=== PATIENT | female | born 1965 | race Two or more races ===

== ENCOUNTER 2020-05-29 07:18 | Outpatient (REF) | payer OTHER, SELFPAY | END 2020-05-29 07:19 | disposition home or self-care (01) | LOC: HO.LAB 07:18 | PROVIDERS: Visit Provider Internal Medicine | DX: Z20.828 Contact with and (suspected) exposure to other viral communicable diseases (principal) | CPT/HCPCS: U0003 ==

== ENCOUNTER 2021-02-04 13:15 | Outpatient (REF) | payer OTHER, SELFPAY ==
--- NOTE | ~2021-02-04 | XR_ITS ---
EXAMINATION: CHEST X-RAY AND PELVIS AND BILATERAL HIP X-RAY CLINICAL INFORMATION: Shortness of breath. Bilateral hip pain. COMPARISON: Previous chest x-ray most recent April 2018 and right hip x-ray April 2014 TECHNIQUE: 2 views of the chest, one view of the pelvis and 2 views of each hip FINDINGS: Chest: The cardiac and mediastinal contours are stable. The lungs are clear. There is no pleural effusion or pneumothorax. Bony structures are unremarkable. Pelvis and bilateral hips: Bone alignment is normal. No fracture or dislocation is seen. There is question of a 1 cm sclerotic density in the left mid femoral shaft. This is seen on one view only. This may represent a bone island. Joint spaces are normal. The bones of the pelvis are unremarkable. There is a soft tissue calcification adjacent to the left greater trochanter. Soft tissues are otherwise unremarkable. XR/XR chest 2V IMPRESSION: Chest: Unremarkable exam Pelvis and bilateral hip x-ray: Small soft tissue calcification adjacent to the left greater trochanter. Question small sclerotic lesion in the left femoral shaft.
--- NOTE | ~2021-02-04 | XR_ITS ---
EXAMINATION: CHEST X-RAY AND PELVIS AND BILATERAL HIP X-RAY CLINICAL INFORMATION: Shortness of breath. Bilateral hip pain. COMPARISON: Previous chest x-ray most recent April 2018 and right hip x-ray April 2014 TECHNIQUE: 2 views of the chest, one view of the pelvis and 2 views of each hip FINDINGS: Chest: The cardiac and mediastinal contours are stable. The lungs are clear. There is no pleural effusion or pneumothorax. Bony structures are unremarkable. Pelvis and bilateral hips: Bone alignment is normal. No fracture or dislocation is seen. There is question of a 1 cm sclerotic density in the left mid femoral shaft. This is seen on one view only. This may represent a bone island. Joint spaces are normal. The bones of the pelvis are unremarkable. There is a soft tissue calcification adjacent to the left greater trochanter. Soft tissues are otherwise unremarkable. XR/XR hip BI w PEL1V IMPRESSION: Chest: Unremarkable exam Pelvis and bilateral hip x-ray: Small soft tissue calcification adjacent to the left greater trochanter. Question small sclerotic lesion in the left femoral shaft.
== END 2021-02-04 13:16 | disposition home or self-care (01) ==
LOC: HO.XRAY 13:15
PROVIDERS: PCP Internal Medicine; Visit Provider Internal Medicine
DX: R06.02 Shortness of breath (principal); M25.552 Pain in left hip; M25.551 Pain in right hip
CPT/HCPCS: 71046; 73521

== ENCOUNTER → 2021-02-22 10:12 | Outpatient (BNVA) | payer OTHER, SELFPAY | PROVIDERS: Visit Provider Physician Assistant ==

== ENCOUNTER → 2021-02-24 10:53 | Outpatient (BNVA) | payer OTHER, SELFPAY | PROVIDERS: Visit Provider Dietitian, Registered | DX: E66.01 Morbid (severe) obesity due to excess calories (principal); Z68.41 Body mass index [BMI] 40.0-44.9, adult | CPT/HCPCS: 97802 ==

== ENCOUNTER → 2021-03-07 10:39 | Outpatient (BNVA) | payer OTHER, SELFPAY | PROVIDERS: Visit Provider Internal Medicine ==

== ENCOUNTER 2021-03-29 10:18 | Outpatient (REF) | payer OTHER, SELFPAY ==
--- NOTE | ~2021-03-29 | MR_ITS ---
EXAMINATION: MR LUMBAR SPINE WITHOUT CONTRAST CLINICAL INFORMATION: Sciatica. Chronic low back pain. COMPARISON: None TECHNIQUE: MRI of the lumbar spine was obtained using routine sequences without contrast. Limited study with motion artifacts. FINDINGS: VERTEBRAL BODIES AND PARASPINAL STRUCTURES: There is an intraosseous hemangioma in the L4 vertebral body. Mild anterolisthesis noted at the L3-L4 level. There are no compression fractures. The remainder of the marrow signal is fairly homogeneous. The paraspinal soft tissues appear normal. The imaged bony pelvis is unremarkable. There is a questionable small 8 mm nodular lesion arising from the anterior left adrenal gland, incompletely assessed. CONUS MEDULLARIS AND CAUDA EQUINA: Normal, terminating at the level of L1. No lower cord signal abnormality is seen. The cauda equina nerve roots are normal. SPINAL LEVELS: T12-L1: Mild posterior disc bulge and facet arthropathy, more so on the left side contributing to mild central canal stenosis. Patent foramina. L1-L2: No disc pathology. No central canal stenosis or foraminal narrowing. L2-L3: Mild right lateralized disc bulge with mild right foraminal encroachment. No central canal stenosis. L3-L4: There is a 5 mm synovial cyst protruding from the anteromedial left facet joint into the central canal resulting in mild thecal sac deformity and mass effect upon the left L4 nerve root. Mild anterolisthesis and moderate facet degeneration with mild central canal stenosis. No foraminal narrowing. L4-L5: No disc pathology. Mild facet arthrosis. No central canal stenosis or foraminal narrowing. L5-S1: Eenz-xi-ursqaulo facet arthropathy. No disc abnormality. No central canal stenosis. Mild right foraminal narrowing. MR/MR lumbar spine wo con IMPRESSION: Mild anterolisthesis and moderate facet degeneration at the L3-L4 level with mild central canal stenosis. A 5 mm synovial cyst protrudes from the left facet joint into the canal with mass effect upon the left L4 nerve root. Mild central canal stenosis due to mild spondylitic changes at the T12-L1 level. Mild right lateralized disc bulge and mild right foraminal encroachment at the L2-L3 level. Partially visualized 8 mm left adrenal nodule which is too small to accurately characterize but statistically likely represents an incidental adrenal adenoma.
== END 2021-03-29 10:19 | disposition home or self-care (01) ==
LOC: HO.MRI 10:18
PROVIDERS: Visit Provider Internal Medicine
DX: M54.30 Sciatica, unspecified side (principal)
CPT/HCPCS: 72148

== ENCOUNTER → 2021-04-08 08:23 | Outpatient (BNVA) | payer OTHER, SELFPAY | PROVIDERS: PCP Internal Medicine; Visit Provider Internal Medicine ==

== ENCOUNTER 2021-04-25 10:53 | Outpatient (REF) | payer OTHER, SELFPAY ==
[2021-04-25 12:12] LABS: MANUAL DIFF FLAG NO
[2021-04-25 12:29] LABS: Basophils Absolute Auto 0.1 X10*3/uL (0.0-0.2); Basophils Percent Auto 0.6 % (0-2); Eosinophils Absolute Auto 0.2 X10*3/uL (0.0-0.4); Eosinophils Percent Auto 2.6 % (0-4); Hematocrit 41.2 % (37-47); Hemoglobin 12.8 g/dl (12.0-16.0); Imm Gran Abs Auto 0.02 X10*3/uL (0.00-0.03); Imm Gran Pct Auto 0.2 % (0.0-0.4); Lymphocytes Absolute Auto 2.1 X10*3/uL (1.2-4.9); Lymphocytes Percent Auto 23.9 % (20-40); Mean Corpuscular HGB Conc 31.1 g/dl (31.0-35.0); Mean Corpuscular Hemoglobin 24.6 pg (27.0-33.0); Mean Corpuscular Volume 79.2 fL (80-98); Mean Platelet Volume 10.4 fL (9.4-12.3); Monocytes Absolute Auto 0.7 X10*3/uL (0.1-1.2); Monocytes Percent Auto 7.9 % (2-11); Neutrophils Absolute Auto 5.7 X10*3/uL (2.0-8.3); Neutrophils Percent Auto 64.8 % (45-73); Platelet Count 320 X10*3/uL (160-400); Red Cell Distribution Width 16.7 % (11.0-16.0); White Blood Count 8.8 X10*3/uL (4.8-10.8)
[2021-04-25 13:08] LABS: Vitamin D 25-OH Total 33.2 ng/mL (>30)
[2021-04-25 13:12] LABS: Folate 10.5 ng/mL (> or = 4.0); Vitamin B12 342 pg/mL (200-900)
[2021-04-25 14:08] LABS: Alanine Aminotransferase 23 U/L (0-31); Albumin Level 4.2 g/dL (3.5-5.0); Alkaline Phosphatase 103 U/L (39-117); Anion Gap 14 (12-20); Aspartate Amino Transferase 21 U/L (5-31); Bilirubin Total 0.5 mg/dL (0.0-1.0); Blood Urea Nitrogen 13 mg/dL (9-16); Calcium 9.9 mg/dL (8.4-10.2); Carbon Dioxide 29 mmol/L (22-29); Chloride 103 mmol/L (96-108); Cholesterol 266 mg/dL; Estimated Glomerular Filt Rate > 60; Glucose Random 107 mg/dL (60-115); HDL Cholesterol 50 mg/dL; LDL Cholesterol Calculated 165 mg/dl; Potassium 4.2 mmol/L (3.3-5.1); Sodium 142 mmol/L (135-145); Total Protein 7.3 g/dL (6.5-8.0); Triglycerides 257 mg/dL
== END 2021-04-25 10:54 | disposition home or self-care (01) ==
LOC: HO.LAB 10:53
PROVIDERS: PCP Internal Medicine; Visit Provider Internal Medicine
DX: I10 Essential (primary) hypertension (principal); E78.00 Pure hypercholesterolemia, unspecified
CPT/HCPCS: 36415; 80053; 80061; 82306; 82607; 82746; 84443; 85025

== ENCOUNTER 2021-04-27 05:49 | Outpatient (REF) | payer OTHER, SELFPAY ==
--- NOTE | ~2021-04-27 | FL_ITS ---
EXAMINATION: XR FLUOROSCOPY WITH IMAGES CLINICAL INFORMATION: Left radiculopathy. COMPARISON: None. TECHNIQUE: Fluoroscopy performed by Emerald Funez. Fluoroscopy time: 0.5 minutes DAP: 2.02 Gycm2 Images: 2 FINDINGS: There are 2 images obtained revealing needle positioned posterior to L3-L4 disc level and contrast opacifying the posterior epidural space. Visualized bones are grossly unremarkable. FL/FL guidance in treatment room IMPRESSION: Fluoroscopy provided to referring physician for pain management.
== END 2021-04-27 05:50 | disposition home or self-care (01) ==
LOC: HO.RADIR 05:49
PROVIDERS: Visit Provider Internal Medicine
DX: M54.16 Radiculopathy, lumbar region (principal)
CPT/HCPCS: 62321; J1040; Q9967

== ENCOUNTER 2021-04-29 11:39 | Outpatient (REF) | payer OTHER, SELFPAY ==
[2021-04-29 13:54] LABS: MANUAL DIFF FLAG NO
[2021-04-29 14:15] LABS: Basophils Absolute Auto 0.1 X10*3/uL (0.0-0.2); Basophils Percent Auto 0.6 % (0-2); Eosinophils Absolute Auto 0.1 X10*3/uL (0.0-0.4); Eosinophils Percent Auto 1.3 % (0-4); Hematocrit 39.4 % (37-47); Hemoglobin 12.3 g/dl (12.0-16.0); Imm Gran Abs Auto 0.06 X10*3/uL (0.00-0.03); Imm Gran Pct Auto 0.6 % (0.0-0.4); Immature Retic Fraction 20.5 % (3.0-15.9); Lymphocytes Absolute Auto 2.4 X10*3/uL (1.2-4.9); Lymphocytes Percent Auto 22.3 % (20-40); Mean Corpuscular HGB Conc 31.2 g/dl (31.0-35.0); Mean Corpuscular Hemoglobin 24.6 pg (27.0-33.0); Mean Corpuscular Volume 78.8 fL (80-98); Mean Platelet Volume 10.3 fL (9.4-12.3); Monocytes Absolute Auto 0.8 X10*3/uL (0.1-1.2); Monocytes Percent Auto 7.5 % (2-11); Neutrophils Absolute Auto 7.4 X10*3/uL (2.0-8.3); Neutrophils Percent Auto 67.7 % (45-73); Platelet Count 320 X10*3/uL (160-400); Red Cell Distribution Width 16.9 % (11.0-16.0); Retic HGB Equivalent 28.4 pg (30.0-35.0); Reticulocyte Percent 1.6 % (0.5-1.8); White Blood Count 10.9 X10*3/uL (4.8-10.8)
[2021-04-29 14:35] LABS: Alanine Aminotransferase 22 U/L (0-31); Albumin Level 4.3 g/dL (3.5-5.0); Alkaline Phosphatase 106 U/L (39-117); Anion Gap 12 (12-20); Aspartate Amino Transferase 21 U/L (5-31); Bilirubin Total 0.4 mg/dL (0.0-1.0); Blood Urea Nitrogen 13 mg/dL (9-16); Calcium 9.9 mg/dL (8.4-10.2); Carbon Dioxide 30 mmol/L (22-29); Chloride 103 mmol/L (96-108); Estimated Glomerular Filt Rate > 60; Glucose Random 100 mg/dL (60-115); Iron 47 mcg/dL (30-160); Percent Iron Saturation 13 % (15-50); Potassium 4.2 mmol/L (3.3-5.1); Sodium 141 mmol/L (135-145); Total Iron Binding Capacity 376 mcg/dL (228-428); Total Protein 7.4 g/dL (6.5-8.0); Unsaturated Iron Binding 329 ug/dL
[2021-04-29 14:47] LABS: Estimated Average Glucose 126 mg/dL
[2021-04-29 14:56] LABS: Ferritin 40 ng/mL (10-250)
== END 2021-04-29 11:40 | disposition home or self-care (01) ==
LOC: HO.LAB 11:39
PROVIDERS: Absent Provider Internal Medicine; PCP Internal Medicine; Visit Provider Internal Medicine
DX: R13.10 Dysphagia, unspecified (principal); R71.8 Other abnormality of red blood cells; M25.512 Pain in left shoulder; M25.511 Pain in right shoulder
CPT/HCPCS: 36415; 80053; 82728; 83036; 83540; 85025; 85045

== ENCOUNTER 2021-05-27 09:54 | Outpatient (REF) | payer OTHER, SELFPAY ==
--- NOTE | ~2021-05-27 | FL_ITS ---
EXAMINATION: FL UPPER GI SERIES AND BARIUM SWALLOW CLINICAL INFORMATION: R13.10 - Dysphagia, unspecified; solids and liquids. COMPARISON: None TECHNIQUE: Upper GI series and barium swallow are performed using fluoroscopic evaluation in addition to multiple fluoroscopic spot views, including cine images during swallowing. The patient is imaged both upright and prone and using both thick and thin barium sulfate along with effervescent granules. Water siphon test performed. Fluoroscopy time: 1.4 minutes DAP: 15.59 Gycm2 Fluoroscopic spot images: 38 FINDINGS: There is normal esophageal motility. The cervical esophagus shows no web or diverticulum, No cervical achalasia. The thoracic esophagus show no obstruction, stricture, or ulceration. There is no hiatal hernia demonstrated. There is large amount of gastroesophageal reflux noted during the water siphon test to the proximal thoracic esophagus. The stomach shows no thickened folds or ulcer crater or outlet obstruction. The duodenal bulb is pliable and without ulcer crater or scarring. The post bulbar duodenum and the upper jejunal mucosal pattern are unremarkable. FL/FL upper GI w air w Ba Swallow IMPRESSION: 1. Gastroesophageal reflux to proximal thoracic esophagus during water siphon test. 2. No esophageal stricture or hiatal hernia. 3. No ulceration or scarring.
== END 2021-05-27 09:55 | disposition home or self-care (01) ==
LOC: HO.XRAY 09:54
PROVIDERS: Visit Provider Internal Medicine
DX: R13.10 Dysphagia, unspecified (principal)
CPT/HCPCS: 74246

== ENCOUNTER → 2021-06-06 14:34 | Outpatient (BNVA) | payer OTHER, SELFPAY | PROVIDERS: PCP Internal Medicine; Visit Provider Internal Medicine ==

== ENCOUNTER 2021-07-13 06:10 | Outpatient (REF) | payer OTHER, SELFPAY ==
--- NOTE | ~2021-07-13 | FL_ITS ---
EXAMINATION: XR FLUOROSCOPY WITH IMAGES CLINICAL INFORMATION: M47.816 - Spondylosis without myelopathy or radiculopathy COMPARISON: MR lumbar spine 03/29/2021 TECHNIQUE: Fluoroscopy performed by Dr. Gamal Frazier. Fluoroscopy time: 0.7 minutes DAP: 9.58 Gycm2 Images: 5 FINDINGS: Spinal needle is present at the L3 interlaminar space. There is epidural contrast seen. No vascular communication demonstrated. FL/FL guidance in treatment room IMPRESSION: Fluoroscopy for pain management procedure.
== END 2021-07-13 06:11 | disposition home or self-care (01) ==
LOC: HO.RADIR 06:10
PROVIDERS: Visit Provider Internal Medicine
DX: M47.816 Spondylosis without myelopathy or radiculopathy, lumbar region (principal); M71.38 Other bursal cyst, other site; M54.16 Radiculopathy, lumbar region
CPT/HCPCS: J1040; Q9967

== ENCOUNTER → 2021-08-12 09:55 | Outpatient (BNVA) | payer OTHER, SELFPAY | PROVIDERS: PCP Internal Medicine; Visit Provider Internal Medicine ==

== ENCOUNTER 2021-09-15 10:14 | Outpatient (REF) | payer OTHER, SELFPAY ==
--- NOTE | 2021-09-15 10:17 | EMG_ITS ---
Left tibial and peroneal motor studies were performed. Left sural, superficial, peroneal, medial, lateral, plantar studies were performed and tibial H-reflex was obtained. Paraspinal muscles were tested with a needle. IMPRESSION: 1. Mild sensory motor axonal peripheral neuropathy. 2. 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 MD SHEELA Alvarado/SOL / [id number]
== END 2021-09-15 10:15 | disposition home or self-care (01) ==
LOC: HO.NEURO 10:14
PROVIDERS: PCP Internal Medicine; Visit Provider Internal Medicine
DX: R20.0 Anesthesia of skin (principal)
CPT/HCPCS: 95886; 95910

== ENCOUNTER 2021-11-01 11:55 | Outpatient (REF) | payer OTHER, SELFPAY ==
[2021-11-01 13:23] LABS: Alanine Aminotransferase 27 U/L (0-31); Albumin Level 4.1 g/dL (3.5-5.0); Alkaline Phosphatase 103 U/L (39-117); Anion Gap 12 (12-20); Aspartate Amino Transferase 24 U/L (5-31); Bilirubin Total 0.5 mg/dL (0.0-1.0); Blood Urea Nitrogen 15 mg/dL (9-16); Calcium 9.7 mg/dL (8.4-10.2); Carbon Dioxide 30 mmol/L (22-29); Chloride 104 mmol/L (96-108); Cholesterol 199 mg/dL; Estimated Glomerular Filt Rate > 60; Glucose Random 95 mg/dL (60-115); HDL Cholesterol 48 mg/dL; LDL Cholesterol Calculated 119 mg/dl; Potassium 3.8 mmol/L (3.3-5.1); Sodium 142 mmol/L (135-145); Total Protein 7.1 g/dL (6.5-8.0); Triglycerides 160 mg/dL
[2021-11-01 14:01] LABS: Estimated Average Glucose 123 mg/dL; Hemoglobin A1c % 5.9 %
== END 2021-11-01 11:56 | disposition home or self-care (01) ==
LOC: HO.LAB 11:55
PROVIDERS: PCP Internal Medicine; Visit Provider Internal Medicine
DX: E78.00 Pure hypercholesterolemia, unspecified (principal)
CPT/HCPCS: 36415; 80053; 80061; 83036

== ENCOUNTER 2022-01-04 14:00 | Outpatient (RCR) | payer OTHER, SELFPAY ==
--- NOTE | 2021-11-16 12:41 | MHC.PT.EP ---
[facility] [place] Office [place] Office [place] Office [address] [phone] F: [phone] F: [phone] F: [phone] F: [phone] Physical Therapy Plan of Care Date of Evaluation: Date of Surgery: Diagnosis: This is a 56 yo female presenting to skilled PT with a script for pain in R shoulder Assessment: This is a 56 yo female presenting to skilled PT with a script for pain in R shoulder. Patient fell onto her R shoulder about 3 weeks ago. She went to [facility] urgent care, had x-rays (no fracture) but reported that she sprained it. PCP was consulted and referred to PT. Pain is located at the R shoulder and radiates to the elbow, pain is described as sharp and achy. She has been using icy hot and ice as well as massage from her . Assessment reveals pain that ranges up to a 10/10. She demos decreased ROM, decreased strength, impaired posture, increased tenderness to palpation and impaired joint mobility expected s/p fall and immobility from sling. She has a gross functional decline with all movements for ADLs and housework. She is a good candidate for skilled PT 2x/wk for 5wks. Frequency and Duration: The patient will be seen 2x/wk for 5wks Short Term Goals: I in HEP Demo good scap/retract/stab with HEP without need from cues from PT Usp Goals: Demos functional ROM and strength Improve SPADI by at least 10 points Improve pain at the worst to no more than 2/10 Demo proper lifting, squatting and carrying techniques without increase in pain or radiating symptoms Treatment Plan: Modalities to reduce pain, spasms and effusion. Manual therapy to restore motion and function. Therapeutic exercise to improve strength and flexibility. Neuromuscular re-education for posture and balance. Therapeutic activities to return to functional activities of daily living. Electronically signed by: Coral Zavala PT Please sign and return to therapist. Thank you for your referral.
--- NOTE | 2022-02-06 17:39 | MHC.PT.DC ---
[facility] [place] Office [place] Office [place] Office [address] [phone] F: [phone] F: [phone] F: [phone] F: [phone] Physical Therapy Discharge Report Diagnosis: This is a 56 yo female presenting to skilled PT with a script for pain in R shoulder Date of Surgery: Date of Evaluation: 11/16/21 Date of Discharge: 02/06/22 Treatments to Date: 8 Cancellations to Date: No Shows to Date: Discharge Status: Patient Elected to Stop Discharge Summary: At the last tx session, pt seeing ortho and pcp soon, wants to hold PT as she does not feel like she is getting better. She is still in alot of pain and does not feel like she is progressing anymore. Holding PT for now. DC'd chart after 30 days. Electronically signed by: Coral Zavala PT Please sign and return to therapist. Thank you for your referral.
== END 2022-02-06 17:40 | disposition home or self-care (01) ==
LOC: HO.PTCHIC 14:00
PROVIDERS: PCP Internal Medicine; Visit Provider Internal Medicine
DX: M25.511 Pain in right shoulder (principal)
CPT/HCPCS: 97014; 97035; 97110; 97140; 97162

== ENCOUNTER 2022-01-20 07:26 | Outpatient (REF) | payer OTHER, SELFPAY ==
--- NOTE | ~2022-01-20 | XR_ITS ---
EXAMINATION: XR SHOULDER, RIGHT CLINICAL INFORMATION: Pain COMPARISON: None TECHNIQUE: 3 views of the right shoulder. FINDINGS: There is mild loss of AC joints space with inferior periarticular spurring. The glenohumeral joint space is maintained normal. No visible acute fracture, dislocation or subluxation seen. XR/XR shoulder RT min 2V IMPRESSION: Mild degenerative changes right AC joint. No visible acute fracture, dislocation or subluxation seen.
== END 2022-01-20 07:27 | disposition home or self-care (01) ==
LOC: HO.HOSX 07:26
PROVIDERS: Visit Provider Physician Assistant
DX: M25.511 Pain in right shoulder (principal)
CPT/HCPCS: 73030

== ENCOUNTER 2022-02-08 18:16 | Outpatient (REF) | payer OTHER, SELFPAY ==
--- NOTE | ~2022-02-08 | MR_ITS ---
EXAMINATION: MR SHOULDER WITHOUT CONTRAST, RIGHT CLINICAL INFORMATION: Right shoulder and upper arm pain following a fall 1-2 months ago. COMPARISON: None TECHNIQUE: MRI of the shoulder without contrast was performed on a high-field scanner. FINDINGS: ROTATOR CUFF: Complete, full-thickness tears of the supraspinatus and infraspinatus tendons measuring up to 3.7 cm in AP dimension and 3.8 cm in ML dimension. The torn tendon fibers are retracted to the glenohumeral articulation. There is moderate supraspinatus and infraspinatus muscle atrophy. Prominent subscapularis tendinosis with distal articular surface and intrasubstance partial tearing measuring 2.8 cm in ML dimension. BICEPS: The proximal long head biceps tendinosis. CORACOACROMIAL ARCH: The undersurface of the acromion is flat with no subacromial spur. Dvtudtgu-dv-[id number] acromioclavicular osteoarthritis. LABRUM/CAPSULE: Irregularity and degeneration of the superior labrum without a displaced undersurface tear. Intact inferior joint capsule. GLENOHUMERAL JOINT/MARROW: Moderate joint effusion. No acute osseous injury. MR/MR shoulder RT wo con IMPRESSION: 1. Complete supraspinatus and infraspinatus tendon tears with retraction of the torn tendon fibers to the glenohumeral articulation. Moderate supraspinatus and infraspinatus muscle atrophy. 2. Prominent subscapularis tendinosis with distal articular surface and intrasubstance partial tearing measuring 2.8 cm in minimal dimension. 3. Proximal long head biceps tendinosis. 4. Degenerative signal within the superior labrum without displaced tearing. Moderate glenohumeral joint effusion. 5. Mbytveim-wn-iwlxea acromioclavicular osteoarthritis.
== END 2022-02-08 18:17 | disposition home or self-care (01) ==
LOC: HO.MRI 18:16
PROVIDERS: Visit Provider Physician Assistant
DX: M75.101 Unspecified rotator cuff tear or rupture of right shoulder, not specified as traumatic (principal); M75.41 Impingement syndrome of right shoulder
CPT/HCPCS: 73221

== ENCOUNTER 2022-05-08 13:08 | Outpatient (REF) | payer OTHER, SELFPAY ==
--- NOTE | ~2022-05-08 | XR_ITS ---
EXAMINATION: XR CHEST CLINICAL INFORMATION: Pneumonia, unspecified organism COMPARISON: 02/14/2021. TECHNIQUE: 2 views of the chest were obtained. Patient slightly rotated to the right. FINDINGS: No focal infiltrates or vascular congestion seen. Pleural surfaces are clear. There appears to be a pectus excavatum. No thoracic compression fractures appear XR/XR chest 2V IMPRESSION: No evidence for acute process.
[2022-05-08 13:51] LABS: Binax Internal Control QC Valid; Binax Now Covid-19 Ag Negative (Negative); Binax Performed by: HO.BONILM
== END 2022-05-08 13:09 | disposition home or self-care (01) ==
LOC: HO.HMGCX 13:08
PROVIDERS: PCP Internal Medicine; Visit Provider Internal Medicine
DX: Z20.822 Contact with and (suspected) exposure to COVID-19 (principal); J18.9 Pneumonia, unspecified organism; J06.9 Acute upper respiratory infection, unspecified
CPT/HCPCS: 71046; 87811; C9803

== ENCOUNTER 2022-05-12 12:54 | Outpatient (REF) | payer OTHER, SELFPAY ==
[2022-05-12 13:11] LABS: MANUAL DIFF FLAG NO
[2022-05-12 13:40] LABS: Basophils Absolute Auto 0.1 X10*3/uL (0.0-0.2); Basophils Percent Auto 0.6 % (0-2); Eosinophils Absolute Auto 0.3 X10*3/uL (0.0-0.4); Eosinophils Percent Auto 2.3 % (0-4); Hematocrit 45.4 % (37.0-47.0); Hemoglobin 14.2 g/dl (12.0-16.0); Imm Gran Abs Auto 0.05 X10*3/uL (0.00-0.03); Imm Gran Pct Auto 0.4 % (0.0-0.4); Lymphocytes Absolute Auto 2.2 X10*3/uL (1.2-4.9); Lymphocytes Percent Auto 19.9 % (20-40); Mean Corpuscular HGB Conc 31.3 g/dl (31.0-35.0); Mean Corpuscular Hemoglobin 24.1 pg (27.0-33.0); Mean Corpuscular Volume 76.9 fL (80.0-98.0); Mean Platelet Volume 10.3 fL (9.4-12.3); Monocytes Absolute Auto 0.9 X10*3/uL (0.1-1.2); Monocytes Percent Auto 8.3 % (2-11); Neutrophils Absolute Auto 7.7 x10*3/uL (2.0-8.3); Neutrophils Percent Auto 68.5 % (45-73); Platelet Count 324 X10*3/uL (160-400); Red Cell Distribution Width 16.2 % (11.0-16.0); White Blood Count 11.2 X10*3/uL (4.8-10.8)
[2022-05-12 13:48] LABS: Appearance Urine Cloudy; Color Urine Dark Yellow; Glucose Urine UA Negative (Negative); Leukocyte Esterase Urine Trace (Negative); Nitrite Urine Negative (Negative); PH 5.5 (5.0-9.0); Specific Gravity - Urine >= 1.030 (1.005-1.025); UMIC TRIGGER UA YES; Urine Blood Negative (Negative); Urine Ketones 15 mg/dL (Negative); Urine Protein >=1000 (4+) mg/dL (Neg-Trace)
[2022-05-12 13:48] LABS: Estimated Average Glucose 126 mg/dL
[2022-05-12 14:03] LABS: Bacteria Urine None Seen (None Seen); Calcium Oxalate Crystals Urine Present; Squamous Epithelial Cell Urine >20 /HPF (0-2)
[2022-05-12 14:35] LABS: Folate > 20.0 ng/mL (> or = 4.0); Vitamin B12 490 pg/mL (200-900)
== END 2022-05-12 12:55 | disposition home or self-care (01) ==
LOC: HO.LAB 12:54
PROVIDERS: PCP Internal Medicine; Visit Provider Internal Medicine
DX: E78.00 Pure hypercholesterolemia, unspecified (principal); R73.02 Impaired glucose tolerance (oral)
CPT/HCPCS: 36415; 81001; 82607; 82746; 83036; 85025

== ENCOUNTER 2022-05-12 15:40 | Emergency (ER) | payer OTHER, SELFPAY ==
[2022-05-12] VITALS (8 sets, daily range): BP systolic 169–239; BP diastolic 86–139; PULSE 78–84; RESP 17–23; TEMP 36.8–37; O2SAT 92–96; BMI 40.4
--- NOTE | ~2022-05-12 | CT_ITS ---
EXAM: CT scan of the head and cervical spine. INDICATION: Reason for Exam headaches and hypertensive emergency TECHNIQUE: A noncontrast CT scan was performed from the skull base to the vertex. A noncontrast CT scan of the cervical spine was performed from the base of the skull through T1 at 2.5 mm and 1.25 mm collimation. Coronal and sagittal reformats were obtained at the acquisition workstation. This CT examination was performed using dose optimization techniques as appropriate, variously including the following: *Automated exposure control *Adjustment of mA and/or kV according to patient size (this includes techniques or standardized protocols for targeted exams where dose is matched to indication/reason for exam; i.e. extremities or head) *Use of iterative reconstruction technique DLP: 631 mGy-cm COMPARISON: None FINDINGS: Head: There is no evidence of acute intracranial hemorrhage or territorial infarction. Garcia-white matter differentiation is preserved. No abnormal mass effect or midline shift. No extra-axial fluid collections. No abnormal attenuation is demonstrated within the brain parenchyma. 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 In addition, there is involvement of the striatocapsular regions consistent with involvement of the lenticular striate arteries as well. The ventricles and sulcal spaces are proportional without hydrocephalus. Proportional prominence of the ventricles and sulcal spaces. No acute osseous or soft tissue abnormalities. The mastoid air cells and visualized portions of the paranasal sinuses are well aerated. Cervical Spine: The atlantooccipital and atlantoaxial articulations remain well aligned. Straightening of the normal cervical lordosis. Otherwise, there is anatomic alignment of the vertebral bodies and posterior elements. No evidence of acute fracture or subluxation. Moderate degenerative disc disease most notable at C6-C7. There is no prevertebral soft tissue swelling. The thyroid gland and remaining cervical soft tissues are notable for moderate cord is enlargement of the thyroid gland. The lung apices demonstrate no abnormalities. CT/CT cervical spine wo IV con IMPRESSION: No acute intracranial pathology. No acute fracture subluxation cervical spine.
--- NOTE | 2022-05-12 16:35 | ECG_ITS ---
Test Reason : HYPERTENSION Blood Pressure : / mmHG Vent. Rate : 078 BPM Atrial Rate : 078 BPM P-R Int : 128 ms QRS Dur : 078 ms QT Int : 404 ms P-R-T Axes : -29 -13 007 degrees QTc Int : 460 ms Normal sinus rhythm Moderate voltage criteria for LVH, may be normal variant ( R in aVL , Patrick product ) Abnormal ECG When compared with ECG of 22-AUG-2015 07:24, QT has lengthened Heart rate has increased Referred By: Generic ED Physician Electronically Signed By:PRADEEP VILLEGAS MD
[2022-05-12] MEDS: Acetaminophen 325 MG TABLET 650 MG PO (16:40)
[2022-05-12 16:53] LABS: MANUAL DIFF FLAG NO
[2022-05-12 17:01] LABS: Basophils Absolute Auto 0.1 X10*3/uL (0.0-0.2); Basophils Percent Auto 0.8 % (0-2); Eosinophils Absolute Auto 0.2 X10*3/uL (0.0-0.4); Eosinophils Percent Auto 1.8 % (0-4); Hematocrit 43.1 % (37.0-47.0); Hemoglobin 13.7 g/dl (12.0-16.0); Imm Gran Abs Auto 0.06 X10*3/uL (0.00-0.03); Imm Gran Pct Auto 0.5 % (0.0-0.4); Lymphocytes Absolute Auto 2.6 X10*3/uL (1.2-4.9); Lymphocytes Percent Auto 21.8 % (20-40); Mean Corpuscular HGB Conc 31.8 g/dl (31.0-35.0); Mean Corpuscular Hemoglobin 24.7 pg (27.0-33.0); Mean Corpuscular Volume 77.7 fL (80.0-98.0); Mean Platelet Volume 10.1 fL (9.4-12.3); Monocytes Absolute Auto 1.1 X10*3/uL (0.1-1.2); Neutrophils Absolute Auto 7.9 x10*3/uL (2.0-8.3); Neutrophils Percent Auto 66.1 % (45-73); Platelet Count 300 X10*3/uL (160-400); Red Blood Count 5.55 X10*6/uL (4.20-5.50); Red Cell Distribution Width 17.4 % (11.0-16.0)
[2022-05-12 17:16] LABS: Alanine Aminotransferase 40 U/L (0-31); Albumin Level 4.5 g/dL (3.5-5.0); Alkaline Phosphatase 115 U/L (39-117); Anion Gap 19 (12-20); Aspartate Amino Transferase 45 U/L (5-31); Bilirubin Total 0.3 mg/dL (0.0-1.0); Blood Urea Nitrogen 17 mg/dL (9-16); Carbon Dioxide 24 mmol/L (22-29); Chloride 103 mmol/L (96-108); Estimated Glomerular Filt Rate > 60; Glucose Random 97 mg/dL (60-115); Sodium 142 mmol/L (135-145); Total Protein 8.2 g/dL (6.5-8.0)
[2022-05-12 17:19] LABS: Troponin-I High Sensitivity 84.7 ng/L (<3.5-17.0)
[2022-05-12 18:27] LABS: Appearance Urine Clear; Color Urine Dark Yellow; Glucose Urine UA Negative (Negative); Leukocyte Esterase Urine Negative (Negative); Nitrite Urine Negative (Negative); PH 6.5 (5.0-9.0); Specific Gravity - Urine 1.025 (1.005-1.025); UMIC TRIGGER UACC YES; Urine Blood Negative (Negative); Urine Ketones Trace mg/dL (Negative); Urine Protein 300 (3+) mg/dL (Neg-Trace)
[2022-05-12 18:37] LABS: Bacteria Urine None Seen (None Seen); Hyaline Casts Urine 0-2 /LPF (0-2); WBC Urine 0-5 /HPF (0-5)
[2022-05-12] MEDS: Metoclopramide HCl 10 MG/2 ML VIAL IVPUSH (19:16)
[2022-05-12] MEDS: Morphine Sulfate 4 MG/ML CARTRIDGE IVPUSH (19:16)
[2022-05-12] MEDS: diphenhydrAMINE HCL 50 MG/ML VIAL IVPUSH (19:16)
[2022-05-12 19:54] LABS: Troponin-I High Sensitivity 77.2 ng/L (<3.5-17.0)
--- NOTE | 2022-05-12 20:26 | ED_ITS ---
HPI - General Adult General Chief complaint: Abdominal Pain Stated complaint: high BP/headaches/abd pain/vomiting Time Seen by Provider: 05/12/22 17:44 Source: patient and family Mode of arrival: ambulatory Limitations: no limitations History of Present Illness HPI narrative: Patient is a 57-year-old female with a past medical history of hypertension, obesity, GERD, hypertriglyceridemia, hypocholesterolemia, thyroid nodule, peripheral vascular disease, generalized anxiety disorder, dysplasia, microcytosis, impaired glucose tolerance, and multiple muscular skeletal complaints/disorders presenting with a headache and hypertension. Patient reports that she has had hypertension in the 200s/100s for the past 2 weeks. Patient reports that she called her physician last week and was informed to go to the urgent care, urgent care informed her to continue her hypertensive medication, diagnosed her with pneumonia and placed her on antibiotics. Patient continued to have hypertension, her headache worsened started to radiate from the back side of her head up to the top /frontal aspect of her head, and she sta rted to developed dizziness, nausea, vomiting, chest pain, shortness of breath and epigastric abdominal pain. Patient denies fever, changes in vision, wheezing, cough, hearing changes, altered mental status, weakness, difficulty walking, lower extremity edema or calf tenderness, recent travel or sick contacts or any other symptoms complaints or concerns at this time.. Patient states that she decided to come to the emergency department today because her symptoms have worsened, and she was concerned about her high blood pressure. Patient states that her hypertensive medications are clonidine and hydralazine. Patient denies history of seizures. Patient reports that she takes her blood p ressure medication regularly and took them today. MD complaint: Headache and high blood pressure Onset (ago): week(s) (2) Location: head (Headache and ear pain) and abdomen Radiation: other (Headache starts posterior and radiates superiorly) Severity: moderate Quality: aching, sharp and constant Pain Consistency: constant Relieving factors: none Associated symptoms: headaches and nausea/vomiting Treatments prior to arrival: other (Home blood pressure medication) Related Data Home Medications Medication Instructions Recorded Confirmed honey-marshmallow root extract spray PO BID 03/07/21 11/21/21 oral 82 mg/4 spray multivitamin,tx-minerals 1 tab PO DAILY 08/04/21 11/21/21 magnesium hydroxide 311 mg 311 mg PO BEDTIME PRN 01/20/22 chewable tablet Previous Rx's Medication Instructions Recorded aspirin 81 mg tablet,delayed 81 mg PO DAILY 90 days #90 tabs 06/30/21 release (Adult Aspirin Regimen) calcium carbonate 500 mg-vitamin 1 tab PO DAILY #90 tabs 08/11/21 D3 10 mcg (400 unit) tablet (Calcium 500 + D) valacyclovir 1 gram tablet 1,000 mg PO DAILY 90 days #90 tabs 11/03/21 atorvastatin 20 mg tablet 20 mg PO DAILY #90 tabs 11/04/21 hydralazine 50 mg tablet 50 mg PO TID 90 days #270 tabs 11/04/21 metoprolol succinate 100 mg 100 mg PO DAILY #90 tabs 11/04/21 tablet,extended release 24 hr omeprazole 20 mg capsule,delayed 20 mg PO DAILY 90 days #90 caps 11/04/21 release sertraline 100 mg tablet 100 mg PO DAILY #90 tabs 11/04/21 cyclobenzaprine 10 mg tablet 10 mg PO TID PRN muscle spasm #30 11/21/21 tabs meloxicam 15 mg tablet 15 mg PO DAILY 30 days #30 tabs 11/29/21 amoxicillin 500 mg capsule 500 mg PO Q8H #30 caps 05/08/22 blood pressure monitor #1 ea 05/12/22 carvedilol 6.25 mg tablet (Coreg) 6.25 mg PO BID Hypertension #30 05/12/22 tabs clonidine HCl 0.2 mg tablet 0.4 mg PO BID #360 tabs 05/12/22 Allergies Allergy/AdvReac Type Severity Reaction Status Date / Time erythromycin base Allergy Mild VOMITING Verified 05/12/22 16:30 [Erythromycin Base] Sulfa (Sulfonamide Allergy Mild ITCHING Verified 05/12/22 16:30 Antibiotics) lisinopril AdvReac Unknown cough Verified 05/12/22 16:30 Review of Systems Review of Systems: Constitutional : No Weight loss, No Fever, No Chills, No Night Sweats, No Fatigue, No Malaise, + recent pneumonia diagnosis ENT/Mouth : No Hearing loss, No Ear Pain, No Nasal Congestion, No Sinus Pain, No Hoarseness, No sore throat, No Rhinorrhea, No Swallowing Difficulty Eyes: No Eye Pain, No Swelling, No Redness, No Foreign Body, No Discharge, No Vision Changes Cardiovascular : + Chest Pain, + SOB, No Dyspnea on Exertion, No Orthopnea, No Edema, No Palpitations Respiratory : No Cough, No Sputum, No Wheezing, No Dyspnea Gastrointestinal : + Nausea, + Vomiting, No Diarrhea, No Constipation, + abdominal Pain, No Hematochezia, No Melena Genitourinary : no irregular bleeding, No Dysuria, No Urinary Frequency, No Hematuria, No Urinary Incontinence, No Urgency, No Flank Pain, No Urinary Flow Changes, No Hesitancy Musculoskeletal : No joint pain, No Myalgias, No Joint Swelling, + neck pain Skin : No Skin Lesions, No rash Neuro : No Weakness, No Numbness, No Paresthesias, No Loss of Consciousness, + Dizziness, + Headache Yes all other systems are reviewed and are negative [facility] Past Medical History Attestation statement: The following information was validated with the patient. Source: old records reviewed, obtained from family and nursing notes reviewed Medical History GERD (gastroesophageal reflux disease) Hypercholesterolemia Hypertension Impaired glucose tolerance Surgical History Hx of cholecystectomy Family History Family History Father CKD (chronic kidney disease) Hypertension Myocardial infarct Mother Dementia Sister Brain aneurysm Bone cancer Schizophrenia Brother No problems noted. Brother Myocardial infarct Son No problems noted. 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 Cognitive needs: No Hearing needs: No Vision needs: No Physical Exam ED Vital Signs: Vital Signs - 24 hr 05/12/22 16:31 05/12/22 17:39 05/12/22 18:11 Temperature 98.2 F 98.6 F 98.3 F Pulse Rate 79 80 78 Respiratory Rate 18 22 H 17 Blood Pressure 239/139 H 230/107 H 213/100 H Pulse Oximetry 96 96 95 Oxygen Delivery Method Room Air Room Air Room Air 05/12/22 19:50 05/12/22 19:10 05/12/22 20:00 Temperature 98.3 F Pulse Rate 79 79 Respiratory Rate 23 H Blood Pressure 184/91 H 234/115 H 181/95 H Pulse Oximetry 92 Oxygen Delivery Method Room Air 05/12/22 20:40 05/12/22 21:36 Temperature Pulse Rate 83 84 Respiratory Rate Blood Pressure 174/93 H 169/86 H Pulse Oximetry Oxygen Delivery Method BMI result Body Mass Index 40.4 Vital signs have been reviewed. Patient is hypertensive 16:31 blood pressure was 239/139. All other vital signs were within normal limits at this time. Appearance: Alert. Oriented X3. No acute distress. Head: Normal external exam. Normocephalic. Eyes: PERRLA. EOMI. Conjunctiva and sclera normal. Eyelids normal. ENT: Pharynx normal. Uvula midline. Moist mucous membranes. No trismus noted. No drooling noted. No muffled voice noted. TM visualized, landmarks noted, no signs of discharge & no bulging. Neck: Normal inspection. Neck supple. FROM. No adenopathy. No meningeal signs. CVS: Normal heart rate and rhythm. Heart sound normal. No murmurs noted. Pulses normal throughout. Respiratory: No respiratory distress. Painless inspiration. Breath sounds normal. No wheezes/rales/rhonchi noted. Chest nontender. No accessory muscle usage noted or decreased air movement noted. Abdomen: Soft and nontender. Nondistended. No guarding. No rigidity. Bowel sounds normal in all 4 quadrants. No distention noted. No organomegaly noted. No visible injury noted. No rebound tenderness. Negative Rovsing sign. Negative obturator's sign. Negative psoas sign. Negative Lee sign. Back: No CVA tenderness. Full range of motion noted. Skin: Skin warm and dry. Normal skin color. Normal skin turgor. No rashes/lesions/lacerations noted. Extremities: No lower extremity edema or calf tenderness noted.Extremities exhibit normal range of motion. Extremities nontender. Neuro: Oriented X 3. No motor deficit. No sensory deficit. Reflexes normal. Normal steady gait. CN's II-XII intact bilaterally? Course Course Course Narrative: 17:50pm - Patient is a 57-year-old female hypertension, obesity, GERD, hypertriglyceridemia, hypocholesterolemia, thyroid nodule, peripheral vascular disease, generalized anxiety disorder, dysplasia, microcytosis, impaired glucose tolerance, and multiple muscular skeletal complaints presenting with hypertensive emergency, headache, dizziness, nausea, vomiting, Chest pain, sob and abdominal pain. Physical exam relatively significant for a blood pressure o f 239/139, no other significant findings noted on exam Patient states that her hypertensive medications are 0.4 mg of clonidine b.i.d. and 50 mg of hydralazine. she reports she took as prescribed today. Plan: - labs: CBC, CMP, troponin - UA - CT head/brain without contrast, CT cervical spine without contrast - EKG - continuous cardiac monitoring - pain/ headache management: Acetaminophen, Metoclopramide, diphenhydramine, morphine - blood pressure management: Hydralazine clonidine, pain management Reevaluation(s) Reevaluation #1: Labs Troponin (84.7); 3 hour troponin (77.2) -troponin decreased, therefore low likelihood cardiac ischemia. Elevated level likely due to severe hypertension Initial CBC: WBC (11.2); RBC (5.90); MCV (76.9); MCH (24.1); RDW (16.2); immature gran % (0.4); Abs Immat Gran (0.05); Lymph % (19.9). All other lab levels within normal limits Repeat CBC: WBC (12.0); RBC (5.55); MCV (77.7); MCH (24.7); RDW (17.4); immature gran % (0.5); Abs Immat Gran (0.06); Lymph % (21.8). All other lab levels within normal limits - MCV, MCH, RDW near baseline levels. Chem: BUN (17); creatinine (0.92); estimated GFR >60; AST (45); ALT (40); total protein (8.2). All other lab levels within normal limits. - patient's creatinine and estimated GFR are at normal limits. BUN elevation likely due to dehydration. Initial UA: Urine protein >1000 (4+); trace leukocyte esterase; urine RBC (6- 10); urine WBC (6-10) . no signs of infection Repeat UA: Urine protein 300 (3+); negative leukocyte esterase; urine RBC (11- 20); urine WBC (0-5). No signs of infection. EKG: - normal sinus rhythm, no ST elevation or depression Imaging: - head CT: No intracranial pathology; no subluxation of the cervical spine (see full report for further details) - cervical spine CT: No acute intracranial pathology; no acute fracture or subluxation of the cervical spine (see full report for further details) - I consulted with Nephrology Dr. Alarcon and he reported that the patient if she is discharged and follow-up as an outpatient basis and to add a urine to creatinine protein ratio at this time. Otherwise no other emergent treatment at this time. - I also consulted with Dr. Gonzalez the supervisor bottle machines and he recommended starting the patient on Coreg 6.25 mg BID then follow-up as an outpatient basis. - Blood pressure at this time is 169/86. Therefore at this time will order a dose of carvedilol 6.25 mg at this time. Patient reports she feels much better would like to go home. She will follow-up as an outpatient basis with him. Patient understands agrees with this plan. Time: 20:58 Medical Decision Making Medical Records Medical records reviewed: Yes I reviewed the patient's medical records. Lab Data Lab results reviewed: Yes I reviewed the patient's lab results. Result diagrams: 05/12/22 16:47 05/12/22 16:48 Labs: Lab Results 05/12/22 05/12/22 05/12/22 Range/Units 16:47 16:47 16:48 WBC 12.0 H (4.8-10.8) X10*3/uL RBC 5.55 H (4.20-5.50) X10*6/uL Hgb 13.7 (12.0-16.0) g/dl Hct 43.1 (37.0-47.0) % MCV 77.7 L (80.0-98.0) fL MCH 24.7 L (27.0-33.0) pg MCHC 31.8 (31.0-35.0) g/dl RDW 17.4 H (11.0-16.0) % Plt Count 300 (160-400) X10*3/uL MPV 10.1 (9.4-12.3) fL Immature Gran % (Auto) 0.5 H (0.0-0.4) % Neut % (Auto) 66.1 (45-73) % Lymph % (Auto) 21.8 (20-40) % Grand % (Auto) 9.0 (2-11) % Eos % (Auto) 1.8 (0-4) % Baso % (Auto) 0.8 (0-2) % Lymph # (Auto) 2.6 (1.2-4.9) X10*3/uL Grand # (Auto) 1.1 (0.1-1.2) X10*3/uL Eos # (Auto) 0.2 (0.0-0.4) X10*3/uL Baso # (Auto) 0.1 (0.0-0.2) X10*3/uL Abs Immat Gran (auto) 0.06 H (0.00-0.03) X10*3/uL Absolute Neuts (auto) 7.9 (2.0-8.3) x10*3/uL Absolute Nucleated RBC 0.000 (0.0-0.012) X10*3/uL Nucleated RBC % (auto) 0.0 (0.0-0.2) /100WBC Sodium 142 (135-145) mmol/L Potassium 4.0 (3.3-5.1) mmol/L Chloride 103 (96-108) mmol/L Carbon Dioxide 24 (22-29) mmol/L Anion Gap 19 (12-20) BUN 17 H (9-16) mg/dL Creatinine 0.92 (0.5-1.4) mg/dL Estim Creat Clear Calc 67.0 Estimated GFR > 60 Random Glucose 97 (60-115) mg/dL Calcium 10.0 (8.4-10.2) mg/dL Total Bilirubin 0.3 (0.0-1.0) mg/dL AST 45 H D (5-31) U/L ALT 40 H (0-31) U/L Alkaline Phosphatase 115 (39-117) U/L Troponin I High Sens 84.7 H* (<3.5-17.0) ng/L Total Protein 8.2 H (6.5-8.0) g/dL Albumin 4.5 (3.5-5.0) g/dL Urine Color Urine Appearance Urine pH (5.0-9.0) Ur Specific [place] (1.005-1.025) Urine Protein (Neg-Trace) mg/dL Urine Glucose (UA) (Negative) mg/dL Urine Ketones (Negative) mg/dL Urine Blood (Negative) Urine Nitrite (Negative) Ur Leukocyte Esterase (Negative) Urine RBC (0-2) /HPF Urine WBC (0-5) /HPF Ur Squamous Epith Cells (0-2) /HPF Urine Bacteria (None Seen) Hyaline Casts (0-2) /LPF 05/12/22 05/12/22 Range/Units 18:19 19:14 WBC (4.8-10.8) X10*3/uL RBC (4.20-5.50) X10*6/uL Hgb (12.0-16.0) g/dl Hct (37.0-47.0) % MCV (80.0-98.0) fL MCH (27.0-33.0) pg MCHC (31.0-35.0) g/dl RDW (11.0-16.0) % Plt Count (160-400) X10*3/uL MPV (9.4-12.3) fL Immature Gran % (Auto) (0.0-0.4) % Neut % (Auto) (45-73) % Lymph % (Auto) (20-40) % Grand % (Auto) (2-11) % Eos % (Auto) (0-4) % Baso % (Auto) (0-2) % Lymph # (Auto) (1.2-4.9) X10*3/uL Grand # (Auto) (0.1-1.2) X10*3/uL Eos # (Auto) (0.0-0.4) X10*3/uL Baso # (Auto) (0.0-0.2) X10*3/uL Abs Immat Gran (auto) (0.00-0.03) X10*3/uL Absolute Neuts (auto) (2.0-8.3) x10*3/uL Absolute Nucleated RBC (0.0-0.012) X10*3/uL Nucleated RBC % (auto) (0.0-0.2) /100WBC Sodium (135-145) mmol/L Potassium (3.3-5.1) mmol/L Chloride (96-108) mmol/L Carbon Dioxide (22-29) mmol/L Anion Gap (12-20) BUN (9-16) mg/dL Creatinine (0.5-1.4) mg/dL Estim Creat Clear Calc Estimated GFR Random Glucose (60-115) mg/dL Calcium (8.4-10.2) mg/dL Total Bilirubin (0.0-1.0) mg/dL AST (5-31) U/L ALT (0-31) U/L Alkaline Phosphatase (39-117) U/L Troponin I High Sens 77.2 H* (<3.5-17.0) ng/L Total Protein (6.5-8.0) g/dL Albumin (3.5-5.0) g/dL Urine Color Dark Yellow Urine Appearance Clear Urine pH 6.5 (5.0-9.0) Ur Specific [place] 1.025 (1.005-1.025) Urine Protein 300 (3+) H (Neg-Trace) mg/dL Urine Glucose (UA) Negative (Negative) mg/dL Urine Ketones Trace (Negative) mg/dL Urine Blood Negative (Negative) Urine Nitrite Negative (Negative) Ur Leukocyte Esterase Negative (Negative) Urine RBC 11-20 H (0-2) /HPF Urine WBC 0-5 (0-5) /HPF Ur Squamous Epith Cells 3-5 (0-2) /HPF Urine Bacteria None Seen (None Seen) Hyaline Casts 0-2 (0-2) /LPF Imaging Data CT scan - head: Attestation: I personally reviewed and interpreted this imaging study as follows: Radiologist's impression: FINDINGS: Head: There is no evidence of acute intracranial hemorrhage or territorial infarction. Garcia-white matter differentiation is preserved. No abnormal mass effect or midline shift. No extra-axial fluid collections. No abnormal attenuation is demonstrated within the brain parenchyma. 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 In addition, there is involvement of the striatocapsular regions consistent with involvement of the lenticular striate arteries as well. The ventricles and sulcal spaces are proportional without hydrocephalus. Proportional prominence of the ventricles and sulcal spaces. No acute osseous or soft tissue abnormalities. The mastoid air cells and visualized portions of the paranasal sinuses are well aerated. Cervical Spine: The atlantooccipital and atlantoaxial articulations remain well aligned. Straightening of the normal cervical lordosis. Otherwise, there is anatomic alignment of the vertebral bodies and posterior elements. No evidence of acute fracture or subluxation. Moderate degenerative disc disease most notable at C6-C7. There is no prevertebral soft tissue swelling. The thyroid gland and remaining cervical soft tissues are notable for moderate cord is enlargement of the thyroid gland. The lung apices demonstrate no abnormalities. CT/CT head/brain wo IV con IMPRESSION: No acute intracranial pathology. No acute fracture subluxation cervical spine. CT- cervical spine: Attestation: I personally reviewed and interpreted this imaging study as follows: Radiologist's impression: FINDINGS: Head: There is no evidence of acute intracranial hemorrhage or territorial infarction. Garcia-white matter differentiation is preserved. No abnormal mass effect or midline shift. No extra-axial fluid collections. No abnormal attenuation is demonstrated within the brain parenchyma. 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 In addition, there is involvement of the striatocapsular regions consistent with involvement of the lenticular striate arteries as well. The ventricles and sulcal spaces are proportional without hydrocephalus. Proportional prominence of the ventricles and sulcal spaces. No acute osseous or soft tissue abnormalities. The mastoid air cells and visualized portions of the paranasal sinuses are well aerated. Cervical Spine: The atlantooccipital and atlantoaxial articulations remain well aligned. Straightening of the normal cervical lordosis. Otherwise, there is anatomic alignment of the vertebral bodies and posterior elements. No evidence of acute fracture or subluxation. Moderate degenerative disc disease most notable at C6-C7. There is no prevertebral soft tissue swelling. The thyroid gland and remaining cervical soft tissues are notable for moderate cord is enlargement of the thyroid gland. The lung apices demonstrate no abnormalities. CT/CT cervical spine wo IV con IMPRESSION: No acute intracranial pathology. No acute fracture subluxation cervical spine. Chest x-ray: Attestation: I personally reviewed and interpreted this imaging study as follows: Radiologist's impression: FINDINGS: No focal infiltrates or vascular congestion seen. Pleural surfaces are clear. There appears to be a pectus excavatum. No thoracic compression fractures appear XR/XR chest 2V IMPRESSION: No evidence for acute process. ECG Data Attestation: I personally reviewed and interpreted this ECG as follows: Interpretation: Normal sinus rhythm; ventricle rate of 78bpm; regular rhythm. nonspecific ST abnormalities. No acute ischemic change are noted. Similar compared to prior EKG 08/22/2015. Critical Care Time Critical Care Time Critical Care Time: Yes Total Critical Care Time: 60 Attestation: I personally attest to this time spent taking care of the patient Discharge Plan Discharge Clinical Impression: Hypertensive urgency, Headache, Proteinuria Patient Disposition: Home, Self-Care Prescriptions: New carvedilol [Coreg] 6.25 mg tablet 6.25 mg PO BID Qty: 30 0RF Rx Instructions: must administer with a meal/food No Action aspirin [Adult Aspirin Regimen] 81 mg tablet,delayed release (DR/EC) 81 mg PO DAILY 90 Days Qty: 90 3RF calcium carbonate-vitamin D3 [Calcium 500 + D] 500 mg-10 mcg (400 unit) tablet 1 tab PO DAILY Qty: 90 3RF valacyclovir 1 gram tablet 1,000 mg PO DAILY 90 Days Qty: 90 0RF atorvastatin 20 mg tablet 20 mg PO DAILY Qty: 90 2RF hydralazine 50 mg tablet 50 mg PO TID 90 Days Qty: 270 2RF metoprolol succinate 100 mg tablet extended release 24 hr 100 mg PO DAILY Qty: 90 2RF omeprazole 20 mg capsule,delayed release(DR/EC) 20 mg PO DAILY 90 Days Qty: 90 2RF sertraline 100 mg tablet 100 mg PO DAILY Qty: 90 2RF meloxicam 15 mg tablet 15 mg PO DAILY 30 Days Qty: 30 2RF clonidine HCl 0.2 mg tablet 0.4 mg PO BID Qty: 360 2RF (DME) blood pressure monitor Kit See Rx Instructions .Route Qty: 1 0RF Rx Instructions: As directed multivitamin,tx-minerals Tablet 1 tab PO DAILY cyclobenzaprine 10 mg tablet 10 mg PO TID PRN (Reason: muscle spasm) Qty: 30 1RF amoxicillin 500 mg capsule 500 mg PO Q8H Qty: 30 0RF honey-marshmallow root extract 82 mg/4 spray spray,non-aerosol PO BID magnesium hydroxide 311 mg tablet,chewable 311 mg PO BEDTIME PRN Referrals: Johnathan Alarcon MD [Physician] - ( call to make a follow-up appointment) Maxi,Aureliano Greenwood MD [Primary Care Provider] - ( call to make a follow-up appointment) Tre Gonzalez MD [Physician] - ( call to make a follow-up appointment) Interventions: ED Discharge Assessment Last Done: 05/12/22 21:37 Print Language: Latvian
[2022-05-12] MEDS: hydrALAZINE HCl 50 MG TABLET PO (20:38)
[2022-05-12] MEDS: cloNIDine HCL 0.2 MG TABLET 0.4 MG PO (20:38)
[2022-05-12] MEDS: carvediloL 6.25 MG TABLET PO (21:39)
[2022-05-12 22:07] LABS: Creatinine Urine 196.09 mg/dL; Total Protein Urine Random 189 mg/dL (<12)
== END 2022-05-12 21:37 | disposition home or self-care (01) ==
PROVIDERS: Physician Assistant Medical; Emergency Provider Emergency Medicine Emergency Medical Services; PCP Internal Medicine
DX: I16.0 Hypertensive urgency (principal); R80.9 Proteinuria, unspecified; R10.9 Unspecified abdominal pain; R51.9 Headache, unspecified; M54.2 Cervicalgia; Z79.899 Other long term (current) drug therapy
CPT/HCPCS: 36415; 70450; 72125; 80053; 81001; 84156; 84484; 85025; 93005; 96374; 96375; 99284; 99285; J1200; J2270; J2765

== ENCOUNTER 2022-05-30 10:47 | Outpatient (REF) | payer OTHER, SELFPAY ==
[2022-05-30 12:07] LABS: Alanine Aminotransferase 29 U/L (0-31); Albumin Level 4.3 g/dL (3.5-5.0); Alkaline Phosphatase 109 U/L (39-117); Anion Gap 16 (12-20); Aspartate Amino Transferase 26 U/L (5-31); Bilirubin Total < 0.2 mg/dL (0.0-1.0); Blood Urea Nitrogen 11 mg/dL (9-16); Carbon Dioxide 29 mmol/L (22-29); Chloride 104 mmol/L (96-108); Cholesterol 208 mg/dL; Estimated Glomerular Filt Rate > 60; Glucose Random 101 mg/dL (60-115); HDL Cholesterol 48 mg/dL; LDL Cholesterol Calculated 124 mg/dl; Potassium 3.8 mmol/L (3.3-5.1); Sodium 145 mmol/L (135-145); Total Protein 7.4 g/dL (6.5-8.0); Triglycerides 180 mg/dL
[2022-05-30 12:25] LABS: Free T4 (Free Thyroxine) 1.13 ng/dL (0.71-1.85); Thyroid Stimulating Hormone 0.78 uIU/mL (0.32-4.0)
== END 2022-05-30 10:48 | disposition home or self-care (01) ==
LOC: HO.LAB 10:47
PROVIDERS: PCP Internal Medicine; Visit Provider Internal Medicine
DX: E78.00 Pure hypercholesterolemia, unspecified (principal)
CPT/HCPCS: 36415; 80053; 80061; 82306; 84439; 84443

== ENCOUNTER 2022-06-26 12:45 | Outpatient (REF) | payer OTHER, SELFPAY ==
--- NOTE | 2022-06-26 17:23 | PFT_ITS ---
FLOWS: FEV1 88% of predicted at 1.92 L. FVC 78% of predicted at 2.15 L. FEV1 to FVC ratio of 0.89. No bronchodilator response. LUNG VOLUMES: Total lung capacity 83% of predicted at 3.58 L. Residual volume 75% of predicted at 1.25 L. Slow vital capacity 88% of predicted at 2.33 L. Expiratory reserve volume 34% of predicted at 0.25 L. Diffusion capacity is normal. IMPRESSION: No obstructive or restrictive ventilatory defect. No bronchodilator response. Decreased expiratory reserve volume suggests extrathoracic restriction likely secondary to abdominal obesity. Ben Hong MD AP/MODL / [id number]
== END 2022-06-26 12:46 | disposition home or self-care (01) ==
LOC: HO.RESP 12:45
PROVIDERS: PCP Internal Medicine; Visit Provider Internal Medicine
DX: R06.02 Shortness of breath (principal); I16.0 Hypertensive urgency
CPT/HCPCS: 94060; 94727; 94729

== ENCOUNTER → 2022-07-11 10:12 | Outpatient (REF) | payer OTHER, SELFPAY ==
--- NOTE | ~2022-07-11 | NM_ITS ---
EXERCISE MYOCARDIAL PERFUSION STUDY INDICATION: Clinical rowdy, assess for coronary disease and ischemia TECHNIQUE: The patient was brought in for an exercise perfusion study on 07/11/2022. Patient performed exercise as per Kana protocol and was injected 28 mCi of sestamibi once target heart rate was achieved. Images were obtained using the SPECT gamma camera interlaced with the gating device. Images were obtained in supine position. Resting perfusion study was performed on 07/14/2022. Patient was administered 28 mCi of sestamibi intravenously at rest. Images were then obtained in supine position. Images were processed with the software and compared side to side in short axis, horizontal long axis and vertical long axis views. Total DLP 85mGy-cm. FINDINGS: Raw images were reviewed. The stress perfusion study showed mildly diminished tracer uptake in the basal part of anteroseptal wall, basal lateral wall and apex. With CT attenuation correction, there is significant improvement suggestive of soft tissue attenuation artifact. The gated study shows normal LV systolic function with calculated LVEF of 55%. LV cavity is normal in size. The gated study shows normal wall thickening and contraction of segments. Resting study shows no significant perfusion abnormality. Gating at rest reveals normal wall motion with ejection fraction at 54%. The findings are consistent with no clear reversible or fixed perfusion defects. NM/NM didier perf SPECT rest & str IMPRESSION: 1. Myocardial perfusion imaging study shows likely normal myocardial perfusion. 2. Gated LVEF is 55% during stress and 54% during rest. 3. Transient ischemic dilatation not present. EKG component of the test reported separately.
--- NOTE | 2022-07-11 10:15 | CA_ITS ---
Acquisition Time: 2022-07-11 10:24:08 Total Exercise Time: 00:04:45 Test Indications: R07.2 - Precordial pain Medications: see med list Protocol: MICHELLE Max HR: 141 BPM 85% of Pred: 164 BPM Max BP: 200/088 mmHG Max Work Load: 6.6 METS Exercise stress test with exercise 4 min 45 sec of Michelle protocol, achieving 85% MPHR 6.6 METs, with mod to severe SOB with expiratory wheezing and need to stop, with no CP, without arrythmia, with hypertensive response to exercise with max BP 200/88, without EKG changes meeting criteria for ischemia. In recovery she used her Pro air inhaler and breathing improved. BP came down to 136/80. Nuclear images pending. Test reviewed with Dr Gonzalez. Referred By: Tre Gonzalez Overread By: BASSAM MARKS
== END ==
LOC: HO.CARD 10:12
PROVIDERS: PCP Internal Medicine; Visit Provider Internal Medicine
DX: R07.2 Precordial pain (principal); I16.0 Hypertensive urgency
CPT/HCPCS: 78452; 93017; A9500

== ENCOUNTER → 2022-08-17 15:06 | Outpatient (REF) | payer OTHER, SELFPAY ==
--- NOTE | 2022-08-17 15:09 | CA_ITS ---
Transthoracic Echocardiogram Patient (Last, First, Middle): Cathryn Brantley, Gender: Female Date of : 1965 Age: 57 Procedure Date: 08/17/2022 Procedure Type: Transthoracic Echocardiogram Location: OP Height: 149.86 cm Weight: 90.72 kg BSA: 1.84 m2 Heart Rate: bpm BP: 145 / 90 mmHg Editor Index: NIA Referring MD: Tre Gonzalez MD Mailroom Manager: Moe Kaufman MD Symptoms: I25.10 - Atherosclerotic heart disease of [place] coronary artery without... Study Quality: Fair ECG Rhythm: Sinus Conclusions: - 1. Normal LV systolic function with mild LVH with impaired relaxation filling pattern 2. Mildly dilated left atrium 3. Cardiac valvular Dopplers within normal limits 4. No gross pericardial effusion Findings Left Ventricle Normal left ventricular size and systolic function. There is mildly increased left ventricular wall thickness. The visually estimated ejection fraction is between 60-65%. Regional wall motion abnormalities can not be excluded due to suboptimal endocardial definition. Spectral Doppler is indicative of an impaired relaxation filling pattern. Wall Motion Rest Echo Findings The basal inferior segment is hypokinetic. Right Ventricle Normal right ventricular cavity size. Atria The left atrium is mildly dilated. Interatrial shunt cannot be excluded. The right atrium was not well visualized. Aortic Valve The aortic valve was not well visualized. There is no aortic valve stenosis. There is no aortic valve regurgitation. Mitral Valve There is mild anterior and posterior mitral leaflet thickening. There is trace mitral valve regurgitation. There is no mitral valve stenosis. Pulmonic Valve The pulmonic valve was not well visualized. Tricuspid Valve The tricuspid valve was not well visualized. Tricuspid regurgitation envelope is inadequate for calculation of right ventricular systolic pressure. Normal right atrial pressure. Great Vessels All visible segments of the aorta are normal in size. The pulmonary artery was not well visualized. Venous The inferior vena cava is normal in size and collapses greater than 50% with inspiration. Pericardium/Pleural There is no evidence of pericardial effusion. Prior Study Comparison No prior study available for comparison. Recommendations, Care & Conclusions Recommend contrast in the future to improve endocardial definition. Measurements 2D Linear Measurements IVSd: 1.27 0.6-0.9/0.6-1.0 cm LVIDd: 4.46 3.9-5.3/4.2-5.9 cm LVIDd Index: 2.42 2.4-3.2/2.2-3.1 cm/m2 LVIDs: 2.75 2.0-3.6 cm LVPWd: 1.26 0.7-1.1 cm LA Diam: 3.80 2.7-3.8/3.0-4.0 cm LAIDs Index: 2.07 1.5-2.3 cm/m2 LV Mass: 262.93 67-162/88-224 g LV Mass Index: 142.90 43-95/49-115 g/m2 LVOT Diam: 1.90 3.0+(-)1.3 cm 2D Systolic Function EF 4C: 64.10 >55% EF 2C: 69.10 >55% EF BiP: 65.40 >55% Mitral Valve MV Pk E: 0.85 MV PK A: 0.67 MV Decel Time: 190.00 E/A: 1.30 E'Lateral: 7.29 E'Medial: 5.66 E/E' Med: 15.00 E/E' Lat: 11.60 PHT: 56.00 MVA PHT: 3.93 Decel Stewart: 4.46 Aortic Valve AoV Pk Paulo: 1.81 AoV Mn Paulo: 1.23 AoV VTI: 0.40 AoV Pk Grad: 13.00 Aov Mn Grad: 7.00 JEANNE Cont.VTI: 1.97 LVOT LVOT Pk Paulo: 1.35 LVOT Mn Paulo: 0.78 LVOT VTI: 0.28 LVOT Pk Grad: 7.00 LVOT Mn Grad: 3.00 LVOT Diam: 1.90 LVOT Area: 2.84 Diastolic Function MV Pk E: 0.85 MV Pk A: 0.67 E/A: 1.30 E'Medial: 5.66 E/E' Med: 15.00 E' Laterial: 7.29 E/E' Lat: 11.60 Right Ventricle TAPSE (mm): 20.90 TVS' Paulo: 12.90 Tricuspid Valve RA Press: 3.00 Great Vessels Aorta Sinus of Valsalva: 3.08 2.0-3.5 cm Ao Asc: 3.60 2.1-3.4 cm Updated in Other Vendor System with Status of Final Moe Kaufman MD electronically signed on 08/18/2022 9:38:35 AM with status of Final
== END ==
LOC: HO.CARD 15:06
PROVIDERS: PCP Internal Medicine; Visit Provider Internal Medicine
DX: I25.10 Atherosclerotic heart disease of native coronary artery without angina pectoris (principal); I16.0 Hypertensive urgency
CPT/HCPCS: 93306

== ENCOUNTER 2022-09-13 19:02 | Inpatient (IN) | payer OTHER, SELFPAY ==
--- NOTE | ~2022-09-13 | XR_ITS ---
EXAMINATION: XR CHEST CLINICAL INFORMATION: Shortness of breath. COMPARISON: Chest radiograph 05/08/2022. TECHNIQUE: 2 views of the chest were obtained. FINDINGS: No significant abnormality is noted involving the heart, lungs, mediastinum, bony thorax or soft tissues. XR/XR chest 2V IMPRESSION: Unremarkable examination.
--- NOTE | ~2022-09-13 | CT_ITS ---
EXAMINATION: CT head/brain wo IV con CLINICAL INFORMATION: Reason for Exam severe Headache, high BP COMPARISON: CT head without contrast 05/12/2022 TECHNIQUE: Contiguous axial imaging was performed from the skull base to vertex without intravenous contrast. Sagittal and coronal reformatted images were obtained. This CT examination was performed using dose optimization techniques as appropriate, variously including the following: * Automated exposure control * Adjustment of mA and/or kV according to patient size (this includes techniques or standardized protocols for targeted exams where dose is matched to indication/reason for exam; i.e. extremities or head) Use of iterative reconstruction technique DLP: 589 mGy-cm FINDINGS: No acute osseous or soft tissue abnormality. The mastoid air cells and visualized portions of the paranasal sinuses are well aerated. There is no evidence of acute intracranial hemorrhage or territorial infarction. No abnormal mass effect or midline shift is seen. Garcia to white matter differentiation is well preserved. No extra-axial fluid collections are identified. No hydrocephalus. No significant volume loss. Patchy periventricular and deep white matter hypoattenuation is consistent with mild small vessel ischemic changes. Chronic left basal ganglia lacunar infarcts. CT/CT head/brain wo IV con IMPRESSION: No acute intracranial abnormality including hemorrhage, mass effect, hydrocephalus, or acute territorial edematous infarction.
[2022-09-13 19:58] VITALS: BP 226/106; PULSE 72; RESP 20; TEMP 36.6; O2SAT 95; BMI 41.2
--- NOTE | 2022-09-13 19:59 | ED.GENADULT ---
HPI - General Adult General Chief complaint: General Medical <Nicki Mcgovern CNP - Last Filed: 09/13/22 20:06> Stated complaint: Vomiting , high b/p , nausea <Nicki Mcgovern CNP - Last Filed: 09/13/22 20:06> Time Seen by Provider: 09/13/22 21:16 <Nicki Mcgovern CNP - Last Filed: 09/13/22 20:06> Source: patient <Emerald Nowak MD - Last Filed: 09/14/22 03:49> Mode of arrival: ambulatory <Emerald Nowak MD - Last Filed: 09/14/22 03:49> Limitations: no limitations <Emerald Nowak MD - Last Filed: 09/14/22 03:49> History of Present Illness HPI narrative: Patient comes to the emergency room complaining of severe hypertension, headache. Patient states that she is known to have uncontrolled hypertension. Patient takes medication as prescribed, patient known to take carvedilol, hydralazine, clonidine, losartan, Lasix, spironolactone. Patient states that she was seen yesterday by Nephrology to adjust her medications, states that 1 of her doses increased. Also, patient has been seen by Cardiology in May of 2022, Dr. Gonzalez. Patient states that since yesterday, approximately 24 hours ago, patient started having severe headache. Patient tried taking Tylenol but it is not helping. Patient also complaining of nausea and vomiting from the severe headache. Patient also complaining of chest pressure, no chest pain, no shortness of breath. Patient states that at home, her blood pressure was 265/126. On arrival to the hospital, blood pressure 226/106 <Emerald Nowak MD - Last Filed: 09/14/22 03:49> Related Data Home medications: Home Medications Medication Instructions Recorded Confirmed multivitamin,tx-minerals 1 tab PO DAILY 08/04/21 09/14/22 albuterol sulfate 90 mcg/actuation 1 puff inhalation Q6H 09/14/22 09/14/22 aerosol inhaler aspirin 81 mg tablet,delayed 81 mg PO DAILY 09/14/22 09/14/22 release atorvastatin 20 mg tablet 20 mg PO DAILY 09/14/22 09/14/22 calcium carbonate 500 mg-vitamin 1 tab PO DAILY 09/14/22 09/14/22 D3 10 mcg (400 unit) tablet (Calcium 500 With D) carvedilol 25 mg tablet 25 mg PO BID 09/14/22 09/14/22 clonidine HCl 0.2 mg tablet 0.4 mg PO BID 09/14/22 09/14/22 furosemide 40 mg tablet 40 mg PO DAILY 09/14/22 09/14/22 hydralazine 50 mg tablet 100 mg PO Q12H 09/14/22 09/14/22 losartan 100 mg tablet 100 mg PO DAILY 09/14/22 09/14/22 sertraline 100 mg tablet 100 mg PO DAILY 09/14/22 09/14/22 spironolactone 50 mg tablet 50 mg PO DAILY 09/14/22 09/14/22 valacyclovir 500 mg tablet 500 mg PO DAILY 09/14/22 09/14/22 Previous Rx's Medication Instructions Recorded omeprazole 20 mg capsule,delayed 20 mg PO DAILY 90 days #90 caps 11/04/21 release blood pressure monitor #1 ea 05/12/22 meloxicam 15 mg tablet 15 mg PO DAILY PRN pain #30 tabs 09/04/22 <Nicki Mcgovern CNP - Last Filed: 09/13/22 20:06> Allergies/adverse reactions: Allergies Allergy/AdvReac Type Severity Reaction Status Date / Time erythromycin base Allergy Mild VOMITING Verified 09/13/22 20:03 [Erythromycin Base] Sulfa (Sulfonamide Allergy Mild ITCHING Verified 09/13/22 20:03 Antibiotics) lisinopril AdvReac Unknown cough Verified 09/13/22 20:03 <Nicki Mcgovern CNP - Last Filed: 09/13/22 20:06> Review of Systems Review of Systems: Constitutional : No Weight loss, No Fever, No Chills, No Night Sweats, No Fatigue, No Malaise ENT/Mouth : No Hearing loss, No Ear Pain, No Nasal Congestion, No Sinus Pain, No Hoarseness, No sore throat, No Rhinorrhea, No Swallowing Difficulty Eyes: No Eye Pain, No Swelling, No Redness, No Foreign Body, No Discharge, No Vision Changes Cardiovascular : Complaining of chest pressure, No Chest Pain, No SOB, No Dyspnea on Exertion, No Orthopnea, No Edema, No Palpitations complaining of hypertension Respiratory : No Cough, No Sputum, No Wheezing, No Smoke Exposure, No Dyspnea Gastrointestinal : No Nausea, No Vomiting, No Diarrhea, No Constipation, No abdominal Pain, No Hematochezia, No Melena Genitourinary : no irregular bleeding, No Dysuria, No Urinary Frequency, No Hematuria, No Urinary Incontinence, No Urgency, No Flank Pain, No Urinary Flow Changes, No Hesitancy Musculoskeletal : No joint pain, No Myalgias, No Joint Swelling Skin : No Skin Lesions, No rash Neuro : No Weakness, No Numbness, No Paresthesias, No Loss of Consciousness, No Dizziness, complaining of severe Headache Psych : No Anxiety/Panic, No Depression, No SI/HI/AH/VH, No Social Issues, Heme/Lymph: No Bruising, No Bleeding,No Lymphadenopathy Endocrine : No Polyuria, No Polydipsia, No Temperature Intolerance <Emerald Nowak MD - Last Filed: 09/14/22 03:49> [facility] Past Medical History Medical History: Medical History GERD (gastroesophageal reflux disease) Hypercholesterolemia Hypertension Impaired glucose tolerance <Nicki Mcgovern CNP - Last Filed: 09/13/22 20:06> Surgical History: Surgical History Hx of cholecystectomy <Nicki Mcgovern CNP - Last Filed: 09/13/22 20:06> Family History Family History: Family History Father CKD (chronic kidney disease) Hypertension Myocardial infarct Mother Dementia Sister Brain aneurysm Bone cancer Schizophrenia Brother No problems noted. Brother Myocardial infarct Son No problems noted. <Nicki Mcgovern CNP - Last Filed: 09/13/22 20:06> Social History Social History: Social History Housing: Apartment Alcohol intake: current Alcohol intake frequency: holidays/special occasions only Alcohol type: hard liquor Patient Tobacco Use Status: Never used Tobacco Tobacco use type: Cigarette Smoked in Last 30 Days: No e-Cigarette/Vaping Use: Never Used Second Hand Smoke Exposure: No Use of substances other than those prescribed or required for medical reasons: No Advance Directives: Yes Advance Directives Information Provided: No Advance Directives on File: No Patient : No service: No Current occupational status: employed 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 Cognitive needs: No Hearing needs: No Vision needs: No <Nicki Mcgovern CNP - Last Filed: 09/13/22 20:06> Physical Exam ED Vital Signs: Vital Signs - 24 hr 09/13/22 19:58 09/13/22 21:16 09/13/22 21:47 Temperature 97.8 F Pulse Rate 72 66 66 Respiratory Rate 20 20 18 Blood Pressure 226/106 H 223/104 H 216/97 H Pulse Oximetry 95 98 97 Oxygen Delivery Method Room Air Room Air Room Air Oxygen Flow Rate 09/13/22 22:11 09/13/22 23:20 09/14/22 00:23 Temperature Pulse Rate 69 67 78 Respiratory Rate 18 18 17 Blood Pressure 196/90 H 207/104 H 219/92 H Pulse Oximetry 96 95 97 Oxygen Delivery Method Room Air Room Air Room Air Oxygen Flow Rate 09/14/22 01:03 09/14/22 02:02 09/14/22 02:04 Temperature 98.3 F Pulse Rate 86 78 78 Respiratory Rate 20 24 H 15 Blood Pressure 182/85 H 195/82 H 179/101 H Pulse Oximetry 95 96 93 Oxygen Delivery Method Room Air Room Air Room Air Oxygen Flow Rate 09/14/22 02:47 09/14/22 03:08 09/14/22 03:09 Temperature Pulse Rate 68 70 Respiratory Rate 20 Blood Pressure 154/82 H 159/79 H Pulse Oximetry 96 Oxygen Delivery Method Room Air Room Air Oxygen Flow Rate 09/14/22 03:29 09/14/22 03:44 09/14/22 04:00 Temperature Pulse Rate 87 74 75 Respiratory Rate 17 16 Blood Pressure 167/81 H 177/98 H 171/94 H Pulse Oximetry 95 Oxygen Delivery Method Room Air Oxygen Flow Rate 09/14/22 04:15 09/14/22 04:30 09/14/22 04:45 Temperature Pulse Rate 71 70 69 Respiratory Rate 20 Blood Pressure 181/82 H 181/89 H 169/93 H Pulse Oximetry 94 94 95 Oxygen Delivery Method Room Air Room Air Room Air Oxygen Flow Rate 09/14/22 05:04 09/14/22 05:08 09/14/22 05:23 Temperature Pulse Rate 79 69 89 Respiratory Rate 14 23 H Blood Pressure 192/100 H 192/100 H 171/92 H Pulse Oximetry 95 94 Oxygen Delivery Method Room Air Room Air Oxygen Flow Rate 09/14/22 05:38 09/14/22 05:53 09/14/22 06:08 Temperature Pulse Rate 82 85 83 Respiratory Rate 20 21 H Blood Pressure 164/87 H 157/83 H 152/78 H Pulse Oximetry 94 94 Oxygen Delivery Method Nasal Cannula Nasal Cannula Oxygen Flow Rate 1 1 09/14/22 06:15 09/14/22 06:49 09/14/22 10:06 Temperature 98.1 F 97.7 F Pulse Rate 81 81 83 Respiratory Rate 20 17 Blood Pressure 152/78 H 186/91 H 196/81 H Pulse Oximetry 97 96 Oxygen Delivery Method Room Air Room Air Oxygen Flow Rate 09/14/22 11:22 09/14/22 14:23 09/14/22 14:28 Temperature Pulse Rate 79 88 Respiratory Rate 17 18 20 Blood Pressure 129/99 H 194/113 H Pulse Oximetry 96 Oxygen Delivery Method Room Air Oxygen Flow Rate BMI result Body Mass Index 41.2 <Nicki Mcgovern CNP - Last Filed: 09/13/22 20:06> Vital Signs - 24 hr 09/13/22 19:58 09/13/22 21:16 09/13/22 21:47 Temperature 97.8 F Pulse Rate 72 66 66 Respiratory Rate 20 20 18 Blood Pressure 226/106 H 223/104 H 216/97 H Pulse Oximetry 95 98 97 Oxygen Delivery Method Room Air Room Air Room Air Oxygen Flow Rate 09/13/22 22:11 09/13/22 23:20 09/14/22 00:23 Temperature Pulse Rate 69 67 78 Respiratory Rate 18 18 17 Blood Pressure 196/90 H 207/104 H 219/92 H Pulse Oximetry 96 95 97 Oxygen Delivery Method Room Air Room Air Room Air Oxygen Flow Rate 09/14/22 01:03 09/14/22 02:02 09/14/22 02:04 Temperature 98.3 F Pulse Rate 86 78 78 Respiratory Rate 20 24 H 15 Blood Pressure 182/85 H 195/82 H 179/101 H Pulse Oximetry 95 96 93 Oxygen Delivery Method Room Air Room Air Room Air Oxygen Flow Rate 09/14/22 02:47 09/14/22 03:08 09/14/22 03:09 Temperature Pulse Rate 68 70 Respiratory Rate 20 Blood Pressure 154/82 H 159/79 H Pulse Oximetry 96 Oxygen Delivery Method Room Air Room Air Oxygen Flow Rate 09/14/22 03:29 09/14/22 03:44 09/14/22 04:00 Temperature Pulse Rate 87 74 75 Respiratory Rate 17 16 Blood Pressure 167/81 H 177/98 H 171/94 H Pulse Oximetry 95 Oxygen Delivery Method Room Air Oxygen Flow Rate 09/14/22 04:15 09/14/22 04:30 09/14/22 04:45 Temperature Pulse Rate 71 70 69 Respiratory Rate 20 Blood Pressure 181/82 H 181/89 H 169/93 H Pulse Oximetry 94 94 95 Oxygen Delivery Method Room Air Room Air Room Air Oxygen Flow Rate 09/14/22 05:04 09/14/22 05:08 09/14/22 05:23 Temperature Pulse Rate 79 69 89 Respiratory Rate 14 23 H Blood Pressure 192/100 H 192/100 H 171/92 H Pulse Oximetry 95 94 Oxygen Delivery Method Room Air Room Air Oxygen Flow Rate 09/14/22 05:38 09/14/22 05:53 09/14/22 06:08 Temperature Pulse Rate 82 85 83 Respiratory Rate 20 21 H Blood Pressure 164/87 H 157/83 H 152/78 H Pulse Oximetry 94 94 Oxygen Delivery Method Nasal Cannula Nasal Cannula Oxygen Flow Rate 1 1 09/14/22 06:15 09/14/22 06:49 09/14/22 10:06 Temperature 98.1 F 97.7 F Pulse Rate 81 81 83 Respiratory Rate 20 17 Blood Pressure 152/78 H 186/91 H 196/81 H Pulse Oximetry 97 96 Oxygen Delivery Method Room Air Room Air Oxygen Flow Rate 09/14/22 11:22 09/14/22 14:23 09/14/22 14:28 Temperature Pulse Rate 79 88 Respiratory Rate 17 18 20 Blood Pressure 129/99 H 194/113 H Pulse Oximetry 96 Oxygen Delivery Method Room Air Oxygen Flow Rate BMI result Body Mass Index 41.2 <Emerald Nowak MD - Last Filed: 09/14/22 03:49> Vital Signs - 24 hr 09/13/22 19:58 09/13/22 21:16 09/13/22 21:47 Temperature 97.8 F Pulse Rate 72 66 66 Respiratory Rate 20 20 18 Blood Pressure 226/106 H 223/104 H 216/97 H Pulse Oximetry 95 98 97 Oxygen Delivery Method Room Air Room Air Room Air Oxygen Flow Rate 09/13/22 22:11 09/13/22 23:20 09/14/22 00:23 Temperature Pulse Rate 69 67 78 Respiratory Rate 18 18 17 Blood Pressure 196/90 H 207/104 H 219/92 H Pulse Oximetry 96 95 97 Oxygen Delivery Method Room Air Room Air Room Air Oxygen Flow Rate 09/14/22 01:03 09/14/22 02:02 09/14/22 02:04 Temperature 98.3 F Pulse Rate 86 78 78 Respiratory Rate 20 24 H 15 Blood Pressure 182/85 H 195/82 H 179/101 H Pulse Oximetry 95 96 93 Oxygen Delivery Method Room Air Room Air Room Air Oxygen Flow Rate 09/14/22 02:47 09/14/22 03:08 09/14/22 03:09 Temperature Pulse Rate 68 70 Respiratory Rate 20 Blood Pressure 154/82 H 159/79 H Pulse Oximetry 96 Oxygen Delivery Method Room Air Room Air Oxygen Flow Rate 09/14/22 03:29 09/14/22 03:44 09/14/22 04:00 Temperature Pulse Rate 87 74 75 Respiratory Rate 17 16 Blood Pressure 167/81 H 177/98 H 171/94 H Pulse Oximetry 95 Oxygen Delivery Method Room Air Oxygen Flow Rate 09/14/22 04:15 09/14/22 04:30 09/14/22 04:45 Temperature Pulse Rate 71 70 69 Respiratory Rate 20 Blood Pressure 181/82 H 181/89 H 169/93 H Pulse Oximetry 94 94 95 Oxygen Delivery Method Room Air Room Air Room Air Oxygen Flow Rate 09/14/22 05:04 09/14/22 05:08 09/14/22 05:23 Temperature Pulse Rate 79 69 89 Respiratory Rate 14 23 H Blood Pressure 192/100 H 192/100 H 171/92 H Pulse Oximetry 95 94 Oxygen Delivery Method Room Air Room Air Oxygen Flow Rate 09/14/22 05:38 09/14/22 05:53 09/14/22 06:08 Temperature Pulse Rate 82 85 83 Respiratory Rate 20 21 H Blood Pressure 164/87 H 157/83 H 152/78 H Pulse Oximetry 94 94 Oxygen Delivery Method Nasal Cannula Nasal Cannula Oxygen Flow Rate 1 1 09/14/22 06:15 09/14/22 06:49 09/14/22 10:06 Temperature 98.1 F 97.7 F Pulse Rate 81 81 83 Respiratory Rate 20 17 Blood Pressure 152/78 H 186/91 H 196/81 H Pulse Oximetry 97 96 Oxygen Delivery Method Room Air Room Air Oxygen Flow Rate 09/14/22 11:22 09/14/22 14:23 09/14/22 14:28 Temperature Pulse Rate 79 88 Respiratory Rate 17 18 20 Blood Pressure 129/99 H 194/113 H Pulse Oximetry 96 Oxygen Delivery Method Room Air Oxygen Flow Rate BMI result Body Mass Index 41.2 <Nelson Gonzalez MD - Last Filed: 09/14/22 16:27> Const Other: Appearance: Alert. Oriented X3. Looks uncomfortable Eyes: Pupils equal, round and reactive to light. photophobia ENT: Pharynx normal. Neck: Normal inspection. Neck supple. No lymph nodes noted. No crepitus CVS: Normal heart rate and rhythm. Pulses normal. Normal S1 and S2 Respiratory: No respiratory distress. Breath sounds normal. No Wheezing. No rales Abdomen: Soft and nontender. No rigidity. No distention. Skin: Skin warm and dry. Normal skin color. Normal skin turgor. Extremities: No lower extremity edema. No Lacerations. No Rash Neuro: Oriented X 3. No motor deficit. No sensory deficit. Moving all extremities. No slurred speech. CN 2 through 12 grossly intact Psych: calm, cooperative, normal affect <Emerald Nowak MD - Last Filed: 09/14/22 03:49> Course Course Course Narrative: This is an RME: Additional HPI, ROS, PE not included below will be deferred to primary provider. Patient is a 57-year-old female who presents to emergency department for multiple complaints. Reports nausea, vomiting, headache, generalized un-well feeling since last night. Also complaining of intermittent shortness of breath, epigastric pain. Denies any known sick contacts, fevers, chills, chest pain, dysuria, urinary frequency/urgency/hesitancy. She is reporting hypertension, with reading today of 265/126, which is consistent with where they have been recently. Reports hx of HTN, she is being followed by a renal specialist, had dosage increases yesterday to her antihypertensive regimen. Currently BP 226/106. Plan: Labs, EKG, viral testing, chest x-ray, Zofran sublingual, oral Tylenol <Nicki Mcgovern CNP - Last Filed: 09/13/22 20:06> This is an RME: Additional HPI, ROS, PE not included below will be deferred to primary provider. Patient is a 57-year-old female who presents to emergency department for multiple complaints. Reports nausea, vomiting, headache, generalized un-well feeling since last night. Also complaining of intermittent shortness of breath, epigastric pain. Denies any known sick contacts, fevers, chills, chest pain, dysuria, urinary frequency/urgency/hesitancy. She is reporting hypertension, with reading today of 265/126, which is consistent with where they have been recently. Reports hx of HTN, she is being followed by a renal specialist, had dosage increases yesterday to her antihypertensive regimen. Currently BP 226/106. Plan: Labs, EKG, viral testing, chest x-ray, Zofran sublingual, oral Tylenol -patient states that she has never been evaluated for renal artery stenosis or had any kind of renal ultrasounds <Emerald Nowak MD - Last Filed: 09/14/22 03:49> Reevaluation(s) Reevaluation #1: Patient has been off nicardipine drip for several hours now. Her blood pressure is much better controlled. She was seen by Dr. Urrutia, ICU, at this time, patient may be admitted to the intermediate care unit. This was discussed with hospitalist. Will put the orders in at this time. <Nelson Gonzalez MD - Last Filed: 09/14/22 16:27> Medications Administered Generic Name Dose Route Start Last Admin Trade Name Freq PRN Reason Stop Dose Admin Albuterol Sulfate 1 puff 09/14/22 13:00 09/14/22 15:10 Albuterol Sulfate 90 Mcg 8 Gm Inhaler INHALE Not Given Q6H SHARRON Carvedilol 25 mg 09/14/22 13:00 09/14/22 13:49 Carvedilol 25 Mg Tablet PO 25 mg BID SHARRON Administration Protocol Clonidine HCl 0.4 mg 09/14/22 13:00 09/14/22 13:49 Clonidine Hcl 0.2 Mg Tablet PO 0.4 mg BID [facility] Administration Protocol Furosemide 40 mg 09/14/22 13:00 09/14/22 13:48 Furosemide 40 Mg Tablet PO 40 mg DAILY SHARRON Administration Protocol Morphine Sulfate 4 mg 09/14/22 13:59 09/14/22 14:23 Morphine Sulfate 4 Mg/Ml Cartridge IVPUSH 4 mg Q4H PRN Administration severe pain Protocol Discontinued Medications Generic Name Dose Route Start Last Admin Trade Name Heavenly PRN Reason Stop Dose Admin Acetaminophen 975 mg 09/13/22 20:05 09/13/22 20:09 Acetaminophen 325 Mg Tablet PO 09/13/22 20:06 975 mg ONCE ONE Administration Acetaminophen 975 mg 09/14/22 02:20 09/14/22 02:42 Acetaminophen 325 Mg Tablet PO 09/14/22 02:21 975 mg ONCE ONE Administration Acetaminophen 975 mg 09/14/22 08:30 09/14/22 10:07 Acetaminophen 325 Mg Tablet PO 09/14/22 08:31 975 mg ONCE ONE Administration Carvedilol 12.5 mg 09/14/22 06:06 09/14/22 10:06 Carvedilol 12.5 Mg Tablet PO 09/14/22 06:07 12.5 mg ONCE ONE Administration Protocol Clonidine 0.1 mg 09/14/22 02:52 09/14/22 03:55 Clonidine 0.1 Mg Patch.Tdwk TRANSDERMA 09/14/22 02:53 Not Given ONCE ONE Protocol Clonidine HCl 0.1 mg 09/14/22 02:37 09/14/22 02:42 Clonidine Hcl 0.1 Mg Tablet PO 09/14/22 02:38 0.1 mg ONCE ONE Administration Protocol Clonidine HCl 0.1 mg 09/14/22 06:06 09/14/22 10:06 Clonidine Hcl 0.1 Mg Tablet PO 09/14/22 06:07 0.1 mg ONCE ONE Administration Protocol Clonidine HCl 0.1 mg 09/14/22 09:02 09/14/22 10:08 Clonidine Hcl 0.1 Mg Tablet PO 09/14/22 09:03 Not Given ONCE ONE Protocol Clonidine HCl 0.1 mg 09/14/22 10:17 09/14/22 11:23 Clonidine Hcl 0.1 Mg Tablet PO 09/14/22 10:18 Not Given ONCE ONE Protocol Hydralazine HCl 10 mg 09/14/22 00:14 09/14/22 00:25 Hydralazine Hcl 20 Mg/Ml Vial IVPUSH 09/14/22 00:15 10 mg ONCE ONE Administration Protocol Hydralazine HCl 50 mg 09/14/22 06:08 09/14/22 10:06 Hydralazine Hcl 50 Mg Tablet PO 09/14/22 06:09 50 mg ONCE ONE Administration Protocol Hydromorphone HCl 1 mg 09/14/22 02:40 09/14/22 02:47 Hydromorphone Hcl 1 Mg/Ml Syringe IVPUSH 09/14/22 02:41 1 mg ONCE ONE Administration Protocol Nicardipine HCl 25 mg/ Sodium 260 mls @ 0 mls/hr 09/14/22 02:45 09/14/22 06:15 Chloride IVCONT 0 mg/hr .Q0M SHARRON 0 mls/hr Titration Protocol Per Protocol Labetalol HCl 20 mg 09/13/22 21:24 09/13/22 21:48 Labetalol Hcl 100 Mg/20 Ml Vial IVPUSH 09/13/22 21:25 20 mg ONCE ONE Administration Losartan Potassium 50 mg 09/14/22 06:08 09/14/22 10:07 Losartan Potassium 50 Mg Tablet PO 09/14/22 06:09 50 mg ONCE ONE Administration Protocol Losartan Potassium 100 mg 09/14/22 13:59 09/14/22 14:23 Losartan Potassium 50 Mg Tablet PO 09/14/22 14:00 100 mg ONCE ONE Administration Protocol Ondansetron HCl 4 mg 09/13/22 20:05 09/13/22 20:09 Ondansetron Odt 4 Mg Tab.Rapdis TRANSLINGU 09/13/22 20:06 4 mg ONCE ONE Administration Ondansetron HCl 4 mg 09/14/22 02:52 09/14/22 03:48 Ondansetron Hcl 4 Mg/2 Ml Vial IVPUSH 09/14/22 02:53 4 mg ONCE ONE Administration <Nicki Mcgovern, KETURAH - Last Filed: 09/13/22 20:06> Medications Administered Generic Name Dose Route Start Last Admin Trade Name Freq PRN Reason Stop Dose Admin Albuterol Sulfate 1 puff 09/14/22 13:00 09/14/22 15:10 Albuterol Sulfate 90 Mcg 8 Gm Inhaler INHALE Not Given Q6H SHARRON Carvedilol 25 mg 09/14/22 13:00 09/14/22 13:49 Carvedilol 25 Mg Tablet PO 25 mg BID SHARRON Administration Protocol Clonidine HCl 0.4 mg 09/14/22 13:00 09/14/22 13:49 Clonidine Hcl 0.2 Mg Tablet PO 0.4 mg BID SHARRON Administration Protocol Furosemide 40 mg 09/14/22 13:00 09/14/22 13:48 Furosemide 40 Mg Tablet PO 40 mg DAILY SHARRON Administration Protocol Morphine Sulfate 4 mg 09/14/22 13:59 09/14/22 14:23 Morphine Sulfate 4 Mg/Ml Cartridge IVPUSH 4 mg Q4H PRN Administration severe pain Protocol Discontinued Medications Generic Name Dose Route Start Last Admin Trade Name Ikeq PRN Reason Stop Dose Admin Acetaminophen 975 mg 09/13/22 20:05 09/13/22 20:09 Acetaminophen 325 Mg Tablet PO 09/13/22 20:06 975 mg ONCE ONE Administration Acetaminophen 975 mg 09/14/22 02:20 09/14/22 02:42 Acetaminophen 325 Mg Tablet PO 09/14/22 02:21 975 mg ONCE ONE Administration Acetaminophen 975 mg 09/14/22 08:30 09/14/22 10:07 Acetaminophen 325 Mg Tablet PO 09/14/22 08:31 975 mg ONCE ONE Administration Carvedilol 12.5 mg 09/14/22 06:06 09/14/22 10:06 Carvedilol 12.5 Mg Tablet PO 09/14/22 06:07 12.5 mg ONCE ONE Administration Protocol Clonidine 0.1 mg 09/14/22 02:52 09/14/22 03:55 Clonidine 0.1 Mg Patch.Tdwk TRANSDERMA 09/14/22 02:53 Not Given ONCE ONE Protocol Clonidine HCl 0.1 mg 09/14/22 02:37 09/14/22 02:42 Clonidine Hcl 0.1 Mg Tablet PO 09/14/22 02:38 0.1 mg ONCE ONE Administration Protocol Clonidine HCl 0.1 mg 09/14/22 06:06 09/14/22 10:06 Clonidine Hcl 0.1 Mg Tablet PO 09/14/22 06:07 0.1 mg ONCE ONE Administration Protocol Clonidine HCl 0.1 mg 09/14/22 09:02 09/14/22 10:08 Clonidine Hcl 0.1 Mg Tablet PO 09/14/22 09:03 Not Given ONCE ONE Protocol Clonidine HCl 0.1 mg 09/14/22 10:17 09/14/22 11:23 Clonidine Hcl 0.1 Mg Tablet PO 09/14/22 10:18 Not Given ONCE ONE Protocol Hydralazine HCl 10 mg 09/14/22 00:14 09/14/22 00:25 Hydralazine Hcl 20 Mg/Ml Vial IVPUSH 09/14/22 00:15 10 mg ONCE ONE Administration Protocol Hydralazine HCl 50 mg 09/14/22 06:08 09/14/22 10:06 Hydralazine Hcl 50 Mg Tablet PO 09/14/22 06:09 50 mg ONCE ONE Administration Protocol Hydromorphone HCl 1 mg 09/14/22 02:40 09/14/22 02:47 Hydromorphone Hcl 1 Mg/Ml Syringe IVPUSH 09/14/22 02:41 1 mg ONCE ONE Administration Protocol Nicardipine HCl 25 mg/ Sodium 260 mls @ 0 mls/hr 09/14/22 02:45 09/14/22 06:15 Chloride IVCONT 0 mg/hr .Q0M SHARRON 0 mls/hr Titration Protocol Per Protocol Labetalol HCl 20 mg 09/13/22 21:24 09/13/22 21:48 Labetalol Hcl 100 Mg/20 Ml Vial IVPUSH 09/13/22 21:25 20 mg ONCE ONE Administration Losartan Potassium 50 mg 09/14/22 06:08 09/14/22 10:07 Losartan Potassium 50 Mg Tablet PO 09/14/22 06:09 50 mg ONCE ONE Administration Protocol Losartan Potassium 100 mg 09/14/22 13:59 09/14/22 14:23 Losartan Potassium 50 Mg Tablet PO 09/14/22 14:00 100 mg ONCE ONE Administration Protocol Ondansetron HCl 4 mg 09/13/22 20:05 09/13/22 20:09 Ondansetron Odt 4 Mg Tab.Rapdis TRANSLINGU 09/13/22 20:06 4 mg ONCE ONE Administration Ondansetron HCl 4 mg 09/14/22 02:52 09/14/22 03:48 Ondansetron Hcl 4 Mg/2 Ml Vial IVPUSH 09/14/22 02:53 4 mg ONCE ONE Administration <Emerald Nowak MD - Last Filed: 09/14/22 03:49> Medications Administered Generic Name Dose Route Start Last Admin Trade Name Freq PRN Reason Stop Dose Admin Albuterol Sulfate 1 puff 09/14/22 13:00 09/14/22 15:10 Albuterol Sulfate 90 Mcg 8 Gm Inhaler INHALE Not Given Q6H [facility] Carvedilol 25 mg 09/14/22 13:00 09/14/22 13:49 Carvedilol 25 Mg Tablet PO 25 mg BID [facility] Administration Protocol Clonidine HCl 0.4 mg 09/14/22 13:00 09/14/22 13:49 Clonidine Hcl 0.2 Mg Tablet PO 0.4 mg BID SHARRON Administration Protocol Furosemide 40 mg 09/14/22 13:00 09/14/22 13:48 Furosemide 40 Mg Tablet PO 40 mg DAILY SHARRON Administration Protocol Morphine Sulfate 4 mg 09/14/22 13:59 09/14/22 14:23 Morphine Sulfate 4 Mg/Ml Cartridge IVPUSH 4 mg Q4H PRN Administration severe pain Protocol Discontinued Medications Generic Name Dose Route Start Last Admin Trade Name Heavenly PRN Reason Stop Dose Admin Acetaminophen 975 mg 09/13/22 20:05 09/13/22 20:09 Acetaminophen 325 Mg Tablet PO 09/13/22 20:06 975 mg ONCE ONE Administration Acetaminophen 975 mg 09/14/22 02:20 09/14/22 02:42 Acetaminophen 325 Mg Tablet PO 09/14/22 02:21 975 mg ONCE ONE Administration Acetaminophen 975 mg 09/14/22 08:30 09/14/22 10:07 Acetaminophen 325 Mg Tablet PO 09/14/22 08:31 975 mg ONCE ONE Administration Carvedilol 12.5 mg 09/14/22 06:06 09/14/22 10:06 Carvedilol 12.5 Mg Tablet PO 09/14/22 06:07 12.5 mg ONCE ONE Administration Protocol Clonidine 0.1 mg 09/14/22 02:52 09/14/22 03:55 Clonidine 0.1 Mg Patch.Tdwk TRANSDERMA 09/14/22 02:53 Not Given ONCE ONE Protocol Clonidine HCl 0.1 mg 09/14/22 02:37 09/14/22 02:42 Clonidine Hcl 0.1 Mg Tablet PO 09/14/22 02:38 0.1 mg ONCE ONE Administration Protocol Clonidine HCl 0.1 mg 09/14/22 06:06 09/14/22 10:06 Clonidine Hcl 0.1 Mg Tablet PO 09/14/22 06:07 0.1 mg ONCE ONE Administration Protocol Clonidine HCl 0.1 mg 09/14/22 09:02 09/14/22 10:08 Clonidine Hcl 0.1 Mg Tablet PO 09/14/22 09:03 Not Given ONCE ONE Protocol Clonidine HCl 0.1 mg 09/14/22 10:17 09/14/22 11:23 Clonidine Hcl 0.1 Mg Tablet PO 09/14/22 10:18 Not Given ONCE ONE Protocol Hydralazine HCl 10 mg 09/14/22 00:14 09/14/22 00:25 Hydralazine Hcl 20 Mg/Ml Vial IVPUSH 09/14/22 00:15 10 mg ONCE ONE Administration Protocol Hydralazine HCl 50 mg 09/14/22 06:08 09/14/22 10:06 Hydralazine Hcl 50 Mg Tablet PO 09/14/22 06:09 50 mg ONCE ONE Administration Protocol Hydromorphone HCl 1 mg 09/14/22 02:40 09/14/22 02:47 Hydromorphone Hcl 1 Mg/Ml Syringe IVPUSH 09/14/22 02:41 1 mg ONCE ONE Administration Protocol Nicardipine HCl 25 mg/ Sodium 260 mls @ 0 mls/hr 09/14/22 02:45 09/14/22 06:15 Chloride IVCONT 0 mg/hr .Q0M SHARRON 0 mls/hr Titration Protocol Per Protocol Labetalol HCl 20 mg 09/13/22 21:24 09/13/22 21:48 Labetalol Hcl 100 Mg/20 Ml Vial IVPUSH 09/13/22 21:25 20 mg ONCE ONE Administration Losartan Potassium 50 mg 09/14/22 06:08 09/14/22 10:07 Losartan Potassium 50 Mg Tablet PO 09/14/22 06:09 50 mg ONCE ONE Administration Protocol Losartan Potassium 100 mg 09/14/22 13:59 09/14/22 14:23 Losartan Potassium 50 Mg Tablet PO 09/14/22 14:00 100 mg ONCE ONE Administration Protocol Ondansetron HCl 4 mg 09/13/22 20:05 09/13/22 20:09 Ondansetron Odt 4 Mg Tab.Rapdis TRANSLINGU 09/13/22 20:06 4 mg ONCE ONE Administration Ondansetron HCl 4 mg 09/14/22 02:52 09/14/22 03:48 Ondansetron Hcl 4 Mg/2 Ml Vial IVPUSH 09/14/22 02:53 4 mg ONCE ONE Administration <Nelson Gonzalez MD - Last Filed: 09/14/22 16:27> Medical Decision Making Medical Decision Making [facility] Narrative: -blood pressure 223/104, patient still having chest pressure and hypertension. -Patient being given IV labetalol [address] pendingChest x-ray done earlier today, negative for any acute findings -patient is given hydralazine IV. Initially, blood pressure dropped to 179/101. But shortly after blood pressure bounced up again to 214 systolic. Patient continues having severe headache despite morphine and Tylenol. Patient being given IV Dilaudid at this time. -blood pressure is difficult to control at this time. Patient will be started on Cardene. I discussed the patient with Dr. Sigala, patient will likely need ICU admission <Emerald Nowak MD - Last Filed: 09/14/22 03:49> Differential Diagnosis Differential Diagnoses: The differential diagnosis associated with the presentation includes (Hypertensive emergency, intracranial breed, tension headache, renal artery stenosis) <Emerald Nowak MD - Last Filed: 09/14/22 03:49> Admission/Observation Consideration of admission/observation: Escalation of care including admission/observation considered <Emerald Nowak MD - Last Filed: 09/14/22 03:49> Consult Healthcare Provider Management of the patient was discussed with: Splitting Machine Operator (ICU Dr. Sigala) <Emerald Nowak MD - Last Filed: 09/14/22 03:49> Lab Data [facility] Lab Attestation statement: I reviewed the patient's lab results. <Emerald Nowak MD - Last Filed: 09/14/22 03:49> Result Diagrams: 09/13/22 20:47 09/13/22 20:47 <Nicki Mcgovern CNP - Last Filed: 09/13/22 20:06> Labs: Lab Results 09/13/22 09/13/22 09/13/22 Range/Units 00:52 20:39 20:39 WBC (4.8-10.8) X10*3/uL RBC (4.20-5.50) X10*6/uL Hgb (12.0-16.0) g/dl Hct (37.0-47.0) % MCV (80.0-98.0) fL MCH (27.0-33.0) pg MCHC (31.0-35.0) g/dl RDW (11.0-16.0) % Plt Count (160-400) X10*3/uL MPV (9.4-12.3) fL Immature Gran % (Auto) (0.0-0.4) % Neut % (Auto) (45-73) % Lymph % (Auto) (20-40) % [place] % (Auto) (2-11) % Eos % (Auto) (0-4) % Baso % (Auto) (0-2) % Lymph # (Auto) (1.2-4.9) X10*3/uL [place] # (Auto) (0.1-1.2) X10*3/uL Eos # (Auto) (0.0-0.4) X10*3/uL Baso # (Auto) (0.0-0.2) X10*3/uL Abs Immat Gran (auto) (0.00-0.03) X10*3/uL Absolute Neuts (auto) (2.0-8.3) x10*3/uL Absolute Nucleated RBC (0.0-0.012) X10*3/uL Nucleated RBC % (auto) (0.0-0.2) /100WBC Sodium (135-145) mmol/L Potassium (3.3-5.1) mmol/L Chloride (96-108) mmol/L Carbon Dioxide (22-29) mmol/L Anion Gap (12-20) BUN (9-16) mg/dL Creatinine (0.5-1.4) mg/dL Estim Creat Clear Calc Estimated GFR Random Glucose (60-115) mg/dL Estimat Average Glucose mg/dL Hemoglobin A1c % % Calcium (8.4-10.2) mg/dL Total Bilirubin (0.0-1.0) mg/dL AST (5-31) U/L ALT (0-31) U/L Alkaline Phosphatase (39-117) U/L Troponin I High Sens (<3.5-17.0) ng/L B-Natriuretic Peptide (<100) pg/mL Total Protein (6.5-8.0) g/dL Albumin (3.5-5.0) g/dL Lipase (8-78) U/L Urine Color Dark Yellow Urine Appearance Cloudy Urine pH 6.5 (5.0-9.0) Ur Specific [place] >= 1.030 H (1.005-1.025) Urine Protein 300 (3+) H (Neg-Trace) mg/dL Urine Glucose (UA) Negative (Negative) mg/dL Urine Ketones Trace (Negative) mg/dL Urine Blood Negative (Negative) Urine Nitrite Negative (Negative) Ur Leukocyte Esterase Trace H (Negative) Urine RBC 0-2 (0-2) /HPF Urine WBC 0-5 (0-5) /HPF Ur Squamous Epith Cells 3-5 (0-2) /HPF Urine Bacteria Trace (None Seen) Hyaline Casts 3-5 (0-2) /LPF Urine Test (NEGATIVE) COVID-19 (ROSALVA) Negative (Negative) COVID-19 Clin Com See Note Influenza Type A (SANJUANITA) Negative (Negative) Influenza Type B (SANJUANITA) Negative (Negative) Influenza A & B Note See Note 09/13/22 09/13/22 09/13/22 Range/Units 20:39 20:47 20:47 WBC 12.0 H (4.8-10.8) X10*3/uL RBC 5.69 H (4.20-5.50) X10*6/uL Hgb 13.7 (12.0-16.0) g/dl Hct 43.6 (37.0-47.0) % MCV 76.6 L (80.0-98.0) fL MCH 24.1 L (27.0-33.0) pg MCHC 31.4 (31.0-35.0) g/dl RDW 16.8 H (11.0-16.0) % Plt Count 342 (160-400) X10*3/uL MPV 9.8 (9.4-12.3) fL Immature Gran % (Auto) 0.3 (0.0-0.4) % Neut % (Auto) 61.7 (45-73) % Lymph % (Auto) 26.1 (20-40) % [place] % (Auto) 9.2 (2-11) % Eos % (Auto) 2.0 (0-4) % Baso % (Auto) 0.7 (0-2) % Lymph # (Auto) 3.1 (1.2-4.9) X10*3/uL [place] # (Auto) 1.1 (0.1-1.2) X10*3/uL Eos # (Auto) 0.2 (0.0-0.4) X10*3/uL Baso # (Auto) 0.1 (0.0-0.2) X10*3/uL Abs Immat Gran (auto) 0.03 (0.00-0.03) X10*3/uL Absolute Neuts (auto) 7.4 (2.0-8.3) x10*3/uL Absolute Nucleated RBC 0.000 (0.0-0.012) X10*3/uL Nucleated RBC % (auto) 0.0 (0.0-0.2) /100WBC Sodium 146 H (135-145) mmol/L Potassium 3.8 (3.3-5.1) mmol/L Chloride 105 (96-108) mmol/L Carbon Dioxide 29 (22-29) mmol/L Anion Gap 16 (12-20) BUN 15 (9-16) mg/dL Creatinine 0.92 (0.5-1.4) mg/dL Estim Creat Clear Calc 67.8 Estimated GFR > 60 Random Glucose 119 H (60-115) mg/dL Estimat Average Glucose mg/dL Hemoglobin A1c % % Calcium 10.4 H (8.4-10.2) mg/dL Total Bilirubin 0.4 (0.0-1.0) mg/dL AST 28 (5-31) U/L ALT 34 H (0-31) U/L Alkaline Phosphatase 134 H (39-117) U/L Troponin I High Sens (<3.5-17.0) ng/L B-Natriuretic Peptide (<100) pg/mL Total Protein 7.6 (6.5-8.0) g/dL Albumin 4.5 (3.5-5.0) g/dL Lipase 39 (8-78) U/L Urine Color Urine Appearance Urine pH (5.0-9.0) Ur Specific [place] (1.005-1.025) Urine Protein (Neg-Trace) mg/dL Urine Glucose (UA) (Negative) mg/dL Urine Ketones (Negative) mg/dL Urine Blood (Negative) Urine Nitrite (Negative) Ur Leukocyte Esterase (Negative) Urine RBC (0-2) /HPF Urine WBC (0-5) /HPF Ur Squamous Epith Cells (0-2) /HPF Urine Bacteria (None Seen) Hyaline Casts (0-2) /LPF Urine Test NEGATIVE (NEGATIVE) COVID-19 (ROSALVA) (Negative) COVID-19 Clin Com Influenza Type A (SANJUANITA) (Negative) Influenza Type B (SANJUANITA) (Negative) Influenza A & B Note 09/13/22 09/13/22 09/13/22 Range/Units 20:47 20:47 20:47 WBC (4.8-10.8) X10*3/uL RBC (4.20-5.50) X10*6/uL Hgb (12.0-16.0) g/dl Hct (37.0-47.0) % MCV (80.0-98.0) fL MCH (27.0-33.0) pg MCHC (31.0-35.0) g/dl RDW (11.0-16.0) % Plt Count (160-400) X10*3/uL MPV (9.4-12.3) fL Immature Gran % (Auto) (0.0-0.4) % Neut % (Auto) (45-73) % Lymph % (Auto) (20-40) % [place] % (Auto) (2-11) % Eos % (Auto) (0-4) % Baso % (Auto) (0-2) % Lymph # (Auto) (1.2-4.9) X10*3/uL [place] # (Auto) (0.1-1.2) X10*3/uL Eos # (Auto) (0.0-0.4) X10*3/uL Baso # (Auto) (0.0-0.2) X10*3/uL Abs Immat Gran (auto) (0.00-0.03) X10*3/uL Absolute Neuts (auto) (2.0-8.3) x10*3/uL Absolute Nucleated RBC (0.0-0.012) X10*3/uL Nucleated RBC % (auto) (0.0-0.2) /100WBC Sodium (135-145) mmol/L Potassium (3.3-5.1) mmol/L Chloride (96-108) mmol/L Carbon Dioxide (22-29) mmol/L Anion Gap (12-20) BUN (9-16) mg/dL Creatinine (0.5-1.4) mg/dL Estim Creat Clear Calc Estimated GFR Random Glucose (60-115) mg/dL Estimat Average Glucose 128 mg/dL Hemoglobin A1c % 6.1 % Calcium (8.4-10.2) mg/dL Total Bilirubin (0.0-1.0) mg/dL AST (5-31) U/L ALT (0-31) U/L Alkaline Phosphatase (39-117) U/L Troponin I High Sens 11.0 (<3.5-17.0) ng/L B-Natriuretic Peptide 47 (<100) pg/mL Total Protein (6.5-8.0) g/dL Albumin (3.5-5.0) g/dL Lipase (8-78) U/L Urine Color Urine Appearance Urine pH (5.0-9.0) Ur Specific [place] (1.005-1.025) Urine Protein (Neg-Trace) mg/dL Urine Glucose (UA) (Negative) mg/dL Urine Ketones (Negative) mg/dL Urine Blood (Negative) Urine Nitrite (Negative) Ur Leukocyte Esterase (Negative) Urine RBC (0-2) /HPF Urine WBC (0-5) /HPF Ur Squamous Epith Cells (0-2) /HPF Urine Bacteria (None Seen) Hyaline Casts (0-2) /LPF Urine Test (NEGATIVE) COVID-19 (ROSALVA) (Negative) COVID-19 Clin Com Influenza Type A (SANJUANITA) (Negative) Influenza Type B (SANJUANITA) (Negative) Influenza A & B Note <Nicki Mcgovern CNP - Last Filed: 09/13/22 20:06> Lab Results 09/13/22 09/13/22 09/13/22 Range/Units 00:52 20:39 20:39 WBC (4.8-10.8) X10*3/uL RBC (4.20-5.50) X10*6/uL Hgb (12.0-16.0) g/dl Hct (37.0-47.0) % MCV (80.0-98.0) fL MCH (27.0-33.0) pg MCHC (31.0-35.0) g/dl RDW (11.0-16.0) % Plt Count (160-400) X10*3/uL MPV (9.4-12.3) fL Immature Gran % (Auto) (0.0-0.4) % Neut % (Auto) (45-73) % Lymph % (Auto) (20-40) % [place] % (Auto) (2-11) % Eos % (Auto) (0-4) % Baso % (Auto) (0-2) % Lymph # (Auto) (1.2-4.9) X10*3/uL [place] # (Auto) (0.1-1.2) X10*3/uL Eos # (Auto) (0.0-0.4) X10*3/uL Baso # (Auto) (0.0-0.2) X10*3/uL Abs Immat Gran (auto) (0.00-0.03) X10*3/uL Absolute Neuts (auto) (2.0-8.3) x10*3/uL Absolute Nucleated RBC (0.0-0.012) X10*3/uL Nucleated RBC % (auto) (0.0-0.2) /100WBC Sodium (135-145) mmol/L Potassium (3.3-5.1) mmol/L Chloride (96-108) mmol/L Carbon Dioxide (22-29) mmol/L Anion Gap (12-20) BUN (9-16) mg/dL Creatinine (0.5-1.4) mg/dL Estim Creat Clear Calc Estimated GFR Random Glucose (60-115) mg/dL Estimat Average Glucose mg/dL Hemoglobin A1c % % Calcium (8.4-10.2) mg/dL Total Bilirubin (0.0-1.0) mg/dL AST (5-31) U/L ALT (0-31) U/L Alkaline Phosphatase (39-117) U/L Troponin I High Sens (<3.5-17.0) ng/L B-Natriuretic Peptide (<100) pg/mL Total Protein (6.5-8.0) g/dL Albumin (3.5-5.0) g/dL Lipase (8-78) U/L Urine Color Dark Yellow Urine Appearance Cloudy Urine pH 6.5 (5.0-9.0) Ur Specific [place] >= 1.030 H (1.005-1.025) Urine Protein 300 (3+) H (Neg-Trace) mg/dL Urine Glucose (UA) Negative (Negative) mg/dL Urine Ketones Trace (Negative) mg/dL Urine Blood Negative (Negative) Urine Nitrite Negative (Negative) Ur Leukocyte Esterase Trace H (Negative) Urine RBC 0-2 (0-2) /HPF Urine WBC 0-5 (0-5) /HPF Ur Squamous Epith Cells 3-5 (0-2) /HPF Urine Bacteria Trace (None Seen) Hyaline Casts 3-5 (0-2) /LPF Urine Test (NEGATIVE) COVID-19 (ROSALVA) Negative (Negative) COVID-19 Clin Com See Note Influenza Type A (SANJUANITA) Negative (Negative) Influenza Type B (SANJUANITA) Negative (Negative) Influenza A & B Note See Note 09/13/22 09/13/22 09/13/22 Range/Units 20:39 20:47 20:47 WBC 12.0 H (4.8-10.8) X10*3/uL RBC 5.69 H (4.20-5.50) X10*6/uL Hgb 13.7 (12.0-16.0) g/dl Hct 43.6 (37.0-47.0) % MCV 76.6 L (80.0-98.0) fL MCH 24.1 L (27.0-33.0) pg MCHC 31.4 (31.0-35.0) g/dl RDW 16.8 H (11.0-16.0) % Plt Count 342 (160-400) X10*3/uL MPV 9.8 (9.4-12.3) fL Immature Gran % (Auto) 0.3 (0.0-0.4) % Neut % (Auto) 61.7 (45-73) % Lymph % (Auto) 26.1 (20-40) % [place] % (Auto) 9.2 (2-11) % Eos % (Auto) 2.0 (0-4) % Baso % (Auto) 0.7 (0-2) % Lymph # (Auto) 3.1 (1.2-4.9) X10*3/uL [place] # (Auto) 1.1 (0.1-1.2) X10*3/uL Eos # (Auto) 0.2 (0.0-0.4) X10*3/uL Baso # (Auto) 0.1 (0.0-0.2) X10*3/uL Abs Immat Gran (auto) 0.03 (0.00-0.03) X10*3/uL Absolute Neuts (auto) 7.4 (2.0-8.3) x10*3/uL Absolute Nucleated RBC 0.000 (0.0-0.012) X10*3/uL Nucleated RBC % (auto) 0.0 (0.0-0.2) /100WBC Sodium 146 H (135-145) mmol/L Potassium 3.8 (3.3-5.1) mmol/L Chloride 105 (96-108) mmol/L Carbon Dioxide 29 (22-29) mmol/L Anion Gap 16 (12-20) BUN 15 (9-16) mg/dL Creatinine 0.92 (0.5-1.4) mg/dL Estim Creat Clear Calc 67.8 Estimated GFR > 60 Random Glucose 119 H (60-115) mg/dL Estimat Average Glucose mg/dL Hemoglobin A1c % % Calcium 10.4 H (8.4-10.2) mg/dL Total Bilirubin 0.4 (0.0-1.0) mg/dL AST 28 (5-31) U/L ALT 34 H (0-31) U/L Alkaline Phosphatase 134 H (39-117) U/L Troponin I High Sens (<3.5-17.0) ng/L B-Natriuretic Peptide (<100) pg/mL Total Protein 7.6 (6.5-8.0) g/dL Albumin 4.5 (3.5-5.0) g/dL Lipase 39 (8-78) U/L Urine Color Urine Appearance Urine pH (5.0-9.0) Ur Specific [place] (1.005-1.025) Urine Protein (Neg-Trace) mg/dL Urine Glucose (UA) (Negative) mg/dL Urine Ketones (Negative) mg/dL Urine Blood (Negative) Urine Nitrite (Negative) Ur Leukocyte Esterase (Negative) Urine RBC (0-2) /HPF Urine WBC (0-5) /HPF Ur Squamous Epith Cells (0-2) /HPF Urine Bacteria (None Seen) Hyaline Casts (0-2) /LPF Urine Test NEGATIVE (NEGATIVE) COVID-19 (ROSALVA) (Negative) COVID-19 Clin Com Influenza Type A (SANJUANITA) (Negative) Influenza Type B (SANJUANITA) (Negative) Influenza A & B Note 09/13/22 09/13/22 09/13/22 Range/Units 20:47 20:47 20:47 WBC (4.8-10.8) X10*3/uL RBC (4.20-5.50) X10*6/uL Hgb (12.0-16.0) g/dl Hct (37.0-47.0) % MCV (80.0-98.0) fL MCH (27.0-33.0) pg MCHC (31.0-35.0) g/dl RDW (11.0-16.0) % Plt Count (160-400) X10*3/uL MPV (9.4-12.3) fL Immature Gran % (Auto) (0.0-0.4) % Neut % (Auto) (45-73) % Lymph % (Auto) (20-40) % [place] % (Auto) (2-11) % Eos % (Auto) (0-4) % Baso % (Auto) (0-2) % Lymph # (Auto) (1.2-4.9) X10*3/uL [place] # (Auto) (0.1-1.2) X10*3/uL Eos # (Auto) (0.0-0.4) X10*3/uL Baso # (Auto) (0.0-0.2) X10*3/uL Abs Immat Gran (auto) (0.00-0.03) X10*3/uL Absolute Neuts (auto) (2.0-8.3) x10*3/uL Absolute Nucleated RBC (0.0-0.012) X10*3/uL Nucleated RBC % (auto) (0.0-0.2) /100WBC Sodium (135-145) mmol/L Potassium (3.3-5.1) mmol/L Chloride (96-108) mmol/L Carbon Dioxide (22-29) mmol/L Anion Gap (12-20) BUN (9-16) mg/dL Creatinine (0.5-1.4) mg/dL Estim Creat Clear Calc Estimated GFR Random Glucose (60-115) mg/dL Estimat Average Glucose 128 mg/dL Hemoglobin A1c % 6.1 % Calcium (8.4-10.2) mg/dL Total Bilirubin (0.0-1.0) mg/dL AST (5-31) U/L ALT (0-31) U/L Alkaline Phosphatase (39-117) U/L Troponin I High Sens 11.0 (<3.5-17.0) ng/L B-Natriuretic Peptide 47 (<100) pg/mL Total Protein (6.5-8.0) g/dL Albumin (3.5-5.0) g/dL Lipase (8-78) U/L Urine Color Urine Appearance Urine pH (5.0-9.0) Ur Specific [place] (1.005-1.025) Urine Protein (Neg-Trace) mg/dL Urine Glucose (UA) (Negative) mg/dL Urine Ketones (Negative) mg/dL Urine Blood (Negative) Urine Nitrite (Negative) Ur Leukocyte Esterase (Negative) Urine RBC (0-2) /HPF Urine WBC (0-5) /HPF Ur Squamous Epith Cells (0-2) /HPF Urine Bacteria (None Seen) Hyaline Casts (0-2) /LPF Urine Test (NEGATIVE) COVID-19 (ROSALVA) (Negative) COVID-19 Clin Com Influenza Type A (SANJUANITA) (Negative) Influenza Type B (SANJUANITA) (Negative) Influenza A & B Note <Emerald Nowak MD - Last Filed: 09/14/22 03:49> Lab Results 09/13/22 09/13/22 09/13/22 Range/Units 00:52 20:39 20:39 WBC (4.8-10.8) X10*3/uL RBC (4.20-5.50) X10*6/uL Hgb (12.0-16.0) g/dl Hct (37.0-47.0) % MCV (80.0-98.0) fL MCH (27.0-33.0) pg MCHC (31.0-35.0) g/dl RDW (11.0-16.0) % Plt Count (160-400) X10*3/uL MPV (9.4-12.3) fL Immature Gran % (Auto) (0.0-0.4) % Neut % (Auto) (45-73) % Lymph % (Auto) (20-40) % [place] % (Auto) (2-11) % Eos % (Auto) (0-4) % Baso % (Auto) (0-2) % Lymph # (Auto) (1.2-4.9) X10*3/uL [place] # (Auto) (0.1-1.2) X10*3/uL Eos # (Auto) (0.0-0.4) X10*3/uL Baso # (Auto) (0.0-0.2) X10*3/uL Abs Immat Gran (auto) (0.00-0.03) X10*3/uL Absolute Neuts (auto) (2.0-8.3) x10*3/uL Absolute Nucleated RBC (0.0-0.012) X10*3/uL Nucleated RBC % (auto) (0.0-0.2) /100WBC Sodium (135-145) mmol/L Potassium (3.3-5.1) mmol/L Chloride (96-108) mmol/L Carbon Dioxide (22-29) mmol/L Anion Gap (12-20) BUN (9-16) mg/dL Creatinine (0.5-1.4) mg/dL Estim Creat Clear Calc Estimated GFR Random Glucose (60-115) mg/dL Estimat Average Glucose mg/dL Hemoglobin A1c % % Calcium (8.4-10.2) mg/dL Total Bilirubin (0.0-1.0) mg/dL AST (5-31) U/L ALT (0-31) U/L Alkaline Phosphatase (39-117) U/L Troponin I High Sens (<3.5-17.0) ng/L B-Natriuretic Peptide (<100) pg/mL Total Protein (6.5-8.0) g/dL Albumin (3.5-5.0) g/dL Lipase (8-78) U/L Urine Color Dark Yellow Urine Appearance Cloudy Urine pH 6.5 (5.0-9.0) Ur Specific [place] >= 1.030 H (1.005-1.025) Urine Protein 300 (3+) H (Neg-Trace) mg/dL Urine Glucose (UA) Negative (Negative) mg/dL Urine Ketones Trace (Negative) mg/dL Urine Blood Negative (Negative) Urine Nitrite Negative (Negative) Ur Leukocyte Esterase Trace H (Negative) Urine RBC 0-2 (0-2) /HPF Urine WBC 0-5 (0-5) /HPF Ur Squamous Epith Cells 3-5 (0-2) /HPF Urine Bacteria Trace (None Seen) Hyaline Casts 3-5 (0-2) /LPF Urine Test (NEGATIVE) COVID-19 (ROSALVA) Negative (Negative) COVID-19 Clin Com See Note Influenza Type A (SANJUANITA) Negative (Negative) Influenza Type B (SANJUANITA) Negative (Negative) Influenza A & B Note See Note 09/13/22 09/13/22 09/13/22 Range/Units 20:39 20:47 20:47 WBC 12.0 H (4.8-10.8) X10*3/uL RBC 5.69 H (4.20-5.50) X10*6/uL Hgb 13.7 (12.0-16.0) g/dl Hct 43.6 (37.0-47.0) % MCV 76.6 L (80.0-98.0) fL MCH 24.1 L (27.0-33.0) pg MCHC 31.4 (31.0-35.0) g/dl RDW 16.8 H (11.0-16.0) % Plt Count 342 (160-400) X10*3/uL MPV 9.8 (9.4-12.3) fL Immature Gran % (Auto) 0.3 (0.0-0.4) % Neut % (Auto) 61.7 (45-73) % Lymph % (Auto) 26.1 (20-40) % [place] % (Auto) 9.2 (2-11) % Eos % (Auto) 2.0 (0-4) % Baso % (Auto) 0.7 (0-2) % Lymph # (Auto) 3.1 (1.2-4.9) X10*3/uL [place] # (Auto) 1.1 (0.1-1.2) X10*3/uL Eos # (Auto) 0.2 (0.0-0.4) X10*3/uL Baso # (Auto) 0.1 (0.0-0.2) X10*3/uL Abs Immat Gran (auto) 0.03 (0.00-0.03) X10*3/uL Absolute Neuts (auto) 7.4 (2.0-8.3) x10*3/uL Absolute Nucleated RBC 0.000 (0.0-0.012) X10*3/uL Nucleated RBC % (auto) 0.0 (0.0-0.2) /100WBC Sodium 146 H (135-145) mmol/L Potassium 3.8 (3.3-5.1) mmol/L Chloride 105 (96-108) mmol/L Carbon Dioxide 29 (22-29) mmol/L Anion Gap 16 (12-20) BUN 15 (9-16) mg/dL Creatinine 0.92 (0.5-1.4) mg/dL Estim Creat Clear Calc 67.8 Estimated GFR > 60 Random Glucose 119 H (60-115) mg/dL Estimat Average Glucose mg/dL Hemoglobin A1c % % Calcium 10.4 H (8.4-10.2) mg/dL Total Bilirubin 0.4 (0.0-1.0) mg/dL AST 28 (5-31) U/L ALT 34 H (0-31) U/L Alkaline Phosphatase 134 H (39-117) U/L Troponin I High Sens (<3.5-17.0) ng/L B-Natriuretic Peptide (<100) pg/mL Total Protein 7.6 (6.5-8.0) g/dL Albumin 4.5 (3.5-5.0) g/dL Lipase 39 (8-78) U/L Urine Color Urine Appearance Urine pH (5.0-9.0) Ur Specific [place] (1.005-1.025) Urine Protein (Neg-Trace) mg/dL Urine Glucose (UA) (Negative) mg/dL Urine Ketones (Negative) mg/dL Urine Blood (Negative) Urine Nitrite (Negative) Ur Leukocyte Esterase (Negative) Urine RBC (0-2) /HPF Urine WBC (0-5) /HPF Ur Squamous Epith Cells (0-2) /HPF Urine Bacteria (None Seen) Hyaline Casts (0-2) /LPF Urine Test NEGATIVE (NEGATIVE) COVID-19 (ROSALVA) (Negative) COVID-19 Clin Com Influenza Type A (SANJUANITA) (Negative) Influenza Type B (SANJUANITA) (Negative) Influenza A & B Note 09/13/22 09/13/22 09/13/22 Range/Units 20:47 20:47 20:47 WBC (4.8-10.8) X10*3/uL RBC (4.20-5.50) X10*6/uL Hgb (12.0-16.0) g/dl Hct (37.0-47.0) % MCV (80.0-98.0) fL MCH (27.0-33.0) pg MCHC (31.0-35.0) g/dl RDW (11.0-16.0) % Plt Count (160-400) X10*3/uL MPV (9.4-12.3) fL Immature Gran % (Auto) (0.0-0.4) % Neut % (Auto) (45-73) % Lymph % (Auto) (20-40) % [place] % (Auto) (2-11) % Eos % (Auto) (0-4) % Baso % (Auto) (0-2) % Lymph # (Auto) (1.2-4.9) X10*3/uL [place] # (Auto) (0.1-1.2) X10*3/uL Eos # (Auto) (0.0-0.4) X10*3/uL Baso # (Auto) (0.0-0.2) X10*3/uL Abs Immat Gran (auto) (0.00-0.03) X10*3/uL Absolute Neuts (auto) (2.0-8.3) x10*3/uL Absolute Nucleated RBC (0.0-0.012) X10*3/uL Nucleated RBC % (auto) (0.0-0.2) /100WBC Sodium (135-145) mmol/L Potassium (3.3-5.1) mmol/L Chloride (96-108) mmol/L Carbon Dioxide (22-29) mmol/L Anion Gap (12-20) BUN (9-16) mg/dL Creatinine (0.5-1.4) mg/dL Estim Creat Clear Calc Estimated GFR Random Glucose (60-115) mg/dL Estimat Average Glucose 128 mg/dL Hemoglobin A1c % 6.1 % Calcium (8.4-10.2) mg/dL Total Bilirubin (0.0-1.0) mg/dL AST (5-31) U/L ALT (0-31) U/L Alkaline Phosphatase (39-117) U/L Troponin I High Sens 11.0 (<3.5-17.0) ng/L B-Natriuretic Peptide 47 (<100) pg/mL Total Protein (6.5-8.0) g/dL Albumin (3.5-5.0) g/dL Lipase (8-78) U/L Urine Color Urine Appearance Urine pH (5.0-9.0) Ur Specific [place] (1.005-1.025) Urine Protein (Neg-Trace) mg/dL Urine Glucose (UA) (Negative) mg/dL Urine Ketones (Negative) mg/dL Urine Blood (Negative) Urine Nitrite (Negative) Ur Leukocyte Esterase (Negative) Urine RBC (0-2) /HPF Urine WBC (0-5) /HPF Ur Squamous Epith Cells (0-2) /HPF Urine Bacteria (None Seen) Hyaline Casts (0-2) /LPF Urine Test (NEGATIVE) COVID-19 (ROSALVA) (Negative) COVID-19 Clin Com Influenza Type A (SANJUANITA) (Negative) Influenza Type B (SANJUANITA) (Negative) Influenza A & B Note <Nelson Gonzalez MD - Last Filed: 09/14/22 16:27> Independent Interpretation I performed an independent interpretation of an: EKG (My EKG interpretation, normal sinus rhythm, heart rate 66, no ST segment depression or elevation, no T-wave inversion, QTC 446), Plain X-Ray (My interpretation of chest x-ray: No infiltrates) and CT Scan <Emerald Nowak MD - Last Filed: 09/14/22 03:49> Radiology Impression Discussion of test interpretation with radiology: I have reviewed the radiologist's reading. <Emerald Nowak MD - Last Filed: 09/14/22 03:49> Radiologist Impression: FINDINGS: No significant abnormality is noted involving the heart, lungs, mediastinum, bony thorax or soft tissues. XR/XR chest 2V IMPRESSION: Unremarkable examination FINDINGS: No acute osseous or soft tissue abnormality. The mastoid air cells and visualized portions of the paranasal sinuses are well aerated. There is no evidence of acute intracranial hemorrhage or territorial infarction. No abnormal mass effect or midline shift is seen. Garcia to white matter differentiation is well preserved. No extra-axial fluid collections are identified. No hydrocephalus. No significant volume loss. Patchy periventricular and deep white matter hypoattenuation is consistent with mild small vessel ischemic changes. Chronic left basal ganglia lacunar infarcts. ? CT/CT head/brain wo IV con IMPRESSION: ? No acute intracranial abnormality including hemorrhage, mass effect, hydrocephalus, or acute territorial edematous infarction. <Emerald Nowak MD - Last Filed: 09/14/22 03:49> Critical Care Time Critical Care Time Critical Care Time: Yes <Emerald Nowak MD - Last Filed: 09/14/22 03:49> Total Critical Care Time: 75 <Emerald Nowak MD - Last Filed: 09/14/22 03:49> Attestation: I have personally provided critical care time. Time includes review of lab data, radiology results, discussion with consultants, and monitoring for potential decompensation. Intervention performed as documented. <Emerald Nowak MD - Last Filed: 09/14/22 03:49> Discharge Plan Discharge Clinical Impression: Malignant hypertensive urgency, Headache <Nicki Mcgovern CNP - Last Filed: 09/13/22 20:06> Patient Disposition: Admitted As Inpatient <Nicki Mcgovern CNP - Last Filed: 09/13/22 20:06>
--- NOTE | 2022-09-13 20:05 | ECG_ITS ---
Test Reason : headache Blood Pressure : / mmHG Vent. Rate : 066 BPM Atrial Rate : 066 BPM P-R Int : 132 ms QRS Dur : 082 ms QT Int : 426 ms P-R-T Axes : -28 -12 032 degrees QTc Int : 446 ms Normal sinus rhythm with sinus arrhythmia Minimal voltage criteria for LVH, may be normal variant ( R in aVL ) Inferior infarct (cited on or before 13-SEP-2022) Cannot rule out Anterior infarct , age undetermined Abnormal ECG When compared with ECG of 12-MAY-2022 16:43, No significant change was found Referred By: Nicki Mcgovern Electronically Signed By:Candido Carey
[2022-09-13] MEDS: Acetaminophen 325 MG TABLET 975 MG PO (20:09)
[2022-09-13] MEDS: Ondansetron ODT 4 MG TAB.RAPDIS TRANSLINGU (20:09)
[2022-09-13 20:46] LABS: Appearance Urine Cloudy; Color Urine Dark Yellow; Glucose Urine UA Negative (Negative); Leukocyte Esterase Urine Trace (Negative); Nitrite Urine Negative (Negative); PH 6.5 (5.0-9.0); Specific Gravity - Urine >= 1.030 (1.005-1.025); UMIC TRIGGER UACC YES; Urine Blood Negative (Negative); Urine Ketones Trace mg/dL (Negative); Urine Protein 300 (3+) mg/dL (Neg-Trace)
[2022-09-13 20:48] LABS: Bacteria Urine Trace (None Seen); RBC Urine 0-2 /HPF (0-2); UPreg QC Valid YES; Urine Pregnancy NEGATIVE (NEGATIVE); WBC Urine 0-5 /HPF (0-5)
[2022-09-13 20:51] LABS: MANUAL DIFF FLAG NO
[2022-09-13 20:53] LABS: Basophils Absolute Auto 0.1 X10*3/uL (0.0-0.2); Basophils Percent Auto 0.7 % (0-2); Eosinophils Absolute Auto 0.2 X10*3/uL (0.0-0.4); Hematocrit 43.6 % (37.0-47.0); Hemoglobin 13.7 g/dl (12.0-16.0); Imm Gran Abs Auto 0.03 X10*3/uL (0.00-0.03); Imm Gran Pct Auto 0.3 % (0.0-0.4); Lymphocytes Absolute Auto 3.1 X10*3/uL (1.2-4.9); Lymphocytes Percent Auto 26.1 % (20-40); Mean Corpuscular HGB Conc 31.4 g/dl (31.0-35.0); Mean Corpuscular Hemoglobin 24.1 pg (27.0-33.0); Mean Corpuscular Volume 76.6 fL (80.0-98.0); Mean Platelet Volume 9.8 fL (9.4-12.3); Monocytes Absolute Auto 1.1 X10*3/uL (0.1-1.2); Monocytes Percent Auto 9.2 % (2-11); Neutrophils Absolute Auto 7.4 x10*3/uL (2.0-8.3); Neutrophils Percent Auto 61.7 % (45-73); Platelet Count 342 X10*3/uL (160-400); Red Blood Count 5.69 X10*6/uL (4.20-5.50); Red Cell Distribution Width 16.8 % (11.0-16.0)
[2022-09-13 21:09] LABS: Alanine Aminotransferase 34 U/L (0-31); Albumin Level 4.5 g/dL (3.5-5.0); Alkaline Phosphatase 134 U/L (39-117); Anion Gap 16 (12-20); Aspartate Amino Transferase 28 U/L (5-31); Bilirubin Total 0.4 mg/dL (0.0-1.0); Blood Urea Nitrogen 15 mg/dL (9-16); Calcium 10.4 mg/dL (8.4-10.2); Carbon Dioxide 29 mmol/L (22-29); Chloride 105 mmol/L (96-108); Creatinine Clr Calc Pharmacy 67.8; Estimated Glomerular Filt Rate > 60; Glucose Random 119 mg/dL (60-115); Lipase 39 U/L (8-78); Potassium 3.8 mmol/L (3.3-5.1); Sodium 146 mmol/L (135-145); Total Protein 7.6 g/dL (6.5-8.0)
[2022-09-13 21:13] LABS: B Type Natriuretic Peptide 47 pg/mL (<100)
[2022-09-13 21:14] LABS: COVID-19 Test Negative (Negative); IDNOW Serial# 55D5AD1C
[2022-09-13 21:16] VITALS: BP 223/104; PULSE 66; RESP 20; O2SAT 98
--- NOTE | 2022-09-13 21:35 | PC.NURSE ---
This residential mortgage underwriter assumed care of this PT at this time. PT A&Ox4, reports 8/10 headache with palpitations and SOB starting last night. PT also reports BP being high. IV line placed. Blood work collected and sent to lab.
[2022-09-13 21:47] VITALS: BP 216/97; PULSE 66; RESP 18; O2SAT 97
[2022-09-13] MEDS: Labetalol HCL 100 MG/20 ML VIAL 20 MG IVPUSH (21:48)
[2022-09-13 22:11] VITALS: BP 196/90; PULSE 69; RESP 18; O2SAT 96
[2022-09-13 23:12] LABS: IDNOW Serial# 08D9AD1C; Influenza A Negative (Negative); Influenza B2 Negative (Negative)
[2022-09-13 23:20] VITALS: BP 207/104; PULSE 67; RESP 18; O2SAT 95
[2022-09-14] VITALS (28 sets, daily range): BP systolic 105–219; BP diastolic 57–113; PULSE 68–89; RESP 14–24; TEMP 36.5–37.1; O2SAT 91–97; BMI 41.0
[2022-09-14] MEDS: hydrALAZINE HCl 20 MG/ML VIAL 10 MG IVPUSH (00:25)
[2022-09-14] MEDS: Acetaminophen 325 MG TABLET 975 MG PO ×2 (02:42→10:07)
[2022-09-14] MEDS: cloNIDine HCL 0.1 MG TABLET PO ×2 (02:42→10:06)
[2022-09-14] MEDS: HYDROmorphone HCl 1 MG/ML SYRINGE IVPUSH (02:47)
--- NOTE | 2022-09-14 03:10 | PC.NURSE ---
PT BP 154/82 on RA. Recheck LA BP 159/79. Provider notified. Nicardipine drip held. PT reports effectiveness to meds given as ordered.
--- NOTE | 2022-09-14 03:42 | W.PM.CCCN ---
History of Present Illness Data of Consult Service Date: 09/14/22 Primary Care Provider: Aureliano German MD [facility] Reason for consult: Hypertension The patient is a? 57-year-old female with a past medical history? of GERD, hypercholesterolemia, hypertension, angina, anemia, impaired glucose tolerance? who presented to the emergency room last evening with a complaint of headache and severe hypertension.? The patient reports past? instances of uncontrolled hypertension.? She states that she does take her medication as prescribed.?? Patient states that she was seen yesterday by Nephrology who recommended? an increase in her losartan to 100 mg daily. According to Dr. Dumont?s note, her blood pressure had been running quite high at home and was in fact 170/90 in the office. Additionally, there is a plan in place for further medication adjustments if necessary.The patient is also followed by by Dr. Gonzalez, set up worker.? On arrival to the ER,? the patient complained of a severe headache not relieved with Tylenol, nausea and vomiting brought on by the pain, some chest pressure but no chest pain or shortness of breath.? Her blood pressure was 226/106, heart rate 72, O2 sat 95% on room air.?? EKG showed normal sinus rhythm with a heart rate of 66, no ST segment depression or elevation, no T-wave inversion.? High sensitivity troponin was 11.0, TSH 0.78, BNP 47. ? Chest x-ray was unremarkable. ? Head CT showed no acute intracranial abnormality including hemorrhage, mass effect, hydrocephalus, or acute territorial edematous infarction. While in the emergency room, she was given IV labetalol 20 mg and IV hydralazine 10 mg. She was given IV Dilaudid for headache and? IV Zofran for nausea. Her blood pressure initially dropped to 179/101 but shortly afterwards bounced back up to 214 systolic. Due to the difficulty controlling her blood pressure Dr. Sigala was called who recommended Catapres and starting a nicardipine drip. The patient will be re-evaluated once medications are administered and will be admitted to the ICU for close monitoring if she still requires the nicardipine drip. Clinical update 0400: Patient appeared much more comfortable and reported? her pain to be about 4/10 after the Dilaudid. Her blood pressure responded to the Catapres transdermal patch, coming down to 154/82 prior to even starting the nicardipine drip. However, subsequent readings are gradually rising.? We will continue to monitor blood pressures and initiate the nicardipine drip if needed. Review of Systems Review of Systems: Yes all other systems are reviewed and are negative Constitutional: Constitutional: Reports as per [facility] Past Medical History Medical History GERD (gastroesophageal reflux disease) Hypercholesterolemia Hypertension Impaired glucose tolerance Family History Family History Father CKD (chronic kidney disease) Hypertension Myocardial infarct Mother Dementia Sister Brain aneurysm Bone cancer Schizophrenia Brother No problems noted. Brother Myocardial infarct Son No problems noted. 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 Cognitive needs: No Hearing needs: No Vision needs: No Meds Allergies Allergy/AdvReac Type Severity Reaction Status Date / Time erythromycin base Allergy Mild VOMITING Verified 09/22/22 08:54 [Erythromycin Base] Sulfa (Sulfonamide Allergy Mild ITCHING Verified 09/22/22 08:54 Antibiotics) lisinopril AdvReac Unknown cough Verified 09/22/22 08:54 Active Medications: Current Medications Nicardipine HCl 25 mg/ Sodium (Chloride) 260 mls @ 0 mls/hr IVCONT .Q0M [facility]; Protocol Home Medications Medication Instructions Recorded Confirmed Last Taken Type multivitamin,tx-minerals 1 tab PO DAILY 08/04/21 09/22/22 Unknown History albuterol sulfate 90 mcg/actuation 1 puff inhalation Q6H 09/14/22 09/22/22 Unknown History aerosol inhaler atorvastatin 20 mg tablet 20 mg PO DAILY 09/14/22 09/22/22 Unknown History calcium carbonate 500 mg-vitamin 1 tab PO DAILY 09/14/22 09/22/22 Unknown History D3 10 mcg (400 unit) tablet (Calcium 500 With D) carvedilol 25 mg tablet 25 mg PO BID 09/14/22 09/22/22 Unknown History clonidine HCl 0.2 mg tablet 0.4 mg PO BID 09/14/22 09/22/22 Unknown History hydralazine 50 mg tablet 100 mg PO Q12H 09/14/22 09/22/22 Unknown History losartan 100 mg tablet 100 mg PO DAILY 09/14/22 09/22/22 Unknown History sertraline 100 mg tablet 100 mg PO DAILY 09/14/22 09/22/22 Unknown History spironolactone 50 mg tablet 50 mg PO DAILY 09/14/22 09/22/22 Unknown History valacyclovir 500 mg tablet 500 mg PO DAILY 09/14/22 09/22/22 Unknown History Physical Exam Vital Signs: Vital Signs: Last Vital Signs Temp 98.3 F 09/14/22 02:02 Pulse 87 09/14/22 03:29 Resp 17 09/14/22 03:29 BP 167/81 H 09/14/22 03:29 Pulse Ox 96 09/14/22 03:08 O2 Del Method 09/14/22 03:09 BMI result Body Mass Index 41.2 Const: General: alert Nutritional Appearance: obese Orientation/consciousness: patient oriented x3 (answering appropriately.) HEENT: Head: Yes normocephalic and Yes atraumatic Neck: Neck: Yes supple (no thyromegaly, trachea midline.) Carotids: normal carotid upstroke Resp: Auscultation: clear to auscultation bilaterally (normal work of breathing, no accessory muscle use) Cardio: Jugular venous distension: no JVD Rate: regular rate Rhythm: regular rhythm Heart sounds: no gallops, no murmurs and no rubs Peripheral pulses: Peripheral pulses 2+ throughout GI: Palpation (GI): Soft to palpation (nondistended.) and nontender Neuro: General: patient oriented x3 (answering appropriately.) Extrem: General: Yes full ROM, Yes capillary refill normal and Yes no clubbing, cyanosis or edema Psych: Affect: normal affect Attitude: cooperative Results Labs 09/13/22 20:47 09/13/22 20:47 Labs: Short CBC 09/13/22 Range/Units 20:47 WBC 12.0 H (4.8-10.8) X10*3/uL Hgb 13.7 (12.0-16.0) g/dl Hct 43.6 (37.0-47.0) % Plt Count 342 (160-400) X10*3/uL BMP 09/13/22 20:47 Sodium 146 H Potassium 3.8 Chloride 105 Carbon Dioxide 29 BUN 15 Creatinine 0.92 Calcium 10.4 H Liver Function 09/13/22 Range/Units 20:47 Total Bilirubin 0.4 (0.0-1.0) mg/dL AST 28 (5-31) U/L ALT 34 H (0-31) U/L Alkaline Phosphatase 134 H (39-117) U/L Albumin 4.5 (3.5-5.0) g/dL Urine 09/13/22 Range/Units 20:39 Urine Color Dark Yellow Urine Appearance Cloudy Urine pH 6.5 (5.0-9.0) Ur Specific [place] >= 1.030 H (1.005-1.025) Urine Protein 300 (3+) H (Neg-Trace) mg/dL Urine Glucose (UA) Negative (Negative) mg/dL Assessment and Plan (1) Headache: Status: Resolved (2) Essential hypertension: Status: Resolved Time Spent With Patient Time: Total time managing care of this patient today ____ minutes.
--- NOTE | 2022-09-14 03:45 | PC.NURSE ---
Dr. Noland notified about BR slight increase. Will CTM, and start Nicardipine drip if BP >190.
[2022-09-14] MEDS: ondansetron HCL 4 MG/2 ML VIAL IVPUSH (03:48)
--- NOTE | 2022-09-14 03:54 | PC.NURSE ---
0.1 mg Clonidine patch not available in xis. Provider notified.
[2022-09-14] MEDS: niCARdipine HCL 25 MG in 0.9 % Sodium Chloride 250 ML 52 MG IVCONT (05:08)
--- NOTE | 2022-09-14 05:08 | PC.NURSE ---
PT BP 192/100, Nicardipine drip started at 5mg/hr.
--- NOTE | 2022-09-14 05:23 | PC.NURSE ---
Per provided goal is to keep PT SBP in 170's. PT BP 171/92 No drip rate change needed at this time. PT resting quietly, denies CP, palpitations or SOB. o2 sat 88% on RA while PT sleeping, placed on 2L NC. Will CTM.
--- NOTE | 2022-09-14 05:38 | PC.NURSE ---
BP 164/87, no drip rate change needed at this time.
--- NOTE | 2022-09-14 06:08 | PC.NURSE ---
BP 152/78, Dr. Nowak notified. Nicardipine drip paused at this time.
--- NOTE | 2022-09-14 06:55 | PC.NURSE ---
0600 ordered medications not given, meds not verified by pharmacy.
--- NOTE | 2022-09-14 08:12 | PHA.MEDREC ---
Pharmacy Consult ? Medication Reconciliation Pharmacy has completed the medication reconciliation.
[2022-09-14] MEDS: hydrALAZINE HCl 50 MG TABLET PO (10:06)
[2022-09-14] MEDS: carvediloL 12.5 MG TABLET PO (10:06)
[2022-09-14] MEDS: Losartan Potassium 50 MG TABLET PO (10:07)
--- NOTE | 2022-09-14 11:57 | PC.NURSE ---
NICARDIPINE GTT PAUSED AT 0615, ORAL MEDS GIVEN CURRENT BP 129/99
[2022-09-14 13:32] LABS: Estimated Average Glucose 128 mg/dL; Hemoglobin A1c % 6.1 %
[2022-09-14] MEDS: Furosemide 40 MG TABLET PO (13:48)
[2022-09-14] MEDS: cloNIDine HCL 0.2 MG TABLET 0.4 MG PO ×2 (13:49→19:58)
[2022-09-14] MEDS: carvediloL 25 MG TABLET PO ×2 (13:49→19:58)
[2022-09-14] MEDS: Losartan Potassium 50 MG TABLET 100 MG PO (14:23)
[2022-09-14] MEDS: Morphine Sulfate 4 MG/ML CARTRIDGE IVPUSH (14:23)
--- NOTE | 2022-09-14 15:07 | PM.IMHP ---
History of Present Illness Date of Service: 09/14/22 Chief Complaint: headache, nausea 57yo F with resistant HTN, on carvedilol, clonidine, furosemide, hydralazine, spironolactone, and losartan. She is followed by Dr Dumont from Nephrology and at her last visit with him on 09/11/22, he increased carvedilol from 12.5 mg bid to 25 mg bid and added spironolactone 50 mg daily. She had previously been worked up for secondary causes of hypertension by Dr Tabor from Nephrology and no cause was found. She came in to the ED yesterday evening complaining of pressure-type headache associated with nausea for the prior 24 hours. No chest pain or pressure. No dyspnea. At home, her BP was 265/126 and in the ED, it was 226/106. She denies stimulant intake or medication noncompliance. CXR and CTH were unremarkable. In the ED, she was given IV labetalol and IV hydralazine and started briefly on a nicardipine drip. She was given several doses of PO clonidine and taken off of the drip. Her BP rebounded to 212/113. Her home medication regimen was restarted. Her BP is currently 175/97. Review of Systems Review of Systems: Yes all other systems are reviewed and are negative [facility] Medical History GERD (gastroesophageal reflux disease) Hypercholesterolemia Hypertension Impaired glucose tolerance Family History Father CKD (chronic kidney disease) Hypertension Myocardial infarct Mother Dementia Sister Brain aneurysm Bone cancer Schizophrenia Brother No problems noted. Brother Myocardial infarct Son No problems noted. 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 Cognitive needs: No Hearing needs: No Vision needs: No Meds Allergies Allergy/AdvReac Type Severity Reaction Status Date / Time erythromycin base Allergy Mild VOMITING Verified 09/13/22 20:03 [Erythromycin Base] Sulfa (Sulfonamide Allergy Mild ITCHING Verified 09/13/22 20:03 Antibiotics) lisinopril AdvReac Unknown cough Verified 09/13/22 20:03 Active Medications: Current Medications Acetaminophen (Acetaminophen 325 Mg Tablet) 650 mg PO Q6H PRN PRN Reason: Pain, Mild (Pain Scale 1-3) Albuterol Sulfate (Albuterol Sulfate 90 Mcg 8 Gm Inhaler) 1 puff INHALE Q6H [facility] Aspirin (Aspirin Enteric Coated 81 Mg Tablet.Dr) 81 mg PO DAILY [facility] Atorvastatin Calcium (Atorvastatin Calcium 20 Mg Tablet) 20 mg PO DAILY [facility] Calcium Carbonate/Cholecalciferol (Calcium + Vitamin D 250 Mg Tablet) 500 mg PO DAILY [facility] Carvedilol (Carvedilol 25 Mg Tablet) 25 mg PO BID [facility]; Protocol Last Admin: 09/14/22 13:49 Dose: 25 mg Clonidine HCl (Clonidine Hcl 0.2 Mg Tablet) 0.4 mg PO BID [facility]; Protocol Last Admin: 09/14/22 13:49 Dose: 0.4 mg Enoxaparin Sodium (Enoxaparin Sodium 40 Mg/0.4 Ml Syringe) 40 mg SUBCUT Q24H [facility] Furosemide (Furosemide 40 Mg Tablet) 40 mg PO DAILY [facility]; Protocol Last Admin: 09/14/22 13:48 Dose: 40 mg Hydralazine HCl (Hydralazine Hcl 50 Mg Tablet) 100 mg PO Q12H [facility]; Protocol Nicardipine HCl 25 mg/ Sodium (Chloride) 260 mls @ 0 mls/hr IVCONT .Q0M [facility]; Protocol Last Titration: 09/14/22 06:15 Dose: 0 mg/hr, 0 mls/hr Losartan Potassium (Losartan Potassium 50 Mg Tablet) 100 mg PO DAILY [facility]; Protocol Morphine Sulfate (Morphine Sulfate 4 Mg/Ml Cartridge) 4 mg IVPUSH Q4H PRN; Protocol PRN Reason: severe pain Last Admin: 09/14/22 14:23 Dose: 4 mg Multivitamins/Vitamin C (Multivitamin Tablet) 1 tab PO DAILY [facility] Omeprazole (Omeprazole 20 Mg Capsule.Dr) 20 mg PO DAILY@0630 [facility] Ondansetron HCl (Ondansetron Hcl 4 Mg/2 Ml Vial) 4 mg IVPUSH Q8H PRN PRN Reason: Nausea and Vomiting Pharmacy Consult (Consult Rx Perform Med Rec) 1 each MISCELLANE ONCE PRN PRN Reason: Consult order Sertraline HCl (Sertraline Hcl 100 Mg Tablet) 100 mg PO DAILY [facility] Sodium Chloride (0.9 % Sodium Chloride Flush 3 Ml Syringe) 3 ml IVFLUSH QSHIFT [facility] Spironolactone (Spironolactone 25 Mg Tablet) 50 mg PO DAILY [facility]; Protocol Valacyclovir HCl (Valacyclovir Hcl 500 Mg Tablet) 500 mg PO DAILY [facility] Home Medications Medication Instructions Recorded Confirmed Last Taken Type multivitamin,tx-minerals 1 tab PO DAILY 08/04/21 09/14/22 Unknown History albuterol sulfate 90 mcg/actuation 1 puff inhalation Q6H 09/14/22 09/14/22 Unknown History aerosol inhaler aspirin 81 mg tablet,delayed 81 mg PO DAILY 09/14/22 09/14/22 Unknown History release atorvastatin 20 mg tablet 20 mg PO DAILY 09/14/22 09/14/22 Unknown History calcium carbonate 500 mg-vitamin 1 tab PO DAILY 09/14/22 09/14/22 Unknown History D3 10 mcg (400 unit) tablet (Calcium 500 With D) carvedilol 25 mg tablet 25 mg PO BID 09/14/22 09/14/22 Unknown History clonidine HCl 0.2 mg tablet 0.4 mg PO BID 09/14/22 09/14/22 Unknown History furosemide 40 mg tablet 40 mg PO DAILY 09/14/22 09/14/22 Unknown History hydralazine 50 mg tablet 100 mg PO Q12H 09/14/22 09/14/22 Unknown History losartan 100 mg tablet 100 mg PO DAILY 09/14/22 09/14/22 Unknown History sertraline 100 mg tablet 100 mg PO DAILY 09/14/22 09/14/22 Unknown History spironolactone 50 mg tablet 50 mg PO DAILY 09/14/22 09/14/22 Unknown History valacyclovir 500 mg tablet 500 mg PO DAILY 09/14/22 09/14/22 Unknown History Physical Exam Vital Signs and Narrative: Vital Signs: Last Vital Signs Temp 97.7 F 09/14/22 10:06 Pulse 88 09/14/22 14:28 Resp 20 09/14/22 14:28 BP 194/113 H 09/14/22 14:28 Pulse Ox 96 09/14/22 14:28 O2 Del Method 09/14/22 14:28 O2 Flow Rate 1 09/14/22 06:08 BMI result Body Mass Index 41.2 Const: Other: Gen: in no acute distress HEENT: sclera anicteric, moist mucus membranes Neck: supple Lungs: clear to auscultation bilaterally Heart: regular rate and rhythm, no murmurs Abd: soft, non-tender, non-distended, obese Ext: no edema Skin: warm/well-perfused Neuro: alert and oriented x3, no focal findings Psych: appropriate affect Results Labs 09/13/22 20:47 09/13/22 20:47 Labs: Laboratory Results - last 24 hr 09/13/22 09/13/22 09/13/22 00:52 20:39 20:39 MCV MCH MCHC RDW Plt Count MPV Immature Gran % (Auto) Neut % (Auto) Lymph % (Auto) [place] % (Auto) Eos % (Auto) Baso % (Auto) Lymph # (Auto) [place] # (Auto) Eos # (Auto) Baso # (Auto) Abs Immat Gran (auto) Absolute Neuts (auto) Absolute Nucleated RBC Nucleated RBC % (auto) Anion Gap Estim Creat Clear Calc Estimated GFR Random Glucose Estimat Average Glucose Hemoglobin A1c % Calcium Total Bilirubin AST ALT Alkaline Phosphatase Troponin I High Sens B-Natriuretic Peptide Total Protein Albumin Lipase Urine Color Dark Yellow Urine Appearance Cloudy Urine pH 6.5 Ur Specific [place] >= 1.030 H Urine Protein 300 (3+) H Urine Glucose (UA) Negative Urine Ketones Trace Urine Blood Negative Urine Nitrite Negative Ur Leukocyte Esterase Trace H Urine RBC 0-2 Urine WBC 0-5 Ur Squamous Epith Cells 3-5 Urine Bacteria Trace Hyaline Casts 3-5 Urine Test COVID-19 (ROSALVA) Negative COVID-19 Clin Com See Note Influenza Type A (SANJUANITA) Negative Influenza Type B (SANJUANITA) Negative Influenza A & B Note See Note 09/13/22 09/13/22 09/13/22 20:39 20:47 20:47 MCV 76.6 L MCH 24.1 L MCHC 31.4 RDW 16.8 H Plt Count 342 MPV 9.8 Immature Gran % (Auto) 0.3 Neut % (Auto) 61.7 Lymph % (Auto) 26.1 [place] % (Auto) 9.2 Eos % (Auto) 2.0 Baso % (Auto) 0.7 Lymph # (Auto) 3.1 [place] # (Auto) 1.1 Eos # (Auto) 0.2 Baso # (Auto) 0.1 Abs Immat Gran (auto) 0.03 Absolute Neuts (auto) 7.4 Absolute Nucleated RBC 0.000 Nucleated RBC % (auto) 0.0 Anion Gap 16 Estim Creat Clear Calc 67.8 Estimated GFR > 60 Random Glucose 119 H Estimat Average Glucose Hemoglobin A1c % Calcium 10.4 H Total Bilirubin 0.4 AST 28 ALT 34 H Alkaline Phosphatase 134 H Troponin I High Sens B-Natriuretic Peptide Total Protein 7.6 Albumin 4.5 Lipase 39 Urine Color Urine Appearance Urine pH Ur Specific [place] Urine Protein Urine Glucose (UA) Urine Ketones Urine Blood Urine Nitrite Ur Leukocyte Esterase Urine RBC Urine WBC Ur Squamous Epith Cells Urine Bacteria Hyaline Casts Urine Test NEGATIVE COVID-19 (ROSALVA) COVID-19 Clin Com Influenza Type A (SANJUANITA) Influenza Type B (SANJUANITA) Influenza A & B Note 09/13/22 09/13/22 09/13/22 20:47 20:47 20:47 MCV MCH MCHC RDW Plt Count MPV Immature Gran % (Auto) Neut % (Auto) Lymph % (Auto) [place] % (Auto) Eos % (Auto) Baso % (Auto) Lymph # (Auto) [place] # (Auto) Eos # (Auto) Baso # (Auto) Abs Immat Gran (auto) Absolute Neuts (auto) Absolute Nucleated RBC Nucleated RBC % (auto) Anion Gap Estim Creat Clear Calc Estimated GFR Random Glucose Estimat Average Glucose 128 Hemoglobin A1c % 6.1 Calcium Total Bilirubin AST ALT Alkaline Phosphatase Troponin I High Sens 11.0 B-Natriuretic Peptide 47 Total Protein Albumin Lipase Urine Color Urine Appearance Urine pH Ur Specific [place] Urine Protein Urine Glucose (UA) Urine Ketones Urine Blood Urine Nitrite Ur Leukocyte Esterase Urine RBC Urine WBC Ur Squamous Epith Cells Urine Bacteria Hyaline Casts Urine Test COVID-19 (ROSALVA) COVID-19 Clin Com Influenza Type A (SANJUANITA) Influenza Type B (SANJUANITA) Influenza A & B Note Imaging Radiologist's Impressions: Impressions Chest X-Ray 09/13/22 20:19 IMPRESSION: Unremarkable examination. Head CT 09/13/22 23:17 IMPRESSION: No acute intracranial abnormality including hemorrhage, mass effect, hydrocephalus, or acute territorial edematous infarction. Assessment and Plan (1) Malignant hypertensive urgency: Status: Acute Plan 57yo F with resistant HTN presenting with hypertensive emergency briefly requiring IV nicardipine drip but weaned off and restarted on home medications. # HTN emergency - Admit to C. Goal reduction of BP of 25% in 1st 24hr. Resume home meds. Nephrology consultation. Could increase frequency of hydralazine to tid or add CCB like nifedipine or amlodipine. # HLD - statin # GERD - PPI # prediabetes # morbid obesity - diet/exercise counseling # VTE ppx: LMWH # code: full I anticipate that the patient will stay at least 2 midnights as an inpatient in the hospital due to the above reasons. It is neither reasonable nor safe to care for them in a less acute setting. Time Spent With Patient Time: Total time managing care of this patient today _75___ minutes. Quality Stroke Does the patient have a stroke diagnosis?: No VTE Prior VTE?: No VTE Risk Level:: Medical - moderate - high VTE Device Contraindication: N/A - Device Ordered VTE Drug Contraindication: N/A - Med Ordered
--- NOTE | 2022-09-14 19:48 | PC.RT ---
Scheduled albuterol inhaler not available. Pharmacy called to request medication. Patient in no distress. Does not wish to be woken at night for inhaler. Will evaluate patient and patient aware to call for any SOB or discomfort.
[2022-09-14] MEDS: hydrALAZINE HCl 50 MG TABLET 100 MG PO (19:57)
[2022-09-14] MEDS: 0.9 % Sodium Chloride Flush 3 ML SYRINGE IVFLUSH (19:58)
[2022-09-15] VITALS (7 sets, daily range): BP systolic 112–165; BP diastolic 54–75; PULSE 67–75; RESP 17–18; TEMP 36.6–36.9; O2SAT 92–98
[2022-09-15] MEDS: Omeprazole 20 MG CAPSULE.DR PO (06:10)
[2022-09-15 07:07] LABS: Anion Gap 15 (12-20); Blood Urea Nitrogen 33 mg/dL (9-16); Calcium 9.5 mg/dL (8.4-10.2); Carbon Dioxide 27 mmol/L (22-29); Chloride 104 mmol/L (96-108); Creatinine Clr Calc Pharmacy 39.9; Estimated Glomerular Filt Rate 34; Glucose Random 111 mg/dL (60-115); Potassium 4.3 mmol/L (3.3-5.1); Sodium 142 mmol/L (135-145)
--- NOTE | 2022-09-15 09:29 | HO.PM.IMPN ---
Subjective Subjective Date of Service: 09/15/22 Interval History: BP improved HOLGUIN resolved nausea resolved no chest pain SCr increased Review of Systems Review of Systems: Yes all other systems are reviewed and are negative Physical Exam Vital Signs: Vital Signs: Last Vital Signs Temp 98.0 F 09/15/22 07:34 Pulse 67 09/15/22 07:34 Resp 17 09/15/22 07:34 BP 119/71 09/15/22 07:34 Pulse Ox 95 09/15/22 07:34 O2 Del Method 09/15/22 07:34 O2 Flow Rate 1 09/14/22 06:08 BMI result Body Mass Index 41.0 Gen: in no acute distress HEENT: sclera anicteric, moist mucus membranes Neck: supple Lungs: clear to auscultation bilaterally Heart: regular rate and rhythm, no murmurs Abd: soft, non-tender, non-distended, morbid obesity Ext: no edema Skin: warm/well-perfused Neuro: alert and oriented x3, no focal findings Psych: appropriate affect Objective Data Active Medications Acetaminophen (Acetaminophen 325 Mg Tablet) 650 mg PO Q6H PRN PRN Reason: Pain, Mild (Pain Scale 1-3) Albuterol Sulfate (Albuterol Sulfate 90 Mcg 8 Gm Inhaler) 1 puff INHALE Q6H [facility] Last Admin: 09/15/22 07:21 Dose: Not Given Documented By: TY Non-Admin Reason: Med Not Available Aspirin (Aspirin Enteric Coated 81 Mg Tablet.) 81 mg PO DAILY [facility] Atorvastatin Calcium (Atorvastatin Calcium 20 Mg Tablet) 20 mg PO DAILY [facility] Calcium Carbonate/Cholecalciferol (Calcium + Vitamin D 250 Mg Tablet) 500 mg PO DAILY [facility] Carvedilol (Carvedilol 25 Mg Tablet) 25 mg PO BID [facility]; Protocol Last Admin: 09/14/22 19:58 Dose: 25 mg Documented By: KAYLEIGH Clonidine HCl (Clonidine Hcl 0.2 Mg Tablet) 0.4 mg PO BID [facility]; Protocol Last Admin: 09/14/22 19:58 Dose: 0.4 mg Documented By: KAYLEIGH Enoxaparin Sodium (Enoxaparin Sodium 40 Mg/0.4 Ml Syringe) 40 mg SUBCUT Q24H [facility] Last Admin: 09/14/22 16:52 Dose: Not Given Documented By: LOIS Non-Admin Reason: pt was in ED Furosemide (Furosemide 40 Mg Tablet) 40 mg PO DAILY [facility]; Protocol Last Admin: 09/14/22 13:48 Dose: 40 mg Documented By: WARREN Hydralazine HCl (Hydralazine Hcl 50 Mg Tablet) 100 mg PO Q12H [facility]; Protocol Last Admin: 09/14/22 19:57 Dose: 100 mg Documented By: KAYLEIGH Lactated Ringer's (Lr) 1,000 mls @ 100 mls/hr IVCONT .Q10H [facility] Losartan Potassium (Losartan Potassium 50 Mg Tablet) 100 mg PO DAILY [facility]; Protocol Morphine Sulfate (Morphine Sulfate 4 Mg/Ml Cartridge) 4 mg IVPUSH Q4H PRN; Protocol PRN Reason: severe pain Last Admin: 09/14/22 14:23 Dose: 4 mg Documented By: BRAD Multivitamins/Vitamin C (Multivitamin Tablet) 1 tab PO DAILY [facility] Omeprazole (Omeprazole 20 Mg Capsule.Dr) 20 mg PO DAILY@0630 [facility] Last Admin: 09/15/22 06:10 Dose: 20 mg Documented By: KAYLEIGH Ondansetron HCl (Ondansetron Hcl 4 Mg/2 Ml Vial) 4 mg IVPUSH Q8H PRN PRN Reason: Nausea and Vomiting Pharmacy Consult (Consult Rx Perform Med Rec) 1 each MISCELLANE ONCE PRN PRN Reason: Consult order Sertraline HCl (Sertraline Hcl 100 Mg Tablet) 100 mg PO DAILY [facility] Sodium Chloride (0.9 % Sodium Chloride Flush 3 Ml Syringe) 3 ml IVFLUSH QSHIFT [facility] Last Admin: 09/14/22 19:58 Dose: 3 ml Documented By: KAYLEIGH Spironolactone (Spironolactone 25 Mg Tablet) 50 mg PO DAILY [facility]; Protocol Valacyclovir HCl (Valacyclovir Hcl 500 Mg Tablet) 500 mg PO DAILY [facility] Labs 09/13/22 20:47 09/15/22 06:12 Labs: Laboratory Results - last 24 hr 09/13/22 09/15/22 20:47 06:12 Anion Gap 15 Estim Creat Clear Calc 39.9 Estimated GFR 34 Random Glucose 111 Estimat Average Glucose 128 Hemoglobin A1c % 6.1 Calcium 9.5 D Assessment and Plan (1) Malignant hypertensive urgency: Status: Acute Plan 57yo F with resistant HTN presenting with hypertensive emergency briefly requiring IV nicardipine drip but weaned off and restarted on home medications. # HTN emergency - Resolved. Continue hydralazine, carvedilol, furosemide, spironolactone, losartan. Had prior outpt workup for secondary causes that was unrevealing. Nephro consult pending # RAMY - give IV fluids, check urine studies, recheck BMP in AM, Nephro consult pending # HLD - statin # GERD - PPI # prediabetes # morbid obesity - diet/exercise counseling # VTE ppx: LMWH # dispo: anticipate home when RAMY resolves Time Spent With Patient Time: Total time managing care of this patient today __40__ minutes. Quality Stroke Does the patient have a stroke diagnosis?: No VTE Prior VTE?: No VTE Risk Level:: Medical - moderate - high VTE Device Contraindication: N/A - Device Ordered VTE Drug Contraindication: N/A - Med Ordered
[2022-09-15] MEDS: Calcium + Vitamin D 250 MG TABLET 500 MG PO (09:47)
[2022-09-15] MEDS: Atorvastatin Calcium 20 MG TABLET PO (09:48)
[2022-09-15] MEDS: Sertraline HCL 100 MG TABLET PO (09:48)
[2022-09-15] MEDS: Aspirin Enteric Coated 81 MG TABLET.DR PO (09:48)
[2022-09-15] MEDS: Losartan Potassium 50 MG TABLET 100 MG PO (09:49)
[2022-09-15] MEDS: carvediloL 25 MG TABLET PO ×2 (09:49→22:59)
[2022-09-15] MEDS: Spironolactone 25 MG TABLET 50 MG PO (09:49)
[2022-09-15] MEDS: cloNIDine HCL 0.2 MG TABLET 0.4 MG PO ×2 (09:49→22:59)
[2022-09-15] MEDS: valACYclovir HCL 500 MG TABLET PO (09:50)
[2022-09-15] MEDS: hydrALAZINE HCl 50 MG TABLET 100 MG PO ×2 (09:50→22:57)
[2022-09-15] MEDS: Furosemide 40 MG TABLET PO (09:50)
[2022-09-15] MEDS: 0.9 % Sodium Chloride Flush 3 ML SYRINGE IVFLUSH ×2 (09:51→15:53)
[2022-09-15] MEDS: Multivitamin TABLET 1 TAB PO (09:52)
[2022-09-15] MEDS: Lactated Ringers 1,000 ML 100 ML IVCONT ×2 (09:57→16:54)
--- NOTE | 2022-09-15 10:22 | PM.CNNEP ---
History of Present Illness Reason for Consult Consult date: 09/15/22 Chief Complaint Chief complaint: HTN Emergency History of Present Illness Narrative: 57 year old patient with normal baseline kidney function presented with complaint of pressure-type headache associated with nausea for the prior 24 hours and found to be hypertensive. She has a history of resistant HTN and is followed by Dr Dumont. She had previously been worked up for secondary causes of hypertension by Dr Tabor from Nephrology and no cause was found.? At home, her BP was 265/126 and in the ED, it was 226/106.? Review of Systems Review of Systems 10 points ROS negative except for pertinent in HPI [facility] Past Medical History Medical History GERD (gastroesophageal reflux disease) Hypercholesterolemia Hypertension Impaired glucose tolerance Family History Family History Father CKD (chronic kidney disease) Hypertension Myocardial infarct Mother Dementia Sister Brain aneurysm Bone cancer Schizophrenia Brother No problems noted. Brother Myocardial infarct Son No problems noted. 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 Cognitive needs: No Hearing needs: No Vision needs: No Meds Allergies Allergy/AdvReac Type Severity Reaction Status Date / Time erythromycin base Allergy Mild VOMITING Verified 09/13/22 20:03 [Erythromycin Base] Sulfa (Sulfonamide Allergy Mild ITCHING Verified 09/13/22 20:03 Antibiotics) lisinopril AdvReac Unknown cough Verified 09/13/22 20:03 Active Medications: Current Medications Acetaminophen (Acetaminophen 325 Mg Tablet) 650 mg PO Q6H PRN PRN Reason: Pain, Mild (Pain Scale 1-3) Albuterol Sulfate (Albuterol Sulfate 90 Mcg 8 Gm Inhaler) 1 puff INHALE Q6H [facility] Last Admin: 09/15/22 07:21 Dose: Not Given Aspirin (Aspirin Enteric Coated 81 Mg Tablet.) 81 mg PO DAILY [facility] Last Admin: 09/15/22 09:48 Dose: 81 mg Atorvastatin Calcium (Atorvastatin Calcium 20 Mg Tablet) 20 mg PO DAILY [facility] Last Admin: 09/15/22 09:48 Dose: 20 mg Calcium Carbonate/Cholecalciferol (Calcium + Vitamin D 250 Mg Tablet) 500 mg PO DAILY [facility] Last Admin: 09/15/22 09:47 Dose: 500 mg Carvedilol (Carvedilol 25 Mg Tablet) 25 mg PO BID [facility]; Protocol Last Admin: 09/15/22 09:49 Dose: 25 mg Clonidine HCl (Clonidine Hcl 0.2 Mg Tablet) 0.4 mg PO BID [facility]; Protocol Last Admin: 09/15/22 09:49 Dose: 0.4 mg Enoxaparin Sodium (Enoxaparin Sodium 40 Mg/0.4 Ml Syringe) 40 mg SUBCUT Q24H [facility] Last Admin: 09/14/22 16:52 Dose: Not Given Furosemide (Furosemide 40 Mg Tablet) 40 mg PO DAILY [facility]; Protocol Last Admin: 09/15/22 09:50 Dose: 40 mg Hydralazine HCl (Hydralazine Hcl 50 Mg Tablet) 100 mg PO Q12H [facility]; Protocol Last Admin: 09/15/22 09:50 Dose: 100 mg Lactated Ringer's (Lr) 1,000 mls @ 100 mls/hr IVCONT .Q10H [facility] Last Admin: 09/15/22 09:57 Dose: 100 mls/hr Losartan Potassium (Losartan Potassium 50 Mg Tablet) 100 mg PO DAILY [facility]; Protocol Last Admin: 09/15/22 09:49 Dose: 100 mg Morphine Sulfate (Morphine Sulfate 4 Mg/Ml Cartridge) 4 mg IVPUSH Q4H PRN; Protocol PRN Reason: severe pain Last Admin: 09/14/22 14:23 Dose: 4 mg Multivitamins/Vitamin C (Multivitamin Tablet) 1 tab PO DAILY [facility] Last Admin: 09/15/22 09:52 Dose: 1 tab Omeprazole (Omeprazole 20 Mg Capsule.) 20 mg PO DAILY@0630 [facility] Last Admin: 09/15/22 06:10 Dose: 20 mg Ondansetron HCl (Ondansetron Hcl 4 Mg/2 Ml Vial) 4 mg IVPUSH Q8H PRN PRN Reason: Nausea and Vomiting Pharmacy Consult (Consult Rx Perform Med Rec) 1 each MISCELLANE ONCE PRN PRN Reason: Consult order Sertraline HCl (Sertraline Hcl 100 Mg Tablet) 100 mg PO DAILY [facility] Last Admin: 09/15/22 09:48 Dose: 100 mg Sodium Chloride (0.9 % Sodium Chloride Flush 3 Ml Syringe) 3 ml IVFLUSH QSHIFT [facility] Last Admin: 09/15/22 09:51 Dose: 3 ml Spironolactone (Spironolactone 25 Mg Tablet) 50 mg PO DAILY [facility]; Protocol Last Admin: 09/15/22 09:49 Dose: 50 mg Valacyclovir HCl (Valacyclovir Hcl 500 Mg Tablet) 500 mg PO DAILY [facility] Last Admin: 09/15/22 09:50 Dose: 500 mg Home Medications Medication Instructions Recorded Confirmed Last Taken Type multivitamin,tx-minerals 1 tab PO DAILY 08/04/21 09/14/22 Unknown History albuterol sulfate 90 mcg/actuation 1 puff inhalation Q6H 09/14/22 09/14/22 Unknown History aerosol inhaler aspirin 81 mg tablet,delayed 81 mg PO DAILY 09/14/22 09/14/22 Unknown History release atorvastatin 20 mg tablet 20 mg PO DAILY 09/14/22 09/14/22 Unknown History calcium carbonate 500 mg-vitamin 1 tab PO DAILY 09/14/22 09/14/22 Unknown History D3 10 mcg (400 unit) tablet (Calcium 500 With D) carvedilol 25 mg tablet 25 mg PO BID 09/14/22 09/14/22 Unknown History clonidine HCl 0.2 mg tablet 0.4 mg PO BID 09/14/22 09/14/22 Unknown History furosemide 40 mg tablet 40 mg PO DAILY 09/14/22 09/14/22 Unknown History hydralazine 50 mg tablet 100 mg PO Q12H 09/14/22 09/14/22 Unknown History losartan 100 mg tablet 100 mg PO DAILY 09/14/22 09/14/22 Unknown History sertraline 100 mg tablet 100 mg PO DAILY 09/14/22 09/14/22 Unknown History spironolactone 50 mg tablet 50 mg PO DAILY 09/14/22 09/14/22 Unknown History valacyclovir 500 mg tablet 500 mg PO DAILY 09/14/22 09/14/22 Unknown History Physical Exam Vital Signs: Last Vital Signs Temp 98.0 F 09/15/22 07:34 Pulse 67 09/15/22 07:34 Resp 17 09/15/22 07:34 BP 119/71 09/15/22 07:34 Pulse Ox 95 09/15/22 07:34 O2 Del Method 09/15/22 07:34 O2 Flow Rate 1 09/14/22 06:08 BMI result Body Mass Index 41.0 Const General: no acute distress HEENT Head: Yes normocephalic and Yes atraumatic Neck Neck: Yes supple Resp Auscultation: clear to auscultation bilaterally Cardio Heart sounds: S1 normal heart sound present and S2 normal heart sound present GI Palpation (GI): Soft to palpation and nontender Extrem General: Yes no pedal edema Results Lab Results 09/13/22 20:47 09/15/22 06:12 Lab results: Chemistry 09/13/22 09/15/22 20:47 06:12 Sodium 146 H 142 Potassium 3.8 4.3 Carbon Dioxide 29 27 BUN 15 33 H Creatinine 0.92 1.56 H Calcium 10.4 H 9.5 D Hematology 09/13/22 20:47 WBC 12.0 H Hgb 13.7 Plt Count 342 Urinalysis 09/13/22 20:39 Urine Color Dark Yellow Urine Appearance Cloudy Urine pH 6.5 Ur Specific [place] >= 1.030 H Urine Protein 300 (3+) H Urine Glucose (UA) Negative Urine Ketones Trace Urine Blood Negative Urine Nitrite Negative Ur Leukocyte Esterase Trace H Urine RBC 0-2 Urine WBC 0-5 Ur Squamous Epith Cells 3-5 Hyaline Casts 3-5 Assessment and Plan (1) RAMY (acute kidney injury): Status: Acute (2) Hypertensive urgency: Status: Acute Plan RAMY due to acute hypertensive nephrosclerosis and subsequent abrupt drop in BP causing renal hypoperfusion normal baseline kidney function underlying essential HTN prior work up for secondary HTN negative REC IVF hold furosemide continue current regimen for HTN follow kidney function and electrolytes Time Spent With Patient Time: Total time managing care of this patient today ____ minutes. Procedures Date of Service Date of Service: 09/15/22
[2022-09-15] MEDS: polyethylene glycoL 3350 17 GM POWD.PACK PO (11:28)
[2022-09-15] MEDS: Sennosides/Docusate Sodium TABLET 2 TAB PO ×2 (11:28→23:02)
[2022-09-15] MEDS: Enoxaparin Sodium 40 MG/0.4 ML SYRINGE SUBCUT (14:15)
[2022-09-15 14:25] LABS: Creatinine Urine 323.46 mg/dL; Sodium Urine Random < 20.0 mmol/L; Total Protein Urine Random 26 mg/dL (<12)
[2022-09-15] MEDS: bisacodyL 10 MG SUPP.RECT PR (16:53)
[2022-09-15] MEDS: Morphine Sulfate 4 MG/ML CARTRIDGE IVPUSH (23:04)
[2022-09-16] VITALS: BP 135/63; PULSE 72; RESP 20; TEMP 36.6; O2SAT 92
[2022-09-16] MEDS: Lactated Ringers 1,000 ML 100 ML IVCONT (00:14)
[2022-09-16 03:47] VITALS: BP 138/65; PULSE 67; RESP 18; TEMP 36.8; O2SAT 94
[2022-09-16] MEDS: Omeprazole 20 MG CAPSULE.DR PO (06:11)
[2022-09-16] MEDS: Morphine Sulfate 4 MG/ML CARTRIDGE IVPUSH (06:11)
[2022-09-16 07:05] LABS: Anion Gap 13 (12-20); Blood Urea Nitrogen 26 mg/dL (9-16); Calcium 9.2 mg/dL (8.4-10.2); Carbon Dioxide 27 mmol/L (22-29); Chloride 105 mmol/L (96-108); Creatinine Clr Calc Pharmacy 80.8; Estimated Glomerular Filt Rate > 60; Glucose Random 98 mg/dL (60-115); Potassium 4.1 mmol/L (3.3-5.1); Sodium 141 mmol/L (135-145)
[2022-09-16 07:29] VITALS: BP 122/66; PULSE 60; RESP 18; TEMP 36.2; O2SAT 95
--- NOTE | 2022-09-16 09:33 | PM.DS ---
DS: Providers Provider Date of Service: 09/16/22 Date of admission: 09/14/22 14:51 Date of discharge: 09/16/22 Primary care physician: Aureliano German MD Consults: 09/14/22 14:01 Consult to Nephrology Routine Consulting Provider: [facility] Reason for consultation: resistant HTN DS: Diagnosis Discharge Diagnosis (1) RAMY (acute kidney injury): Status: Acute (2) Hypertensive emergency: Status: Acute (3) Morbid obesity: Status: Acute DS: Summary Hospital Course Hospital Course: from my admission H+P 09/14/22: 57yo F with resistant HTN, on carvedilol, clonidine, furosemide, hydralazine, spironolactone, and losartan.? She is followed by Dr Dumont from Nephrology and at her last visit with him on 09/11/22, he increased carvedilol from 12.5 mg bid to 25 mg bid and added spironolactone 50 mg daily.? She had previously been worked up for secondary causes of hypertension by Dr Tabor from Nephrology and no cause was found.? She came in to the ED yesterday evening complaining of pressure-type headache associated with nausea for the prior 24 hours.? No chest pain or pressure.? No dyspnea.? At home, her BP was 265/126 and in the ED, it was 226/106.? She denies stimulant intake or medication noncompliance.? CXR and CTH were unremarkable.? In the ED, she was given IV labetalol and IV hydralazine and started briefly on a nicardipine drip.? She was given several doses of PO clonidine and taken off of the drip.? Her BP rebounded to 212/113.? Her home medication regimen was restarted.? Her BP is currently 175/97. She was admitted to the [facility] off of nicardipine drip and with her home antihypertensives resumed. BP normalized. Headache resolved. She had transient RAMY that resolved after stopping furosemide and giving IV fluids. 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 Time Spent with Patient Time attestation: Total time managing care of this patient today ___35 minutes. Discharge coordination time: Greater than 30 minutes Quality: Safe Use of Opioids Does Pt have an Active Cancer Diagnosis on the Problem List?: No Quality: Stroke Does the patient have a stroke diagnosis?: No Physical Exam Vital Signs: Vital Signs: Last Vital Signs Temp 97.2 F 09/16/22 07:29 Pulse 60 09/16/22 07:29 Resp 18 09/16/22 07:29 BP 122/66 09/16/22 07:29 Pulse Ox 95 09/16/22 07:29 O2 Del Method 09/16/22 07:29 O2 Flow Rate 1 09/14/22 06:08 BMI result Body Mass Index 41.0 Const: Other: Gen: in no acute distress HEENT: sclera anicteric, moist mucus membranes Neck: supple Lungs: clear to auscultation bilaterally Heart: regular rate and rhythm, no murmurs Abd: soft, non-tender, non-distended, morbid obesity Ext: no edema Skin: warm/well-perfused Neuro: alert and oriented x3, no focal findings Psych: appropriate affect DS: Data Data Completed and Pending Completed studies during hospitalization [Text1]: Laboratory Results WBC 12.0 X10*3/uL (4.8-10.8) H 09/13/22 20:47 RBC 5.69 X10*6/uL (4.20-5.50) H 09/13/22 20:47 Hgb 13.7 g/dl (12.0-16.0) 09/13/22 20:47 Hct 43.6 % (37.0-47.0) 09/13/22 20:47 MCV 76.6 fL (80.0-98.0) L 09/13/22 20:47 MCH 24.1 pg (27.0-33.0) L 09/13/22 20:47 MCHC 31.4 g/dl (31.0-35.0) 09/13/22 20:47 RDW 16.8 % (11.0-16.0) H 09/13/22 20:47 Plt Count 342 X10*3/uL (160-400) 09/13/22 20:47 MPV 9.8 fL (9.4-12.3) 09/13/22 20:47 Immature Gran % (Auto) 0.3 % (0.0-0.4) 09/13/22 20:47 Neut % (Auto) 61.7 % (45-73) 09/13/22 20:47 Lymph % (Auto) 26.1 % (20-40) 09/13/22 20:47 [place] % (Auto) 9.2 % (2-11) 09/13/22 20:47 Eos % (Auto) 2.0 % (0-4) 09/13/22 20:47 Baso % (Auto) 0.7 % (0-2) 09/13/22 20:47 Lymph # (Auto) 3.1 X10*3/uL (1.2-4.9) 09/13/22 20:47 [place] # (Auto) 1.1 X10*3/uL (0.1-1.2) 09/13/22 20:47 Eos # (Auto) 0.2 X10*3/uL (0.0-0.4) 09/13/22 20:47 Baso # (Auto) 0.1 X10*3/uL (0.0-0.2) 09/13/22 20:47 Abs Immat Gran (auto) 0.03 X10*3/uL (0.00-0.03) 09/13/22 20:47 Absolute Neuts (auto) 7.4 x10*3/uL (2.0-8.3) 09/13/22 20:47 Absolute Nucleated RBC 0.000 X10*3/uL (0.0-0.012) 09/13/22 20:47 Nucleated RBC % (auto) 0.0 /100WBC (0.0-0.2) 09/13/22 20:47 Sodium 141 mmol/L (135-145) 09/16/22 06:22 Potassium 4.1 mmol/L (3.3-5.1) 09/16/22 06:22 Chloride 105 mmol/L (96-108) 09/16/22 06:22 Carbon Dioxide 27 mmol/L (22-29) 09/16/22 06:22 Anion Gap 13 (12-20) 09/16/22 06:22 BUN 26 mg/dL (9-16) H 09/16/22 06:22 Creatinine 0.77 mg/dL (0.5-1.4) 09/16/22 06:22 Estim Creat Clear Calc 80.8 09/16/22 06:22 Estimated GFR > 60 09/16/22 06:22 Random Glucose 98 mg/dL (60-115) 09/16/22 06:22 Estimat Average Glucose 128 mg/dL 09/13/22 20:47 Hemoglobin A1c % 6.1 % 09/13/22 20:47 Calcium 9.2 mg/dL (8.4-10.2) 09/16/22 06:22 Total Bilirubin 0.4 mg/dL (0.0-1.0) 09/13/22 20:47 AST 28 U/L (5-31) 09/13/22 20:47 ALT 34 U/L (0-31) H 09/13/22 20:47 Alkaline Phosphatase 134 U/L (39-117) H 09/13/22 20:47 Troponin I High Sens 11.0 ng/L (<3.5-17.0) 09/13/22 20:47 B-Natriuretic Peptide 47 pg/mL (<100) 09/13/22 20:47 Total Protein 7.6 g/dL (6.5-8.0) 09/13/22 20:47 Albumin 4.5 g/dL (3.5-5.0) 09/13/22 20:47 Lipase 39 U/L (8-78) 09/13/22 20:47 Urine Color Dark Yellow 09/13/22 20:39 Urine Appearance Cloudy 09/13/22 20:39 Urine pH 6.5 (5.0-9.0) 09/13/22 20:39 Ur Specific [place] >= 1.030 (1.005-1.025) H 09/13/22 20:39 Urine Protein 300 (3+) mg/dL (Neg-Trace) H 09/13/22 20:39 Urine Glucose (UA) Negative mg/dL (Negative) 09/13/22 20:39 Urine Ketones Trace mg/dL (Negative) 09/13/22 20:39 Urine Blood Negative (Negative) 09/13/22 20:39 Urine Nitrite Negative (Negative) 09/13/22 20:39 Ur Leukocyte Esterase Trace (Negative) H 09/13/22 20:39 Urine RBC 0-2 /HPF (0-2) 09/13/22 20:39 Urine WBC 0-5 /HPF (0-5) 09/13/22 20:39 Ur Squamous Epith Cells 3-5 /HPF (0-2) 09/13/22 20:39 Urine Bacteria Trace (None Seen) 09/13/22 20:39 Hyaline Casts 3-5 /LPF (0-2) 09/13/22 20:39 U Random Total Protein 26 mg/dL (<12) H 09/15/22 13:25 Ur Random Sodium < 20.0 mmol/L 09/15/22 13:25 Urine Creatinine 323.46 mg/dL 09/15/22 13:25 Urine Test NEGATIVE (NEGATIVE) 09/13/22 20:39 COVID-19 (ROSALVA) Negative (Negative) 09/13/22 00:52 COVID-19 Clin Com See Note 09/13/22 00:52 Influenza Type A (SANJUANITA) Negative (Negative) 09/13/22 20:39 Influenza Type B (SANJUANITA) Negative (Negative) 09/13/22 20:39 Influenza A & B Note See Note 09/13/22 20:39 Impressions Chest X-Ray 09/13/22 20:19 IMPRESSION: Unremarkable examination. Head CT 09/13/22 23:17 IMPRESSION: No acute intracranial abnormality including hemorrhage, mass effect, hydrocephalus, or acute territorial edematous infarction. Discharge Plan Discharge Anticipated Discharge Date/Time: 09/16/22 09:29 Patient Disposition: Home, Self-Care Discharge Diagnosis: hypertensive emergency RAMY Referrals: Martinez Dumont MD [Physician] - 1 Week Po,Aureliano Greenwood MD [Primary Care Provider] - 1 Week Discharge Medications: Continued omeprazole 20 mg capsule,delayed release(DR/EC) 20 mg PO DAILY 90 Days Qty: 90 2RF (DME) blood pressure monitor Kit See Rx Instructions .Route Qty: 1 0RF Rx Instructions: As directed carvedilol 25 mg tablet 25 mg PO BID atorvastatin 20 mg tablet 20 mg PO DAILY sertraline 100 mg tablet 100 mg PO DAILY valacyclovir 500 mg tablet 500 mg PO DAILY aspirin 81 mg tablet,delayed release (DR/EC) 81 mg PO DAILY hydralazine 50 mg tablet 100 mg PO Q12H albuterol sulfate 90 mcg/actuation HFA aerosol inhaler 1 puff INHALATION Q6H losartan 100 mg tablet 100 mg PO DAILY spironolactone 50 mg tablet 50 mg PO DAILY calcium carbonate-vitamin D3 [Calcium 500 With D] 500 mg-10 mcg (400 unit) tablet 1 tab PO DAILY clonidine HCl 0.2 mg tablet 0.4 mg PO BID multivitamin,tx-minerals Tablet 1 tab PO DAILY meloxicam 15 mg tablet 15 mg PO DAILY PRN (Reason: pain) Qty: 30 0RF Discontinued furosemide 40 mg tablet 40 mg PO DAILY Discharge Orders: Discharge Order (Routine); Ordered 09/16/22 Ordered By: Zoraida Pierce Diet: Advance to usual diet Activity on Discharge: As tolerated Stand Alone Forms: Patient Portal Discharge page Care Plan Goals: control of BP Health Concerns: hypertensive emergency RAMY Plan of Treatment: stop furosemide 40 mg daily otherwise, take antihypertensives as prescribed: - spironolactone 50 mg once daily - carvedilol 25 mg twice daily - hydralazine 100 mg twice daily - clonidine 0.4 mg twice daily - losartan 100 mg twice daily low-sodium Mediterranean diet Please follow up with your primary care doctor within 1 week. Return to the hospital if you experience recurrent or worsening symptoms. Assessment: See Discharge Summary. Patient Instructions: Chronic Hypertension (DC), Mediterranean Diet (DC)
[2022-09-16] MEDS: Calcium + Vitamin D 250 MG TABLET 500 MG PO (09:50)
[2022-09-16] MEDS: Multivitamin TABLET 1 TAB PO (09:50)
[2022-09-16] MEDS: carvediloL 25 MG TABLET PO (09:51)
[2022-09-16] MEDS: Aspirin Enteric Coated 81 MG TABLET.DR PO (09:51)
[2022-09-16] MEDS: Sertraline HCL 100 MG TABLET PO (09:51)
[2022-09-16] MEDS: Spironolactone 25 MG TABLET 50 MG PO (09:51)
[2022-09-16] MEDS: valACYclovir HCL 500 MG TABLET PO (09:51)
[2022-09-16] MEDS: Sennosides/Docusate Sodium TABLET 2 TAB PO (09:51)
[2022-09-16] MEDS: hydrALAZINE HCl 50 MG TABLET 100 MG PO (09:51)
[2022-09-16] MEDS: cloNIDine HCL 0.2 MG TABLET 0.4 MG PO (09:51)
[2022-09-16] MEDS: Losartan Potassium 50 MG TABLET 100 MG PO (09:52)
[2022-09-16] MEDS: 0.9 % Sodium Chloride Flush 3 ML SYRINGE IVFLUSH (09:52)
[2022-09-16] MEDS: Atorvastatin Calcium 20 MG TABLET PO (09:52)
--- NOTE | 2022-09-16 10:35 | MHC.CM.PN ---
order for home, self care. CM acknowledge.
--- NOTE | 2022-09-16 10:48 | PM.PNNEP ---
Subjective Subjective Date of Service: 09/16/22 Interval history: seen and examined doing well no complaints Physical Exam Vital Signs: Vital Signs: Last Vital Signs Temp 97.2 F 09/16/22 07:29 Pulse 60 09/16/22 07:29 Resp 18 09/16/22 07:29 BP 122/66 09/16/22 07:29 Pulse Ox 95 09/16/22 07:29 O2 Del Method 09/16/22 07:29 O2 Flow Rate 1 09/14/22 06:08 BMI result Body Mass Index 41.0 Const: General: no acute distress HEENT: Head: Yes normocephalic and Yes atraumatic Neck: Neck: Yes supple Resp: Auscultation: clear to auscultation bilaterally Cardio: Heart sounds: S1 normal heart sound present and S2 normal heart sound present GI: Palpation (GI): Soft to palpation and nontender Extrem: General: Yes no pedal edema Objective Data Labs 09/13/22 20:47 09/16/22 06:22 Labs: Laboratory Results - last 24 hr 09/15/22 09/16/22 13:25 06:22 Sodium 141 Potassium 4.1 Chloride 105 Carbon Dioxide 27 Anion Gap 13 BUN 26 H Creatinine 0.77 Estim Creat Clear Calc 80.8 Estimated GFR > 60 Random Glucose 98 Calcium 9.2 U Random Total Protein 26 H Ur Random Sodium < 20.0 Urine Creatinine 323.46 Procedures Date of Service Date of Service: 09/16/22 Assessment & Plan Assessment and plan (1) RAMY (acute kidney injury): Status: Acute (2) Hypertensive urgency: Status: Acute Plan kidney function normalized RAMY due to acute hypertensive nephrosclerosis and subsequent abrupt drop in BP causing renal hypoperfusion normal baseline kidney function underlying essential HTN prior work up for secondary HTN negative REC discontinue IVF hold furosemide continue current regimen for HTN follow kidney function and electrolytes Time Spent With Patient Time: Total time managing care of this patient today ____ minutes. Progress Note: Quality Stroke Does the patient have a stroke diagnosis?: No
== END 2022-09-16 12:00 | disposition home or self-care (01) | DRG 199 ==
LOC: HO.ED 09-14 13:22 → HO.EDOVER 09-14 15:06 → HO.IMC 09-14 15:08
PROVIDERS: Nurse Practitioner Family; Admitting Provider Family Medicine; Emergency Provider Emergency Medicine; PCP Internal Medicine; Visit Provider Family Medicine
DX: I16.0 Hypertensive urgency (principal); N17.9 Acute kidney failure, unspecified; E66.01 Morbid (severe) obesity due to excess calories; Z68.41 Body mass index [BMI] 40.0-44.9, adult; R73.03 Prediabetes; K21.9 Gastro-esophageal reflux disease without esophagitis; E78.00 Pure hypercholesterolemia, unspecified; I10 Essential (primary) hypertension; Z20.822 Contact with and (suspected) exposure to COVID-19; Z88.2 Allergy status to sulfonamides; Z88.8 Allergy status to other drugs, medicaments and biological substances; Z79.82 Long term (current) use of aspirin; Z79.899 Other long term (current) drug therapy
CPT/HCPCS: 36415; 70450; 71046; 80048; 80053; 81001; 81025; 83036; 83690; 83880; 84156; 84300; 84484; 85025; 87502; 87635; 93005; 99285; J1170; J1650; J2270; J2405

== ENCOUNTER → 2022-10-12 13:59 | Outpatient (REF) | payer OTHER, SELFPAY | LOC: HO.SL 13:59 | PROVIDERS: PCP Internal Medicine; Visit Provider Internal Medicine | DX: G47.33 Obstructive sleep apnea (adult) (pediatric) (principal); G47.10 Hypersomnia, unspecified | CPT/HCPCS: 95806 ==

== ENCOUNTER → 2022-11-02 13:40 | Outpatient (BNVA) | payer OTHER, SELFPAY | PROVIDERS: PCP Internal Medicine; Referring Provider Internal Medicine; Visit Provider Internal Medicine | DX: Z13.89 Encounter for screening for other disorder (principal) ==

== ENCOUNTER → 2022-12-21 14:45 | Outpatient (BNVA) | payer OTHER, SELFPAY | PROVIDERS: PCP Internal Medicine; Visit Provider Surgery ==

== ENCOUNTER 2023-01-03 15:03 | Outpatient (REF) | payer OTHER, SELFPAY | END 2023-01-03 15:04 | disposition home or self-care (01) | LOC: HO.LNP 15:03 | PROVIDERS: PCP Internal Medicine; Visit Provider Surgery | DX: D17.21 Benign lipomatous neoplasm of skin and subcutaneous tissue of right arm (principal) | CPT/HCPCS: 11402; 88304 ==

== ENCOUNTER 2023-01-11 11:42 | Outpatient (REF) | payer OTHER, SELFPAY ==
[2023-01-11 11:54] LABS: MANUAL DIFF FLAG NO
[2023-01-11 12:11] LABS: Basophils Percent Auto 0.5 % (0-2); Eosinophils Absolute Auto 0.2 X10*3/uL (0.0-0.4); Eosinophils Percent Auto 2.9 % (0-4); Hematocrit 38.1 % (37.0-47.0); Hemoglobin 11.9 g/dl (12.0-16.0); Imm Gran Abs Auto 0.03 X10*3/uL (0.00-0.03); Imm Gran Pct Auto 0.4 % (0.0-0.4); Lymphocytes Absolute Auto 2.2 X10*3/uL (1.2-4.9); Lymphocytes Percent Auto 28.3 % (20-40); Mean Corpuscular HGB Conc 31.2 g/dl (31.0-35.0); Mean Corpuscular Hemoglobin 25.2 pg (27.0-33.0); Mean Corpuscular Volume 80.7 fL (80.0-98.0); Mean Platelet Volume 9.9 fL (9.4-12.3); Monocytes Absolute Auto 0.5 X10*3/uL (0.1-1.2); Monocytes Percent Auto 6.8 % (2-11); Neutrophils Absolute Auto 4.7 x10*3/uL (2.0-8.3); Neutrophils Percent Auto 61.1 % (45-73); Platelet Count 262 X10*3/uL (160-400); Red Blood Count 4.72 X10*6/uL (4.20-5.50); Red Cell Distribution Width 17.1 % (11.0-16.0); White Blood Count 7.6 X10*3/uL (4.8-10.8)
[2023-01-11 12:19] LABS: Appearance Urine Clear; Color Urine Yellow; Glucose Urine UA Negative (Negative); Leukocyte Esterase Urine Trace (Negative); Nitrite Urine Negative (Negative); Specific Gravity - Urine 1.015 (1.005-1.025); UMIC TRIGGER UA YES; Urine Blood Negative (Negative); Urine Ketones Negative (Negative); Urine Protein Negative (Neg-Trace)
[2023-01-11 12:22] LABS: Bacteria Urine Trace (None Seen); Hyaline Casts Urine 0-2 /LPF (0-2); RBC Urine 0-2 /HPF (0-2); WBC Urine 0-5 /HPF (0-5)
[2023-01-11 12:49] LABS: Erythrocyte Sedimentation Rate 34 MM/HR (0-20)
[2023-01-11 13:04] LABS: Alanine Aminotransferase 28 U/L (0-31); Alkaline Phosphatase 95 U/L (39-117); Anion Gap 15 (12-20); Aspartate Amino Transferase 24 U/L (5-31); Bilirubin Total 0.5 mg/dL (0.0-1.0); Blood Urea Nitrogen 17 mg/dL (9-16); C Reactive Protein 0.58 mg/dL (< or = 0.50); Calcium 9.9 mg/dL (8.4-10.2); Carbon Dioxide 27 mmol/L (22-29); Chloride 105 mmol/L (96-108); Estimated Glomerular Filt Rate > 60; Glucose Random 103 mg/dL (60-115); Magnesium 2.1 mg/dL (1.6-2.6); Sodium 143 mmol/L (135-145); Total Protein 7.4 g/dL (6.5-8.0)
[2023-01-11 13:20] LABS: Free T4 (Free Thyroxine) 0.89 ng/dL (0.71-1.85); Thyroid Stimulating Hormone 1.01 uIU/mL (0.32-4.0)
[2023-01-11 13:33] LABS: Folate 18.1 ng/mL (> or = 4.0); Vitamin B12 613 pg/mL (200-900)
== END 2023-01-11 11:43 | disposition home or self-care (01) ==
LOC: HO.LAB 11:42
PROVIDERS: PCP Internal Medicine; Visit Provider Internal Medicine
DX: M79.10 Myalgia, unspecified site (principal)
CPT/HCPCS: 36415; 80053; 81001; 82550; 82607; 82746; 83735; 84439; 84443; 85025; 85652; 86140

== ENCOUNTER → 2023-01-17 13:56 | Outpatient (BNVA) | payer OTHER, SELFPAY | PROVIDERS: PCP Internal Medicine; Visit Provider Surgery ==

== ENCOUNTER 2023-01-26 16:22 | Outpatient (REF) | payer OTHER, SELFPAY ==
--- NOTE | ~2023-01-26 | XR_ITS ---
EXAMINATION:XR cervical spine 3V CLINICAL INFORMATION: Pain COMPARISON: None TECHNIQUE: 3 views of the cervical spine were obtained. Frontal lateral and open-mouth odontoid view FINDINGS: 7 cervical vertebrae identified maintaining normal height and alignments.. Narrowing of intervertebral disc spaces at C4-C5, C5-C6, C6-C7 and C7-T1 suggests underlying moderate degenerative disc disease. No prevertebral soft tissue swelling. Surrounding soft tissue and included lung apices are clear. XR/XR cervical spine 3V IMPRESSION: No fracture. Narrowing of intervertebral disc spaces suggest underlying degenerative disc disease. .
--- NOTE | ~2023-01-26 | XR_ITS ---
EXAMINATION: XR knee standing BI CLINICAL INFORMATION: Reason for Exam M25.561 - Pain in right knee COMPARISON: None available at the time of this dictation. TECHNIQUE: Single frontal view bilateral standing FINDINGS: BONES: No fracture or dislocation is present. JOINTS: Mild narrowing of medial and lateral joint space compartments involving both sides suggest mild DJD. Anatomic bone alignments maintained. SOFT TISSUE: Normal XR/XR knee standing BI IMPRESSION: * Mild degenerative osteoarthritis.
--- NOTE | ~2023-01-26 | XR_ITS ---
EXAMINATION: XR BILATERAL HIPS WITH AP PELVIS CLINICAL INFORMATION: Pain COMPARISON: None available. TECHNIQUE: 5 views AP view of the pelvis and single views of each hip were obtained. FINDINGS: No fracture. Hip joint spaces are maintained. Alignment is anatomic. Sacroiliac joints and pubic symphysis are normal. No abnormal soft tissue calcifications. XR/XR hip BI w PEL1V IMPRESSION: No significant osseous changes to explain patient's pain symptoms. MRI could be utilized to assess for possible soft tissue derangement.
== END 2023-01-26 16:23 | disposition home or self-care (01) ==
LOC: HO.XRAY 16:22
PROVIDERS: PCP Internal Medicine; Visit Provider Internal Medicine
DX: M25.551 Pain in right hip (principal); M25.552 Pain in left hip; M25.561 Pain in right knee; M25.562 Pain in left knee; M54.12 Radiculopathy, cervical region
CPT/HCPCS: 72040; 73521; 73565

== ENCOUNTER 2023-02-13 13:49 | Outpatient (AMB) | payer OTHER, SELFPAY ==
--- NOTE | 2023-02-13 13:54 | A.OFFPC_ITS ---
Vital Signs 02/13/23 13:55 Height 4 ft 11 in Weight 191 lb BMI 38.6 BP 136/72 Blood Pressure Location Lt brachial Position Sitting Pulse 74 Pulse Source Pulse Oximeter Pulse Oximetry (%) 99 Oxygen Delivery Method Room Air Intake Visit Reasons: Right shoulder rotater cuff repair-03/15 Allergies erythromycin base [Erythromycin Base] Allergy (Mild, Verified 02/13/23 13:55) VOMITING Sulfa (Sulfonamide Antibiotics) Allergy (Mild, Verified 02/13/23 13:55) ITCHING lisinopril Adverse Reaction (Unknown, Verified 02/13/23 13:55) cough Medication List - Last Reconciled 02/13/23 by Aureliano German MD albuterol sulfate 90 mcg/actuation 1 puff inhalation Q6H aspirin 81 mg PO DAILY atorvastatin 20 mg PO DAILY [AUTOPAP 6-16 cm H20 humidified AIR As directed] blood pressure monitor As directed calcium carbonate-vitamin D3 500 mg-10 mcg (400 unit) (Calcium 500 With D) 1 tab PO DAILY carvedilol 25 mg PO BID clonidine HCl 0.4 mg PO BID furosemide 40 mg PO DAILY PRN hydralazine 100 mg PO Q12H losartan 100 mg PO DAILY meloxicam 15 mg PO DAILY PRN multivitamin,tx-minerals 1 tab PO DAILY omeprazole 20 mg PO DAILY 90 days sertraline 100 mg PO DAILY spironolactone 50 mg PO DAILY valacyclovir 500 mg PO DAILY Tobacco use date assessed: 09/04/22 Dental Screening Dental Screen Date: 02/13/23 Did you have a dental visit in the last 12 months?: Yes Did you have a dental problem in the last 6 months where you did not have access to dental care?: No Was dental information given to patient?: Patient has dentist HPI Right shoulder rotater cuff repair-03/15 HPI Details 57-YEAR-OLD obese female with GERD hypercholesterolemia hypertension having bilateral knee pain and hip last seen in December 2022 and an x-ray requested. Patient is here for follow-up. Review of the notes in December 2022 patient has seen Ear Nose and Throat having history of the thyroid nodule and hemoptysis patient was advised to get a biopsy done and to get Endocrinology consult. As for the hemoptysis workup was negative except for question of a base of the tongue prominent vessels. But was advised pulmonary referral. PAtient is seeing ENDO [facility]- awaiting biopsy. Patient will call end ocrinology mammogram is up-to-date as she tells me she is seeing OB gynecology. Patient still complains of bilateral hip pain. Denies any fall or trauma. As for the sleep apnea has not been able to use CPAP mask patient has been referred to Sleep management and has not heard anything from them. Blood work request in 3 months. [facility] Medical History (Updated 02/13/23 @ 14:24 by Aureliano German MD) Dysuria Elevated troponin GERD (gastroesophageal reflux disease) Hypercholesterolemia Hypertension Hypertensive urgency Impaired glucose tolerance Knee pain, bilateral Obesity Subacromial bursitis of left shoulder joint Thyroid nodule Trochanteric bursitis of right hip Surgical History (Updated 01/16/23 @ 09:16 by RANULFO Barnes) Hx of cholecystectomy Status post excision of lipoma (~01/03/23) Family History (Updated 01/17/23 @ 12:34 by Coral Mary CMA) Father CKD (chronic kidney disease) Hypertension Myocardial infarct Mother Dementia Sister Brain aneurysm Bone cancer Schizophrenia Brother No problems noted. Brother Myocardial infarct Son No problems noted. 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 1. Little interest or pleasure in doing things: not at all 2. Feeling down, depressed, or hopeless: not at all 3. Trouble falling or staying asleep, or sleeping too much: not at all 4. Feeling tired or having little energy: not at all 5. Poor appetite or overeating: not at all 6. Feeling bad about yourself - or that you are a failure or have let yourself or your family down: not at all 7. Trouble concentrating on things, such as reading the newspaper or watching television: not at all 8. Moving or speaking so slowly that other people could have noticed. Or the opposite - being so fidgety or restless that you have been moving around a lot more than usual: not at all 9. Thoughts that you would be better off or of hurting yourself in some way: not at all Total score: 0 Depression Screening Interpretation: Negative Source: Developed by Drs. Ray Franco, Sharron Arias, David Gonzalez and colleagues, with an educational ronald from [employer]. Thrive Questionnaire Date Thrive assessed: 09/04/22 AUDIT C Alcohol Use Questionnaire (AUDIT-C) 1. How often do you have a drink containing alcohol?: Monthly or less 2. How many drinks containing alcohol do you have on a typical day when you are drinking?: 1 or 2 3. How often do you have six or more drinks on one occasion?: Never Total Score: 1 FRANCISCO-7 AMB Questionnaire FRANCISCO-7 Date FRANCISCO - 7 assessed: 09/04/22 Source: Developed by Drs. Ray Franco, Sharron Arias, David Gonzalez and colleagues, with an educational ronald from [employer]. Physical exam (Primary Care) Vital Signs: Last Vital Signs Pulse 74 02/13/23 13:55 BP 136/72 02/13/23 13:55 Pulse Ox 99 02/13/23 13:55 Oxygen Delivery Method Room Air 02/13/23 13:55 BMI result Body Mass Index 38.6 Tobacco/Smoking Status: Tobacco use Status Tobacco use date assessed 09/04/22 02/13/23 13:59 Patient Tobacco Use Status Never used Tobacco 02/13/23 13:59 Tobacco use type 01/18/23 15:12 e-Cigarette/Vaping Use Never Used 02/13/23 13:59 PHQ-9: PHQ-9 Score PHQ-9: Total score 0 02/13/23 14:12 Depression Screening Interpretation: Negative Thrive Assessment: Date of Thrive Assessment Date Thrive assessed 09/04/22 02/13/23 13:59 Const General: alert; No acute distress Eyes Conjunctivae: conjunctivae normal Resp Auscultation: clear to auscultation bilaterally Cardio Rate: regular rate Rhythm: regular rhythm GI Inspection: Yes normal to inspection Extrem General: Yes normal to inspection and No edema Assessment and Plan Assessment & Plan (1) Bilateral primary osteoarthritis of knee: Code(s): M17.0 - Bilateral primary osteoarthritis of knee Plan: Keep active and lose the weight (2) Moderate obstructive sleep apnea: Comment: Moderate sleep apnea CPAP therapy auto PAP -12 October 2022 Code(s): G47.33 - Obstructive sleep apnea (adult) (pediatric) Plan: referral to sleep management for hwlp with CPAP mask (3) Morbid obesity: Code(s): E66.01 - Morbid (severe) obesity due to excess calories Plan: Diet and exercise (4) Impaired glucose tolerance: Code(s): R73.02 - Impaired glucose tolerance (oral) Plan: Decrease the amount of carbohydrate intake, pasta, bread, rice and potatoes are all sugar and that is aside from all the sweet stuff, remember that fruits are good but they are Sweet also. (5) Generalized anxiety disorder: Code(s): F41.1 - Generalized anxiety disorder Plan: Continue with sertraline (6) GERD (gastroesophageal reflux disease): Code(s): K21.9 - Gastro-esophageal reflux disease without esophagitis Plan: Avoid the foods that causes that usually spicy foods, tomato products, juices, coffee, soda and foods that your sensitive to. After eating do not lie down, allow 3-4 hours before in lie down. And keep the head of bed above 30 degrees to avoid the acid from going up. (7) Hypercholesterolemia: Code(s): E78.00 - Pure hypercholesterolemia, unspecified Plan: Avoid fried foods, chicken skin, eggs, butter margarine, pastries and meat. Be it pork or beef they have a lot of cholesterol LDL goal of less than 130 and triglyceride of less than 150. Patient is on atorvastatin 20 (8) Hypertension: Comment: Nephrology notes July 2022Nephrology: Current recommendation for blood pressure increasing losartan to 100 mg daily depending on the response next step would be maximized carvedilol from 12.5-25 mg twice a day and discontinuation of the clonidine given the overlapping alpha/beta blockade. Next spironolactone to aid in further minimizing sodium retention and potassium loss with adjustment of Lasix. Code(s): I10 - Essential (primary) hypertension Plan: Continue with blood pressure medication. Decrease salt intake and exercise patient is on carvedilol 25 mg twice a day clonidine 0.4 mg twice a day furos emide, hydralazine 100 mg twice a day losartan 100 mg once a day and spironolactone 50 mg once a day (9) Hemoptysis: Code(s): R04.2 - Hemoptysis (10) Trochanteric bursitis of both hips: Code(s): M70.61 - Trochanteric bursitis, right hip; M70.62 - Trochanteric bursitis, left hip Orders: Orders Vitamin B12 and Folate 3 Months R73.02 - Impaired glucose tolerance (oral) Comprehensive Met. Panel 3 Months R73.02 - Impaired glucose tolerance (oral) Ferritin 3 Months R73.02 - Impaired glucose tolerance (oral) Hemoglobin A1c 3 Months R73.02 - Impaired glucose tolerance (oral) IRON PROFILE 3 Months R73.02 - Impaired glucose tolerance (oral) Lipid Panel 3 Months E78.00 - Pure hypercholesterolemia, unspecified, R73.02 - Impaired glucose tolerance (oral) Free T4 (Free Thyroxine) 3 Months R73.02 - Impaired glucose tolerance (oral) Thyroid Stimulating Hormone 3 Months R73.02 - Impaired glucose tolerance (oral) Vitamin D 25-OH Total 3 Months R73.02 - Impaired glucose tolerance (oral) Complete Blood Count Auto Diff 3 Months R73.02 - Impaired glucose tolerance (oral) Reticulocyte Count 3 Months R73.02 - Impaired glucose tolerance (oral) Referrals Pulmonology Referral R04.2 - Hemoptysis Orthopedics Referral M70.61 - Trochanteric bursitis, right hip, M70.62 - Trochanteric bursitis, left hip Coding Level of Care Code Est Pt Level 4 (06324) Diagnoses Bilateral primary osteoarthritis of knee M17.0 Moderate obstructive sleep apnea G47.33 Morbid obesity E66.01 Impaired glucose tolerance R73.02 Generalized anxiety disorder F41.1 GERD (gastroesophageal reflux disease) K21.9 Hypercholesterolemia E78.00 Hypertension I10 Hemoptysis R04.2 Trochanteric bursitis of both hips M70.61; M70.62
[2023-02-13 13:55] VITALS: BP 136/72; PULSE 74; O2SAT 99; BMI 38.6
== END 2023-02-13 14:30 | disposition home or self-care (01) ==
PROVIDERS: PCP Internal Medicine; Visit Provider Internal Medicine
DX: K21.9 Gastro-esophageal reflux disease without esophagitis (principal); E66.01 Morbid (severe) obesity due to excess calories; I10 Essential (primary) hypertension; Z68.38 Body mass index [BMI] 38.0-38.9, adult; M17.0 Bilateral primary osteoarthritis of knee; F41.1 Generalized anxiety disorder; G47.33 Obstructive sleep apnea (adult) (pediatric); R73.02 Impaired glucose tolerance (oral); E78.00 Pure hypercholesterolemia, unspecified; R04.2 Hemoptysis; M70.61 Trochanteric bursitis, right hip; M70.62 Trochanteric bursitis, left hip
CPT/HCPCS: 99214

== ENCOUNTER 2023-03-06 12:39 | Outpatient (REF) | payer OTHER, SELFPAY ==
--- NOTE | ~2023-03-06 | XR_ITS ---
EXAMINATION: XR RIGHT HIP WITH AP PELVIS XR LEFT HIP CLINICAL INFORMATION: Pain. COMPARISON: Radiographs dated 01/26/2023. TECHNIQUE: AP view of the pelvis and a frog lateral view of the right hip was obtained. A frog lateral view of the left hip was obtained. FINDINGS: Bony alignment and mineralization are normal. There is slight narrowing of the bilateral acetabular joint spaces medially, and there is mild subchondral sclerosis of the acetabular roofs. A tiny accessory ossification center or chronic, well-corticated avulsion fragment is noted lateral to the left acetabular roof. The femoral heads are smooth. No fracture or dislocation. There is a probable ingested tablet within the pelvis. There is a pelvic surgical suture. There are pelvic phleboliths. No foreign body is noted. XR/XR hip LT 1V IMPRESSION: There is very mild degenerative change of the bilateral hips. No fracture or dislocation is seen.
--- NOTE | ~2023-03-06 | XR_ITS ---
EXAMINATION: XR RIGHT HIP WITH AP PELVIS XR LEFT HIP CLINICAL INFORMATION: Pain. COMPARISON: Radiographs dated 01/26/2023. TECHNIQUE: AP view of the pelvis and a frog lateral view of the right hip was obtained. A frog lateral view of the left hip was obtained. FINDINGS: Bony alignment and mineralization are normal. There is slight narrowing of the bilateral acetabular joint spaces medially, and there is mild subchondral sclerosis of the acetabular roofs. A tiny accessory ossification center or chronic, well-corticated avulsion fragment is noted lateral to the left acetabular roof. The femoral heads are smooth. No fracture or dislocation. There is a probable ingested tablet within the pelvis. There is a pelvic surgical suture. There are pelvic phleboliths. No foreign body is noted. XR/XR hip RT min 2V IMPRESSION: There is very mild degenerative change of the bilateral hips. No fracture or dislocation is seen.
== END 2023-03-06 12:40 | disposition home or self-care (01) ==
LOC: HO.HOSX 12:39
PROVIDERS: Visit Provider Orthopaedic Surgery
DX: Z13.89 Encounter for screening for other disorder (principal)

== ENCOUNTER 2023-03-15 11:51 | Outpatient (AMB) | payer OTHER, SELFPAY ==
--- NOTE | 2023-03-15 12:01 | MHC.OFFVIS ---
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 She also has intermittent discomfort along the lateral aspects of both of her hips. Her back pain has gotten worse over the last few years in spite of continued non operative treatments. She has tried Tylenol and anti-inflammatory medicines which gave her minimal relief. She has also done physical therapy for 12 weeks over the last 6 months which aggravated her pain. She also reports intermittent weakness in her left leg. Allergies erythromycin base [Erythromycin Base] Allergy (Mild, Verified 03/15/23 12:04) VOMITING Sulfa (Sulfonamide Antibiotics) Allergy (Mild, Verified 03/15/23 12:04) ITCHING lisinopril Adverse Reaction (Unknown, Verified 03/15/23 12:04) cough Medication List - Last Reconciled 03/15/23 by Sd Sanchez MD albuterol sulfate 90 mcg/actuation 1 puff inhalation Q6H aspirin 81 mg PO DAILY atorvastatin 20 mg PO DAILY [AUTOPAP 6-16 cm H20 humidified AIR As directed] blood pressure monitor As directed calcium carbonate-vitamin D3 500 mg-10 mcg (400 unit) (Calcium 500 With D) 1 tab PO DAILY carvedilol 25 mg PO BID clonidine HCl 0.4 mg PO BID furosemide 40 mg PO DAILY PRN hydralazine 100 mg PO Q12H losartan 100 mg PO DAILY meloxicam 15 mg PO DAILY PRN multivitamin,tx-minerals 1 tab PO DAILY omeprazole 20 mg PO DAILY 90 days sertraline 100 mg PO DAILY spironolactone 50 mg PO DAILY valacyclovir 500 mg PO DAILY PFSH Medical History Dysuria Elevated troponin GERD (gastroesophageal reflux disease) Hypercholesterolemia Hypertension Hypertensive urgency Impaired glucose tolerance Knee pain, bilateral Obesity Subacromial bursitis of left shoulder joint Thyroid nodule Trochanteric bursitis of right hip Surgical History Hx of cholecystectomy Status post excision of lipoma (~01/03/23) Family History Father CKD (chronic kidney disease) Hypertension Myocardial infarct Mother Dementia Sister Brain aneurysm Bone cancer Schizophrenia Brother No problems noted. Brother Myocardial infarct Son No problems noted. 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 Cognitive needs: No Hearing needs: No Vision needs: No Physical Exam Vital Signs: BMI result Body Mass Index 38.6 Const Other: Well-nourished well-developed very friendly female awake alert and oriented x3 in no acute distress Back/Spine/Pelvis Other: Low back examination shows left-sided paraspinal muscle tenderness, pain with range of motion, positive straight leg raise test on the left at 70 degrees 4/5 strength with testing of her left hip flexors and knee extensors when compared to 5/5 strength on her right side Extrem Other: Bilateral hip examination shows minimal discomfort with range of motion, mild tenderness to palpation over her greater trochanteric bursae, no overlying skin lesions Results Reviewed Results Reviewed: X-rays of the patient's bilateral hips show mild diffuse joint space narrowing, no acute bony abnormalities X-rays of the patient's lumbar spine show mild to moderate diffuse degenerative disc disease Assessment & Plan Assessment & Plan (1) Low back pain radiating down leg: Code(s): M54.50 - Low back pain, unspecified; M79.606 - Pain in leg, unspecified Plan: Ms. Brantley presents with bilateral hip discomfort due to greater trochanteric bursitis as well as progressively worsening low back pain with associated left leg weakness most likely due to lumbar stenosis or a disc herniation. Thus, I will send the patient for an MRI of her lumbar spine for further evaluation. I will contact her by phone once the MRI results are available. She will call me prior to that time should her symptoms worsen in any way. Feel free to call me at any time should questions regarding her orthopedic management arise. Thank you very much for asking me to see this very friendly patient. I spent 22 minutes in reviewing the patient's records and imaging studies, seeing the patient and documenting in the medical record. Orders: Orders XR hip RT min 2V Today M25.551 - Pain in right hip MR lumbar spine wo con Today M54.50 - Low back pain, unspecified, M79.606 - Pain in leg, unspecified Coding Level of Care Code Est Pt Level 2 (06632) Diagnoses Low back pain radiating down leg M54.50; M79.606
[2023-03-15 12:04] VITALS: BMI 38.6
== END 2023-03-15 12:15 | disposition home or self-care (01) ==
PROVIDERS: PCP Internal Medicine; Visit Provider Orthopaedic Surgery
DX: M54.50 Low back pain, unspecified (principal); M79.606 Pain in leg, unspecified
CPT/HCPCS: 99212

== ENCOUNTER → 2023-03-15 11:51 | Outpatient (BNVA) | payer OTHER, SELFPAY | PROVIDERS: PCP Internal Medicine; Visit Provider Orthopaedic Surgery | DX: M54.50 Low back pain, unspecified (principal); M79.606 Pain in leg, unspecified; M70.62 Trochanteric bursitis, left hip; M70.61 Trochanteric bursitis, right hip; M25.552 Pain in left hip; M25.551 Pain in right hip | CPT/HCPCS: 73501; 73502 ==

== ENCOUNTER 2023-04-03 09:21 | Outpatient (REF) | payer OTHER, SELFPAY ==
[2023-04-03 09:44] LABS: MANUAL DIFF FLAG NO
[2023-04-03 09:59] LABS: Basophils Absolute Auto 0.1 X10*3/uL (0.0-0.2); Basophils Percent Auto 0.6 % (0-2); Eosinophils Absolute Auto 0.2 X10*3/uL (0.0-0.4); Eosinophils Percent Auto 2.3 % (0-4); Hematocrit 38.5 % (37.0-47.0); Hemoglobin 12.1 g/dl (12.0-16.0); Imm Gran Abs Auto 0.03 X10*3/uL (0.00-0.03); Imm Gran Pct Auto 0.3 % (0.0-0.4); Immature Retic Fraction 14.7 % (3.0-15.9); Lymphocytes Absolute Auto 2.1 X10*3/uL (1.2-4.9); Lymphocytes Percent Auto 23.3 % (20-40); Mean Corpuscular HGB Conc 31.4 g/dl (31.0-35.0); Mean Corpuscular Hemoglobin 25.6 pg (27.0-33.0); Mean Corpuscular Volume 81.4 fL (80.0-98.0); Mean Platelet Volume 9.9 fL (9.4-12.3); Monocytes Absolute Auto 0.7 X10*3/uL (0.1-1.2); Monocytes Percent Auto 7.9 % (2-11); Neutrophils Absolute Auto 5.9 x10*3/uL (2.0-8.3); Neutrophils Percent Auto 65.6 % (45-73); Platelet Count 283 X10*3/uL (160-400); Red Blood Count 4.73 X10*6/uL (4.20-5.50); Red Cell Distribution Width 15.9 % (11.0-16.0); Retic HGB Equivalent 29.3 pg (30.0-35.0); Reticulocyte Percent 1.7 % (0.5-1.8); Reticulocytes Absolute 0.082 X10*6/uL (0.026-0.095)
[2023-04-03 10:21] LABS: Estimated Average Glucose 126 mg/dL
[2023-04-03 11:59] LABS: Alanine Aminotransferase 35 U/L (0-31); Albumin Level 4.2 g/dL (3.5-5.0); Alkaline Phosphatase 91 U/L (39-117); Anion Gap 12 (12-20); Aspartate Amino Transferase 27 U/L (5-31); Bilirubin Total 0.3 mg/dL (0.0-1.0); Blood Urea Nitrogen 17 mg/dL (9-16); Calcium 10.2 mg/dL (8.4-10.2); Carbon Dioxide 28 mmol/L (22-29); Chloride 106 mmol/L (96-108); Cholesterol 209 mg/dL (<200); Estimated Glomerular Filt Rate > 60; Glucose Random 109 mg/dL (60-115); HDL Cholesterol 50 mg/dL (>40); Iron 52 mcg/dL (30-160); LDL Cholesterol Calculated 121 mg/dL (<100); Percent Iron Saturation 17 % (15-50); Potassium 4.2 mmol/L (3.3-5.1); Sodium 142 mmol/L (135-145); Total Iron Binding Capacity 307 mcg/dL (228-428); Total Protein 7.6 g/dL (6.5-8.0); Triglycerides 191 mg/dL (<150); Unsaturated Iron Binding 255 ug/dL
[2023-04-03 12:00] LABS: Ferritin 66 ng/mL (10-250); Thyroid Stimulating Hormone 0.94 uIU/mL (0.32-4.0); Vitamin D 25-OH Total 44.8 ng/mL (>30)
[2023-04-03 12:09] LABS: Folate 14.2 ng/mL (> or = 4.0); Vitamin B12 747 pg/mL (200-900)
== END 2023-04-03 09:22 | disposition home or self-care (01) ==
LOC: HO.LAB 09:21
PROVIDERS: PCP Internal Medicine; Visit Provider Internal Medicine
DX: E78.00 Pure hypercholesterolemia, unspecified (principal); R73.02 Impaired glucose tolerance (oral); D64.9 Anemia, unspecified
CPT/HCPCS: 36415; 80053; 80061; 82306; 82607; 82728; 82746; 83036; 83540; 84439; 84443; 85025; 85045

== ENCOUNTER 2023-04-12 14:28 | Outpatient (REF) | payer OTHER, SELFPAY ==
--- NOTE | ~2023-04-12 | MR_ITS ---
EXAMINATION: MR LUMBAR SPINE WITHOUT CONTRAST CLINICAL INFORMATION: Low back pain. COMPARISON: MRI scan of the lumbar spine 03/29/2021. TECHNIQUE: MRI of the lumbar spine was obtained using routine sequences without contrast. FINDINGS: VERTEBRAL BODIES AND PARASPINAL STRUCTURES: There has been slight interval increase in the grade 1 anterolisthesis of L3 on L4. There is narrowing of intervertebral disc height at this level. There are Schmorl's nodes at adjacent endplates in the mid and upper lumbar spine. The vertebral bodies have normal height and contour and no fractures are demonstrated. The study redemonstrates a hemangioma in the body of L4 toward the right. Overall, marrow signal is homogenous. The study partially redemonstrates an 8mm left adrenal nodule, which appears stable. The visualized pelvic structures are unremarkable. CONUS MEDULLARIS AND CAUDA EQUINA: Normal, terminating at the level of L1. The lower thoracic spinal cord appears normal. The cauda equina nerve roots and filum terminale appear normal. SPINAL LEVELS: T12-L1: The facet joints appear normal. There is a shallow posterior disc protrusion with an annular fissure which is slightly more prominent to the left midline. There is minimal mass effect on the thecal sac and there is mild central stenosis The neural foramina are patent bilaterally. L1-L2: There is mild bilateral facet arthropathy. Disc contour is normal. There is no central stenosis or foraminal narrowing. L2-L3: There is moderate bilateral facet arthropathy. Disc contour appears normal and there is no central stenosis. The neural foramina are patent bilaterally. L3-L4: There is moderate bilateral facet arthropathy with ligamenta flava hypertrophy. There has been interval increase in the left facet joint effusion. There has been interval decrease in the synovial cyst anteromedially off the left facet joint, which measures 1.5 mm on the current study, but there is persistent mass effect on the traversing left L4 nerve root. There is a focal disc extrusion behind the body of L3 centrally and to the left of midline which has developed since the prior study. There is minimal mass effect on the thecal sac and there is mild central stenosis. There is a right foraminal disc protrusion with mild impingement on the exiting right L3 nerve root. L4-L5: There is moderate bilateral facet arthropathy with ligamenta flava hypertrophy and facet joint effusions. Posterior disc contour is normal in is no central stenosis. The neural foramina are patent bilaterally. L5-S1: There is moderate bilateral facet arthropathy with ligamenta flava hypertrophy and facet joint effusions. Posterior disc contour is normal and there is no central stenosis. A small foraminal disc protrusion is redemonstrated on the right. MR/MR lumbar spine wo con IMPRESSION: 1. There has been interval increase in the grade 1 anterolisthesis of L3 on L4. There has been interval decrease in the synovial cyst anteromedially off the left facet joint, but there is persistent mass effect on the traversing left L4 nerve root. There is a focal disc extrusion behind the body of L3 centrally and to the left of midline, which has developed since the prior study. There is mild central stenosis. There is a right foraminal disc protrusion with mild impingement on the exiting right L3 nerve root. 2. At T12-L1 there is a shallow posterior disc protrusion with an annular fissure, slightly more prominent to the left of midline. There is mild central stenosis. The neural foramina are patent bilaterally. 3. At L5-S1 there is moderate facet arthropathy and there is a small foraminal disc protrusion on the right. There is no central stenosis. 4. The study redemonstrates a left adrenal nodule, which appears stable.
== END 2023-04-12 14:29 | disposition home or self-care (01) ==
LOC: HO.MRI 14:28
PROVIDERS: PCP Internal Medicine; Visit Provider Orthopaedic Surgery
DX: M54.50 Low back pain, unspecified (principal); M79.606 Pain in leg, unspecified
CPT/HCPCS: 72148

== ENCOUNTER 2023-05-03 13:34 | Outpatient (AMB) | payer OTHER, SELFPAY ==
--- NOTE | 2023-05-03 13:35 | MHC.OFFVIS ---
Intake Vital Signs 05/03/23 13:37 Height 4 ft 11 in Weight 192 lb 10.944 oz BMI 38.9 BP 100/68 Blood Pressure Location Lt brachial Position Sitting Pulse 72 Intake Visit Reasons: 6 month follow up Intake Note: 6 month follow up Cloth Layer Required: No Accompanied by: Self / Same As Patient Allergies erythromycin base [Erythromycin Base] Allergy (Mild, Verified 05/03/23 13:37) VOMITING Sulfa (Sulfonamide Antibiotics) Allergy (Mild, Verified 05/03/23 13:37) ITCHING lisinopril Adverse Reaction (Unknown, Verified 05/03/23 13:37) cough Medication List - Last Reconciled 05/03/23 by Tre Gonzalez MD albuterol sulfate 90 mcg/actuation 1 puff inhalation Q6H aspirin 81 mg PO DAILY atorvastatin 20 mg PO DAILY [AUTOPAP 6-16 cm H20 humidified AIR As directed] blood pressure monitor As directed calcium carbonate-vitamin D3 500 mg-10 mcg (400 unit) (Calcium 500 With D) 1 tab PO DAILY carvedilol 25 mg PO BID clonidine HCl 0.4 mg (2 x 0.2 mg) PO BID furosemide 40 mg PO DAILY PRN hydralazine 100 mg (2 x 50 mg) PO Q12H 90 days losartan 100 mg PO DAILY meloxicam 15 mg PO DAILY PRN multivitamin,tx-minerals 1 tab PO DAILY omeprazole 20 mg PO DAILY 90 days sertraline 100 mg PO DAILY spironolactone 50 mg PO DAILY valacyclovir 500 mg PO DAILY HPI HPI Comments History of Present Illness Details Cathryn returns for follow-up. She has difficult to control hypertension but more recently, her blood pressures actually been in the normal range. Overall, she states she is doing okay. No specific complaints like angina or so. Chronic shortness of breath is just about at baseline. Otherwise, no known coronary artery disease, myocardial infarction or cardiomyopathy. [facility] Medical History Dysuria Elevated troponin GERD (gastroesophageal reflux disease) Hypercholesterolemia Hypertension Hypertensive urgency Impaired glucose tolerance Knee pain, bilateral Obesity Subacromial bursitis of left shoulder joint Thyroid nodule Trochanteric bursitis of right hip Surgical History Status post excision of lipoma (~01/03/23) Hx of cholecystectomy Family History Father CKD (chronic kidney disease) Hypertension Myocardial infarct Mother Dementia Sister Brain aneurysm Bone cancer Schizophrenia Brother No problems noted. Brother Myocardial infarct Son No problems noted. 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 Cognitive needs: No Hearing needs: No Vision needs: No Review of Systems Const Denies weakness ENT Denies dizziness Card Denies chest pain, Denies chest pain with activity, Denies syncope, Denies rapid heart rate, Denies pedal edema, Denies edema, Denies leg edema, Denies lightheadedness, Denies palpitations, Denies dyspnea, Denies dyspnea on exertion and Denies orthopnea Resp Denies cough, Denies dyspnea and Denies dyspnea on exertion GI Denies hematochezia and Denies change in stool character Musc Denies abnormal gait, Denies muscle cramps, Denies muscle weakness, Denies numbness, Denies radiating pain into limb and Denies tingling Neuro Denies abnormal gait, Denies dizziness, Denies syncope, Denies numbness, Denies tingling and Denies weakness Endo Denies palpitations Physical Exam Vital Signs: Last Vital Signs Pulse 72 05/03/23 13:37 BP 100/68 05/03/23 13:37 BMI result Body Mass Index 38.9 Const General: comfortable and no acute distress Orientation/consciousness: patient oriented x3 HEENT Other: Unremarkable Head: Yes normal to inspection Neck Neck: Yes normal visual inspection Chest Chest palpation & inspection: normal inspection of the chest Resp Auscultation: clear to auscultation bilaterally Cardio Palpation: normal PMI Heart sounds: S1 normal heart sound present, S2 normal heart sound present, no gallops, no murmurs and no rubs GI Palpation (GI): Soft to palpation Back/Spine/Pelvis Other: unremarkable Skin General skin exam: no rashes or lesions noted Neuro General: patient oriented x3 Extrem General: Yes normal to inspection Psych Mental Status: mental status grossly normal Assessment & Plan Assessment & Plan (1) Hypertensive urgency: Code(s): I16.0 - Hypertensive urgency (2) Elevated troponin: Code(s): R77.8 - Other specified abnormalities of plasma proteins (3) Moderate obstructive sleep apnea: Comment: Moderate sleep apnea CPAP therapy auto PAP 6-12 October 2022 Code(s): G47.33 - Obstructive sleep apnea (adult) (pediatric) (4) Morbid obesity: Code(s): E66.01 - Morbid (severe) obesity due to excess calories Plan Pertinent studies reviewed. EKG-underlying rhythm is sinus at 66/Min; cannot exclude old inferior infarct or anterior infarct. Voltage criteria for LVH. No significant ST-T changes. Echocardiogram with LVEF of 60-60%. Mild LVH. Basal inferior wall thought to be hypokinetic. However, perfusion imaging was unremarkable. She has had elevated high sensitivity troponins in the past in the context of poorly controlled hypertension. Sleep study shows [id number] degree of obstructive sleep apnea. Overall, she is reasonably stable on current regimen today's blood pressure is very well within normal limits. Medical regimen includes carvedilol, losartan, hydralazine, clonidine as well as spironolactone. May remain on this without changes. Seems that she might also be going to Nephrology for the same. Otherwise, with regard to the obstructive sleep apnea she states she is not able to use CPAP mask as it is very inconvenient. Did explain the importance of treating LATRICE in somebody like her with comorbidities. She understands. Weight loss as much able. Follow-up in 6 months. In the interim, she will call with concerns. Coding Level of Care Code Est Pt Level 4 (35169) Diagnoses Hypertensive urgency I16.0 Elevated troponin R77.8 Moderate obstructive sleep apnea G47.33 Morbid obesity E66.01
[2023-05-03 13:37] VITALS: BP 100/68; PULSE 72; BMI 38.9
== END 2023-05-03 13:50 | disposition home or self-care (01) ==
PROVIDERS: PCP Internal Medicine; Visit Provider Internal Medicine
DX: I16.0 Hypertensive urgency (principal); R77.8 Other specified abnormalities of plasma proteins; G47.33 Obstructive sleep apnea (adult) (pediatric); E66.01 Morbid (severe) obesity due to excess calories
CPT/HCPCS: 99214

== ENCOUNTER → 2023-05-03 13:34 | Outpatient (BNVA) | payer OTHER, SELFPAY | PROVIDERS: PCP Internal Medicine; Visit Provider Internal Medicine ==

== ENCOUNTER 2023-05-08 13:03 | Outpatient (REF) | payer OTHER, SELFPAY ==
--- NOTE | ~2023-05-08 | XR_ITS ---
EXAMINATION: XR LUMBOSACRAL SPINE WITH OBLIQUES CLINICAL INFORMATION: Low back pain. COMPARISON: None available. TECHNIQUE: Frontal view of the lumbar spine as well as lateral views in flexion, neutral, and extension. FINDINGS: Examination demonstrates mild to moderate disc space narrowing with grade 1 anterolisthesis at L3-L4. Anterolisthesis is stable in flexion, neutral, and extension. Mild multilevel facet degenerative change. The vertebral bodies and posterior elements otherwise appear unremarkable. The disc spaces otherwise appear preserved, and the vertebral alignment otherwise appears unremarkable. The paraspinal soft tissues appear unremarkable. Status post cholecystectomy. XR/XR lumbar spine 4V min IMPRESSION: Mild to moderate disc space narrowing with grade 1 anterolisthesis at L3-L4. Anterolisthesis is stable in flexion, neutral, and extension. Mild multilevel facet degenerative change.
== END 2023-05-08 13:04 | disposition home or self-care (01) ==
LOC: HO.HOSX 13:03
PROVIDERS: PCP Internal Medicine; Referring Provider Orthopaedic Surgery; Visit Provider Physician Assistant
DX: M54.50 Low back pain, unspecified (principal); M43.16 Spondylolisthesis, lumbar region; G95.20 Unspecified cord compression
CPT/HCPCS: 72110

== ENCOUNTER 2023-05-08 13:03 | Outpatient (AMB) | payer OTHER, SELFPAY ==
--- NOTE | 2023-05-08 13:15 | HO.SPINEOV ---
Intake Intake Visit Reasons: low back pain Intake Note: Mrs. Brantley is here today c/o low back pain. MRI done @ [facility] [place]. Special Education Aide Required: No Allergies erythromycin base [Erythromycin Base] Allergy (Mild, Verified 05/03/23 13:37) VOMITING Sulfa (Sulfonamide Antibiotics) Allergy (Mild, Verified 05/03/23 13:37) ITCHING lisinopril Adverse Reaction (Unknown, Verified 05/03/23 13:37) cough Assessment & Plan Assessment & Plan (1) Low back pain radiating down leg: Code(s): M54.50 - Low back pain, unspecified; M79.606 - Pain in leg, unspecified Plan Dear Dr Sanchez, Thank you for referring Mrs Brantley to our office today. 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 Through the years she has been treated conservatively with physical therapy, cortisone injections. Neither of these things work. She tried [id number] pain medications such as Tylenol and Motrin without any relief. She is currently taking meloxicam She underwent an MRI showing worsening of L3-4 spondylolisthesis with facet arthropathy and compression of the bilateral L3 nerves. She is sent today see us for an evaluation. The patient reports that when she sitting she feels okay but as she transitions to stand or she is trying to reach for anything the pain can become quite severe. Positive shopping cart sign. Denies any tingling or focal weakness. PMH: She is reasonably healthy, history of hypertension, high cholesterol, lipoma, sleep apnea, rotator cuff tear, knee osteoarthritis, lateral epicondylitis, microcytosis, anxiety, peripheral vascular disease, trochanteric bursitis, interstitial cystitis, GERD, Social hx: She does not smoke Medications: Albuterol, baby aspirin, atorvastatin, calcium carbonate, carvedilol, clonidine, Lasix, hydralazine, losartan, meloxicam, sertraline, omeprazole, spironolactone, Valcyte clear Allergies: Sulfa, erythromycin and lisinopril Physical exam: Strength, gait and reflexes are all normal Imaging review: Lumbar MRI done at [place] 2022 shows the patient has grade 1 spondylolisthesis, worse compared to imaging done in 202. She has significant facet arthropathy on the left with moderate central canal stenosis and bilateral L3 foraminal stenosis. Impression: 58-year-old female presents today for evaluation of back pain and bilateral lower extremity pain with standing and walking which gets better when she sits down. She has tried conservative treatment in the past. She has an intact neurological exam. Unfortunately her quality of life is starting to suffer significantly from this set of symptoms. She has an advancing L3-4 spondylolisthesis which we can see is getting worse compared to 202 imaging. I sent the patient for standing flexion-extension x-rays. These show a clear worsening of the spondylolisthesis with standing. Dr. Feliz and I spoke with her about the option of an L3-4 oblique lumbar interbody fusion. She is going to talk it over with her and get back to us. Pt was given risk and benefits of surgery including but not limited to infection, hematoma , nerve injury,durotomy, weakness,bowel/bladder injury, persistent pain, hardware failure as well as the option to continue with conservative treatment and patient wishes to proceed with surgery. Pt is aware they should stop their motrin, aspirin 7 days prior to surgery. All questions were answered to the best of our ability. If there is anything about this patients medical history that we have overlooked or concerns you have about us proceeding with surgery we would appreciate any input you can offer. Thank you for allowing us to care for your patient. The total time spent with this visit with this patient was 45 minutes reviewing history, physical exam, lumbar imaging review, and implementation of treatment plan or further diagnostic testing Chris Feliz MD,PhD [facility] Orders: Orders XR lumbar spine 4V min Today M54.50 - Low back pain, unspecified, M79.606 - Pain in leg, unspecified Coding Level of Care Code New Pt Level 4 (94287) Diagnoses Low back pain radiating down leg M54.50; M79.606
== END 2023-05-08 13:56 | disposition home or self-care (01) ==
PROVIDERS: PCP Internal Medicine; Referring Provider Orthopaedic Surgery; Visit Provider Physician Assistant
DX: M54.50 Low back pain, unspecified (principal); M79.606 Pain in leg, unspecified
CPT/HCPCS: 99204

== ENCOUNTER 2023-06-08 13:16 | Outpatient (AMB) | payer OTHER, SELFPAY ==
[2023-06-08 13:19] VITALS: BP 120/70; PULSE 62; O2SAT 97; BMI 39.6
--- NOTE | 2023-06-08 13:19 | A.OFFPC_ITS ---
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 Accompanied by: Self / Same As Patient Allergies erythromycin base [Erythromycin Base] Allergy (Mild, Verified 06/08/23 13:23) VOMITING Sulfa (Sulfonamide Antibiotics) Allergy (Mild, Verified 06/08/23 13:23) ITCHING lisinopril Adverse Reaction (Unknown, Verified 06/08/23 13:23) cough Medication List - Last Reconciled 06/08/23 by Aureliano German MD albuterol sulfate 90 mcg/actuation 1 puff inhalation Q6H aspirin 81 mg PO DAILY atorvastatin 20 mg PO DAILY [AUTOPAP 6-16 cm H20 humidified AIR As directed] blood pressure monitor As directed calcium carbonate-vitamin D3 500 mg-10 mcg (400 unit) (Calcium 500 With D) 1 tab PO DAILY carvedilol 25 mg PO BID clonidine HCl 0.4 mg (2 x 0.2 mg) PO BID hydralazine 100 mg (2 x 50 mg) PO Q12H 90 days losartan 100 mg PO DAILY multivitamin,tx-minerals 1 tab PO DAILY omeprazole 20 mg PO DAILY 90 days sertraline 100 mg PO DAILY spironolactone 50 mg PO DAILY valacyclovir 500 mg PO DAILY Tobacco use date assessed: 09/04/22 Dental Screening Dental Screen Date: 06/08/23 Did you have a dental visit in the last 12 months?: Yes Did you have a dental problem in the last 6 months where you did not have access to dental care?: No Was dental information given to patient?: Patient has dentist HPI Annual Exam HPI Details 58-year-old obese female with obstructiv e sleep apnea impaired glucose tolerance generalized anxiety disorder GERD hypercholesterolemia hypertension and osteoarthritis of the knee coming in for physical exam. Last seen in January 2023 up-to-date with colonoscopy review of the notes has seen ENT for the nontoxic single thyroid nodule of which a biopsy of the left side was benign. As for her low back pain did meet with the spine sent patient has an advancing L3-4 spondylolisthesis option of L3-4 oblique lumbar interbody fusion. Patient has also seen Cardiology blood pressure is controlled perfusion imaging is normal. Moderate obstructive sleep apnea not able to use the CPAP [facility] Medical History (Updated 06/08/23 @ 13:35 by Aureliano German MD) Breast cancer screening by mammogram Knee pain, bilateral Hypertensive urgency Elevated troponin Dysuria Trochanteric bursitis of right hip Thyroid nodule Impaired glucose tolerance Subacromial bursitis of left shoulder joint Obesity GERD (gastroesophageal reflux disease) Hypercholesterolemia Hypertension Surgical History Status post excision of lipoma (~01/03/23) Hx of cholecystectomy Family History Father CKD (chronic kidney disease) Hypertension Myocardial infarct Mother Dementia Sister Brain aneurysm Bone cancer Schizophrenia Brother No problems noted. Brother Myocardial infarct Son No problems noted. 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 Ray Franco, Sharron Arias, David Gonzalez and colleagues, with an educational ronald from [employer]. Review of Systems Const Denies poor appetite and Denies weakness Eyes Denies no additional complaints ENT Reports Normal hearing present, Denies dizziness, Denies nasal congestion, Denies tinnitus and Denies sore throat Card Denies chest pain, Denies syncope, Denies rapid heart rate and Denies dyspnea Resp Denies cough and Denies dyspnea GI Denies change in stool character, Reports constipation, Denies diarrhea, Denies nausea and Denies vomiting Denies urinary frequency, Denies difficulty voiding and Denies dysuria Neuro Reports Normal hearing present, Denies confusion, Denies dizziness, Denies syncope and Denies weakness Psych Denies confusion Physical exam (Primary Care) Vital Signs: Last Vital Signs Pulse 62 06/08/23 13:19 BP 120/70 06/08/23 13:19 Pulse Ox 97 06/08/23 13:19 Oxygen Delivery Method Room Air 06/08/23 13:19 BMI result Body Mass Index 39.6 Tobacco/Smoking Status: Tobacco use Status Tobacco use date assessed 09/04/22 06/08/23 13:30 Patient Tobacco Use Status Never used Tobacco 06/08/23 13:30 Tobacco use type 01/18/23 15:12 e-Cigarette/Vaping Use Never Used 06/08/23 13:30 Thrive Assessment: Date of Thrive Assessment Date Thrive assessed 09/04/22 06/08/23 13:30 Const General: No confusion Orientation/consciousness: No confusion HENMT Head: Yes normocephalic Ears: external ears normal and TM's normal bilaterally Face and sinus: Yes normal facial exam Mouth: moist mucous membranes Throat: Yes tonsils normal Eyes Conjunctivae: conjunctivae normal Pupils: Equal, round and reactive pupils present and Pupil accommodation reflex normal Direct Ophthalmoscopy: normal light reflex Neck Neck: No lymphadenopathy Thyroid: Thyroid normal Chest Chest palpation & inspection: normal inspection of the chest Resp Effort & Inspection: normal respiratory effort and no audible wheezes Auscultation: clear to auscultation bilaterally, no crackles, no wheezes and lung sounds not diminished Cardio Rate: regular rate Rhythm: regular rhythm Peripheral pulses: radial pulses present and dorsalis pedis present GI Palpation (GI): no masses Auscultation: normal bowel sounds and normoactive bowel sounds Rectal Exam - Female: deferred Skin General skin exam: no rashes or lesions noted Rashes: no rashes Neuro General: No confusion Cranial nerves: Yes Equal, round and reactive pupils present and Yes Normal hearing present Cognition (Neuro): normal cognition Gait exam (Neuro): Normal gait present Motor exam (neuro): 5/5 motor strength present throughout Deep tendon reflexes (DTR's): Right brachioradialis reflex intensity grade: 2+, Left brachioradialis reflex intensity grade: 2+, Right patellar reflex intensity grade: 2+ and Left patellar reflex intensity grade: 2+ Extrem General: No edema Office Procedures Flu Questionnaire Does the patient have a severe egg allergy?: No Does the patient have severe life threatening allergies?: No Does the patient have a fever or illness today?: No Has the patient ever had Guillain-[place] Syndrome?: No Has the patient ever had any past reaction to a flu shot?: No Immunizations flu vacc [id number] 6mos up(PF) 60 mcg(15 mcgx4)/0.5 mL IM syringe Performing Provider: Aureliano German MD [facility] Administered by: ROSA Tinsley on 06/08/23 13:34 Dose Route Admin Location Dispensed Lot Number Expiration Date NDC Diamond Picker 0.5 mL IM Left Deltoid 0.5 mL [id number] 01/26/23 84342-772-46 [facility] VIS Given Date VIS Provided VIS Publication Date 06/08/23 Single Vaccine 21 Eligibility Eligibility Date Funding Source Not [facility] Eligible 06/08/23 Private Assessment and Plan Assessment & Plan (1) Annual physical exam: Code(s): Z00.00 - Encounter for general adult medical examination without abnormal findings (2) Impaired glucose tolerance: Code(s): R73.02 - Impaired glucose tolerance (oral) Plan: Decrease the amount of carbohydrate intake, pasta, bread, rice and potatoes are all sugar and that is aside from all the sweet stuff, remember that fruits are good but they are Sweet also. (3) Hypertension: Comment: Nephrology notes July 2022Nephrology: Current recommendation for blood pressure increasing losartan to 100 mg daily depending on the response next step would be maximized carvedilol from 12.5-25 mg twice a day and discontinuation of the clonidine given the overlapping alpha/beta blockade. Next spironolactone to aid in further minimizing sodium retention and potassium loss with adjustment of Lasix. Code(s): I10 - Essential (primary) hypertension Plan: Continue with blood pressure medication. Decrease salt intake and exercise patient presently on carvedilol 25 mg twice a day clonidine 0.4 mg twice a day hydralazine 100 mg twice a day losartan 100 mg once a day (4) Hypercholesterolemia: Code(s): E78.00 - Pure hypercholesterolemia, unspecified Plan: Avoid fried foods, chicken skin, eggs, butter margarine, pastries and meat. Be it pork or beef they have a lot of cholesterol LDL goal of less than 130 and triglyceride of less than 150 patient is on atorvastatin 20 mg once a day (5) GERD (gastroesophageal reflux disease): Code(s): K21.9 - Gastro-esophageal reflux disease without esophagitis Plan: Avoid the foods that causes that usually spicy foods, tomato products, juices, coffee, soda and foods that your sensitive to. After eating do not lie down, allow 3-4 hours before in lie down. And keep the head of bed above 30 degrees to avoid the acid from going up. (6) Thyroid nodule: Code(s): E04.1 - Nontoxic single thyroid nodule Plan: Patient has seen ear nose and throat has had biopsy negative but concerns about multinodular thyroid (7) Generalized anxiety disorder: Code(s): F41.1 - Generalized anxiety disorder Plan: Continue with present medication (8) Moderate obstructive sleep apnea: Comment: Moderate sleep apnea CPAP therapy auto PAP 6-12 October 2022 Code(s): G47.33 - Obstructive sleep apnea (adult) (pediatric) Plan: Discussed about the importance of treating sleep apnea and the consequences (9) Low back pain radiating down leg: Code(s): M54.50 - Low back pain, unspecified; M79.606 - Pain in leg, unspecified Plan: Patient has seen neurosurgeon and planned procedure (10) Breast cancer screening by mammogram: Code(s): Z12.31 - Encounter for screening mammogram for malignant neoplasm of breast Orders: Orders Influenza [id number] Immunization Today Z23 - Encounter for immunization Referrals Endocrinology Referral E04.1 - Nontoxic single thyroid nodule Sleep Medicine Referral G47.33 - Obstructive sleep apnea (adult) (pediatric) Medications: Changed From carvedilol 25 mg PO BID I10 - Essential (primary) hypertension To carvedilol 25 mg PO BID 180 tabs 1RF 90 days I10 - Essential (primary) hypertension Refilled atorvastatin 20 mg PO DAILY 90 tabs 3RF G47.33 - Obstructive sleep apnea (adult) (pediatric) omeprazole 20 mg PO DAILY 90 caps 2RF 90 days M25.511 - Pain in right shoulder spironolactone 50 mg PO DAILY 90 tabs 2RF G47.33 - Obstructive sleep apnea (adult) (pediatric) clonidine HCl 0.4 mg (2 x 0.2 mg) PO BID 360 tabs 1RF G47.33 - Obstructive sleep apnea (adult) (pediatric) hydralazine 100 mg (2 x 50 mg) PO Q12H 360 tabs 3RF 90 days G47.33 - Obstructive sleep apnea (adult) (pediatric) losartan 100 mg PO DAILY 90 tabs 3RF G47.33 - Obstructive sleep apnea (adult) (pediatric) sertraline 100 mg PO DAILY 90 tabs 3RF G47.33 - Obstructive sleep apnea (adult) (pediatric) valacyclovir 500 mg PO DAILY 90 tabs 1RF G47.33 - Obstructive sleep apnea (adult) (pediatric) Coding Level of Care Code Est Pt Prev Care 40-64y(81620) Diagnoses Annual physical exam Z00.00 Impaired glucose tolerance R73.02 Hypertension I10 Hypercholesterolemia E78.00 GERD (gastroesophageal reflux disease) K21.9 Thyroid nodule E04.1 Generalized anxiety disorder F41.1 Moderate obstructive sleep apnea G47.33 Low back pain radiating down leg M54.50; M79.606 Breast cancer screening by mammogram Z12.31
== END 2023-06-08 13:59 | disposition home or self-care (01) ==
PROVIDERS: Visit Provider Internal Medicine
DX: Z00.00 Encounter for general adult medical examination without abnormal findings (principal); R73.02 Impaired glucose tolerance (oral); I10 Essential (primary) hypertension; E78.00 Pure hypercholesterolemia, unspecified; K21.9 Gastro-esophageal reflux disease without esophagitis; Z23 Encounter for immunization; E04.1 Nontoxic single thyroid nodule; F41.1 Generalized anxiety disorder; G47.33 Obstructive sleep apnea (adult) (pediatric); M54.50 Low back pain, unspecified; M79.606 Pain in leg, unspecified
CPT/HCPCS: 90471; 90686; 99396

== ENCOUNTER 2023-07-09 06:27 | Inpatient (IN) | payer OTHER, SELFPAY ==
--- NOTE | 2023-06-18 | ECG_ITS ---
Test Reason : PREOP Blood Pressure : / mmHG Vent. Rate : 059 BPM Atrial Rate : 059 BPM P-R Int : 124 ms QRS Dur : 080 ms QT Int : 410 ms P-R-T Axes : -26 011 016 degrees QTc Int : 405 ms Sinus bradycardia Otherwise normal ECG When compared with ECG of 13-SEP-2022 20:22, No significant change was found Referred By: Barb Wagner Electronically Signed By:PRADEEP VILLEGAS MD
[2023-06-18 13:41] VITALS: BP 139/74; PULSE 66; RESP 16; O2SAT 96; BMI 39.8
--- NOTE | 2023-06-18 14:02 | P.CONAN_ITS ---
Documented by User: Barb Wagner NP 07/04/23 13:17 HPI - Anesthesia Eval Consult details Narrative: 58yo F for L 3-4 Oblique Lumbar Interbody Fusion, 07/09/23 Follows [facility]. Stable at 04/2023 office visit [facility] PCP. Last visit 05/2023. Stable. Notes pending spine surgery. Follows nephrology. Last visit 05/2023. Notes high BP with pt to monitor at home and provider wants to optimize prior to surgery. Dr Feliz office notified. No recent illness No CP/SOB with minimal activity r/t back/LE pain [facility]. No PRBC's/products from other humans, but worksheet with list of acceptable transfusion. Per pharmacy, Albumin and Immunoglobulins 10% on hand if needed. LATRICE. Does not tolerate CPAP HTN. Follows cardiology and nephrology. WNL at PAT and at home after ARB adjusted GERD. PPI controls Mild asthma. Rescue inhaler very rare. Less than twice a year PMFSH Active Problems All Active Problems (Updated 06/18/23 @ 14:00 by Maya Corrales RN) Low back pain radiating down leg (Acute) Right hip pain (Acute) Left hip pain (Acute) Hemoptysis (Acute) Bilateral primary osteoarthritis of knee (Acute) Hip pain, bilateral (Acute) Lipoma (Acute) Moderate obstructive sleep apnea (Acute) Morbid obesity (Acute) Hypersomnia (Acute) Rotator cuff tear arthropathy of right shoulder (Acute) Annual physical exam (Acute) Cervical radicular pain (Acute) Knee osteoarthritis (Acute) Tarsal tunnel syndrome of left side (Acute) Lateral epicondylitis of left elbow (Acute) Numbness of left hand (Acute) Facet arthritis of lumbar region (Acute) Synovial cyst of lumbar spine (Acute) Microcytosis (Acute) Dysphagia (Acute) Generalized anxiety disorder (Acute) Annual physical exam (Acute) Shoulder pain, bilateral (Acute) Lumbar radiculitis (Acute) Sciatica (Acute) Peripheral vascular disease (Acute) Trochanteric bursitis of both hips (Acute) Thyroid nodule (Acute) Interstitial cystitis (Acute) Hypertriglyceridemia (Acute) Breast cancer screening by mammogram (Acute) Impaired glucose tolerance (Acute) GERD (gastroesophageal reflux disease) (Acute) Hypercholesterolemia (Acute) Hypertension (Acute) Past Medical History Medical History (Updated 06/18/23 @ 14:00 by Maya Corrales RN) LATRICE (obstructive sleep apnea) Knee pain, bilateral Hypertensive urgency Elevated troponin Dysuria Trochanteric bursitis of right hip Thyroid nodule Impaired glucose tolerance Subacromial bursitis of left shoulder joint Obesity GERD (gastroesophageal reflux disease) Hypercholesterolemia Hypertension Breast cancer screening by mammogram Family History Family History Father CKD (chronic kidney disease) Hypertension Myocardial infarct Mother Dementia Sister Brain aneurysm Bone cancer Schizophrenia Brother No problems noted. Brother Myocardial infarct Son No problems noted. Other Mental health disorder Family history of problems with anesthesia: No Surgical History Surgical History (Updated 06/18/23 @ 13:41 by Maya Corrales RN) History of bladder surgery History of endometrial ablation Hx of colonoscopy Hx of breast biopsy Status post excision of lipoma (~01/03/23) Hx of cholecystectomy History of Problems with Anesthesia: No Social History Social History (Updated 06/18/23 @ 14:01 by Maya Corrales RN) Household Members: Spouse Housing: House Are you a primary primary care md to a significant other at home: Yes (OPERATIONS SUPPORT COORDINATOR for brother, niece will cover while recovering) Do you presently have visiting nurse or other home services: No Alcohol intake: current Alcohol intake frequency: holidays/special occasions only Alcohol type: hard liquor Patient Tobacco Use Status: Never used Tobacco e-Cigarette/Vaping Use: Never Used Second Hand Smoke Exposure: No Use of substances other than those prescribed or required for medical reasons: No Have you been hit, kicked, punched, or otherwise hurt by someone within the past year? 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 Cognitive needs: No Hearing needs: No Vision needs: No Meds Allergies Allergy/AdvReac Type Severity Reaction Status Date / Time erythromycin base Allergy Severe VOMITING, Verified 06/18/23 13:31 [Erythromycin Base] abdominal pain lisinopril Allergy Severe throat Verified 06/18/23 14:18 Itching, coughing Sulfa (Sulfonamide Allergy Severe vaginal Verified 06/18/23 13:31 Antibiotics) Itching oxycodone AdvReac Intermediate Hallucinati Verified 06/18/23 14:18 ons Home Medications Medication Instructions Recorded Confirmed Last Taken Type Libia Root 960 mg PO BID 06/18/23 06/18/23 Unknown History albuterol sulfate 90 mcg/actuation 1 puff inhalation Q6H PRN 06/18/23 06/18/23 Unknown History aerosol inhaler Shortness Of Breath Or Wheezing melatonin 10 mg tablet 10 mg PO BEDTIME PRN Insomnia 06/18/23 06/18/23 Unknown History Exam Height,Weight and Vital Signs: Height 4 ft 11 in Weight 89.358 kg Last Vital Signs Pulse 66 06/18/23 13:41 Resp 16 06/18/23 13:41 BP 139/74 06/18/23 13:41 Pulse Ox 96 06/18/23 13:41 O2 Del Method Room Air 06/18/23 13:41 Pertinent Lab Results Pertinent Lab Results: Laboratory Tests 04/03/23 09:42 WBC 9.0 Hgb 12.1 Hct 38.5 Plt Count 283 Sodium 142 Potassium 4.2 Chloride 106 Carbon Dioxide 28 BUN 17 H Creatinine 0.86 Narrative Narrative: EKG 05/2023 Vent. Rate : 059 BPM Atrial Rate : 059 BPM P-R Int : 124 ms QRS Dur : 080 ms QT Int : 410 ms P-R-T Axes : -26 011 016 degrees QTc Int : 405 ms Sinus bradycardia Otherwise normal ECG When compared with ECG of 13-SEP-2022 20:22, Minimal criteria for Anterior infarct are no longer Present No significant change was found ECHO 07/2022 Conclusions: - 1. Normal LV systolic function with mild LVH with impaired relaxation filling pattern 2. Mildly dilated left atrium 3. Cardiac valvular Dopplers within normal limits 4. No gross pericardial effusion NM didier perf SPECT rest & str 06/2022 IMPRESSION: 1. Myocardial perfusion imaging study shows likely normal myocardial perfusion. 2. Gated LVEF is 55% during stress and 54% during rest. 3. Transient ischemic dilatation not present. EKG component of the test reported separately. Per 04/2023 cardiology office visit note: EKG-underlying rhythm is sinus at 66/Min; cannot exclude old inferior infarct or anterior infarct. Voltage criteria for LVH. No significant ST-T changes. Echocardiogram with LVEF of 60-60%. Mild LVH. Basal inferior wall thought to be hypokinetic. However, perfusion imaging was unremarkable. She has had elevated high sensitivity troponins in the past in the context of poorly controlled hypertension. Sleep study shows [id number] degree of obstructive sleep apnea. Airway Mallampati Class: II TM Dist: >3cm Neck ROM: Full Loose/Missing/Broken Teeth: Yes (Molars pulled. Left bottom molar broken.) Heart: RRR Lungs: CTAB Assessment and Plan Assessment Anesthesia Assessment: Anesthesia Plan Discussed and PAT Visit Final Anesthetic Review Family History of Problems with Anesthesia: No History of Problems with Anesthesia: No Documented by User: Ford Gonzalez MD 07/09/23 07:15 [facility] Active Problems All Active Problems (Updated 06/18/23 @ 14:00 by Maya Corrales RN) Low back pain radiating down leg (Acute) Right hip pain (Acute) Left hip pain (Acute) Hemoptysis (Acute) Bilateral primary osteoarthritis of knee (Acute) Hip pain, bilateral (Acute) Lipoma (Acute) Moderate obstructive sleep apnea (Acute) Morbid obesity (Acute) Hypersomnia (Acute) Rotator cuff tear arthropathy of right shoulder (Acute) Annual physical exam (Acute) Cervical radicular pain (Acute) Knee osteoarthritis (Acute) Tarsal tunnel syndrome of left side (Acute) Lateral epicondylitis of left elbow (Acute) Numbness of left hand (Acute) Facet arthritis of lumbar region (Acute) Synovial cyst of lumbar spine (Acute) Microcytosis (Acute) Dysphagia (Acute) Generalized anxiety disorder (Acute) Annual physical exam (Acute) Shoulder pain, bilateral (Acute) Lumbar radiculitis (Acute) Sciatica (Acute) Peripheral vascular disease (Acute) Trochanteric bursitis of both hips (Acute) Thyroid nodule (Acute) Interstitial cystitis (Acute) Hypertriglyceridemia (Acute) Breast cancer screening by mammogram (Acute) Impaired glucose tolerance (Acute) GERD (gastroesophageal reflux disease) (Acute) Hypercholesterolemia (Acute) Hypertension (Acute) Past Medical History Medical History (Updated 06/18/23 @ 14:00 by Maya Corrales RN) LATRICE (obstructive sleep apnea) Knee pain, bilateral Hypertensive urgency Elevated troponin Dysuria Trochanteric bursitis of right hip Thyroid nodule Impaired glucose tolerance Subacromial bursitis of left shoulder joint Obesity GERD (gastroesophageal reflux disease) Hypercholesterolemia Hypertension Breast cancer screening by mammogram Family History Family History Father CKD (chronic kidney disease) Hypertension Myocardial infarct Mother Dementia Sister Brain aneurysm Bone cancer Schizophrenia Brother No problems noted. Brother Myocardial infarct Son No problems noted. Other Mental health disorder Surgical History Surgical History (Updated 06/18/23 @ 13:41 by Maya Corrales RN) History of bladder surgery History of endometrial ablation Hx of colonoscopy Hx of breast biopsy Status post excision of lipoma (~01/03/23) Hx of cholecystectomy Social History Social History (Updated 06/18/23 @ 14:01 by Maya Corrales RN) Household Members: Spouse Housing: House Are you a primary primary care md to a significant other at home: Yes (OPERATIONS SUPPORT COORDINATOR for brother, niece will cover while recovering) Do you presently have visiting nurse or other home services: No Alcohol intake: current Alcohol intake frequency: holidays/special occasions only Alcohol type: hard liquor Patient Tobacco Use Status: Never used Tobacco e-Cigarette/Vaping Use: Never Used Second Hand Smoke Exposure: No Use of substances other than those prescribed or required for medical reasons: No Have you been hit, kicked, punched, or otherwise hurt by someone within the past year? 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 Cognitive needs: No Hearing needs: No Vision needs: No Meds Allergies Allergy/AdvReac Type Severity Reaction Status Date / Time erythromycin base Allergy Severe VOMITING, Verified 06/18/23 13:31 [Erythromycin Base] abdominal pain lisinopril Allergy Severe throat Verified 06/18/23 14:18 Itching, coughing Sulfa (Sulfonamide Allergy Severe vaginal Verified 06/18/23 13:31 Antibiotics) Itching oxycodone AdvReac Intermediate Hallucinati Verified 06/18/23 14:18 ons Home Medications Medication Instructions Recorded Confirmed Last Taken Type Libia Root 960 mg PO BID 06/18/23 06/18/23 Unknown History albuterol sulfate 90 mcg/actuation 1 puff inhalation Q6H PRN 06/18/23 06/18/23 Unknown History aerosol inhaler Shortness Of Breath Or Wheezing melatonin 10 mg tablet 10 mg PO BEDTIME PRN Insomnia 06/18/23 06/18/23 Unknown History Assessment and Plan Final Anesthetic Review NPO: Yes ASA Class: III Final Preanesthetic Review: No Changes in Pt Med Stat, Meds/Allgs Chart Reviewed, Consent Obtained/Reviewed and Anes Risks/Benef Reviewed Patient Risk: Intermediate Procedure Risk: Intermediate Anesthetic Plan Anesthetic Plan: GA and Agree w/ Assess. and Plan Disposition: Standard PACU
[2023-07-09] VITALS (21 sets, daily range): BP systolic 112–137; BP diastolic 51–69; PULSE 57–68; RESP 12–20; TEMP 35.8–36.6; O2SAT 94–100; BMI 40.5
--- NOTE | ~2023-07-09 | FL_ITS ---
EXAMINATION: XR FLUOROSCOPY WITH IMAGES CLINICAL INFORMATION: L3-L4 oblique lumbar interbody fusion. COMPARISON: None available. TECHNIQUE: Fluoroscopy Supervised By: Dr. Justin Feliz. Fluoroscopy Time: 1.1 minute. Cumulative Dose: 63.4 mGy. DAP: 1.65 Gycm2. Images: 5. FINDINGS: There is new posterior fusion hardware with posterior rods and bilateral transpedicular screws and intervertebral body disc fusion hardware at L3-L4. FL/FL guidance in OR IMPRESSION: Fluoroscopy guidance for lumbar spine surgery
--- OUTSIDE RECORDS SUMMARY | 2023-07-09 06:32 | XMS_ITS | Continuity of Care Document ---
Author Name Unknown Organization [facility] ter Address [address] [place] [id number]- Care Team Providers Care Finisher Map And Chart Name Role Phone Po Aureliano BLEVINS Primary Care Physician Encounter [facility] [place] Date(s): 01/08/23 - 02/21/[address] [address]- Attending Physician: Radha Melendrez MD Admitting Physician: Radha Melendrez MD Referring Physician: Radha Melendrez MD Allergies, Adverse Reactions, Alerts Substance Reaction Severity Status erythromycin vomiting Persistent Severe Active sulfa drugs yeast infections Persistent Severe Active Pravastatin Sodium fast heart rate Persistent Moderate Active lisinopril cough Persistent Mild Active losartan Cough Persistent Mild Active Maxzide Chesy pain, palpitation Persistent Modera te Active amLODIPine Palpitation Scratchy throat Persistent Moderate Active Immunizations Given and Recorded Vaccine Date Status Refusal Reason SARS-CoV-2 (COVID-19) mRNA BNT-162b2 vac 09/20/20 Recorded SARS-CoV-2 (COVID-19) mRNA BNT-162b2 vac 08/30/20 Recorded Zoster Vaccine Live 06/21/20 Recorded Zoster Vaccine Live 04/16/20 Recorded Influenza Virus Vaccine (oldterm) 04/16/20 Recorde d influenza virus vaccine, inactivated 1 06/16/19 Gi althea influenza virus vaccine, inactivated 2 05/20/18 Gi althea influenza virus vaccine, inactivated 3 05/28/17 Gi althea influenza virus vaccine, inactivated 05/25/16 Give n influenza virus vaccine, inactivated 05/24/15 Give n influenza virus vaccine, inactivated 05/04/14 Give n influenza virus vaccine, inactivated 04/28/13 Give n influenza virus vaccine, inactivated 04/04/12 Give n influenza virus vaccine, inactivated 05/05/10 Give n pneumococcal 23-valent vaccine 4 08/27/18 Given tetanus/diphtheria/pertussis, acel(Tdap) 05/05/10 Given diphtheria-tetanus toxoids (DT) 03/12/00 Given 1Result Comment: [id number] 2Result Comment: [05/20/2018] [facility] [id number] 3Result Comment: [id number] 4Result Comment: [facility] [id number] Medications albuterol CFC free 90 mcg/inh inhalation aerosol 2, puffs, Inhalation, Every 4 hours, PRN, Maintenance, 11/20/18 14:18:26 EDT, Aerosol, Compound Start Date: 11/20/18 Status: Ordered Aspirin Low Dose 81 mg oral delayed release tablet 1 tablet = 81 mg, By Mouth, Daily, # 90 tablet, 3 Refills, Soft Stop, 10/07/20 11:01:00 EST, [facility] #[id number], 149.7, cm, 09/30/20 14:00:00 EST, Height Start Date: 10/07/20 Status: Ordered atorvastatin 20 mg oral tablet 1 tablet, By Mouth, Daily, # 90 tablet, 0 Refills, [facility] #[id number], 149.7, cm, 09/30/2113:00:00 EST, Height Start Date: 03/28/21 Status: Ordered cloNIDine 0.2 mg oral tablet 0.4 mg, 2, tablet, By Mouth, 2 times a day, # 360 tablet, Refills 1, Tot. Refills 1, Maintenance, 01/07/21 7:01:00 EDT, Route to Pharmacy Electronically, [facility] #[id number], 149.7, cm, 09/30/20 14:00:00 EST, Height Start Date: 01/07/21 Status: Ordered furosemide 40 mg oral tablet 1, tablet, By Mouth, Daily, # 90 tablet, Refills 0, Route to Pharmacy Electronically, [facility] #[id number], 149.7, cm, 09/30/20 14:00:00 EST, Height Start Date: 03/21/21 Status: Ordered hydrALAZINE 50 mg oral tablet 1 tablet = 50 mg, By Mouth, 3 times a day, # 270 tablet, 1 Refills, Maintenance, 01/07/21 7:01:00 EDT, Tablet, [facility] #[id number], 149.7, cm, 09/30/20 14:00:00 EST, Height Start Date: 01/07/21 Status: Ordered hydrochlorothiazide 25 mg oral tablet 25 mg, 1, tablet, By Mouth, Daily, # 90 tablet, Refills 3, Tot. Refills 3, Maintenance, 12/30/19 8:44:00 EDT, Route to Pharmacy Electronically, [facility] #[id number], 149.7, cm, 12/29/19 12:44:00 EDT, Height Start Date: 12/30/19 Status: Ordered melatonin 10 mg oral capsule 1 capsule = 10 mg, By Mouth, Daily at bedtime, 0 Refills, Maintenance, 10/17/18 12:43:01 EDT Start Date: 10/17/18 Status: Ordered metoprolol 100 mg oral tablet, extended release 100 mg, 1, tablet, By Mouth, Daily, # 90 tablet, Refills 1, Tot. Refills 1, Maintenance, 01/29/21 11:37:00 EDT, Route to Pharmacy Electronically, [facility] #[id number], 149.7, cm, 09/30/20 14:00:00 EST, Height Start Date: 01/29/21 Stop Date: 07/28/21 Status: Ordered omeprazole 20 mg oral enteric coated capsule 1 capsule, By Mouth, Daily, # 90 capsule, 0 Refills, Maintenance, 03/28/21 13:56:00 EDT, [facility] #[id number], Please ask patient to call office to schedule a medication follow up appointment joe., 149.7, cm, 09/30/20 14:00:00 EST, Height Start Date: 03/28/21 Status: Ordered Qvar Redihaler 80 mcg/inh inhalation aerosol 2 puffs, Inhalation, 2 times a day, # 3 each, 3 Refills, Maintenance, 12/30/19 6:48:00 EDT, [facility] #[id number], 2 puffs Inhalation 2 times a day, 149.7, cm, 12/29/19 12:44:00 EDT, Height Start Date: 12/30/19 Status: Ordered sertraline 100 mg oral tablet 1 tablet = 100 mg, By Mouth, Daily, # 90 tablet, 1 Refills, Maintenance, 01/07/21 7:01:00 EDT, Tablet, [facility] #[id number], 149.7, cm, 09/30/20 14:00:00 EST, Height Start Date: 01/07/21 Status: Ordered valACYclovir 500 mg oral tablet 1, tablet, By Mouth, Daily, # 90 tablet, Refills 0, Route to Pharmacy Electronically, [facility] #[id number], 149.7, cm, 09/30/20 14:00:00 EST, Height Start Date: 03/28/21 Status: Ordered Problem List Condition Confirmation Course Effective Dates Status Health Status Informant Asthma Confirmed Active Hyperlipidemia Confirmed 01/25/11 Active Hypertension Confirmed 2012 Active Thyroid mass Confirmed 04/20/18 Active Major depression, recurrent Confirmed Active Social History Social History Type Response Smoking Status Never smoker; Tobacc o user in household: No entered on: 08/19/15 Sex Patient Care team information Care Team Personnel Name: Stefan Ibrahim Position: [facility] TA Member Role: Lifetime Consulting Physician Name: Aureliano German MD Position: Reference Physician Member Role: PCP Address: Address: [address] [place] [address]- Care Team Related Persons Name: BERHANE REES Address: [address] [address]
--- OUTSIDE RECORDS SUMMARY | 2023-07-09 06:32 | XMS_ITS | Continuity of Care Document ---
Author Name Unknown Organization [facility] ter Address [address] [place] [id number]- Care Team Providers Care Trimmer Tailer Name Role Phone Rambo Pimentel MD Primary Care Physician [phone] [id number] Date(s): 11/09/22 - 12/27/[address] [address] Attending Physician: Radha Melendrez MD Admitting Physician: Radha Melendrez MD Referring Physician: Radha Melendrez MD Allergies, Adverse Reactions, Alerts Substance Reaction Severity Status erythromycin vomiting Persistent Severe Active Pravastatin Sodium fast heart rate Persistent Moderate Active lisinopril cough Persistent Mild Active losartan Cough Persistent Mild Active Maxzide Chesy pain, palpitation Persistent Modera te Active sulfa drugs yeast infections Persistent Severe Active amLODIPine Palpitation Scratchy throat Persistent Moderate [...] diphtheria-tetanus toxoids (DT) 03/12/00 Given 1Result Comment: [id number] 2Result Comment: [05/20/2018] [facility] [id number] 3Result Comment: [id number] 4Result Comment: [facility] [id number] Medications albuterol CFC free 90 mcg/inh inhalation aerosol 2, puffs, Inhalation, Every 4 hours, PRN, Maintenance, 11/20/18 14:18:26 EDT, Aerosol, Compound Start Date: 11/20/18 Status: Ordered Aspirin Low Dose 81 mg oral delayed release tablet 1 tablet = 81 mg, By Mouth, Daily, # 90 tablet, 3 Refills, Soft Stop, 10/07/20 11:01:00 EST, [facility] #[id number], 149.7, cm, 09/30/20 14:00:00 EST, Height Start Date: 10/07/20 Status: Ordered atorvastatin 20 mg oral tablet 1 tablet, By Mouth, Daily, # 90 tablet, 0 Refills, [facility] #[id number], 149.7, cm, 09/30/2113:00:00 EST, Height Start Date: 03/28/21 Status: Ordered cloNIDine 0.2 mg oral tablet 0.4 mg, 2, tablet, By Mouth, 2 times a day, # 360 tablet, Refills 1, Tot. Refills 1, Maintenance, 01/07/21 7:01:00 EDT, Route to Pharmacy Electronically, [facility] #[id number], 149.7, cm, 09/30/20 14:00:00 EST, Height Start Date: 01/07/21 Status: Ordered furosemide 40 mg oral tablet 1, tablet, By Mouth, Daily, # 90 tablet, Refills 0, Route to Pharmacy Electronically, [facility] #[id number], 149.7, cm, 09/30/20 14:00:00 EST, Height Start Date: 03/21/21 Status: Ordered hydrALAZINE 50 mg oral tablet 1 tablet = 50 mg, By Mouth, 3 times a day, # 270 tablet, 1 Refills, Maintenance, 01/07/21 7:01:00 EDT, Tablet, [facility] #[id number], 149.7, cm, 09/30/20 14:00:00 EST, Height Start Date: 01/07/21 Status: Ordered hydrochlorothiazide 25 mg oral tablet 25 mg, 1, tablet, By Mouth, Daily, # 90 tablet, Refills 3, Tot. Refills 3, Maintenance, 12/30/19 8:44:00 EDT, Route to Pharmacy Electronically, [facility] #[id number], 149.7, cm, 12/29/19 12:44:00 EDT, Height Start [...] 01/29/21 11:37:00 EDT, Route to Pharmacy Electronically, [facility] #[id number], 149.7, cm, 09/30/20 14:00:00 EST, Height Start Date: 01/29/21 Stop Date: 07/28/21 Status: Ordered omeprazole 20 mg oral enteric coated capsule 1 capsule, By Mouth, Daily, # 90 capsule, 0 Refills, Maintenance, 03/28/21 13:56:00 EDT, [facility] #[id number], Please ask patient to call office to schedule a medication follow up appointment joe., 149.7, cm, 09/30/20 14:00:00 EST, Height Start Date: 03/28/21 Status: Ordered Qvar Redihaler 80 mcg/inh inhalation aerosol 2 puffs, Inhalation, 2 times a day, # 3 each, 3 Refills, Maintenance, 12/30/19 6:48:00 EDT, [facility] #[id number], 2 puffs Inhalation 2 times a day, 149.7, cm, 12/29/19 12:44:00 EDT, Height Start Date: 12/30/19 Status: Ordered sertraline 100 mg oral tablet 1 tablet = 100 mg, By Mouth, Daily, # 90 tablet, 1 Refills, Maintenance, 01/07/21 7:01:00 EDT, Tablet, [facility] #[id number], 149.7, cm, 09/30/20 14:00:00 EST, Height Start Date: 01/07/21 Status: Ordered valACYclovir 500 mg oral tablet 1, tablet, By Mouth, Daily, # 90 tablet, Refills 0, [id number], 149.7, cm, 09/30/20 14:00:00 EST, Height Start [...] Care Team Personnel Name: Stefan Ibrahim Position: [facility] TA Member Role: Lifetime Consulting Physician Name: Rambo Pimentel MD Position: [facility] Physician - Primary Care Member Role: PCP Address: Address: [address] [place] [address] [address] [place], [place] [address] Care Team Related Persons Name: CABRERA BERHANE Address: [address] [address]
--- OUTSIDE RECORDS SUMMARY | 2023-07-09 06:32 | XMS_ITS | Continuity of Care Document ---
Author Name Unknown Organization [facility] ter Address [address] [place] [id number] Care Team Providers Care Global Marketing Manager Name Role Phone Loren BLEVINS, [facility] Primary Care Physician [phone] Encounter [facility] [place] [id number] Date(s): 11/27/22 - 01/27/[address] [address] Attending Physician: Radha Melendrez MD [...] diphtheria-tetanus toxoids (DT) 03/12/00 Given 1Result Comment: [id number] 2Result Comment: [05/20/2018] [facility] [id number] 3Result Comment: [id number] 4Result Comment: [facility] [id number] Medications albuterol CFC free 90 mcg/inh inhalation aerosol 2, puffs, Inhalation, Every 4 hours, PRN, Maintenance, 11/20/18 14:18:26 EDT, Aerosol, Compound Start Date: 11/20/18 Status: Ordered Aspirin Low Dose 81 mg oral delayed release tablet 1 tablet = 81 mg, By Mouth, Daily, # 90 tablet, 3 Refills, Soft Stop, 10/07/20 11:01:00 EST, [facility] #[id number], 149.7, cm, 09/30/20 14:00:00 EST, Height Start Date: 10/07/20 Status: Ordered atorvastatin 20 mg oral tablet 1 tablet, By Mouth, Daily, # 90 tablet, 0 Refills, [facility] #[id number], 149.7, cm, 09/30/2113:00:00 EST, Height Start Date: 03/28/21 Status: Ordered cloNIDine 0.2 mg oral tablet 0.4 mg, 2, tablet, By Mouth, 2 times a day, # 360 tablet, Refills 1, Tot. Refills 1, Maintenance, 01/07/21 7:01:00 EDT, Route to Pharmacy Electronically, [facility] #[id number], 149.7, cm, 09/30/20 14:00:00 EST, Height Start Date: 01/07/21 Status: Ordered furosemide 40 mg oral tablet 1, tablet, By Mouth, Daily, # 90 tablet, Refills 0, Route to Pharmacy Electronically, [facility] #[id number], 149.7, cm, 09/30/20 14:00:00 EST, Height Start Date: 03/21/21 Status: Ordered hydrALAZINE 50 mg oral tablet 1 tablet = 50 mg, By Mouth, 3 times a day, # 270 tablet, 1 Refills, Maintenance, 01/07/21 7:01:00 EDT, Tablet, [facility] #[id number], 149.7, cm, 09/30/20 14:00:00 EST, Height Start Date: 01/07/21 Status: Ordered hydrochlorothiazide 25 mg oral tablet 25 mg, 1, tablet, By Mouth, Daily, # 90 tablet, Refills 3, Tot. Refills 3, Maintenance, 12/30/19 8:44:00 EDT, Route to Pharmacy Electronically, [facility] #[id number], 149.7, cm, 12/29/19 12:44:00 EDT, Height Start [...] 01/29/21 11:37:00 EDT, Route to Pharmacy Electronically, [facility] #[id number], 149.7, cm, 09/30/20 14:00:00 EST, Height Start Date: 01/29/21 Stop Date: 07/28/21 Status: Ordered omeprazole 20 mg oral enteric coated capsule 1 capsule, By Mouth, Daily, # 90 capsule, 0 Refills, Maintenance, 03/28/21 13:56:00 EDT, [facility] #[id number], Please ask patient to call office to schedule a medication follow up appointment joe., 149.7, cm, 09/30/20 14:00:00 EST, Height Start Date: 03/28/21 Status: Ordered Qvar Redihaler 80 mcg/inh inhalation aerosol 2 puffs, Inhalation, 2 times a day, # 3 each, 3 Refills, Maintenance, 12/30/19 6:48:00 EDT, [facility] #[id number], 2 puffs Inhalation 2 times a day, 149.7, cm, 12/29/19 12:44:00 EDT, Height Start Date: 12/30/19 Status: Ordered sertraline 100 mg oral tablet 1 tablet = 100 mg, By Mouth, Daily, # 90 tablet, 1 Refills, Maintenance, 01/07/21 7:01:00 EDT, Tablet, [facility] #[id number], 149.7, cm, 09/30/20 14:00:00 EST, Height Start Date: 01/07/21 Status: Ordered valACYclovir 500 mg oral tablet 1, tablet, By Mouth, Daily, # 90 tablet, Refills 0, Route to Pharmacy Electronically, [facility] #[id number], 149.7, cm, 09/30/20 14:00:00 EST, Height Start [...] Care Team Personnel Name: Stefan Ibrahim Position: [facility] TA Member Role: Lifetime Consulting Physician Name: Rambo Pimentel MD Position: [facility] Physician - Primary Care Member Role: PCP Address: Address: [address] [place] [address] [address] [place] [address]- Care Team Related Persons Name: REESBERHANE Address: [address] [address]
[2023-07-09] MEDS: methocarbamoL 750 MG TABLET PO (06:59)
[2023-07-09] MEDS: Gabapentin 300 MG CAPSULE PO (06:59)
[2023-07-09] MEDS: Lactated Ringers 1,000 ML 100 ML IVCONT (07:01)
--- NOTE | 2023-07-09 07:23 | P.HPSUR_ITS ---
Pre-Procedural Eval Section A Date of Service: 07/09/23 The patient is an INPATIENT: No Changes since office visit: No Cold of Flu in the past 2 weeks, No New Medical Problems, No Changes in Medication and No Patient answered all questions The History & Physical has been completed within 30 days and I have reviewed it.: No Section B Chief Complaint: S/P L3-4 OLIF Allergies: Allergies Allergy/AdvReac Type Severity Reaction Status Date / Time erythromycin base Allergy Severe VOMITING, Verified 06/18/23 13:31 [Erythromycin Base] abdominal pain lisinopril Allergy Severe throat Verified 06/18/23 14:18 Itching, coughing Sulfa (Sulfonamide Allergy Severe vaginal Verified 06/18/23 13:31 Antibiotics) Itching oxycodone AdvReac Intermediate Hallucinati Verified 06/18/23 14:18 ons Review of Systems Sugical H&P ROS: Negative: Constitution, Cardiovascular, Respiratory, N eurological, Psychiatric, Hem-Onc, Allergic/Immunologic, Gastrointestinal, Genitourinary, Musculoskeletal, Integumentary, Endocrine and Eyes/Ears/Nose/Throat Exam Surgical H&P Exam: Not Evaluated: HEENT, Not Evaluated: Heart, Not Evaluated: Lungs, Not Evaluated: Extremities, Not Evaluated: Abdomen, Not Evaluated: Skin and Not Evaluated: Neurological Plan Diagnosis/Plan: Unchanged I have reviewed the history and physical and performed a pertinent physical examination on my patient. No changes have occurred unless specified. L3-4 Oblique lumbar interbody fusion Time Spent With Patient Time: Total time managing care of this patient today __12__ minutes.
--- NOTE | 2023-07-09 08:24 | PHA.MEDREC ---
Pharmacy Consult ? Medication Reconciliation Pharmacy has reviewed the medication reconciliation.
[2023-07-09] MEDS: HYDROmorphone HCl 0.5 MG/0.5 ML SYRINGE 0.25 MG IVPUSH ×4 (10:40→11:12)
--- NOTE | 2023-07-09 10:51 | P.OP_ITS ---
Operative Note Operative Note Date of Service: 07/09/23 Narrative: Preop Diagnosis: 1.)Lumbar spondylolisthesis 2.) low back pain; neurogenic claudication Procedure: L3-4 discectomy, arthrodesis and implantation cage through an anterolateral, retroperitoneal approach; posterior instrumented fusion L3-4; allograft Consent Informed Consent was obtained for this operation. I have explained the nature, purpose and benefits of the operation. I have discussed the risks and benefit of the operation including possible complications or adverse events with patient/family. Alternative(s) were discussed with the patient with their relative benefits and risks as well as the consequences of not accepting the operation were included in obtaining consent. Surgeon: GISELLE MENJIVAR MD, PHD Procedure Assisted By: Chris HADDAD Description of Procedure this 58-year-old female suffer from back pain radiating in both legs. An MRI and x-ray show a grade 2 L3-4 spondylolisthesis. The patient was offered an oblique lumbar interbody fusion L3-4. The procedure complications were e xplained. The patient was consented. The patient was brought to the operating room and endotracheally intubated. The patient was turned in a lateral position with the left side up. Prep and drape was done followed by timeout. A small incision was made in the left lower abdominal quadrant. The muscle fascia was opened after which the 3 muscle layer was split to enter the retroperitoneal space. Dilators were docked in the anterior one third of the L3-4 disc space followed by a retractor. The retractor was opened. The L3-4 disc space was exposed. An annulotomy was done after which an elevator Hanna was used to release the disc material from its endplates and to perforate the contralateral side. A partial discectomy was done. An 8 mm and 10 mm height trial implants were inserted. The discectomy was completed. The endplates were prepared. An 10x 45 mm with 0 degree lordosis 4 web cage filled with allograft was inserted into the disc space under fluoroscopic guidance. This resulted in excellent reduction of the spondylolisthesis. The retractor was removed. Hemostasis was done. The incision was closed in 2 layers. Steri-Strips used to approximate incision. An OpSite with Tegaderm was used to cover the incision. This marked first part of the procedure. The patient was turned prone on the Deni spine table. 2C arms were installed for fluoroscopy. Prep and drape was done followed by a second timeout. 2 paramedian incisions were made lateral from the L3 and L4 pedicles. The muscle fascia was opened after which the muscle layer was split bluntly to expose the posterolateral gutter. The following steps were taken. A pediguard tap was used to create a transpedicular trajectory into the vertebral body. A K wire was placed. A specially designed instrument was advanced over the K wire to decorticate the posterolateral gutter in preparation for the posterolateral fusion. A pedicle screw was advanced over the K wire and the K wire was removed. The steps were done for the bilateral L3 and L4 pedicles. A total of 4 screws were placed with a diameter of 6.5 x 40 mm in the bilateral L4 pedicles and 6.5 x 45 mm in the bilateral L5 pedicles. The pedicle screws were connected with 50 mm barb bilaterally and locked down with locking caps. The extension towers were removed. The posterolateral gutter was filled with allograft to complete the posterolateral [] fusion Hemostasis was done and the incision was closed in 2 layers. Steri-Strips were used to approximate the incision. An OpSite were taken and was used to cover the incision. All sponge and needle counts were co rrect. Patient was extubated and transferred in stable is to recovery room. Anesthesia: General Estimated Blood Loss (ml): 20 mL Duration of Surgery: 80 minutes Complications: None Postoperative Plan: Admit to inpatient for observation
[2023-07-09] MEDS: 0.9 % Sodium Chloride 1,000 ML 75 ML IVCONT (12:32)
[2023-07-09] MEDS: Acetaminophen 1,000 MG/100 ML PIGGYBACK 400 MG IV ×2 (14:10→21:38)
[2023-07-09] MEDS: HYDROmorphone HCl 2 MG TABLET PO (14:10)
[2023-07-09] MEDS: ceFAZolin Sodium/Dextrose,Iso 2 GM/50 ML PIGGYBACK IV ×2 (14:38→20:39)
[2023-07-09] MEDS: Ketorolac Tromethamine 15 MG/ML VIAL IVPUSH ×2 (15:50→22:12)
[2023-07-09] MEDS: HYDROmorphone HCl 1 MG/ML SYRINGE IVPUSH ×2 (17:29→20:57)
[2023-07-09] MEDS: cloNIDine HCL 0.2 MG TABLET 0.4 MG PO (20:50)
[2023-07-09] MEDS: Docusate Sodium 100 MG CAPSULE PO (20:51)
[2023-07-10] MEDS: hydrALAZINE HCl 50 MG TABLET 100 MG PO (00:04)
[2023-07-10] MEDS: 0.9 % Sodium Chloride 1,000 ML 75 ML IVCONT (00:05)
[2023-07-10 00:09] VITALS: BP 111/60; PULSE 58; RESP 18; TEMP 36.2; O2SAT 94
[2023-07-10] MEDS: HYDROmorphone HCl 1 MG/ML SYRINGE IVPUSH ×2 (00:44→12:54)
[2023-07-10] MEDS: ceFAZolin Sodium/Dextrose,Iso 2 GM/50 ML PIGGYBACK IV (02:18)
[2023-07-10] MEDS: Acetaminophen 1,000 MG/100 ML PIGGYBACK 400 MG IV ×2 (03:14→08:45)
[2023-07-10 04:00] VITALS: BP 119/61; PULSE 60; RESP 18; TEMP 36.4; O2SAT 95
[2023-07-10] MEDS: Ketorolac Tromethamine 15 MG/ML VIAL IVPUSH ×2 (04:59→10:59)
--- NOTE | 2023-07-10 07:47 | HO.NEURO.PN ---
Neurosurgery Operative Note Date of Service: 07/10/23 Narrative: POD: 1 Procedure: L3-4 DOMINGO Lockett was seen this morning lying in bed on 3-. She was accompanied by her who slept in the room overnight with her. She reports she is up ambulating to the bathroom and is otherwise doing well. She still reports mild-moderate pain in her low back, with good relief with pain medication. She is voiding well, tolerating diet. Afebrile, vital signs stable. Strength is full and symmetric in bilateral lower extremities. Back / anterolateral dressings have some staining without signs of hematoma. No active sanguineous drainage. Area is dry. Plan: Patient meets criteria to be medically discharged home. He was seen at bedside with Dr. Feliz. I will send a prescription of Dilaudid for as she has prior history of allergic reactions to oxycodone but has tolerated Dilaudid well. I will also send a prescription of Colace as she has reported significant constipation with opiate medications. Sandro Feliz MD,PhD [facility]
--- NOTE | 2023-07-10 07:52 | P.DS_ITS ---
DS: Providers Provider Date of Service: 07/10/23 Date of admission: 07/09/23 06:27 Primary care physician: Aureliano German MD DS: Summary Time Attestation Discharge coordination time: Less than 30 minutes Quality: Safe Use of Opioids Does Pt have an Active Cancer Diagnosis on the Problem List?: No Quality: Stroke Does the patient have a stroke diagnosis?: No Physical Exam Vital Signs: Vital Signs: Last Vital Signs Temp 97.6 F 07/10/23 04:00 Pulse 60 07/10/23 04:00 Resp 18 07/10/23 04:00 BP 119/61 07/10/23 04:00 Pulse Ox 95 07/10/23 04:00 O2 Del Method Room Air 07/10/23 04:00 O2 Flow Rate 3 07/09/23 12:28 BMI result Body Mass Index 40.5 Discharge Plan Discharge Anticipated Discharge Date/Time: 07/10/23 07:56 Patient Disposition: Home, Self-Care Discharge Diagnosis: S/P L3-4 OLIF Referrals: Aureliano German MD [Primary Care Provider] - 1 Week Discharge Medications: New hydromorphone [Dilaudid] 2 mg tablet 2 mg PO Q4-6H PRN (Reason: severe pain (scale score 7-10)) Qty: 30 0RF Rx Instructions: Partial Fill upon patient request. docusate sodium 50 mg capsule 100 mg PO BID Qty: 20 0RF Continued (DME) blood pressure monitor Kit See Rx Instructions .Route Qty: 1 0RF Rx Instructions: As directed (DME) AUTOPAP 6-16 cm H20 humidified AIR See Rx Instructions .Route .MEDSUPPLY Qty: 1 0RF Rx Instructions: As directed aspirin 81 mg tablet,delayed release (DR/EC) 81 mg PO DAILY Qty: 90 3RF calcium carbonate-vitamin D3 [Calcium 500 With D] 500 mg-10 mcg (400 unit) tablet 1 tab PO DAILY Qty: 90 3RF multivitamin,tx-minerals Tablet 1 tab PO DAILY Qty: 90 3RF melatonin 10 mg Tablet 10 mg PO BEDTIME PRN (Reason: Insomnia) albuterol sulfate 90 mcg/actuation HFA aerosol inhaler 1 puff INHALATION Q6H PRN (Reason: Shortness Of Breath Or Wheezing) Marshmallow Root 960 mg PO BID atorvastatin 20 mg tablet 20 mg PO DAILY Qty: 90 3RF carvedilol 25 mg tablet 25 mg PO BID 90 Days Qty: 180 1RF clonidine HCl 0.2 mg tablet 0.4 mg PO BID Qty: 360 1RF hydralazine 50 mg tablet 100 mg PO Q12H 90 Days Qty: 360 3RF losartan 100 mg tablet 100 mg PO DAILY Qty: 90 3RF omeprazole 20 mg capsule,delayed release(DR/EC) 20 mg PO DAILY 90 Days Qty: 90 2RF sertraline 100 mg tablet 100 mg PO DAILY Qty: 90 3RF valacyclovir 500 mg tablet 500 mg PO DAILY Qty: 90 1RF spironolactone 50 mg tablet 50 mg PO DAILY Qty: 90 2RF Discharge Orders: Discharge Order (Routine); Ordered 07/10/23 Ordered By: Sandro Ro Diet: Advance to usual diet Activity on Discharge: As tolerated Stand Alone Forms: Patient Portal Discharge page Activity Restrictions/Additional Instructions: After your spinal surgery we ask you to observe the following restrictions/guidelines: Activity: With lumbar fusion surgery it is normal to have days in the first couple of weeks where you have increased leg pain. This usually lasts 1-2 days and self resolves with the continuation of medication. Attempt to stay mobile and continue activity as tolerated. It is normal to feel some discomfort as you increase your activity, but that will improve with time. We ask you avoid heavy lifting or activities that cause pain. As a general rule, 8lbs is a safe limit for lifting right after surgery. Walk as much as you feel comfortable but not to exhaustion. You will feel extra tired the first few days after surgery. Stay well hydrated. It is OK to walk up and down stairs You may return to driving when you are off narcotics (such as vicodin, oxycodone, dilaudid, etc), and you are back to normal functional capacity. If you have any concerns please check with office before driving. Return to work is specific to each patient and each surgery, so please speak with your doctor/PA at first follow up. Please bring paperwork such as FMLA at that time if you need it filled out. Medications: It is recommended that you take Tylenol 500 mg every 4 hours for the 1st week postoperatively, alongside ibuprofen 600 mg every 8 hours. We will give you a short supply of narcotics after surgery (usually one weeks worth). Please use this for breakthrough pain that is refractory to the Tylenol / ibuprofen. If you need more please call the office but do not use more than prescribed. You will need to give our office 48 hours notice if you need narcotics refilled and we do not fill narcotics on weekends or evenings. If you are on a narcotic, it is a good idea to take a stool softener such as colace or senna to avoid constipation If you take blood thinner such as aspirin, Plavix, Coumadin, Effient, Eliquis etc for conditions such as Afib, DVT, Pulmonary embolus, coronary disease, stents etc please speak with your surgeon about specific details as to when you can resume these medications. You can resume NSAIDs on post op day 1 (eg: Motrin, Naproxen, etc). Follow up: Please call the office, , after surgery to arrange a 3 week follow up for wound check. Wound Care: You may remove your dressing on the first day after surgery. You may leave open to air. Please do not remove the steri strips underneath. they will fall off on their own in one week. IT IS NORMAL FOR THE WOUND TO OOZE OR BE BLOODY FOR A FEW DAYS AFTER SURGERY. IF THIS HAPPENS JUST PLACE NEW DRESSING OVER IT TO AVOID STAINING CLOTHES. You may shower on post op day # 1 We ask that you do not let the water soak the wound. If it does get wet, just towel dry lightly. Please do not scrub your incision or place any type of chemical/ointment on the wound. No tub baths, pools or jacuzzis for one month. If you have any leaking or redness from your wound, or fevers, please call office Care Plan Goals: Return to normal activity as tolerated. Health Concerns: None. Plan of Treatment: Follow-up in clinic in 2-3 weeks. Assessment: POD: 1 Procedure: L3-4 DOMINGO Lockett was seen this morning lying in bed on . She was accompanied by her who slept in the room overnight with her. She reports she is up ambulating to the bathroom and is otherwise doing well. She still reports mild- moderate pain in her low back, with good relief with pain medication. She is voiding well, tolerating diet. Afebrile, vital signs stable. Strength is full and symmetric in bilateral lower extremities. Back / anterolateral dressings have some staining without signs of hematoma. No active sanguineous drainage. Area is dry. Plan: Patient meets criteria to be medically discharged home. He was seen at bedside with Dr. Feliz. I will send a prescription of Dilaudid for as she has prior history of allergic reactions to oxycodone but has tolerated Dilaudid well. I will also send a prescription of Colace as she has reported significant constipation with opiate medications.
[2023-07-10 08:04] VITALS: BP 139/68; PULSE 58; RESP 17; TEMP 36.3; O2SAT 95
--- NOTE | 2023-07-10 08:40 | HO.POSTANES ---
Post Anesthesia Evaluation Post Anesthesia Evaluation Date of Service: 07/10/23 Vital Signs: Vital Signs Temp Pulse Resp BP Pulse Ox O2 Del Method 07/10/23 08:04 97.3 F 58 17 139/68 95 Room Air 07/10/23 04:00 97.6 F 60 18 119/61 95 Room Air 07/10/23 00:09 97.2 F 58 18 111/60 94 Room Air 07/09/23 20:48 58 Anesthesia: General Endotracheal-GETA Mental Status: Awake Pain Control: Satisfactory Nausea/Vomiting: None Hydration: Adequate Anesthesia-Related Issues: No Anes. Related Issues
[2023-07-10] MEDS: Sertraline HCL 100 MG TABLET PO (08:46)
[2023-07-10] MEDS: Omeprazole 20 MG CAPSULE.DR PO (08:46)
[2023-07-10] MEDS: cloNIDine HCL 0.2 MG TABLET 0.4 MG PO (08:46)
[2023-07-10] MEDS: Docusate Sodium 100 MG CAPSULE PO (08:46)
[2023-07-10] MEDS: valACYclovir HCL 500 MG TABLET PO (08:46)
[2023-07-10] MEDS: Aspirin Enteric Coated 81 MG TABLET.DR PO (08:46)
[2023-07-10] MEDS: Losartan Potassium 50 MG TABLET 100 MG PO (08:46)
[2023-07-10] MEDS: Spironolactone 25 MG TABLET 50 MG PO (08:46)
[2023-07-10] MEDS: Atorvastatin Calcium 20 MG TABLET PO (08:46)
[2023-07-10] MEDS: carvediloL 25 MG TABLET PO (08:47)
--- NOTE | 2023-07-10 09:12 | MHC.CM.PN ---
Female 58 s/p L3-4 OLIF She lives with her . She is independent with all functional mobility. A copy of her hCP has been requested. PT eval performed. The recomendation is Home with family assist. Patients spouse will provide transportation home.
== END 2023-07-10 15:10 | disposition home or self-care (01) | DRG 304 ==
LOC: HO.SSSA 06:30 → HO.S3 10:41
PROVIDERS: Neurological Surgery; Admitting Provider Physician Assistant; PCP Internal Medicine; Visit Provider Physician Assistant
PROC: 0SG00A0 Fusion of Lumbar Vertebral Joint with Interbody Fusion Device, Anterior Approach, Anterior Column, Open Approach (ICD-10-PCS; CPT 22612; principal; 2023-07-09 07:30)
DX: M43.16 Spondylolisthesis, lumbar region (principal); G47.33 Obstructive sleep apnea (adult) (pediatric); K21.9 Gastro-esophageal reflux disease without esophagitis; Z79.82 Long term (current) use of aspirin; Z79.899 Other long term (current) drug therapy
CPT/HCPCS: 22612; 22558; 22840; 22853; 20930; 93005; 97161; 99024; 99221; C1713; J0131; J0690; J1100; J1170; J1885; J2371; J2405; J2704; J3010; L8699

== ENCOUNTER → 2023-07-09 06:27 | Outpatient (BNV) | payer OTHER, SELFPAY | PROVIDERS: Admitting Provider Physician Assistant; PCP Internal Medicine; Visit Provider Neurological Surgery | DX: M54.50 Low back pain, unspecified (principal); M43.16 Spondylolisthesis, lumbar region | CPT/HCPCS: 20930; 22558; 22612; 22840; 22853; 99499 ==

== ENCOUNTER 2023-07-31 14:27 | Outpatient (AMB) | payer OTHER, SELFPAY ==
--- NOTE | 2023-07-31 14:32 | A.SPINEOV_ITS ---
Intake Intake Visit Reasons: 1st post op Intake Note: Mrs. Brantley is here today for her 1st post-op visit. Digital Performance Analyst Required: No Allergies erythromycin base [Erythromycin Base] Allergy (Severe, Verified 06/18/23 13:31) VOMITING, abdominal pain lisinopril Allergy (Severe, Verified 06/18/23 14:18) throat Itching, coughing Sulfa (Sulfonamide Antibiotics) Allergy (Severe, Verified 06/18/23 13:31) vaginal Itching oxycodone Adverse Reaction (Intermediate, Verified 06/18/23 14:18) Hallucinations Assessment & Plan Assessment & Plan (1) Lumbar degenerative disc disease: Comment: June 2023OLIF (Oblique Lateral Lumbar Interbody Fusion Dr. Feliz) Code(s): M51.36 - Other intervertebral disc degeneration, lumbar region Plan Procedure: L3-4 DOMINGO Lockett comes in today for her 1st postoperative visit. She reports she is satisfied with the surgery but does feel as though she has been having some waxing/waning pains in her low back that shoot into her bilateral thighs. She states that the hydrocodone that was prescribed for her has been extremely helpful for this. She reports she is up walking around and completing the majority of her ADLs. Her is assisting her with basic tasks that are more difficult for her. We discussed the postoperative healing course, and what to expect from inflammation during the healing process. I recommended that she continue to take Tylenol regularly, but to be mindful that there is also Tylenol in the hydrocodone. She may also utilize ibuprofen as needed, but was advised that too much ibuprofen use can cause stomach issues / stomach bleeding. No neurological deficits. Patient is able to ambulate well, rises from a seated position without difficulty. Incision sites are closed, well healing, with no signs of drainage. We will follow-up with the patient in 6 weeks for her 2nd postoperative visit. At that time we will get x-rays to review with the patient. Sandro Feliz MD,PhD [facility] Orders: Orders XR lumbar spine 4V min Today M51.36 - Other intervertebral disc degeneration, lumbar region Medications: Changed From hydrocodone-acetaminophen 7.5-325 mg Partial Fill upon patient request. 1 tab PO Q4-6H PRN 30 tabs 0RF severe pain (scale score 7-10) To hydrocodone-acetaminophen 7.5-325 mg Partial Fill upon patient request. 1 tab PO Q8H PRN 21 tabs 0RF severe pain (scale score 7-10) Coding Level of Care Code Global (24127) Diagnoses Lumbar degenerative disc disease M51.36
== END 2023-07-31 15:01 | disposition home or self-care (01) ==
PROVIDERS: PCP Internal Medicine; Visit Provider Physician Assistant
DX: M51.36 Other intervertebral disc degeneration, lumbar region (principal)
CPT/HCPCS: 99024

== ENCOUNTER 2023-07-31 14:27 | Outpatient (REF) | payer OTHER, SELFPAY | END 2023-07-31 14:28 | disposition home or self-care (01) | LOC: HO.HOSX 14:27 | PROVIDERS: PCP Internal Medicine; Visit Provider Physician Assistant | DX: Z13.89 Encounter for screening for other disorder (principal) ==

== ENCOUNTER 2023-09-13 14:22 | Outpatient (AMB) | payer OTHER, SELFPAY ==
--- NOTE | 2023-09-13 15:49 | MHC.OFFVIS ---
Intake Intake Visit Reasons: 2nd post op with xrays Allergies erythromycin base [Erythromycin Base] Allergy (Severe, Verified 06/18/23 13:31) VOMITING, abdominal pain lisinopril Allergy (Severe, Verified 06/18/23 14:18) throat Itching, coughing Sulfa (Sulfonamide Antibiotics) Allergy (Severe, Verified 06/18/23 13:31) vaginal Itching oxycodone Adverse Reaction (Intermediate, Verified 06/18/23 14:18) Hallucinations PFSH Medical History (Updated 07/10/23 @ 18:49 by Aureliano German MD) LATRICE (obstructive sleep apnea) Knee pain, bilateral Hypertensive urgency Elevated troponin Dysuria Trochanteric bursitis of right hip Thyroid nodule Impaired glucose tolerance Subacromial bursitis of left shoulder joint Obesity GERD (gastroesophageal reflux disease) Hypercholesterolemia Hypertension Breast cancer screening by mammogram Surgical History (Updated 06/18/23 @ 13:41 by Maya Corrales, RN) History of bladder surgery History of endometrial ablation Hx of colonoscopy Hx of breast biopsy Status post excision of lipoma (~01/03/23) Hx of cholecystectomy Family History Father CKD (chronic kidney disease) Hypertension Myocardial infarct Mother Dementia Sister Brain aneurysm Bone cancer Schizophrenia Brother No problems noted. Brother Myocardial infarct Son No problems noted. 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, niece will cover while recovering) Do you presently have visiting nurse or other home services: No Alcohol intake: current Alcohol intake frequency: holidays/special occasions only Alcohol type: hard liquor Patient Tobacco Use Status: Never used Tobacco e-Cigarette/Vaping Use: Never Used Second Hand Smoke Exposure: No Advance Directives Date on File: 07/09/23 service: No Current occupational status: employed 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 Feliz) Code(s): M51.36 - Other intervertebral disc degeneration, lumbar region Plan Mrs Brantley is 2 months postop from her lumbar interbody fusion. She has seen improvement in her pain after surgery, however she continues to have severe left-sided low back pain with standing. It is fairly consistent in his nature and is located on the lower aspect of the left lower stab incision from the surgery site. Any time she feels as though she is up for more than 10 minutes her back will feel noticeably weak like she has to sit. There is no pain radiating down her leg but there is pain into her groin area. Her incisions are all well healed. She is neurologically intact. She has been taking a leave to deal with the discomfort but she is worried that something might be wrong. I am going to order a noncontrast lumbar CT and a set of x-rays to make sure that there is no issues with the hardware. I will call her with the results. 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 She is supposed to go back to work in a month but I do not think this is going to be realistic. Once I get the results of the imaging we will go ahead and rediscuss when she can return to work. Chris Feliz MD, PhD [facility] Orders: Orders CT lumbar spine wo IV con Today M51.36 - Other intervertebral disc degeneration, lumbar region Coding Level of Care Code Global (45881) Diagnoses Lumbar degenerative disc disease M51.36
== END 2023-09-13 15:54 | disposition home or self-care (01) ==
PROVIDERS: PCP Internal Medicine; Visit Provider Physician Assistant
DX: M51.36 Other intervertebral disc degeneration, lumbar region (principal)
CPT/HCPCS: 99024

== ENCOUNTER → 2023-09-13 14:22 | Outpatient (BNVA) | payer OTHER, SELFPAY | PROVIDERS: PCP Internal Medicine; Visit Provider Physician Assistant ==

== ENCOUNTER 2023-09-13 14:50 | Outpatient (REF) | payer OTHER, SELFPAY | END 2023-09-13 14:51 | disposition home or self-care (01) | LOC: HO.HOSX 14:50 | PROVIDERS: Visit Provider Physician Assistant | DX: Z13.89 Encounter for screening for other disorder (principal) ==

== ENCOUNTER 2023-10-10 07:30 | Outpatient (REF) | payer OTHER, SELFPAY ==
--- NOTE | ~2023-10-10 | CT_ITS ---
EXAMINATION: CT LUMBAR SPINE WITHOUT CONTRAST CLINICAL INFORMATION: Persistent left-sided back pain, postop COMPARISON: MRI lumbar spine 04/12/2023 TECHNIQUE: A multidetector CT acquisition of the lumbar spine is obtained without contrast. This CT examination was performed using dose optimization techniques as appropriate, variously including the following: *Automated exposure control *Adjustment of mA and/or kV according to patient size (this includes techniques or standardized protocols for targeted exams where dose is matched to indication/reason for exam; i.e. extremities or head) *Use of iterative reconstruction technique DLP: 981.84 mGy-cm FINDINGS: Status post interval instrumented posterior lumbar interbody fusion at L3-L4. The hardware is intact without periprosthetic lucency. There is no solid interbody bone fusion mass at the surgical level. Please note streak artifact limits diagnostic assessment of the spinal canal at the surgical level. Normal lumbar lordosis is preserved. Redemonstrated grade 1 anterolisthesis at L3-L4. Vertebral body heights are maintained. There is no suspicious osseous lesion. There is minimal disc height loss again evident at L5-S1. Please not canal patency is not well assessed on this examination due to inherent limitations of CT without intrathecal contrast. Within these limitations, multilevel degenerative changes with level by level detail are as follows: L1-L2: No spinal canal or neural foraminal stenosis. L2-L3: Progressive annular disc bulge eccentric to the right and redemonstrated mild bilateral facet hypertrophy. Stable mild spinal canal with slightly increased right subarticular zone narrowing. New mild right greater than left neural foraminal encroachment. L3-L4: Streak artifact results in nondiagnostic assessment of the spinal canal. Redemonstrated moderate bilateral facet arthrosis. The neural foramina appear grossly patent within limitations of streak artifact. L4-L5: Moderate bilateral facet arthrosis. No spinal canal or neural foraminal stenosis. L5-S1: Annular disc bulge and moderate bilateral facet arthrosis. No spinal canal stenosis. Stable mild bilateral neural foraminal encroachment. No significant abnormalities of the paraspinal musculature. Trace aortobiiliac calcific atherosclerotic disease. The abdominal aorta is of normal contour and caliber. CT/CT lumbar spine wo IV con IMPRESSION: Status post interval instrumented posterior lumbar interbody fusion at L3-L4. The hardware is intact. Please note streak artifact limits diagnostic assessment of the spinal canal at the surgical level. Progressive adjacent segment degeneration at L2-L3 contributing to increased mild right subarticular zone narrowing and new mild right greater than left neural foraminal encroachment.
== END 2023-10-10 07:31 | disposition home or self-care (01) ==
LOC: HO.CT 07:30
PROVIDERS: PCP Internal Medicine; Visit Provider Physician Assistant
DX: M51.36 Other intervertebral disc degeneration, lumbar region (principal)
CPT/HCPCS: 72132

== ENCOUNTER 2023-11-19 14:30 | Outpatient (AMB) | payer OTHER, SELFPAY ==
--- NOTE | 2023-11-19 14:36 | A.OFFVIS_ITS ---
Vital Signs 11/19/23 14:44 Height 5 ft 1 in Weight 220 lb BMI 41.6 BP 128/78 Blood Pressure Location Lt brachial Position Sitting Pulse 89 Pulse Oximetry (%) 98 Oxygen Delivery Method Room Air Intake Visit Reasons: 6 month follow up Allergies erythromycin base [Erythromycin Base] Allergy (Severe, Verified 06/18/23 13:31) VOMITING, abdominal pain lisinopril Allergy (Severe, Verified 06/18/23 14:18) throat Itching, coughing Sulfa (Sulfonamide Antibiotics) Allergy (Severe, Verified 06/18/23 13:31) vaginal Itching oxycodone Adverse Reaction (Intermediate, Verified 06/18/23 14:18) Hallucinations Medication List - Last Reconciled 11/19/23 by Tre Gonzalez MD acetaminophen 1,000 mg (2 x 500 mg) PO Q8H PRN albuterol sulfate 90 mcg/actuation 1 puff inhalation Q6H PRN aspirin 81 mg PO DAILY atorvastatin 20 mg PO DAILY [AUTOPAP 6-16 cm H20 humidified AIR As directed] blood pressure monitor As directed calcium carbonate-vitamin D3 500 mg-10 mcg (400 unit) (Calcium 500 With D) 1 tab PO DAILY carvedilol 25 mg PO BID 90 days clonidine HCl 0.4 mg (2 x 0.2 mg) PO BID docusate sodium 100 mg (2 x 50 mg) PO BID hydralazine 100 mg (2 x 50 mg) PO Q12H 90 days hydrocodone-acetaminophen 5-300 mg 1 tab PO Q8H PRN ibuprofen 600 mg PO Q6-8H PRN losartan 100 mg PO DAILY [Marshmallow Root 960 mg PO BID] melatonin 10 mg PO BEDTIME PRN multivitamin,tx-minerals 1 tab PO DAILY omeprazole 20 mg PO DAILY 90 days sertraline 100 mg PO DAILY spironolactone 50 mg PO DAILY valacyclovir 500 mg PO DAILY HPI Comments Details: Cathryn returns for follow-up. She has difficult to control hypertension but more recently, her blood pressures actually been in the normal range. Otherwise, no known coronary disease, myocardial infarction or cardiomyopathy. Overall, she states she feels fine. No cardiac symptoms. [facility] Medical History (Updated 11/19/23 @ 15:00 by Tre Gonzalez MD) LATRICE (obstructive sleep apnea) Knee pain, bilateral Hypertensive urgency Elevated troponin Dysuria Trochanteric bursitis of right hip Thyroid nodule Impaired glucose tolerance Subacromial bursitis of left shoulder joint Obesity GERD (gastroesophageal reflux disease) Hypercholesterolemia Hypertension Breast cancer screening by mammogram Surgical History (Updated 06/18/23 @ 13:41 by Maya Corrales, RN) History of bladder surgery History of endometrial ablation Hx of colonoscopy Hx of breast biopsy Status post excision of lipoma (~01/03/23) Hx of cholecystectomy Family History Father CKD (chronic kidney disease) Hypertension Myocardial infarct Mother Dementia Sister Brain aneurysm Bone cancer Schizophrenia Brother No problems noted. Brother Myocardial infarct Son No problems noted. 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 while recovering) Do you presently have visiting nurse or other home services: No Alcohol intake: current Alcohol intake frequency: holidays/special occasions only Alcohol type: hard liquor Patient Tobacco Use Status: Never used Tobacco e-Cigarette/Vaping Use: Never Used Second Hand Smoke Exposure: No Advance Directives Date on File: 07/09/23 service: No Current occupational status: employed 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 Cognitive needs: No Hearing needs: No Vision needs: No Review of Systems Const Denies weakness ENT Denies dizziness Card Denies chest pain, Denies chest pain with activity, Denies syncope, Denies rapid heart rate, Denies pedal edema, Denies edema, Denies leg edema, Denies lightheadedness, Denies palpitations, Denies dyspnea, Denies dyspnea on exertion and Denies orthopnea Resp Denies cough, Denies dyspnea and Denies dyspnea on exertion GI Denies hematochezia and Denies change in stool character Musc Denies abnormal gait, Denies muscle cramps, Denies muscle weakness, Denies numbness, Denies radiating pain into limb and Denies tingling Neuro Denies abnormal gait, Denies dizziness, Denies syncope, Denies numbness, Denies tingling and Denies weakness Endo Denies palpitations Physical Exam Vital Signs: Last Vital Signs Pulse 89 11/19/23 14:44 BP 128/78 11/19/23 14:44 Pulse Ox 98 11/19/23 14:44 Oxygen Delivery Method Room Air 11/19/23 14:44 BMI result Body Mass Index 41.6 Const General: comfortable and no acute distress Orientation/consciousness: patient oriented x3 HEENT Other: Unremarkable Head: Yes normal to inspection Neck Neck: Yes normal visual inspection Chest Chest palpation & inspection: normal inspection of the chest Resp Auscultation: clear to auscultation bilaterally Cardio Palpation: normal PMI Heart sounds: S1 normal heart sound present, S2 normal heart sound present, no g allops, no murmurs and no rubs GI Palpation (GI): Soft to palpation Back/Spine/Pelvis Other: unremarkable Skin General skin exam: no rashes or lesions noted Neuro General: patient oriented x3 Extrem General: Yes normal to inspection Psych Mental Status: mental status grossly normal Office Procedures EKG Details: EKG with sinus rhythm at 67/Min; no significant ST-T changes and otherwise unre [place]able. [place] [id number], Complete Assessment & Plan Assessment & Plan (1) Hypertension: Code(s): I10 - Essential (primary) hypertension Category: Medical (2) Moderate obstructive sleep apnea: Comment: Moderate sleep apnea CPAP therapy auto PAP -12 October 2022 Code(s): G47.33 - Obstructive sleep apnea (adult) (pediatric) Category: Medical (3) Morbid obesity: Code(s): E66.01 - Morbid (severe) obesity due to excess calories Category: Medical Plan Pertinent studies reviewed. Echocardiogram with LVEF of 60-60%. Mild LVH. Basal inferior wall thought to be hypokinetic. However, perfusion imaging was unremarkable. She has had elevated high sensitivity troponins in the past in the context of poorly controlled hypertension. Sleep study shows [id number] degree of obstructive sleep apnea. Blood pressure seems stable on the current regimen. Blood pressure independently checked by me today. Current medical regimen includes carvedilol, losartan, hydralazine, clonidine, spironolactone. Also might be going to Nephrology for the same. With regard LATRICE, not able to use CPAP. Definitely needs to lose some weight. Discussed about this today. She will contact us with any ongoing concerns.
[2023-11-19 14:44] VITALS: BP 128/78; PULSE 89; O2SAT 98; BMI 41.6
== END 2023-11-19 14:59 | disposition home or self-care (01) ==
LOC: HO.HCS 14:30
PROVIDERS: PCP Internal Medicine; Visit Provider Internal Medicine
DX: I10 Essential (primary) hypertension (principal); G47.33 Obstructive sleep apnea (adult) (pediatric); E66.01 Morbid (severe) obesity due to excess calories
CPT/HCPCS: 93010; 99214

== ENCOUNTER → 2023-11-19 14:30 | Outpatient (BNVA) | payer OTHER, SELFPAY | PROVIDERS: PCP Internal Medicine; Visit Provider Internal Medicine | DX: I10 Essential (primary) hypertension (principal); G47.33 Obstructive sleep apnea (adult) (pediatric); E66.01 Morbid (severe) obesity due to excess calories; Z68.41 Body mass index [BMI] 40.0-44.9, adult | CPT/HCPCS: 93005 ==

== ENCOUNTER 2023-12-13 14:33 | Outpatient (AMB) | payer OTHER, SELFPAY ==
[2023-12-13 14:36] VITALS: BP 130/76; PULSE 70; O2SAT 97; BMI 38.4
--- NOTE | 2023-12-13 14:36 | A.OFFPC_ITS ---
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 Allergies erythromycin base [Erythromycin Base] Allergy (Severe, Verified 12/13/23 14:37) VOMITING, abdominal pain lisinopril Allergy (Severe, Verified 12/13/23 14:37) throat Itching, coughing Sulfa (Sulfonamide Antibiotics) Allergy (Severe, Verified 12/13/23 14:37) vaginal Itching oxycodone Adverse Reaction (Intermediate, Verified 12/13/23 14:37) Hallucinations Tobacco use date assessed: 12/13/23 Dental Screening Dental Screen Date: 06/08/23 HPI 6 month f/u HPI Details 58-year-old morbidly obese female with i mpaired glucose tolerance hypertension hypercholesterolemia GERD generalized anxiety disorder and obstructive sleep apnea last seen in May 2023. Patient has lumbar radiculopathy and was seeing the neurosurgeon. Patient had the oblique lateral lumbar interbody fusion for the lumbar degenerative disc disease June [address] Jacques stanley. Reviewed the notes in October was seen by Cardiology echocardiogram with normal ejection fraction basal inferior wall hypokinetic however perfusion imaging is negative patient also followed up with endocrinology August 2023 for the thyroid large multinodular goiter with bilateral thyroid nodules mostly on the left lobe biopsies are benign nodule is 2.8 cm from 1.9 cm and was advised biopsy. Patient had a CT scan of the lumbar spine in September 2023:Status post interval instrumented posterior lumbar interbody fusion at L3-L4. The hardware is intact. Please note streak artifact limits diagnostic assessment of the spinal canal at the surgical level. Progressive adjacent segment degeneration at L2-L3 contributing to increased mild right subarticular zone narrowing and new mild right greater than left neural foraminal encroachment. [facility] Medical History (Updated 12/13/23 @ 14:52 by Aureliano German MD) Breast cancer screening by mammogram LATRICE (obstructive sleep apnea) Knee pain, bilateral Hypertensive urgency Elevated troponin Dysuria Trochanteric bursitis of right hip Thyroid nodule Impaired glucose tolerance Subacromial bursitis of left shoulder joint Obesity GERD (gastroesophageal reflux disease) Hypercholesterolemia Hypertension Surgical History (Updated 06/18/23 @ 13:41 by Maya Corrales RN) History of bladder surgery History of endometrial ablation Hx of colonoscopy Hx of breast biopsy Status post excision of lipoma (~01/03/23) Hx of cholecystectomy Family History Father CKD (chronic kidney disease) Hypertension Myocardial infarct Mother Dementia Sister Brain aneurysm Bone cancer Schizophrenia Brother No problems noted. Brother Myocardial infarct Son No problems noted. 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 will cover while recovering) Do you presently have visiting nurse or other home services: No Alcohol intake: current Alcohol intake frequency: holidays/special occasions only Alcohol type: hard liquor Patient Tobacco Use Status: Never used Tobacco e-Cigarette/Vaping Use: Never Used Second Hand Smoke Exposure: No Use of substances other than those prescribed or required for medical reasons: No Advance Directives Date on File: 07/09/23 service: No Current occupational status: employed 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 1. Little interest or pleasure in doing things: not at all 2. Feeling down, depressed, or hopeless: not at all 3. Trouble falling or staying asleep, or sleeping too much: not at all 4. Feeling tired or having little energy: not at all 5. Poor appetite or overeating: not at all 6. Feeling bad about yourself - or that you are a failure or have let yourself or your family down: not at all 7. Trouble concentrating on things, such as reading the newspaper or watching television: not at all 8. Moving or speaking so slowly that other people could have noticed. Or the opposite - being so fidgety or restless that you have been moving around a lot more than usual: not at all 9. Thoughts that you would be better off or of hurting yourself in some way: not at all Total score: 0 Depression Screening Interpretation: Negative Depression Screening Done: Yes Source: Developed by Drs. aRy Franco, David Polanco and colleagues, with an educational ronald from [employer]. Thrive Questionnaire Date Thrive assessed: 12/13/23 I am a: Patient What is your living situation today?: I have a steady place to live Within the past 12 months, did the food you bought not last and you didn't have the money to get more?: Never true Within the past 12 months, did you worry whether your food would run out before you got money to buy more?: Never true Do you have trouble paying for medicines?: No Do you have trouble getting transportation to medical appointments?: No Do you have trouble paying your heating and electricity bill?: No Do you have trouble taking care of your child, family member or friend?: No Do you have trouble with day-to-day activities such as bathing, preparing meals, shopping, managing finances, etc.?: No Are you currently unemployed and looking for a job?: No Are you interested in more education?: No Please select the resources that you would like help with: None Currently or been in a relationship where the following occur: no concerns reported THRIVE Score: 0 AUDIT C Alcohol Use Questionnaire (AUDIT-C) 1. How often do you have a drink containing alcohol?: Monthly or less 3. How often do you have six or more drinks on one occasion?: Never Total Score: 1 FRANCISCO-7 AMB Questionnaire FRANCISCO-7 Date FRANCISCO - 7 assessed: 12/13/23 Source: Developed by Drs. Ray Franco, David Polanco and colleagues, with an educational ronald from [employer]. Physical exam (Primary Care) Vital Signs: Last Vital Signs Pulse 70 12/13/23 14:36 BP 130/76 12/13/23 14:36 Pulse Ox 97 12/13/23 14:36 Oxygen Delivery Method Room Air 12/13/23 14:36 BMI result Body Mass Index 38.4 Tobacco/Smoking Status: Tobacco use Status Tobacco use date assessed 12/13/23 12/13/23 14:42 Patient Tobacco Use Status Never used Tobacco 12/13/23 14:42 Tobacco use type 01/18/23 15:12 e-Cigarette/Vaping Use Never Used 12/13/23 14:42 PHQ-9: PHQ-9 Score PHQ-9: Total score 0 12/13/23 14:45 Depression Screening Interpretation: Negative Thrive Assessment: Date of Thrive Assessment Date Thrive assessed 12/13/23 12/13/23 14:45 Currently or been in a relationship where the following occur: no concerns reported Const General: alert; No acute distress Eyes Conjunctivae: conjunctivae normal Resp Auscultation: clear to auscultation bilaterally Cardio Rate: regular rate Rhythm: regular rhythm GI Inspection: Yes normal to inspection Extrem General: Yes normal to inspection and No edema Assessment and Plan Assessment & Plan (1) Hypertension: Code(s): I10 - Essential (primary) hypertension Plan: Continue with blood pressure medication. Decrease salt intake and exercise on carvedilol 25 mg twice a day patient has been taking clonidine 0.4 mg twice a day hydralazine is 100 mg twice a day losartan 100 mg once a day spironolactone 50 mg once a day (2) Hypercholesterolemia: Code(s): E78.00 - Pure hypercholesterolemia, unspecified Plan: Avoid fried foods, chicken skin, eggs, butter margarine, pastries and meat. Be it pork or beef they have a lot of cholesterol LDL goal of less than 130 and triglyceride of less than 150 on atorvastatin 20 mg once a (3) GERD (gastroesophageal reflux disease): Code(s): K21.9 - Gastro-esophageal reflux disease without esophagitis Plan: Avoid the foods that causes that usually spicy foods, tomato products, juices, coffee, soda and foods that your sensitive to. After eating do not lie down, allow 3-4 hours before in lie down. And keep the head of bed above 30 degrees to avoid the acid from going up. (4) Impaired glucose tolerance: Code(s): R73.02 - Impaired glucose tolerance (oral) Plan: Decrease the amount of carbohydrate intake, pasta, bread, rice and potatoes are all sugar and that is aside from all the sweet stuff, remember that fruits are good but they are Sweet also. (5) Thyroid nodule: Code(s): E04.1 - Nontoxic single thyroid nodule Plan: Endocrinology notes read and appreciated and has been advised to have nodule biopsy. biopsy scheduled but states sould not find . (6) Generalized anxiety disorder: Code(s): F41.1 - Generalized anxiety disorder Plan: Continue with present medication (7) Moderate obstructive sleep apnea: Comment: Moderate sleep apnea CPAP therapy auto PAP 6-12 October 2022 decline CPAP Code(s): G47.33 - Obstructive sleep apnea (adult) (pediatric) Plan: cannot tolerate CPAP and want a different treatment (8) Lumbar degenerative disc disease: Comment: June 2023OLIF (Oblique Lateral Lumbar Interbody Fusion Dr. Feliz) Code(s): M51.36 - Other intervertebral disc degeneration, lumbar region Plan: Status post surgery of the lumbar problem June 2023. Orders: Orders Comprehensive Met. Panel Today E78.00 - Pure hypercholesterolemia, unspecified Thyroid Stimulating Hormone Today E78.00 - Pure hypercholesterolemia, unspecified Lipid Panel Today E78.00 - Pure hypercholesterolemia, unspecified Vitamin D 25-OH Total Today E78.00 - Pure hypercholesterolemia, unspecified Hemoglobin A1c Today R73.02 - Impaired glucose tolerance (oral) Complete Blood Count Auto Diff Today E78.00 - Pure hypercholesterolemia, unspecified Free T4 (Free Thyroxine) Today E78.00 - Pure hypercholesterolemia, unspecified Vitamin B12 and Folate Today E78.00 - Pure hypercholesterolemia, unspecified US abdomen complete Today E66.01 - Morbid (severe) obesity due to excess calories, R79.89 - Other specified abnormal findings of blood chemistry Referrals Pulmonary Medicine Referral G47.33 - Obstructive sleep apnea (adult) (pediatric) Medications: Refilled carvedilol 25 mg PO BID 90 days 180 tabs 1RF I10 - Essential (primary) hypertension clonidine HCl 0.4 mg (2 x 0.2 mg) PO BID 360 tabs 1RF G47.33 - Obstructive sleep apnea (adult) (pediatric) spironolactone 50 mg PO DAILY 90 tabs 2RF G47.33 - Obstructive sleep apnea (adult) (pediatric) Discontinued omeprazole Discontinued Reason: Patient Completed Course 20 mg PO DAILY 90 days 90 caps 2RF M25.511 - Pain in right shoulder hydrocodone-acetaminophen 5-300 mg Partial Fill upon patient request. Discontinued Reason: Patient Completed Course 1 tab PO Q8H PRN 30 tabs 0RF pain Coding Level of Care Code Est Pt Level 4 (09999) Diagnoses Hypertension I10 Hypercholesterolemia E78.00 GERD (gastroesophageal reflux disease) K21.9 Impaired glucose tolerance R73.02 Thyroid nodule E04.1 Generalized anxiety disorder F41.1 Moderate obstructive sleep apnea G47.33 Lumbar degenerative disc disease M51.36
== END 2023-12-13 15:08 | disposition home or self-care (01) ==
PROVIDERS: PCP Internal Medicine; Visit Provider Internal Medicine
DX: I10 Essential (primary) hypertension (principal); E78.00 Pure hypercholesterolemia, unspecified; K21.9 Gastro-esophageal reflux disease without esophagitis; R73.02 Impaired glucose tolerance (oral); E04.1 Nontoxic single thyroid nodule; F41.1 Generalized anxiety disorder; G47.33 Obstructive sleep apnea (adult) (pediatric); M51.36 Other intervertebral disc degeneration, lumbar region
CPT/HCPCS: 99214

== ENCOUNTER 2024-01-15 08:04 | Outpatient (REF) | payer OTHER, SELFPAY ==
--- NOTE | ~2024-01-15 | US_ITS ---
EXAMINATION: US ABDOMEN COMPLETE CLINICAL INFORMATION: Other specified abnormal findings of blood chemistry. COMPARISON: None available. TECHNIQUE: Real-time imaging of the abdominal viscera. FINDINGS: PANCREAS: Normal. ABDOMINAL AORTA: The proximal, mid, and distal segments are normal in caliber. INFERIOR VENA CAVA: Visualized portions are normal. LIVER: The liver is mildly enlarged. The liver contour is normal. There is diffuse increased liver parenchymal echogenicity, consistent with hepatic steatosis. No focal hepatic lesion. There is no intrahepatic biliary duct dilatation seen. GALLBLADDER: Surgically absent. COMMON BILE DUCT: Normal in caliber measuring 0.4 cm in diameter. RIGHT KIDNEY: Normal. No hydronephrosis. No renal calculi or focal parenchymal lesions. The kidney measures 11.8 cm in maximum dimension. LEFT KIDNEY: Normal. No hydronephrosis. No renal calculi or focal parenchymal lesions. The kidney measures 10.3 cm in maximum dimension. SPLEEN: Normal. The spleen measures 10.2 cm in maximum dimension. FREE FLUID: None. US/US abdomen complete IMPRESSION: Mildly enlarged steatotic liver. No biliary ductal dilatation.
== END 2024-01-15 08:05 | disposition home or self-care (01) ==
LOC: HO.US 08:04
PROVIDERS: PCP Internal Medicine; Visit Provider Internal Medicine
DX: R79.89 Other specified abnormal findings of blood chemistry (principal); E66.01 Morbid (severe) obesity due to excess calories
CPT/HCPCS: 76700

== ENCOUNTER 2024-01-15 08:55 | Outpatient (REF) | payer OTHER, SELFPAY ==
[2024-01-15 09:19] LABS: MANUAL DIFF FLAG NO
[2024-01-15 09:49] LABS: Basophils Absolute Auto 0.1 X10*3/uL (0.0-0.2); Basophils Percent Auto 0.6 % (0-2); Eosinophils Absolute Auto 0.3 X10*3/uL (0.0-0.4); Eosinophils Percent Auto 3.5 % (0-4); Hematocrit 39.3 % (37.0-47.0); Hemoglobin 12.6 g/dl (12.0-16.0); Imm Gran Abs Auto 0.04 X10*3/uL (0.00-0.03); Imm Gran Pct Auto 0.5 % (0.0-0.4); Lymphocytes Absolute Auto 2.7 X10*3/uL (1.2-4.9); Lymphocytes Percent Auto 30.8 % (20-40); Mean Corpuscular HGB Conc 32.1 g/dl (31.0-35.0); Mean Corpuscular Hemoglobin 26.3 pg (27.0-33.0); Mean Platelet Volume 10.5 fL (9.4-12.3); Monocytes Absolute Auto 0.7 X10*3/uL (0.1-1.2); Monocytes Percent Auto 8.4 % (2-11); Neutrophils Absolute Auto 4.8 x10*3/uL (2.0-8.3); Neutrophils Percent Auto 56.2 % (45-73); Platelet Count 263 X10*3/uL (160-400); Red Blood Count 4.79 X10*6/uL (4.20-5.50); Red Cell Distribution Width 15.9 % (11.0-16.0); White Blood Count 8.6 X10*3/uL (4.8-10.8)
[2024-01-15 10:30] LABS: Alanine Aminotransferase 26 U/L (0-31); Albumin Level 4.3 g/dL (3.5-5.0); Alkaline Phosphatase 99 U/L (39-117); Anion Gap 12 (12-20); Aspartate Amino Transferase 23 U/L (5-31); Bilirubin Total 0.3 mg/dL (0.0-1.0); Blood Urea Nitrogen 21 mg/dL (9-16); Calcium 9.8 mg/dL (8.4-10.2); Carbon Dioxide 27 mmol/L (22-29); Chloride 109 mmol/L (96-108); Cholesterol 189 mg/dL (<200); Estimated Glomerular Filt Rate > 60; Glucose Random 97 mg/dL (60-115); HDL Cholesterol 47 mg/dL (>40); LDL Cholesterol Calculated 109 mg/dL (<100); Potassium 3.9 mmol/L (3.3-5.1); Sodium 144 mmol/L (135-145); Total Protein 7.8 g/dL (6.5-8.0); Triglycerides 168 mg/dL (<150)
[2024-01-15 10:35] LABS: Free T4 (Free Thyroxine) 0.86 ng/dL (0.71-1.85); Thyroid Stimulating Hormone 1.03 uIU/mL (0.32-4.0); Vitamin D 25-OH Total 41.2 ng/mL (>30)
[2024-01-15 10:49] LABS: Estimated Average Glucose 131 mg/dL; Hemoglobin A1c % 6.2 % (<6.0)
[2024-01-15 12:26] LABS: Folate 11.9 ng/mL (> or = 4.0); Vitamin B12 568 pg/mL (200-900)
[2024-01-17 13:59] LABS: Anti Nuclear Antibody Screen NEGATIVE (NEGATIVE)
== END 2024-01-15 08:56 | disposition home or self-care (01) ==
LOC: HO.LAB 08:55
PROVIDERS: PCP Internal Medicine; Visit Provider Internal Medicine
DX: E78.00 Pure hypercholesterolemia, unspecified (principal); R73.02 Impaired glucose tolerance (oral); M25.561 Pain in right knee; M25.562 Pain in left knee
CPT/HCPCS: 36415; 80053; 80061; 82306; 82607; 82746; 83036; 84439; 84443; 85025; 86038

== ENCOUNTER 2024-04-04 15:05 | Outpatient (AMB) | payer OTHER, SELFPAY ==
--- NOTE | 2024-04-04 15:12 | A.OFFVIS_ITS ---
Vital Signs 04/04/24 15:13 Height 5 ft 1 in Weight 204 lb 2.369 oz BMI 38.6 BP 126/70 Blood Pressure Location Lt brachial Position Sitting Pulse 73 Pulse Source Pulse Oximeter Pulse Oximetry (%) 97 Oxygen Delivery Method Room Air Intake Visit Reasons: latrice Black Belt Required: No Allergies erythromycin base [Erythromycin Base] Allergy (Severe, Verified 04/04/24 15:17) VOMITING, abdominal pain lisinopril Allergy (Severe, Verified 04/04/24 15:17) throat Itching, coughing Sulfa (Sulfonamide Antibiotics) Allergy (Severe, Verified 04/04/24 15:17) vaginal Itching oxycodone Adverse Reaction (Intermediate, Verified 04/04/24 15:17) Hallucinations HPI Comments Details: The patient is here for pulmonary evaluation. The patient is a known history of asthma and underlying cardiovascular risk factors. She does have significant daytime drowsiness with an elevated [place] score of 10/24. The patient did undergo home sleep study back in 2022. the patient was found to have moderate degree of sleep apnea with hypoxia. the patient is very reluctant to use CPAP because she can not tolerate anything over her face. We did review her sleep study explained to her the significance. Most of the sleep apnea that she had was primarily when she was sleeping her back. We talked about positional therapy. In addition to that she struggles with her sleep. She does not want to take any prescription medications she rather take herbal medicines. I did give her some advice as far as different herbal ingredients she can consider including valerian root,, male and melatonin. She is going to be looking for the combination. The patient will undergo a repeat sleep study. She had a hard time with a home sleep study in the past. Therefore, I will request an in-lab study in order to be having an adequate result. The patient also should take her positional therapy device with her whichever she gets in order to see if his effective in controlling her sleep apnea. From an asthma standpoint the patient does have respiratory inhalers. She has not had to use her rescue inhaler this time. Has not required any prednisone. Otherwise stable at this time. COUNTS INCLUDE 234 BEDS AT THE [facility] Medical History (Updated 04/06/24 @ 22:41 by Merrill Sanchez MD) Insomnia Breast cancer screening by mammogram LATRICE (obstructive sleep apnea) Knee pain, bilateral Hypertensive urgency Elevated troponin Dysuria Trochanteric bursitis of right hip Thyroid nodule Impaired glucose tolerance Subacromial bursitis of left shoulder joint Obesity GERD (gastroesophageal reflux disease) Hypercholesterolemia Hypertension Surgical History (Updated 06/18/23 @ 13:41 by Maya Corrales RN) History of bladder surgery History of endometrial ablation Hx of colonoscopy Hx of breast biopsy Status post excision of lipoma (~01/03/23) Hx of cholecystectomy Family History Father CKD (chronic kidney disease) Hypertension Myocardial infarct Mother Dementia Sister Brain aneurysm Bone cancer Schizophrenia Brother No problems noted. Brother Myocardial infarct Son No problems noted. 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, niece will cover while recovering) Do you presently have visiting nurse or other home services: No Alcohol intake: current Alcohol intake frequency: holidays/special occasions o nly Alcohol type: hard liquor Patient Tobacco Use Status: Never used Tobacco e-Cigarette/Vaping Use: Never Used Second Hand Smoke Exposure: No Advance Directives Date on File: 07/09/23 service: No Current occupational status: employed 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 Cognitive needs: No Hearing needs: No Vision needs: No Review of Systems Const Reports daytime sleepiness, Reports difficulty sleeping, Reports fatigue, Reports headache(s) and Reports snoring Eyes Reports no additional complaints ENT Reports headache(s) Card Denies chest pain Resp Reports snoring and Denies wheezing GI Reports no additional complaints Musc Reports no additional complaints Skin/Breast Denies rash Neuro Reports headache(s) Endo Reports fatigue Bipin/Lymph Reports no additional complaints Aller/Immun Denies wheezing Physical Exam Vital Signs: Last Vital Signs Pulse 73 04/04/24 15:13 BP 126/70 04/04/24 15:13 Pulse Ox 97 04/04/24 15:13 Oxygen Delivery Method Room Air 04/04/24 15:13 BMI result Body Mass Index 38.6 Const General: comfortable HEENT Head: Yes normocephalic Neck Neck: Yes supple Chest Chest palpation & inspection: normal inspection of the chest Resp Effort & Inspection: normal respiratory effort Auscultation: clear to auscultation bilaterally Cardio Heart sounds: S1 normal heart sound present and S2 normal heart sound present GI Palpation (GI): Soft to palpation Skin General skin exam: no rashes or lesions noted Extrem General: Yes no clubbing, cyanosis or edema Assessment & Plan Assessment & Plan (1) LATRICE (obstructive sleep apnea): Code(s): G47.33 - Obstructive sleep apnea (adult) (pediatric) Category: Medical (2) GERD (gastroesophageal reflux disease): Code(s): K21.9 - Gastro-esophageal reflux disease without esophagitis Category: Medical Qualifiers: Esophagitis presence: without esophagitis Qualified Code(s): K21.9 - Gastro-esophageal reflux disease without esophagitis (3) Insomnia: Code(s): G47.00 - Insomnia, unspecified Category: Medical Qualifiers: Insomnia type: primary Qualified Code(s): F51.01 - Primary insomnia Plan in lab PSG positional therapy herbal sleep aid F/U 3-4 months Orders: Orders RT PSG in-lab sleep study 04/04/24 G47.33 - Obstructive sleep apnea (adult) (pediatric) Coding Level of Care Code New Pt Level 4 (77514) Diagnoses LATRICE (obstructive sleep apnea) G47.33 Gastroesophageal reflux disease without esophagitis K21.9 Esophagitis presence: without esophagitis Primary insomnia F51.01 Insomnia type: primary Time Spent (min) 30
[2024-04-04 15:13] VITALS: BP 126/70; PULSE 73; O2SAT 97; BMI 38.6
== END 2024-04-04 15:32 | disposition home or self-care (01) ==
PROVIDERS: PCP Internal Medicine; Visit Provider Hospitalist
DX: G47.33 Obstructive sleep apnea (adult) (pediatric) (principal); K21.9 Gastro-esophageal reflux disease without esophagitis; F51.01 Primary insomnia
CPT/HCPCS: 99204

== ENCOUNTER → 2024-04-04 15:05 | Outpatient (BNVA) | payer OTHER, SELFPAY | PROVIDERS: PCP Internal Medicine; Visit Provider Hospitalist ==

== ENCOUNTER → 2024-04-27 20:30 | Outpatient (REF) | payer OTHER, SELFPAY | LOC: HO.SL 20:30 | PROVIDERS: PCP Internal Medicine; Visit Provider Hospitalist | DX: G47.33 Obstructive sleep apnea (adult) (pediatric) (principal) | CPT/HCPCS: 95810 ==

== ENCOUNTER 2024-05-01 14:20 | Outpatient (AMB) | payer OTHER, SELFPAY ==
--- NOTE | 2024-05-01 14:39 | A.OFFPC_ITS ---
Vital Signs 05/01/24 14:40 Height 5 ft 1 in Weight 195 lb 6 oz BMI 36.9 BP 130/60 Blood Pressure Location Lt brachial Position Sitting Pulse 76 Pulse Source Pulse Oximeter Pulse Oximetry (%) 98 Oxygen Delivery Method Room Air Intake Visit Reasons: LATRICE, HTN, FRANCISCO Intake Note: Patient is here to follow up on LATRICE, HTN, FRANCISCO. Oxyacetylene Burner Required: No Information Clerk Brokerage: Not Required per policy Accompanied by: Self / Same As Patient Allergies erythromycin base [Erythromycin Base] Allergy (Severe, Verified 05/01/24 14:40) VOMITING, abdominal pain lisinopril Allergy (Severe, Verified 05/01/24 14:40) throat Itching, coughing Sulfa (Sulfonamide Antibiotics) Allergy (Severe, Verified 05/01/24 14:40) vaginal Itching oxycodone Adverse Reaction (Intermediate, Verified 05/01/24 14:40) Hallucinations Medication List - Last Reconciled 05/01/24 by Aureliano German MD acetaminophen 1,000 mg (2 x 500 mg) PO Q8H PRN albuterol sulfate 90 mcg/actuation 1 puff inhalation Q6H PRN aspirin 81 mg PO DAILY atorvastatin 20 mg PO DAILY blood pressure monitor As directed calcium carbonate-vitamin D3 500 mg-10 mcg (400 unit) (Calcium 500 With D) 1 tab PO DAILY carvedilol 25 mg PO BID 90 days clonidine HCl 0.4 mg (2 x 0.2 mg) PO BID COVID-19 antigen test (BinaxNOW COVID-19 Ag Card Home Test kit) As directed hydralazine 100 mg (2 x 50 mg) PO Q12H 90 days ibuprofen 600 mg PO Q6-8H PRN losartan 100 mg PO DAILY [Marshmallow Root 960 mg PO BID] melatonin 10 mg PO BEDTIME PRN multivitamin,tx-minerals 1 tab PO DAILY sertraline 100 mg PO DAILY spironolactone 50 mg PO DAILY valacyclovir 500 mg PO DAILY Tobacco use date assessed: 05/01/24 Dental Screening Dental Screen Date: 05/01/24 Did you have a dental visit in the last 12 months?: Yes Did you have a dental problem in the last 6 months where you did not have access to dental care?: No Was dental information given to patient?: Patient has dentist HPI LATRICE, HTN, FRANCISCO HPI Details 59-year-old obese female(noted 9 lb weig ht loss) with HTN , Hypercholesterol GERD, impaired glucose tolerance generalized anxiety disorder obstructive sleep apnea and lumbar degenerative disc disease last seen in 12/17/2023. Patient is up-to-date with mammogram. Review of the notes did see Pulmonary in April 04 advised in-lab sleep study. Patient has also seen Endocrinology March 07 2024 multinodular goiter advised ultrasound of the thyroid compared in 01/16/2023 01/17/2024 ultrasound of the abdomen showing enlarged steatotic liver. Patient has also seen Nephrology in January 03 diagnosis of proteinuria hypertension. did have the sleep study done prn covid infection 03/2024 [facility] Medical History (Updated 05/01/24 @ 19:06 by Aureliano German MD) Insomnia Breast cancer screening by mammogram LATRICE (obstructive sleep apnea) Knee pain, bilateral Hypertensive urgency Elevated troponin Dysuria Trochanteric bursitis of right hip Thyroid nodule Impaired glucose tolerance Subacromial bursitis of left shoulder joint Obesity GERD (gastroesophageal reflux disease) Hypercholesterolemia Hypertension Surgical History History of bladder surgery History of endometrial ablation Hx of colonoscopy Hx of breast biopsy Status post excision of lipoma (~01/03/23) Hx of cholecystectomy Family History Father CKD (chronic kidney disease) Hypertension Myocardial infarct Mother Dementia Sister Brain aneurysm Bone cancer Schizophrenia Brother No problems noted. Brother Myocardial infarct Son No problems noted. Other Mental health disorder Social History Household Members: Spouse Housing: House Are you a primary day care home mother to a significant other at home: Yes ([employer] for brother, niece will cover while recovering) Do you presently have visiting nurse or other home services: No Alcohol intake: current Alcohol intake frequency: holidays/special occasions only Alcohol type: hard liquor Patient Tobacco Use Status: Never used Tobacco e-Cigarette/Vaping Use: Never Used Second Hand Smoke Exposure: No Advance Directives Date on File: 07/09/23 service: No Current occupational status: employed 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 How many drinks containing alcohol do you have on a typical day when you are drinking?: 1 or 2 3. How often do you have six or more drinks on one occasion?: Never Total Score: 0 FRANCISCO-7 AMB Questionnaire FRANCISCO-7 Date FRANCISCO - 7 assessed: 12/13/23 Source: Developed by Drs. Ray Franco, Sharron Arias, David Gonzalez and colleagues, with an educational ronald from [employer]. Physical exam (Primary Care) Vital Signs: Last Vital Signs Pulse 76 05/01/24 14:40 BP 130/60 05/01/24 14:40 Pulse Ox 98 05/01/24 14:40 Oxygen Delivery Method Room Air 05/01/24 14:40 BMI result Body Mass Index 36.9 Tobacco/Smoking Status: Tobacco use Status Tobacco use date assessed 05/01/24 05/01/24 14:48 Patient Tobacco Use Status Never used Tobacco 05/01/24 14:48 Tobacco use type 01/18/23 15:12 e-Cigarette/Vaping Use Never Used 05/01/24 14:48 Thrive Assessment: Date of Thrive Assessment Date Thrive assessed 12/13/23 05/01/24 14:48 Const General: alert; No acute distress Eyes Conjunctivae: conjunctivae normal Resp Auscultation: clear to auscultation bilaterally Cardio Rate: regular rate Rhythm: regular rhythm GI Inspection: Yes normal to inspection Extrem General: Yes normal to inspection and No edema Office Procedures Flu Questionnaire Does the patient have a severe egg allergy?: No Does the patient have severe life threatening allergies?: No Does the patient have a fever or illness today?: No Has the patient ever had Guillain-[place] Syndrome?: No Has the patient ever had any past reaction to a flu shot?: No Immunizations Fluarix Triv 9634-1357 (PF) 45 mcg (15 mcg x 3)/0.5 mL IM syringe Performing Provider: Aureliano German MD [facility] Administered by: ROSA Tinsley on 05/01/24 15:38 Dose Route Admin Location Dispensed Lot Number Expiration Date [facility] Director Of Consulting Services 0.5 mL IM Left Deltoid 0.5 mL [id number] 01/26/25 11117-365-40 Redapt VIS Given Date VIS Provided VIS Publication Date 05/01/24 Single Vaccine 21 Eligibility Eligibility Date Funding Source Not VF Eligible 05/01/24 Private Coding Level of Care Code Est Pt Level 4 (75806) Diagnoses Degeneration of intervertebral disc of lumbar region with discogenic back pain M51.360 Disc-related pain type: discogenic back pain only Primary hypertension I10 Hypertension type: primary hypertension Hypercholesterolemia E78.00 Gastroesophageal reflux disease without esophagitis K21.9 Esophagitis presence: without esophagitis Impaired glucose tolerance R73.02 Generalized anxiety disorder F41.1 Moderate obstructive sleep apnea G47.33 Bilateral hand numbness R20.0 COVID-19 virus infection U07.1 Assessment & Plan Assessment & Plan (1) Lumbar degenerative disc disease: Comment: June 2023OLIF (Oblique Lateral Lumbar Interbody Fusion Dr. Feliz) Code(s): M51.36 - Other intervertebral disc degeneration, lumbar region Category: Medical Qualifiers: Disc-related pain type: discogenic back pain only Qualified Code(s): M51.360 - Other intervertebral disc degeneration, lumbar region with discogenic back pain only Plan: Keep well hydrated, keep active and try to lose the weight. (2) Hypertension: Code(s): I10 - Essential (primary) hypertension Category: Medical Qualifiers: Hypertension type: primary hypertension Qualified Code(s): I10 - Essential (primary) hypertension Plan: Continue with blood pressure medication. Decrease salt intake and exercise continue with carvedilol 25 mg twice a day clonidine 0.4 mg twice a day hydralazine 100 mg twice a day losartan 100 mg once a day spironolactone 50 mg once a day (3) Hypercholesterolemia: Code(s): E78.00 - Pure hypercholesterolemia, unspecified Category: Medical Plan: Avoid fried foods, chicken skin, eggs, butter margarine, pastries and meat. Be it pork or beef they have a lot of cholesterol LDL goal of less than 130 and triglyceride of less than 150 on atorvastatin 20 mg once a day (4) GERD (gastroesophageal reflux disease): Code(s): K21.9 - Gastro-esophageal reflux disease without esophagitis Category: Medical Qualifiers: Esophagitis presence: without esophagitis Qualified Code(s): K21.9 - Gastro-esophageal reflux disease without esophagitis Plan: Avoid the foods that causes that usually spicy foods, tomato products, juices, coffee, soda and foods that your sensitive to. After eating do not lie down, allow 3-4 hours before in lie down. And keep the head of bed above 30 degrees to avoid the acid from going up. (5) Impaired glucose tolerance: Code(s): R73.02 - Impaired glucose tolerance (oral) Category: Medical Plan: Decrease the amount of carbohydrate intake, pasta, bread, rice and potatoes are all sugar and that is aside from all the sweet stuff, remember that fruits are good but they are Sweet also. (6) Generalized anxiety disorder: Code(s): F41.1 - Generalized anxiety disorder Category: Medical Plan: Continue with present medication (7) Moderate obstructive sleep apnea: Comment: Moderate sleep apnea CPAP therapy auto PAP -12 October 2022 decline CPAP Code(s): G47.33 - Obstructive sleep apnea (adult) (pediatric) Category: Medical Plan: Patient has met with Pulmonary and advised in-lab sleep study (8) Bilateral hand numbness: Code(s): R20.0 - Anesthesia of skin Category: Medical Plan: Will request for nerve conduction test (9) COVID-19 virus infection: Comment: 03/2024 Code(s): U07.1 - COVID-19 Category: Medical Plan: resolved Orders: Orders NE electromyogram (EMG) Today R20.0 - Anesthesia of skin NE nerve conduction velocity Today R20.0 - Anesthesia of skin Influenza [id number] Immunization Today Z23 - Encounter for immunization Medications: Refilled multivitamin,tx-minerals 1 tab PO DAILY 90 tabs 3RF losartan 100 mg PO DAILY 90 tabs 3RF G47.33 - Obstructive sleep apnea (adult) (pediatric) hydralazine 100 mg (2 x 50 mg) PO Q12H 360 tabs 3RF 90 days G47.33 - Obstructive sleep apnea (adult) (pediatric) sertraline 100 mg PO DAILY 90 tabs 3RF G47.33 - Obstructive sleep apnea (adult) (pediatric) ibuprofen Take only as needed and alternate with tylenol 600 mg PO Q6-8H PRN 42 tabs 0RF breakthrough pain clonidine HCl 0.4 mg (2 x 0.2 mg) PO BID 360 tabs 1RF G47.33 - Obstructive sleep apnea (adult) (pediatric) atorvastatin 20 mg PO DAILY 90 tabs 3RF G47.33 - Obstructive sleep apnea (adult) (pediatric) aspirin 81 mg PO DAILY 90 tabs 3RF acetaminophen 1,000 mg (2 x 500 mg) PO Q8H PRN 42 tabs 0RF mild-moderate pain
[2024-05-01 14:40] VITALS: BP 130/60; PULSE 76; O2SAT 98; BMI 36.9
== END 2024-05-01 15:46 | disposition home or self-care (01) ==
PROVIDERS: PCP Internal Medicine; Visit Provider Internal Medicine
DX: M51.360 Other intervertebral disc degeneration, lumbar region with discogenic back pain only (principal); I10 Essential (primary) hypertension; E78.00 Pure hypercholesterolemia, unspecified; K21.9 Gastro-esophageal reflux disease without esophagitis; R73.02 Impaired glucose tolerance (oral); F41.1 Generalized anxiety disorder; G47.33 Obstructive sleep apnea (adult) (pediatric); R20.0 Anesthesia of skin; U07.1 COVID-19; Z23 Encounter for immunization

== ENCOUNTER → 2024-05-01 14:20 | Outpatient (BNVA) | payer OTHER, SELFPAY | PROVIDERS: PCP Internal Medicine; Visit Provider Internal Medicine | DX: I10 Essential (primary) hypertension (principal); M51.360 Other intervertebral disc degeneration, lumbar region with discogenic back pain only; E78.00 Pure hypercholesterolemia, unspecified; K21.9 Gastro-esophageal reflux disease without esophagitis; Z23 Encounter for immunization; R73.02 Impaired glucose tolerance (oral); F41.1 Generalized anxiety disorder; G47.33 Obstructive sleep apnea (adult) (pediatric); R20.0 Anesthesia of skin; Z86.16 Personal history of COVID-19; Z79.899 Other long term (current) drug therapy | CPT/HCPCS: 90471; 90656 ==

== ENCOUNTER 2024-06-25 10:48 | Outpatient (REF) | payer OTHER, SELFPAY ==
--- NOTE | 2024-06-25 10:50 | EMG_ITS ---
Chief complaint: Bilateral hand numbness Reason for referral: Evaluate for Carpal Tunnel Syndrome Referred by: Dr. German Procedure done: Upper extremity NCS/EMG Precautions and/or limitations: None The limb temperature was monitored continuously and remained between 32-36 degrees C during the performance of the NCS. Nerve Conduction Studies Anti Sensory Summary Table ?Stim Site NR Onset (ms) Norm Onset (ms) Peak (ms) Norm Peak (ms) O-P Amp (?V) Norm O-P Amp Site1 Site2 Delta-0 (ms) Dist (cm) Paulo (m/s) Norm Paulo (m/s) Left Median Anti Sensory (2nd Digit) Wrist ? 3.1 3.7 <3.6 18.8 >10 Wrist 2nd Digit 3.1 14.0 45 Right Median Anti Sensory (2nd Digit) Wrist ? 3.3 4.3 <3.6 22.5 >10 Wrist 2nd Digit 3.3 14.0 42 Right Radial Anti Sensory (Thumb) Forearm ? 1.8 2.2 <3.1 18.1 Forearm Thumb 1.8 0.0 Left Ulnar Anti Sensory (5th Digit) Wrist ? 2.3 2.9 <3.7 32.0 >15.0 Wrist 5th Digit 2.3 14.0 61 Right Ulnar Anti Sensory (5th Digit) Wrist ? 2.5 3.1 <3.7 19.4 >15.0 Wrist 5th Digit 2.5 14.0 56 Motor Summary Table ?Stim Site NR Onset (ms) Norm Onset (ms) O-P Amp (mV) Norm O-P Amp iAmp (mV) Amp (1st) (%) Site1 Site2 Delta-0 (ms) Dist (cm) Paulo (m/s) Norm Paulo (m/s) Left Median Motor (Abd Poll Brev) Wrist ? 3.9 <3.9 5.5 >4.5 6.3 100.0 Elbow Wrist 3.8 0.0 >45 Elbow ? 7.7 4.4 5.0 80.0 Right Median Motor (Abd Poll Brev) Wrist ? 3.9 <3.9 7.2 >4.5 8.2 100.0 Elbow Wrist 3.7 18.0 49 >45 Elbow ? 7.6 6.1 7.2 84.7 Left Ulnar Motor (Abd Dig Minimi) Wrist ? 2.7 <3.0 8.4 >5 9.5 100.0 B Elbow Wrist 2.6 16.5 63 >45 B Elbow ? 5.3 7.4 8.7 88.1 A Elbow B Elbow 1.7 10.0 59 >45 A Elbow ? 7.0 6.5 7.9 77.4 Right Ulnar Motor (Abd Dig Minimi) Wrist ? 2.7 <3.0 8.1 >5 9.1 100.0 B Elbow Wrist 2.8 18.0 64 >45 B Elbow ? 5.5 7.5 8.5 92.6 A Elbow B Elbow 1.1 10.0 91 >45 A Elbow ? 6.6 7.3 8.4 90.1 EMG ?Side Muscle Nerve Root Ins Act Fibs Psw Amp Dur Poly Recrt Int Pat Comment Right 1stDorInt Ulnar C8-T1 Nml Nml Nml Nml Nml 0 Nml Complete Right FlexCarRad Median C6-7 Nml Nml Nml Nml Nml 0 Nml Complete Right Biceps Musculocut C5-6 Nml Nml Nml Nml Nml 0 Nml Complete Right Triceps Radial C6-7-8 Nml Nml Nml Nml Nml 0 Nml Complete Right Deltoid Axillary C5-6 Nml Nml Nml Nml Nml 0 Nml Complete Left 1stDorInt Ulnar C8-T1 Nml Nml Nml Nml Nml 0 Nml Complete Left FlexCarRad Median C6-7 Nml Nml Nml Nml Nml 0 Nml Complete Left Biceps Musculocut C5-6 Nml Nml Nml Nml Nml 0 Nml Complete Left Triceps Radial C6-7-8 Nml Nml Nml Nml Nml 0 Nml Complete Left Deltoid Axillary C5-6 Nml Nml Nml Nml Nml 0 Nml Complete FINDINGS: Bilateral median sensory nerves showed prolonged peak latency. All other nerves tested were within normal. Concentric needle EMG was performed in selected muscles of the upper extremity. Study did not reveal signs of electric abnormalities as shown in the table above. IMPRESSION: 1. This is an abnormal study. 2. There is electrodiagnostic evidence for bilateral mild median neuropathy at the wrist, consistent with carpal tunnel syndrome. 3. There is no electrodiagnostic evidence for ulnar neuropathy, brachial plexopathy, or cervical radiculopathy. Thank you for your kind referral. Polly Mendosa MD, QUIRINO Board Certified, [place] Board [employer] Physical [employer] and Rehabilitation (ABPMR) Board Certified, [place] Board of Electrodiagnostic Medicine (ABEM) CODIN 14133 x [facility]
== END 2024-06-25 10:49 | disposition home or self-care (01) ==
LOC: HO.NEURO 10:48
PROVIDERS: PCP Internal Medicine; Visit Provider Internal Medicine
DX: R20.0 Anesthesia of skin (principal)
CPT/HCPCS: 95886; 95911

== ENCOUNTER → 2024-06-25 10:50 | Outpatient (BNV) | payer OTHER, SELFPAY | PROVIDERS: PCP Internal Medicine; Visit Provider Physical Medicine & Rehabilitation | DX: G56.03 Carpal tunnel syndrome, bilateral upper limbs (principal) | CPT/HCPCS: 95886; 95909 ==

== ENCOUNTER 2024-07-11 14:46 | Outpatient (AMB) | payer OTHER, SELFPAY ==
[2024-07-11 14:56] VITALS: BP 110/70; PULSE 65; O2SAT 98; BMI 38.1
--- NOTE | 2024-07-11 14:56 | MHC.OFFVIS ---
Vital Signs 07/11/24 14:56 Height 5 ft 1 in Weight 201 lb 11.567 oz BMI 38.1 BP 110/70 Blood Pressure Location Lt brachial Position Sitting Pulse 65 Pulse Source Pulse Oximeter Pulse Oximetry (%) 98 Oxygen Delivery Method Room Air Intake Visit Reasons: Obstructive sleep apnea Health Information Assistant Required: No Allergies erythromycin base [Erythromycin Base] Allergy (Severe, Verified 07/11/24 14:58) VOMITING, abdominal pain lisinopril Allergy (Severe, Verified 07/11/24 14:58) throat Itching, coughing Sulfa (Sulfonamide Antibiotics) Allergy (Severe, Verified 07/11/24 14:58) vaginal Itching oxycodone Adverse Reaction (Intermediate, Verified 07/11/24 14:58) Hallucinations HPI Comments Details: The patient is 59 y/o woman with a known history of asthma and underlying cardiovascular risk factors. She does have significant daytime drowsiness with an elevated [place] score of 10/24. The patient did undergo home sleep study back in 2022. the patient was found to have moderate degree of sleep apnea with hypoxia. the patient is very reluctant to use CPAP because she can not tolerate anything over her face. We did review her sleep study explained to her the significance. Most of the sleep apnea that she had was primarily when she was sleeping her back. We talked about positional therapy. In addition to that she struggles with her sleep. She does not want to take any prescription medications she rather take herbal medicines. I did give her some advice as far as different herbal ingredients she can consider including valerian root,, male and melatonin. She is going to be looking for the combination. The patient will undergo a repeat sleep study. She had a hard time with a home sleep study in the past. Therefore, I will request an in-lab study in order to be having an adequate result. The patient also should take her positional therapy device with her whichever she gets in order to see if his effective in controlling her sleep apnea. From an asthma standpoint the patient does have respiratory inhalers. She has not had to use her rescue inhaler this time. Has not required any prednisone. Otherwise stable at this time. 07/11/2024 the patient is here for a pulmonary follow-up visit. Overall she is doing well. The patient is using herbal sleep medicine including, mainly melatonin for sleep. This appears to be effective for her. She does sleep a full night. She wakes up rested. Her [place] score is better, it over 24. The patient did have a sleep study. It was done in lab. We did review together. She appears to have an AHI of 2.4. 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 She does have significant sleep apnea when in REM sleep. Otherwise she does very well. We did talk about positional therapy to minimize dose REM related sleep disorders. She is going to look into getting 1 or making a device to make sure that she sleeps on her side. She also has grinding of her teeth. We did talk about in elastic mandibular advancement device. She will talk to the dentist about that. The patient otherwise return as needed. [facility] Medical History (Updated 06/25/24 @ 15:55 by Aureliano German MD) Bilateral hand numbness Insomnia Breast cancer screening by mammogram LATRICE (obstructive sleep apnea) Knee pain, bilateral Hypertensive urgency Elevated troponin Dysuria Trochanteric bursitis of right hip Thyroid nodule Impaired glucose tolerance Subacromial bursitis of left shoulder joint Obesity GERD (gastroesophageal reflux disease) Hypercholesterolemia Hypertension Surgical History History of bladder surgery History of endometrial ablation Hx of colonoscopy Hx of breast biopsy Status post excision of lipoma (~01/03/23) Hx of cholecystectomy Family History Father CKD (chronic kidney disease) Hypertension Myocardial infarct Mother Dementia Sister Brain aneurysm Bone cancer Schizophrenia Brother No problems noted. Brother Myocardial infarct Son No problems noted. Other Mental health disorder Social History Household Members: Spouse Housing: House Are you a primary patient care technician instructor to a significant other at home: Yes (KITCHEN [employer] SERVER for brother, niece will cover while recovering) Do you presently have visiting nurse or other home services: No Alcohol intake: current Alcohol intake frequency: holidays/special occasions only Alcohol type: hard liquor Patient Tobacco Use Status: Never used Tobacco e-Cigarette/Vaping Use: Never Used Second Hand Smoke Exposure: No Advance Directives Date on File: 07/09/23 service: No Current occupational status: employed 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 Cognitive needs: No Hearing needs: No Vision needs: No Review of Systems Const Reports difficulty sleeping, Reports fatigue and Reports snoring Eyes Reports no additional complaints Card Denies chest pain Resp Reports snoring and Denies wheezing GI Reports no additional complaints Musc Reports no additional complaints Skin/Breast Denies rash Endo Reports fatigue Bipin/Lymph Reports no additional complaints Aller/Immun Denies wheezing Physical Exam Vital Signs: Last Vital Signs Pulse 65 07/11/24 14:56 BP 110/70 07/11/24 14:56 Pulse Ox 98 07/11/24 14:56 Oxygen Delivery Method Room Air 07/11/24 14:56 BMI result Body Mass Index 38.1 Const General: comfortable HEENT Head: Yes normocephalic Neck Neck: Yes supple Chest Chest palpation & inspection: normal inspection of the chest Resp Effort & Inspection: normal respiratory effort Auscultation: clear to auscultation bilaterally Cardio Heart sounds: S1 normal heart sound present and S2 normal heart sound present GI Palpation (GI): Soft to palpation Skin General skin exam: no rashes or lesions noted Extrem General: Yes no clubbing, cyanosis or edema Assessment & Plan Assessment & Plan (1) LATRICE (obstructive sleep apnea): Code(s): G47.33 - Obstructive sleep apnea (adult) (pediatric) Category: Medical (2) GERD (gastroesophageal reflux disease): Code(s): K21.9 - Gastro-esophageal reflux disease without esophagitis Category: Medical Qualifiers: Esophagitis presence: without esophagitis Qualified Code(s): K21.9 - Gastro-esophageal reflux disease without esophagitis (3) Insomnia: Code(s): G47.00 - Insomnia, unspecified Category: Medical Qualifiers: Insomnia type: primary Qualified Code(s): F51.01 - Primary insomnia Plan No LATRICE based on in lab PSG positional therapy herbal sleep aid F/U PRN Coding Level of Care Code Est Pt Level 4 (47159) Diagnoses LATRICE (obstructive sleep apnea) G47.33 Gastroesophageal reflux disease without esophagitis K21.9 Esophagitis presence: without esophagitis Primary insomnia F51.01 Insomnia type: primary Time Spent (min) 16
== END 2024-07-11 15:17 | disposition home or self-care (01) ==
PROVIDERS: PCP Internal Medicine; Visit Provider Hospitalist
DX: G47.33 Obstructive sleep apnea (adult) (pediatric) (principal); K21.9 Gastro-esophageal reflux disease without esophagitis; F51.01 Primary insomnia
CPT/HCPCS: 99214

== ENCOUNTER → 2024-07-11 14:46 | Outpatient (BNVA) | payer OTHER, SELFPAY | PROVIDERS: PCP Internal Medicine; Visit Provider Hospitalist ==

== ENCOUNTER → 2024-08-18 14:21 | Outpatient (BNVA) | payer OTHER, SELFPAY | PROVIDERS: PCP Internal Medicine; Visit Provider Internal Medicine | DX: R73.02 Impaired glucose tolerance (oral) (principal); G56.03 Carpal tunnel syndrome, bilateral upper limbs; E66.01 Morbid (severe) obesity due to excess calories; K21.9 Gastro-esophageal reflux disease without esophagitis; I10 Essential (primary) hypertension; E78.00 Pure hypercholesterolemia, unspecified; M25.511 Pain in right shoulder; L85.3 Xerosis cutis | CPT/HCPCS: 83036; 96127 ==

== ENCOUNTER 2024-10-22 07:00 | Outpatient (REF) | payer OTHER, SELFPAY | END 2024-10-22 07:01 | disposition home or self-care (01) | LOC: HO.HOSX 07:00 | PROVIDERS: Visit Provider Orthopaedic Surgery | DX: Z13.89 Encounter for screening for other disorder (principal) ==

== ENCOUNTER 2024-10-29 07:51 | Outpatient (REF) | payer OTHER, SELFPAY ==
--- NOTE | ~2024-10-29 | XR_ITS ---
CLINICAL HISTORY: M25.511 - Pain in left shoulder 2 view left shoulder Comparison: None Findings: No fractures or dislocations. No significant loss of joint space or osteophytes. No erosions. No radiopaque foreign body. IMPRESSION: 1. No acute findings This document has been electronically signed by: Gordy Farmer MD on 10/31/2024 08:49:21
--- OUTSIDE RECORDS SUMMARY | 2024-10-29 16:10 | XMS_ITS ---
Author Organization [facility] Address [address] [place] [address] Care Team Providers Care Last Model Maker Name Role Phone YENY NORRIS M.D. Primary Care Provider Wendi Bryant Unavailable [phone] Allergies Allergen (clinical drug ingredient) Drug/Non Drug [...] DONE) Encounters Encounter Location Date Provider Diagnosis [address] [address] 02/06/2024 Wendi Ahn Plan Of Treatment Next Appt Details Provider Name:Wendi justice, 06/03/2025 10:20:00 AM, [address] [place] [address], [address], [place], [address], Progress Notes * BRAIN REESADOB:1965 ([age] yo F)Acc No.[id number]:02/06/2024 PROGRESS NOTES Patient:?WONG REES Appointment Provider:?Wendi justice M.D. :1965???Age:58 Y???Sex:Female D ate:02/06/2024 Address:[address] [place], [place] [id number] Pcp:YENY NORRIS M.D. Subjective: * Chief Complaints: * ???1. Annual (YELLOW FORM DO NE). * Medical History:?Excessive a nd frequent menstruation with regular cycle, Polyp of corpus uteri, Excessive and frequent menstruation with irregular cycle, Other specified abnormal uterine and vaginal bleeding, Menopausal and female climacteric states, Chlamydial infection of genitourinary tract, unspecified, Herpesviral infection, unspecified, Postmenopausal bleeding, Excessive and frequent menstruation with regular cycle, Polyp of corpus uteri, Inconclusive mammogram, Mammographic heterogeneous density, bilateral breasts. 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 * OB History:?Total pregnancies?2.?Total living children?1.?NVD?1.? * Allergies:?Erythromycin: All ergy, Pravastatin Sodium: Allergy, Lisinopril: Allergy, Sulfa Antibiotics: Allergy. Objective: * Vitals:? Assessment: Plan: * Treatment: * Images: Billing Information: * Visit Code:? * Procedure Codes:? * Electronic signature of Vladislav Ahn MD on 10/29/2024 at 04:10 PM EDT Sign off status: Pending * Appointment Provider:?Wendi Ahn M.D. Date:?02/06/2024 Generated for Jhoan el/Peri/eTmelinasmitting on:?10/29/2024 04:10 PM EDT
--- OUTSIDE RECORDS SUMMARY | 2024-10-29 16:10 | XMS_ITS ---
Author Organization [facility] Address [address] [place] [address] Care Team Providers Care Alteration Manager Name Role Phone YENY NORRIS M.D. Primary Care Provider Wendi Bryant Unavailable [phone] REASON FOR VISIT ULTRA - CK FIBROIDS Encounters Encounter Location Date Provider Diagnosis [facility] [address] [place] [address] 06/06/2024 Wendi Ahn Plan Of Treatment Next Appt Details Provider Name:Wendi justice, 06/03/2025 10:20:00 AM, [address], [address], [place], [address], Progress Notes * TED REESB:1965 ([age] yo F)Acc No.[id number]:06/06/2024 PROGRESS NOTES Patient:?REES WONG Appointment Provider:?Wendi justice M.D. :1965???Age:59 Y???Sex:Female D ate:06/06/2024 Address:[address] [place], [place] [id number] Pcp:YENY NORRIS M.D. Subjective: * Chief Complaints: * ???1. ULTRA - CK FIBROIDS. * Medical History:? Objective: * Vitals:? Assessment: Plan: * Treatment: * Images: Billing Information: * Visit Code:? * Procedure Codes:? * Electronic signature of Vladislav Ahn MD on 10/29/2024 at 04:10 PM EDT Sign off status: Pending * Appointment Provider:?Wendi Ahn M.D. Date:?06/06/2024 Generated for Jhoan el/Peri/Brittanie on:?10/29/2024 04:10 PM EDT
--- OUTSIDE RECORDS SUMMARY | 2024-10-29 16:10 | XMS_ITS | Patient Health Record ---
Author Organization [facility] Address [address] [place] [address] Care Team Providers Care Five Roll Refiner Batch Mixer Name Role Phone YENY NORRIS M.D. Primary Care Provider Unavaila Wendi Mcclendon Unavailable [phone] Allergies Allergen (clinical drug ingredient) Drug/Non Drug Allergy documented on EMR Reaction Allergy Type Onset Date Status erythromycin Erythromycin Unknown Drug Allergy A ctive lisinopril Lisinopril Unknown Drug Allergy Activ e pravastatin Pravastatin Sodium Unknown Drug Allergy Active Substance with sulfonamide structure and antibacterial mechanism of action (substance) Sulfa Antibiotics Unknown Drug Allergy Active Results Component Value Reference Range Notes Urinalysis Reviewed date:05/28/2024 01:05:33 PM Interpretation: Performing Lab: Notes/Report: PH 8.0 PROTEIN TR GLUCOSE NEG BLOOD NEG [id number] IGP No Culture 30 Plus Reviewed date:06/03/2024 09:59:13 PM Interpretation: Performing Lab:[facility] [place], [facility] [address], [address], [place], Phone - [phone], Director - [facility] Notes/Report: Clinical Information:[id number] Dates / Results....11/30/2020 NEGHPV Other..............Post Menopausal No. of containers..01 ThinPrep Vial DIAGNOSIS: NEGATIVE FOR IN TRAEPITHELIAL LESION OR MALIGNANCY. Specimen adequacy: Satisfact ory for evaluation. No endocervical component is identified. Clinician provided ICD10: Z0 1.419 Performed by: Doni hooper Animal Cop (ASCP) . . Note: The Pap smear is a screening test designed to aid in the detection of premalignant and malignant conditions of the uterine cervix. It is not a diagnostic procedure and should not be used as the sole means of detecting cervical cancer. Both false-positive and false-negative reports do occur. . Test Methodology: This liquid based ThinPrep(R) pap test was screened with the use of an image guided system. HPV Aptima Negative Negative This nucleic acid amplification test detects fourteen high-risk HPV types (16,18,31,33,35,39,45,51,52,56,58 ,59,66,68) without differentiation. HPV Genotype Reflex Criteria not met, HPV Genotype not performed. PDF Report Reviewed date:06/03/2024 09:58:56 PM Interpretation: Performing Lab:[facility] [place], [address], [address], [place], Phone - [phone], Director - [facility] Notes/Report: Clinical Information:[id number] Dates / Results....11/30/2020 NEGHPV Other..............Post Menopausal No. of containers..01 ThinPrep Vial Reason For Referral No Information Medications Medication SIG (Take, Route, Frequency, Duration) Notes Start Date End Date Status Sertraline HCl 100 MG 1 tablet Orally On ce a day Active hydrALAZINE HCl 25 MG TK 2 TS PO TID Ora l for 30 Active Magnesium 400 MG as directed Orally Active Macrobid 100 MG 1 capsule with food Orally every 12 hrs for 7 days 07/17/2022 Not-Taking Spironolactone 50 MG 1 tablet Orally Onc e a day for 30 day(s) Active Omeprazole 20 MG 1 capsule 30 minutes before morning meal Orally Once a day for 30 day(s) Not-Taking Losartan Potassium 100 MG 1 tablet Orall y Once a day for 30 day(s) Active Metrogel 0.75 % 1 application Vaginally Every Night x 5 Nights for 5 days 08/15/2023 Active Aspir-81 Active valACYclovir HCl 500 MG TAKE 1 TABLET BY MOUTH DAILY for 90 Active Atorvastatin Calcium 20 MG 1 tablet Oral ly Once a day Active Aspirin 81 MG 1 tablet Orally Once a day Active valACYclovir HCl 500 MG 1 tablet Orally Once a day Active cloNIDine HCl 0.2 MG 1 tablet Orally Twi ce a day Active Metoprolol Succinate ER 100 MG 1 tablet Orally Once a day Not-Taking Calcium 600-D 600-400 MG-UNIT TK 1 T PO BID Oral for 30 Active Social History Tobacco Use: Social History Observation Description Date Details (start date - stop date) Never Smoker NA - NA Tobacco Use/Smoking Question Answer Notes Are you a nonsmoker Alcohol Screen (Audit-C) Question Answer Notes Did you have a drink contain ing alcohol in the past year? Yes How often did you have a dri nk containing alcohol in the past year? 2 to 4 times a month (2 points) How many drinks did you have on a typical day when you were drinking in the past year? 1 or 2 drinks (0 point) Points 2 Interpretation Negative Sexual History Question Answer Notes Had sex in the past 12 months (vaginal, oral, or anal)? Yes with Men only Prevention strategies discussed: Other Have you ever had a Sexually transmitted disease ? Yes Chlamydia? Yes GC? Yes Herpes? Yes Problems Problem Type SNOMED Code ICD Code Onset Dates Problem Status W/U Status Risk Notes Problem Excessive and frequent menstruation (058499851) Excessive and frequent menstruation with regular cycle (N92.0) Active confirmed Problem Menopause (301801203) Menopausal and female climacteric states (N95.1) Active confirmed Problem Postmenopausal bleeding (79669787) Postmenopausal bleeding (N95.0) Active confirmed Problem Herpes simplex viral infection (95530532) Herpesviral infection, unspecified (B00.9) Active confirmed Problem Unspecified menopausal and perimenopausal disorder (N95.9) Active confirmed Problem Menopause (759681234) Menopausal and female climacteric states (N95.1) Active confirmed Vital Signs Temperature 98.4 degrees Fahrenheit 05/28/2024 Blood pressure diastolic 70 mm Hg 05/28/2024 Height 60 in 05/28/2024 Blood pressure systolic 120 mm Hg 05/28/2024 Weight 197 lbs 05/28/2024 BMI 38.47 kg/m2 05/28/2024 Encounters Encounter Location Date Provider Diagnosis [place] [address] [address] [facility] [address] [place] [address] 06/06/2024 Wendi Ahn [place] [address] [address] [facility] [address] [place] [address] 05/28/2024 Wendi Ahn Encounter for gynecological examination (general) (routine) without abnormal findings Z01.419 ; Encounter for screening mammogram for malignant neoplasm of breast Z12.31 ; Leiomyoma of uterus, unspecified D25.9 ; Dense breasts, unspecified R92.30 and Herpesviral infection, unspecified B00.9 Assessments Encounter Date Diagnosis (ICD Code) Assessment Notes Treatment Notes Treatment Clinical Notes Section Notes 05/28/2024 Encounter for gynecological examination (general) (routine) without abnormal findings (ICD-10 - Z01.419) PAP TEST WITH HPV TYPING WAS OBTAINED. 05/28/2024 Encounter for screening mammogram for malignant neoplasm of breast (ICD-10 - Z12.31) REGULAR MAMMOGRAMS AND SBE'S WERE RECOMMENDED. 05/28/2024 Leiomyoma of uterus, unspecified (ICD-10 - D25.9) DISCUSSED LARGE UTERUS AND FIBROIDS THAT CAUSED MENORRHAGIA. PELVIC ULTRASOUND TO CHECK FIBROIDS. 05/28/2024 Dense breasts, unspecified (ICD-10 - R92.30) DISCUSSED DENSE BREASTS ON MAMMOGRAM AND ITS IMPLICATIONS. 3D MAMMOGRAMS WERE RECOMMENDED. 05/28/2024 Herpesviral infection, unspecified (ICD-10 - B00.9) PAT HAS NOT HAD AN HSV ATTACK IN MANY YEARS. D/C VALTREX. CALL IF SHE HAS FREQUENT ATTACKS. Plan Of Treatment Pending Test Test Name Order Date Urinalysis 11/30/2020 COMPLETE BLOOD COUNT 07/13/2015 COMPLETE BLOOD COUNT 08/10/2015 ESTRADIOL 01/25/2016 FSH 01/25/2016 LH 01/25/2016 BONE DENSITY 12/01/2021 MM Digital Mammo Screening 11/30/2020 MM Digital Mammo Screening 05/30/2018 MM Digital Mammo Screening 05/28/2024 MM Digital Mammo Screening 12/06/2022 MM Digital Mammo Screening 05/18/2016 MM Digital Mammo Screening 12/01/2021 Next Appt Details Provider Name:Wendiobdulio justice, 06/03/2025 10:20:00 AM, [address], [address], [place], [address], Insurance Providers Payer Name Payer Address Payer Phone Subscriber Number Group Number Insured Name Patient Relationship to Insured Coverage Start Date Coverage End Date [facility] [address] [place] [address] [id number] BERHANE MCKEON Spouse - patient is the spouse of the insured Medical (General) History Medical History History ICD Code Excessive and frequent menstruation with regular cycle N92.0 Polyp of corpus uteri N84.0 Excessive and frequent menstruation with irregular cycle N92.1 Other specified abnormal uterine and vag inal bleeding N93.8 Menopausal and female climacteric states N95.1 Chlamydial infection of genitourinary tr act, unspecified A56.2 Herpesviral infection, unspecified B00.9 Postmenopausal bleeding N95.0 Excessive and frequent menstruation with regular cycle N92.0 Polyp of corpus uteri N84.0 Inconclusive mammogram R92.2 Mammographic heterogeneous density, bila teral breasts R92.333 Surgical History Surgery Date(Month/Year) Cholecystectomy Hysteroscopy, Polypectomy & HTA Ablation 2015 Bladder Procedure (unsure of name) 6 Colonoscopy BACK SURGERY 2022 Hospitalization History Reason Date(Month/Year) BLOOD PRESSURE ISSUES X 4 DAYS 09/2022 See Surgical Hx 1 Vaginal Delivery
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
--- OUTSIDE RECORDS SUMMARY | 2024-10-29 16:10 | XMS_ITS | Clinical Summary ---
Author Organization [facility], Address [address] [place] [address] [place] [address] Phone Care Team Providers Care Bail Bonding Agent Name Role Phone Aureliano German MD Primary Care Provider [phone] Allergies Active Allergy Reactions Criticality Noted Date Comments Amlodipine Other (see comments) 09/05/2018 Erythromycin Other (see comments) 09/05/2018 Hydrochlorothiazide W-Triamterene Other (see comments) 09/05/2018 Lisinopril Other (see comments) 09/05/2018 Pravastatin 09/05/2018 Sulfa Antibiotics 09/05/2018 Other reaction(s): yeast infections Medications aspirin 81 MG chewable tablet Chew 1 tablet 1 (one) time each day Active atorvastatin (LIPITOR) 20 MG tablet Take 1 tablet by mouth 1 (one) time each day Active Beclomethasone Diprop HFA (QVAR REDIHALER) 80 MCG/ACT aerosol 2 puffs by Other route 2 (two) times a day Active Melatonin 10 MG tablet Take 10 mg by mouth daily Active pentosan polysulfate (ELMIRON) 100 MG capsule Take 2 capsules by mouth 2 (two) times a day Active sertraline (ZOLOFT) 100 MG tablet Take 1 tablet by mouth 1 (one) time each day Active valACYclovir (VALTREX) 500 MG tablet Take 500 mg by mouth daily Active albuterol HFA (PROVENTIL HFA;VENTOLIN HFA) 108 (90 Base) MCG/ACT inhaler INHALE 2 PUFFS BY MOUTH EVERY 6 HOURS NEEDED FOR SHORTNESS OF BREATH OR WHEEZING 2 Active amoxicillin (AMOXIL) 500 MG capsule Take 500 mg by mouth every 8 (eight) hours 2 Active Aspirin Low Dose 81 MG EC tablet Take 81 mg by mouth 1 (one) time each day 2 Active Calcium Carb-Cholecalcif darryn (calcium carbonate-cholec alciferol) 500-400 MG-UNIT per tablet Take 1 tablet by mouth 1 (one) time each day 2 Active BinaxNOW COVID-19 Ag Home Test kit TEST DIRECTED TODAY 2 Active levoFLOXacin (LEVAQUIN) 500 MG tablet TAKE 1 TABLET BY MOUTH DAILY FOR 5 DAYS 2 Active omeprazole (PriLOSEC) [address] capsule Take 20 mg by mouth 1 (one) time each day 2 Active losartan (Cozaar) 100 MG tablet Take 1 tablet (100 mg total) by mouth 1 (one) time each day 90 tablet 3 3 Active hydrALAZINE 50 MG tablet Take 2 tablets (100 mg total) by mouth in the morning and 2 tablets (100 mg total) in the evening. 3 Active meloxicam (MOBIC) 15 MG tablet TAKE 1 TABLET BY MOUTH DAILY NEEDED FOR PAIN 3 Active nitrofurantoin, macrocrystal-mon ohydrate, (MACROBID) 100 MG capsule TAKE 1 CAPSULE BY MOUTH EVERY 12 HOURS WITH FOOD FOR 7 DAYS 2 Active carvedilol (COREG) 25 MG tablet Take 1 tablet (25 mg total) by mouth in the morning and 1 tablet (25 mg total) in the evening. 60 tablet 11 3 Active spironolactone (Aldactone) 50 MG tablet Take 1 tablet (50 mg total) by mouth 1 (one) time each day 30 tablet 11 3 Active Blood Pressure Monitoring (Blood Pressure Monitor/L Cuff) [facility] Use blood pressure cuff twice daily to monitor blood pressure. 1 each 3 Active furosemide (LASIX) 40 MG tablet Take 40 mg by mouth 1 (one) time each day if needed 3 Active cloNIDine (CATAPRES) 0.2 MG tablet Take 1 tablet (0.2 mg total) by mouth in the morning and 1 tablet (0.2 mg total) in the evening. 60 tablet 11 3 Active Active Problems Problem Noted Date Diagnosed Date Anemia 07/11/2019 Chronic kidney disease 07/11/2019 Hyperlipidemia 07/11/2019 Nontoxic multinodular goiter 09/05/2018 Overview (07/11/2019): Last Assessment & Plan: This patient has a nontoxic multinodular goiter with benign thyroid nodules on cytology. The thyroid gland is mildly enlarged. She also apparently has a left thyroid nodule which is partially compressing on the carotid artery. She is concerned about continued growth of the thyroid nodule blocking vascular flow. I did inform the patient that these thyroid nodules grow very slowly and monitoring with ultrasound would appear appropriate. Yet she complains of obstructive symptoms such as dysphagia, dysphonia, and dyspnea in the supine position. She would like a surgical consult for further evaluation. I did warn her that if she were to undergo lobectomy or thyroidectomy that she will require thyroxine therapy for the remainder of her life. I also informed her that many patients who undergo this surgical procedure never feel quite right even with thyroxine therapy. Nevertheless she would like to pursue this because of her great concern. I will refer the patient to see endocrine surgeon, Dr. Stone at [facility] should be who usually repeats the ultrasound himself for further evaluation and he can make a better judgment call on whether the patient requires surgery. I have informed the patient that if she does not have a surgical procedure that she can continue following at [facility] with the french folding machine operator there. If she does undergo a surgical procedure she can always call me to schedule a visit for thyroxine replacement. In the meantime I would not schedule a follow-up visit. Resolved Problems Problem Noted Date Diagnosed Date Resolved Date Essential hypertension 07/11/201908/11 Family History Medical History Relation Comments Heart disease Father 2 CAD - Coronary a rtery disease Dementia Mother 2 Alzheimer's dise ase Relation Status Comments Father 1 Unknown Father 2 Mother 1 Unknown Mother 2 Social History Tobacco Use Types Packs/Day Years Used Date Smoking Tobacco: Never Tobacco Cessation:Counseling Given: Not Answered Alcohol Use Standard Drinks/Week Comments Yes 0 (1 standard drink = 0.6 oz pure alcohol) Alcoholic Drinks/day: Occasional social drink Comments Unknown Sex and Gender Information Value Date Recorded Sex Assigned at Not on file Legal Sex Female 4:32 PM EST Gender Identity Not on file Sexual Orientation Not on file Last Filed Vital Signs Vital Sign Reading Time Taken Comments Blood Pressure 90/60 06/25/2024 4:28 PM EST Pulse 73 12/19/2023 2:37 PM EDT Temperature - - Respiratory Rate - - Oxygen Saturation - - Inhaled Oxygen Concentration - - Weight 92.7 kg (204 lb 6.4 oz) 08/11/2022 4:49 P M EST Height 149.9 cm (4' 11 ) 08/11/2022 4:49 PM EST Body Mass Index 41.28 08/11/2022 4:49 PM EST Plan of Treatment Health Maintenance Due Date Last Done Comments Breast Cancer Screening 1965 Hepatitis B Vaccine (1 of 3 - 19+ 3-dose series) 04/22 Colorectal Cancer Screening: Annual FOBT 2015 Colorectal Cancer Screening: Colonoscopy 2015 Colorectal Cancer Screening: Sigmoidoscopy 2015 Pneumococcal Vaccine: Pediat rics (0 to 5 Years) and At-Risk Patients (6 to 64 Years) (2 of 2 - PCV) 08/27/2019 08/27/2018 Influenza Vaccine (#1) 2024 04/16/2020 Insurance [facility] Care Teams Bail Bonding Agent Relationship Specialty Start Date End Date Aureliano German MD [facility] [place] [address] [place], [place] PCP - General Internal Medicine 08/11/22
--- OUTSIDE RECORDS SUMMARY | 2024-10-29 16:10 | XMS_ITS | Data Portability ---
Author Organization [place] [facility] [employer] Address [address] [place] [address] Care Team Providers Care Certified Paralegal Name Role Phone YENY NORRIS Referring Provider YENY NORRIS Primary Care Provider Assessment Encounter Date Assessment Date Assessment LastModified by Organization Details LastModified Time 12/04/2022 12/04/2022 Symptomatic righ t shoulder rotator cuff tear. At this point she finds her symptoms unmanageable. The natural history of rotator cuff tears was reviewed. Treatment options discussed. We discussed that tears of the rotator cuff do not heal and may progress over time. With that being said, not all rotator cuff tears are symptomatic. We talked at length about treatment options including observation and activity modification, home exercise program/physical therapy, injection therapy, and surgical intervention with a arthroscopic versus open rotator cuff repair. We discussed the nature of the surgery as well as the anticipated recovery time. We discussed expectations regarding surgery, understanding that the primary goal is for improvement in pain and secondarily to maintain strength and range of motion. They understand that not all rotator cuff tears heal following surgery. We discussed that not all tears are repairable. We discussed that atrophic changes are generally not reversible. We discussed that some degree of weakness, stiffness, and/or pain may be present despite surgery. Right shoulder arthroscopy, rotator cuff repair, subacromial decompression/acrom ioplasty, possible biceps tenotomy. I went over the nature of the surgery with her as well as anticipated recovery time. She understands there are no guarantees of success. In the interim she is going to continue with a home exercise program maintaining range of motion. She will let symptoms be her guide with regards to activity. Greater than 30 minutes was spent with the encounter today, including face to face time with the patient, documentation, review of records/imaging if applicable, and coordination of care. PRIOR DR: Ms. Brantley presents with progressively worsening right shoulder pain and weakness due to impingement syndrome, acromioclavicular joint arthritis and a full-thickness rotator cuff tear. I had a lengthy discussion with the patient regarding the treatment options. At this point she has failed continued nonoperative treatments. The risks and benefits of right shoulder surgery were discussed at length with the patient. The patient wishes to proceed with surgery. Surgery will most likely involve a right shoulder diagnostic arthroscopy with distal clavicle excision, acromioplasty and rotator cuff repair. Because of patient's symptoms are severe and intractable we will schedule her surgery for as soon as possible. Coronavirus precautions will be taken. The patient will be given a prescription for pain medicine at the time of her surgery. She will follow-up as instructed. Feel free to call me at any time should questions regarding her orthopedic management arise. Thank you very much for asking me to see this very friendly patient Not available 12/07/2022 15:35:38 12/15/2022 12/15/2022 57-year-old fema le with a 6-week history of cervical neck pain and paraspinous pain into the shoulder blade. She denies any shortness of breath, jaw pain chest pain. She states certain paresthesias in her fingertips bilaterally with certain movements. 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 We discussed no bending no lifting no twisting. I also discussed a prednisone taper for which she is amenable to I will send this off to her pharmacy. She will follow-up with our orthopedic spine team. She agrees with the above-noted plan. Indirect care and treatment in conjunction with Dr. Macdonald Additional treatment plan discussed with the patient in detail included the following; - Provider focused nonsteroidal anti-inflammatory regimen (discussed were the pros, cons, benefits and risks as well as any black box warnings) in patients over 60 years old they should be very cautious in taking these medications due to potential decreased kidney function and or elevated blood pressure. - Analgesic pain medication for pain suppression (discussed were the pros, cons, benefits and risks as well as any black box warnings) - The use of topical pain relieving medication were discussed - The use of ice to decrease inflammation and pain - The use of assistive ambulatory devices for ambulation and fall prevention - Formal specific guided physical therapy program I reviewed my findings at length with the patient today. ? ? ?We discussed the nature and etiology of this problem along with current treatment options. We discussed the expected course and outcomes and what to expect. We also discussed risks and benefits. ? ? ? All of their questions were answered today, and there was exhibited understanding and comprehension of all that was discussed. Time Spent: 10 minutes were spent reviewing previous imaging and charting. ? ? ?10 minutes were spent obtaining patient history. ? ? ?5 minutes were spent on physical exam. ? ? ?5? ? ?minutes were spent explaining diagnosis and assessment. Today's documentation was made using voice recognition software. This note may contain grammatical errors secondary to the software. Not available 12/15/2022 13:51:40 01/09/2023 01/09/2023 57-year-old fema tamika who presents for evaluation of neck and left arm pain. Radiographs of the cervical spine from 12/15/22 demonstrated multilevel degenerative disc disease most pronounced at the C5-6 and C6-7 levels, and diffuse facet arthropathy. She has symptoms consistent with a cervical radiculopathy. We discussed the natural course of her symptoms and the course of acute radicular pain. She will avoid noxious movements of the neck and left upper extremity and be mindful while caring for her brother. As she works at home, she does not require a work status note. We will send her to dedicated spine physical therapy, including cervical traction. We also discussed over the counter use of tylenol up to 1000mg TID scheduled, or lower dose as needed. We recommend Salonpas patches. She will follow up in 4-6 weeks to assess for improvement following physical therapy. If no meaningful improvement, we may consider advanced imaging with MRI of the cervical spine at that time. [email or web address] Not available 01/09/2023 17:35:10 Plan of Treatment Reminders Order Date Submit Date Provider Last Modified By Organization Details Last Modified Time Details Appointments None recorded. Lab None recorded. Referral None recorded. Procedures None recorded. Surgeries shoulder arthroscopy (SURG) 2022 023 [email or web address] Not available 3 10:15:05 Imaging XR, cervical spine, 2 or 3 view 2022 023 [email or web address] [facility], [address], [place], [address], 3 14:52:52 XR, shoulder, 2 or more view 2022 023 [email or web address] [facility], [address], [address], [place], [address], 17:36:55 Medication Orders methylpredn isolone 4 mg tablet 2022 023 [id number], [address], [place], [id number], 13:46:08 Patient TargetsNo targets recorded. Patient Instructions Encounter Date Encounter Id Patient Instructions Last Modified By Organization Details Last Modified Time 12/04/2022 [id number] views of the right shoulder were obtained on 12/04/2022 in the [facility] [employer] office. Quality is somewhat limited by her body habitus. Glenohumeral joint space appears intact. No obvious superior migration of the humeral head, acromiohumeral interval intact. Moderate degenerative changes at the AC joint. No obvious soft tissue calcifications. No acute fracture appreciated. Type II acromion. Findings: Well-maintained joint space right shoulder. Interpreted by: Wood Tran MD Not available 12/07/2022 15:37:21 12/15/2022 [id number] X-rays AP and lateral view of the cervical spine show degenerative change and loss of lordotic curvature. No acute bony abnormality is observed. Not available 12/15/2022 13:52:14 Reason for Referral None Reported. Problems Name Problem SNOMED Code Status Onset Date Resolution Date Notes Provider Name and Address Organization Details Recorded Time Full thickness rotator cuff tear 470798140 Active 2022 Wood Tran MD [address] [facility],[address], [place], [address] , [place] [facility], [facility] 05/08/202 3 13:41:27 Pain radiating to neck 651953399 Active 2022 JAYCOB DAVENPORT PA-C [address], [place], [address], [place] [facility], [facility] 3 13:45:02 Cervical radiculopathy 15111242 Active 2022 Dania Schilling PA-C [address], [place], [address], [place] [facility], [facility] 3 17:35:47 Neck pain 63341745 Active 2022 Dania Schilling PA-C [address], [place], [address], [place] [facility], [facility] 3 17:35:48 Cervical spondylosis 019697516 Active 2022 Dania Schilling PA-C [address], [place], [address], [place] [facility], [facility] 3 17:35:49 Pain radiating to left arm 029923192 Active 2022 Dania Schilling PA-C [address], [place], [address], [place] [facility], [facility] 3 17:35:59 Problem Notes None recorded. Procedures Surgical History Date Name Laterality Status Provider Name and Address Organization Details Recorded Time cholecystectomy completed Crystal Hermosillo [place] [facility] 12/04/2022 13:19:51 Imaging Results None recorded. Procedure Notes None recorded. Medical Equipment None Reported. Allergies Allergen ID Allergen Name Allergen Category Reaction Reaction Severity Criticality Documentation Date Start Date Code Code System Note Provider Name and Address Organization Details Recorded Time 3651 Substance with sulfonami de structure and antibacte rial mechanism of action (substanc e) medicatio n Not available Not available Not available 12/04/2022 74737 8003 SNOMED Crystal Hermosillo [facility], [place] - [facility], [facility] 3 13:17:04 3652 lisinopri l medicatio n Not available Not available Not available 12/04/2022 [id number] RxNorm Maida Hermosillo null, [place] - [facility], [facility] 3 13:17:31 Medications Name Sig Start Date Stop Date Status Note LastModified by Organization Details LastModified Time losartan 50 mg tablet TAKE 1 TABLET BY MOUTH DAILY active Not Available Not Available No t Available amoxicillin 500 mg capsule TAKE 1 CAPSULE BY MOUTH EVERY 8 HOURS active Not Available Not Available No t Available furosemide 40 mg tablet TAKE 1 TABLET BY MOUTH DAILY NEEDED FOR SWELLING active Not Available Not Available No t Available carvedilol 25 mg tablet active Not Available Not Available No t Available carvedilol 6.25 mg tablet TAKE 1 TABLET BY MOUTH TWICE DAILY FOR HIGH BLOOD PRESSURE. TAKE WITH A MEAL/FOOD active Not Available Not Available No t Available atorvastatin 20 mg tablet TAKE 1 TABLET BY MOUTH DAILY active Not Available Not Available No t Available carvedilol 12.5 mg tablet TAKE 1 TABLET BY MOUTH TWICE DAILY active Not Available Not Available No t Available meloxicam 15 mg tablet TAKE 1 TABLET BY MOUTH DAILY NEEDED FOR PAIN active Not Available Not Available No t Available metoprolol succinate ER 100 mg tablet,extend ed release 24 hr TAKE 1 TABLET BY MOUTH DAILY active Not Available Not Available No t Available sertraline 100 mg tablet TAKE 1 TABLET BY MOUTH DAILY active Not Available Not Available No t Available methylprednis olone 4 mg tablet TAKE 1 TABLET BY MOUTH THREE TIMES DAILY FOR 5 DAYS THEN TAKE 1 TABLET TWICE DAILY FOR 5 DAYS THEN TAKE 1 TABLET EVERY DAY FOR 5 DAYS active Not Available Not Available N ot Available valacyclovir 500 mg tablet TAKE 1 TABLET BY MOUTH DAILY active Not Available Not Available No t Available aspirin 81 mg tablet,delaye d release TAKE 1 TABLET BY MOUTH EVERY DAY active Not Available Not Available No t Available clonidine HCl 0.2 mg tablet TAKE 2 TABLETS BY MOUTH TWICE DAILY active Not Available Not Available No t Available omeprazole 20 mg capsule,delay ed release TAKE 1 CAPSULE BY MOUTH DAILY active Not Available Not Available No t Available hydralazine 50 mg tablet TAKE 2 TABLETS BY MOUTH EVERY 12 HOURS active Not Available Not Available No t Available levofloxacin 500 mg tablet TAKE 1 TABLET BY MOUTH DAILY FOR 5 DAYS active Not Available Not Available No t Available albuterol sulfate HFA 90 mcg/actuation aerosol inhaler INHALE 2 PUFFS BY MOUTH EVERY 6 HOURS NEEDED FOR SHORTNESS OF BREATH OR WHEEZING active Not Available Not Available No t Available losartan 100 mg tablet TAKE 1 TABLET BY MOUTH DAILY active Not Available Not Available No t Available spironolacton e 50 mg tablet active Not Available Not Available Not Available nitrofurantoi n monohydrate/m acrocrystals 100 mg capsule TAKE 1 CAPSULE BY MOUTH EVERY 12 HOURS WITH FOOD FOR 7 DAYS active Not Available Not Available No t Available Calcium 500 With D 500 mg-10 mcg (400 unit) tablet TAKE 1 TABLET BY MOUTH EVERY DAY active Not Available Not Available No t Available BinaxNOW COVID-19 Ag Self Test kit TEST DIRECTED TODAY active Not Available Not Available No t Available Vitals Date Recorded Body height Body mass index (BMI) Body weight Provider Name and Address Organization Details Last Updated DateTime 12/04/2022 149.86 cm 40.4 kg/m2 09294.47 g Maida Hermosillo [facility], [facility] 12/04/2022 13:17:52 Date Recorded Body height Body mass index (BMI) Body weight Provider Name and Address Organization Details Last Updated DateTime 01/09/2023 149.86 cm 38.8 kg/m2 28587.74 g Coral Hughes [facility] 01/09/2023 14:24:58 Social History Question Answer Notes LastModified by Organizat ion Details LastModified Time Tobacco Smoking Status Never Smoker Maida Hermosillo samy, [facility] 12/04/2022 13:18:37 What Is Your Level Of Alcohol Consumption? Occasional Information not available 12/04/2022 How Many Times Per Week Do You Consume Alcohol? Less Than 1 Time Per Week Information not available 12/04/2022 Do You Use Any Illicit Or Recreational Drugs? No [email or web address] Information not available 12/04/2022 Do You Or Have You Ever Used Any Other Forms Of Tobacco Or Nicotine? No [email or web address] Information not available 12/04/2022 Sex: Unknown Functional Status None recorded. Mental Status None recorded. Family History Relationship Description Onset Age of this Age Resolved Age Notes LastModified by Organization Details LastModified Time Mother History of hypertension [email or web address] Not available 02/2023 13:19:08 Mother Hyperlipidem ia [email or web address] Not available 2022 13:19:35 Father History of hypertension [email or web address] Not available 02/2023 13:19:08 Father Hyperlipidem ia [email or web address] Not available 2022 13:19:35 Sister History of hypertension Not available 02/2023 13:19:08 Sister Hyperlipidem ia [email or web address] Not available 2022 13:19:35 Brother History of hypertension Not available 02/2023 13:19:08 Brother Hyperlipidem ia [email or web address] Not available 2022 13:19:35 Medical History No medical history recorded. Gynecological HistoryNo gynecological history recorded. Obstetrics History GPAL:G 0 P 0 0 0 0 Past Encounters Encounter ID Performer Location Encounter Start Date Encounter Closed Date Diagnosis/Indication Diagnosis SNOMED-CT Code Diagnosis ICD10 Code Diagnosis Note [id number] MD SANDI Sparrow [facility] [address] [facility] [address] [place] [address] 12/04/2022 12:58:30 12/04/2022 13:45:57 Full thickness rotator cuff tear 461725620 M75.121 Body mass index 40+ - severely obese 028095161 Z68.41 [id number] MD SANDI Marion [facility] [address] [facility] [address] [place] [address] 12/15/2022 13:24:45 12/15/2022 13:51:07 Neck pain 53095956 M54.2 Pain radia ting to neck 518951056 M54.2 [id number] MD SANDI Harding [facility] [address] [place] [address] 01/09/2023 13:42:37 01/09/2023 14:47:51 Cervical radiculopathy 46076601 M54.12 Neck pain 44147499 M54.2 Cervical spondylosis 387 150506 M47.812 Pain radia ting to left arm 895499809 M79.602 Health Concerns Section Related Observation LastModified by Organization Detai ls LastModified Time None Recorded Concern Status LastModified by Organization Details LastModified Time None Recorded Advance Directives Directive None Recorded Payers Encounter Date Sequence Insurance Name Policy Number Policy Rodriguez Covered Member ID Rodriguez Member ID Guarantor Name 12/04/2022 1 [facility] [id number] 1 Yonny Brantley [id number] Cathryn Fercho 12/15/2022 1 [facility] [id number] 1 Yonny Brantley [id number] Cathryn Brantley 01/09/2023 1 [facility] [id number] 1 Yonny Brantley [id number] Cathryn Brantley Notes Date Note Type Note Provider Name and Address Organization Details Recorded Time 12/04/2022 text/html She reports that her right shoulder pain started last summer after she fell down some stairs. She denies any prior history of problems. She reports that she went through an undetermined amount of physical therapy visits without improvement. She never had a cortisone injection. She reports ongoing pain both during the day and at night. It hurts with overhead motion. The shoulder feels weak. She denies instability. She denies radiating pain down the arm. She denies numbness or tingling. In the last month she has developed some nonspecific left periscapular pain without trauma. She previously saw Dr. Sanchez who indicated her for right shoulder surgery. At this point she finds her symptoms persistent and disabling. 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 PRIOR DR:Cathryn Brantley is a 57 y.o. female.The patient presents with complaints of progressively worsening right shoulder pain and weakness. She describes her pain as sharp and severe in nature. She did injure her right shoulder approximately 6 months ago when she fell directly onto it. Since that time her symptoms have gotten worse in spite of continued nonoperative treatments. She has done physical therapy exercises which aggravated her pain. She has also tried Tylenol and anti-inflammatory medicines which gave her minimal relief. Patient has had cortisone injections in the past which gave her only temporary relief. Patient reports weakness when lifting her right hand above shoulder height. Wood Tran MD [address] [place] [address], [address], [place] - [facility] 12/07/2022 15:37:34 12/15/2022 text/html This is a very pleasant 57-year-old female recently seen by Dr. Marc for right shoulder pain rotator cuff tear. Patient is here for evaluation of chronic neck pain that radiates predominantly down the left upper extremity shoulder blade however she has tingling with changing movements such as turning her neck or lifting. 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 She denies any dropping of objects. She also states she has chronic lower back pain with sciatic symptoms. She is here regarding her neck pain at today's visit. X-rays AP and lateral view of the cervical spine show degenerative change and loss of lordotic curvature. No acute bony abnormality is observed. JAYOCB DAVENPORT PA-C [address] [facility],[address], [place], [address], [place] [facility] 12/15/2022 13:52:31 01/09/2023 text/html Cathryn Brantley is a 57-year-old right hand dominant female who presents for evaluation of neck and left arm pain. She has medical history significant for hypertension. She was seen at our urgent care clinic on 12/15/22, radiographs of the cervical spine were obtained which demonstrated multilevel degenerative disc disease most pronounced at the C5-6 and C6-7 levels, and diffuse facet arthropathy. No compression deformities. She was prescribed a medrol dosepack. She continues to report significant neck pain that radiates to her posterior shoulder and down the left arm into her fingers. She reports associated numbness and tingling that comes and goes. She reports mild relief from the medrol dosepack. She has not utilized any additional over the counter remedies. She cares for her disabled brother at home and must perform frequent heavy lifting/twisting activities. She denies specific inciting traumatic event. 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 She denies clumsiness or difficulty with fine manipulative motions however she has perceived weakness with vegetable grower strength due to her pain. Dania Schilling PA-C [address], [place], [address], [place] [facility] 01/09/2023 17:36:16 OBGyn Episode No OBEpisode recorded.
--- OUTSIDE RECORDS SUMMARY | 2024-10-29 16:10 | XMS_ITS | Clinical Summary ---
Author Organization [facility] Address [address] [place] [address] Care Team Providers Care Pan Tank Worker Name Role Phone Aureliano German MD Primary Care Provider [phone] Allergies Active Allergy Reactions Criticality Noted Date Comments Amlodipine Other (See Comments),Palpitation s Medium 09/05/2018 Erythromycin Nausea And Vomiting,Other (See Comments) 09/05/2018 Hydrochlorothiazide W-Triamterene Other (See Comments) 09/05/2018 Lisinopril Other (See Comments) 09/05/2018 Losartan Other (See Comments) 09/05/2018 Pravastatin Other (See Comments),Palpitation s Low 09/05/2018 Sulfa Antibiotics 09/05/2018 Medications Medication Sig Dispensed Refills Start Date End Date Status albuterol 108 (90 Base) MCG/ACT inhaler INHALE 2 PUFFS BY MOUTH EVERY 6 HOURS NEEDED FOR SHORTNESS OF BREATH OR WHEEZING 0 08/18/2022 Active aspirin 81 MG chewable tablet Chew 1 tablet (81 mg total) by mouth. 0 Active atorvastatin (LIPITOR) tablet 20 mg Take 1 tablet (20 mg total) by mouth. 0 01/07/2021 Active beclomethasone HFA (QVAR RediHaler) 80 MCG/ACT inhaler 2 puffs. 0 12/30/2019 Active Calcium Carb-Cholecalciferol 500-10 MG-MCG TABS Take 1 tablet by mouth daily. 0 08/16/2022 Active carvedilol (COREG) 12.5 MG tablet 0 09/03/2022 Active cloNIDine (CATAPRES) 0.2 MG tablet Take 2 tablets (0.4 mg total) by mouth. 0 01/07/2021 Active cyclobenzaprine (FLEXERIL) 5 MG tablet Take 2 tablets (10 mg total) by mouth. 0 08/12/2021 Active furosemide (LASIX) 20 MG tablet Take 1 tablet (20 mg total) by mouth. 0 Active hydrALAZINE (APRESOLINE) 25 MG tablet Take 1 tablet (25 mg total) by mouth. 0 Active hydroCHLOROthiazide (HYDRODIURIL) tablet 25 mg Take 1 tablet (25 mg total) by mouth. 0 12/30/2019 Active levoFLOXacin (LEVAQUIN) 500 MG tablet TAKE 1 TABLET BY MOUTH DAILY FOR 5 DAYS 0 05/16/2022 Active losartan (COZAAR) 100 MG tablet 0 09/04/2022 Active Magnesium Oxide 140 MG CAPS Take 400 mg by mouth. 0 Active meloxicam (MOBIC) 15 MG tablet 0 09/04/2022 Active metoprolol succinate (TOPROL-XL) 24 hr tablet 100 mg Take 1 tablet (100 mg total) by mouth daily. 0 06/22/2022 Active naproxen (NAPROSYN) 500 MG tablet Take 1 tablet (500 mg total) by mouth. 0 10/24/2021 Active omeprazole (PriLOSEC) 20 MG capsule Take 1 capsule (20 mg total) by mouth daily. 0 08/11/2022 Active pentosan polysulfate (ELMIRON) 100 MG capsule Take 2 capsules (200 mg total) by mouth. 0 Active sertraline (ZOLOFT) 100 MG tablet Take 1 tablet (100 mg total) by mouth. 0 01/07/2021 Active valACYclovir (VALTREX) 1000 MG tablet Take 1 tablet (1,000 mg total) by mouth. 0 09/30/2021 Active Family History Medical History Relation Name Comments Hypertension Brother Hypertension Father Hypertension Mother Hypertension Sister Relation Name Status Comments Brother Father Mother Sister Social History Tobacco Use Types Packs/Day Years Used Date Smoking Tobacco: Never Assessed Sex and Gender Information Value Date Recorded Sex Assigned at Not on file Gender Identity Not on file Sexual Orientation Not on file Job Start Date Occupation Industry Not on file Not on file Not on file Last Filed Vital Signs Vital Sign Reading Time Taken Comments Blood Pressure - - Pulse - - Temperature - - Respiratory Rate - - Oxygen Saturation - - Inhaled Oxygen Concentration - - Weight 90.7 kg (200 lb) 09/05/2022 10:04 AM EST Height 149.9 cm (4' 11 ) 09/05/2022 10:04 AM EST Body Mass Index 40.4 09/05/2022 10:04 AM EST Plan of Treatment Health Maintenance Due Date Last Done Comments Hepatitis B Vaccines (1 of 3 - 3-dose series) 1966 Hepatitis C Screening 1966 COVID-19 Vaccine (#1) 1966 Depression Screening 1978 BMI Counseling 1984 Preventative Health Evaluation 1984 Cervical Cancer Screening (Pap Smear) 1987 DTap / Tdap / Td (2 - Tdap) 03/12/2010 03/12/2000 Colon Cancer Screening (Colonoscopy) 2011 Breast Cancer Screening (Mammogram) 2016 Shingrix-Zoster Vaccine (1 of 2) 2016 Influenza Vaccine (#1) 2024 9, 05/20/2018, 05/28/2017, Additional history exists Pneumococcal Vaccine Aged Out 08/27/2018 No long er eligible based on patient's age to complete this topic RSV Ped < 20 months Aged Out No longe r eligible based on patient's age to complete this topic Care Teams Pan Tank Worker Relationship Specialty Start Date End Date Aureliano German MD [address] [place] [address] [address] [facility] [place] [address] PCP - General Internal Medicine 08/11/22
--- OUTSIDE RECORDS SUMMARY | 2024-10-29 16:10 | XMS_ITS | Continuity of Care Document ---
Author Organization [facility] [address] [place] [address] Phone [phone] Care Team Providers Care Phlebotomy Director Name Role Phone Po, Aureliano Care Team Information Fleet Manager [phone] Problems Active Problems Provider Date Impaired glucose tolerance Tran Laws Onset: 09/07/2023 Thyroid nodule Jimi Olivo M.D. Onset: 0 09/07/2023 Essential hypertension Jimi Olivo M.D. O nset: 09/07/2023 Hypercholesterolemia Jimi Olivo M.D. Ons et: 09/07/2023 Dysuria Jimi Olivo M.D. Onset: 0 09/07/2023 Social History Type Date Description Comments Sex Unknown Tobacco Use Start: Unknown Never Smoked Cigarettes ETOH Use Occasionally consumes alcoho l Allergies and adverse reactions Active Allergies Criticality Reaction Severity Comments Date Erythromycin Unable to assess criticality 09/07/2023 Sulfamethoxazole Unable to assess criticality 09/07/2023 Lisinopril Unable to assess criticality Cough 09/07/2023 Medications Active Medications SIG Qnty Indications Ordering Provider Date Sertraline [id number] Tablets Take 1 Tablet By Mouth Every Day Po, Lorenver Valacyclovir [id number] Tablets Take 1 Tablet By Mouth Every Day Po, Lorenver Losartan Dmzhqmabn820wk Tablets Take 1 Tablet By Mouth Every Day Po, Lorenver Aspirin Low Coxs04kv Tablets DR Take 1 Tablet By Mouth Every Day Po, Lorenver Atorvastatin Wahvfeq60ty Tablets Take 1 Tablet By Mouth Every Day Po, Lorenver Clonidine HCL0.2mg Tablets Take 2 Tablets By Mouth Twice A Day Po, Lorenver Hydralazine WYG81fi Tablets Take 2 Tablets By Mouth Every 12 Hours For 90 Days Po, Lorenver Axdstuqmqvetgg95tp Tablets Take 1 Tablet By Mouth Every Day Po, Lorenver Dqiyikjgmn09nr Tablets Take 1 Tablet By Mouth Twice A Day For 90 Days Po, Lorenver Vital Signs Date Vital Result Comment 03/07/2024 2:46pm BP Systolic 140 mmHg BP Diastolic 80 mmHg Heart Rate 72 /min Height 59 inches 4'11 Weight 198.00 lb BMI (Body Mass Index) 40.0 kg/m2 Results Test Acquired Date Facility Test Result H/L Range N ote TSH 09/07/2023 [facility] ce Lab TSH 0.59 uIU/mL (0.4-4.2) Free T4 09/07/2023 [facility] Free T4 1.15 ng/dL (0.70-1.80) Medical Devices Description No Information Available Encounters Type Date Location Provider Dx Diagnosis Office Visit 03/07/2024 2:30p Main Office Jimi Olivo M.D. E04.2 Nontoxic multinodular goiter Assessments Date Code Description Provider 03/07/2024 E04.2 Multinodular goiter Jimi Garza M.D. Plan of Treatment Future Appointment(s):* 03/11/2025 2:30 pm - Jimi Olivo M.D. at Main Office 03/07/2024 - Jimi Olivo M.D.* E04.2 Multinodular goiter Functional Status Description No Information Available Mental Status Description No Information Available Referrals Description No Information Available
== END 2024-10-29 07:52 | disposition home or self-care (01) ==
LOC: HO.HOSX 07:51
PROVIDERS: Visit Provider Orthopaedic Surgery
DX: M25.512 Pain in left shoulder (principal)
CPT/HCPCS: 73030

== ENCOUNTER 2024-10-29 14:47 | Outpatient (AMB) | payer OTHER, SELFPAY ==
--- NOTE | 2024-10-29 14:50 | A.OFFVIS_ITS ---
Vital Signs 10/29/24 14:55 Height 5 ft 1 in Weight 202 lb BMI 38.2 Handedness Right Intake Visit Reasons: Left shoulder pain and weakness Intake Note: Cathryn is a 59 year old right hand dominant female who presents with complaints of progressively worsening left shoulder pain and weakness. The patient states that she injured her left shoulder 3 years ago when she fell on the ice. She fell directly onto her left shoulder. Since that time she has had difficulty lifting her left hand above shoulder height. She has failed the last 6 weeks of conservative treatment which has included Tylenol, anti-inflammatory medicines, a home exercise program and physical therapy exercises. She has had cortisone injections in the past which gave her minimal relief Allergies erythromycin base [Erythromycin Base] Allergy (Severe, Verified 10/29/24 14:54) VOMITING, abdominal pain lisinopril Allergy (Severe, Verified 10/29/24 14:54) throat Itching, coughing Sulfa (Sulfonamide Antibiotics) Allergy (Severe, Verified 10/29/24 14:54) vaginal Itching oxycodone Adverse Reaction (Intermediate, Verified 10/29/24 14:54) Hallucinations Medication List - Last Reconciled 10/29/24 by Sd Sanchez MD acetaminophen 1,000 mg (2 x 500 mg) PO Q8H PRN albuterol sulfate 90 mcg/actuation 1 puff inhalation Q6H PRN aspirin 81 mg PO DAILY atorvastatin 20 mg PO DAILY blood pressure monitor As directed calcium carbonate-vitamin D3 500 mg-10 mcg (400 unit) (Calcium 500 With D) 1 tab PO DAILY carvedilol 25 mg PO BID 90 days clonidine HCl 0.2 mg PO BID 90 days COVID-19 antigen test (BinaxNO COVID-19 Ag Card Home Test kit) As directed hydralazine 100 mg (2 x 50 mg) PO Q12H 90 days ibuprofen 600 mg PO Q6-8H PRN losartan 100 mg PO DAILY [Marshmallow Root 960 mg PO BID] melatonin 10 mg PO BEDTIME PRN multivitamin,tx-minerals 1 tab PO DAILY sertraline 100 mg PO DAILY spironolactone 50 mg PO DAILY valacyclovir 500 mg PO DAILY PFSH Medical History (Updated 10/29/24 @ 15:16 by Sd Sanchez MD) Numbness of left hand Moderate obstructive sleep apnea LATRICE (obstructive sleep apnea) Bilateral hand numbness Insomnia Breast cancer screening by mammogram Knee pain, bilateral Hypertensive urgency Elevated troponin Dysuria Trochanteric bursitis of right hip Thyroid nodule Impaired glucose tolerance Subacromial bursitis of left shoulder joint Obesity GERD (gastroesophageal reflux disease) Hypercholesterolemia Hypertension Surgical History History of bladder surgery History of endometrial ablation Hx of colonoscopy Hx of breast biopsy Status post excision of lipoma (~01/03/23) Hx of cholecystectomy Family History Father CKD (chronic kidney disease) Hypertension Myocardial infarct Mother Dementia Sister Brain aneurysm Bone cancer Schizophrenia Brother No problems noted. Brother Myocardial infarct Son No problems noted. 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 for brother, niece will cover while recovering) Do you presently have visiting nurse or other home services: No Alcohol intake: current Alcohol intake frequency: holidays/special occasions only Alcohol type: hard liquor Patient Tobacco Use Status: Never used Tobacco e-Cigarette/Vaping Use: Never Used Second Hand Smoke Exposure: No Advance Directives Date on File: 07/09/23 service: No Current occupational status: employed 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 Cognitive needs: No Hearing needs: No Vision needs: No Physical Exam Vital Signs: BMI result Body Mass Index 38.2 Const Other: Well-nourished well-developed very friendly female awake alert and oriented x3 in no acute distress Extrem Other: Bilateral upper extremity examination shows good capillary refill, no skin lesions noted, normal sensation light touch Left shoulder examination shows decreased range of motion when compared to her right shoulder, 4+ out of 5 strength with supraspinatus testing, positive impingement signs, tenderness over her acromioclavicular joint, no instability Results Reviewed Results Reviewed: X-rays of the patient's left shoulder show severe acromioclavicular joint narrowing, a type 2 acromion, no acute bony Assessment & Plan Assessment & Plan (1) Rotator cuff insufficiency of left shoulder: Code(s): M25.312 - Other instability, left shoulder Category: Medical Plan Ms. Brantley presents with progressively worsening left shoulder pain and weakness due to impingement syndrome and possible rotator cuff tearing. Thus, I will send the patient for an MRI of her left shoulder for further evaluation. I will see her back once the MRI is completed to discuss the findings and treatment options. Feel free to call me at any time should questions regarding her orthopedic management arise. I spent 20 minutes in reviewing the patient's records and imaging studies, seeing the patient and documenting in the medical record. Orders: Orders MR shoulder LT wo con 10/29/24 M25.312 - Other instability, left shoulder Coding Level of Care Code New Pt Level 3 (65927) Complex EM visit Add On G2211 Diagnoses Rotator cuff insufficiency of left shoulder M25.312
[2024-10-29 14:55] VITALS: BMI 38.2
--- OUTSIDE RECORDS SUMMARY | 2024-10-29 17:23 | XMS_ITS | Clinical Summary ---
Author Organization [facility] Address [address] [place] [address] Care Team Providers Care Equipment Service Technician Name Role Phone Aureliano German MD Primary Care Provider [phone] Allergies Active Allergy Reactions Criticality Noted Date [...] age to complete this topic Care Teams Equipment Service Technician Relationship Specialty Start Date End Date Aureliano German MD [address] [place] [address] [address] [facility] [place] [address] PCP - General Internal Medicine 08/11/22
--- OUTSIDE RECORDS SUMMARY | 2024-10-29 17:23 | XMS_ITS | Continuity of Care Document ---
Author Organization [facility] [address] [place] [address] Phone [phone] Care Team Providers Care Pineapple Plantation Manager Name Role Phone Po, Aureliano Care Team Information Palm Gatherer + [phone] Problems Active Problems Provider Date Impaired glucose [...] SIG Qnty Indications Ordering Provider Date Sertraline [id number] Tablets Take 1 Tablet By Mouth Every Day Po, Lorenver Valacyclovir ARF641uq Tablets Take 1 Tablet By Mouth Every Day Po, Lorenver Losartan Mtdnzynyx440zd Tablets Take 1 Tablet By Mouth Every Day Po, Lorenver Aspirin Low Ipjr54tc Tablets DR Take 1 Tablet By Mouth Every Day Po, Lorenver Atorvastatin Mczpitq64lg Tablets Take 1 Tablet By Mouth Every Day Po, Lorenver Clonidine HCL0.2mg Tablets Take 2 Tablets By Mouth Twice A Day Po, Lorenver Hydralazine QBW07vs Tablets Take 2 Tablets By Mouth Every 12 Hours For 90 Days Po, Lorenver Igxztqzvwoiyfr35gx Tablets Take 1 Tablet By Mouth Every Day Po, Lorenver Blrlydhcyd38av Tablets Take 1 Tablet By Mouth Twice A Day For 90 Days Po, Lorenver Vital Signs Date Vital Result Comment 03/07/2024 2:46pm BP Systolic 140 mmHg BP Diastolic 80 mmHg Heart Rate 72 /min Height 59 inches 4'11 Weight 198.00 lb BMI (Body Mass Index) 40.0 kg/m2 Results Test Acquired Date Facility Test Result H/L Range N ote TSH 09/07/2023 [facility] ce Lab TSH 0.59 uIU/mL (0.4-4.2) Free T4 09/07/2023 [facility] ce Lab Free T4 1.15 ng/dL [...]
--- OUTSIDE RECORDS SUMMARY | 2024-10-29 17:23 | XMS_ITS | Clinical Summary ---
Author Organization [facility], Address [address] [place] [address] [place] [address] Phone Care Team Providers Care Auxiliary Power Equipment Operator Name Role Phone Aureliano German MD Primary Care Provider [phone] Allergies Active Allergy Reactions Criticality Noted Date [...] Blood Pressure Monitoring (Blood Pressure Monitor/L Cuff) [facility] [employer] Use blood pressure cuff twice daily to [...] to see endocrine surgeon, Dr. Stone at [facility] should be who usually repeats the ultrasound himself for further evaluation and he can make a better judgment call on whether the patient requires surgery. I have informed the patient that if she does not have a surgical procedure that she can continue following at [facility] with the ledger poster there. If she does undergo a surgical [...] 08/27/2018 Influenza Vaccine (#1) 2024 04/16/2020 Insurance [facility] Care Teams Auxiliary Power Equipment Operator Relationship Specialty Start Date End Date Aureliano German MD [facility] [id number] [place], [place] PCP - General Internal Medicine 08/11/22
== END 2024-10-29 15:08 | disposition home or self-care (01) ==
LOC: HO.HOS 14:47
PROVIDERS: PCP Internal Medicine; Visit Provider Orthopaedic Surgery
DX: M25.312 Other instability, left shoulder (principal); M75.42 Impingement syndrome of left shoulder
CPT/HCPCS: 99213

== ENCOUNTER → 2024-10-29 14:54 | Outpatient (BNV) | payer OTHER, SELFPAY | PROVIDERS: Visit Provider Specialist | DX: M25.512 Pain in left shoulder (principal) | CPT/HCPCS: 73030 ==

== ENCOUNTER 2024-11-14 17:54 | Outpatient (REF) | payer OTHER, SELFPAY ==
--- NOTE | ~2024-11-14 | MR_ITS ---
EXAMINATION: MR SHOULDER CLINICAL INFORMATION: Other instability left shoulder; left shoulder pain, chronic over years. Chronic pain, progressively worse, reduced range of motion. COMPARISON: Left shoulder radiographs 10/29/2024. TECHNIQUE: Multiplanar multisequence MR imaging of the left shoulder was done without IV contrast. Examination performed on a 1.5 Tiffanie Siemens unit utilizing standard sequences. FINDINGS: Rotator Cuff and Biceps Tendon: Supraspinatus: There is a near full thickness/near complete undersurface tear of the majority of the tendon with only a few scant fibers remaining intact. Tear is estimated at 80% of tendon thickness within the critical zone, with complex insertional component. Length of the high-grade tear is approximately 19 mm. Tear measures approximately 10 mm in AP diameter. No definite full-thickness tear or tendinous retraction. No atrophy of the muscle belly. Infraspinatus: There is approximately 50% undersurface/insertional tearing seen, with tear measuring 8 mm in coronal, and 9 mm in sagittal plane. No complete tear or tendinous retraction. There is an additional interstitial/myotendinous injury (series 7, image 18). No atrophy of the muscle belly. Subscapularis: There is no discrete tear. There is thickening of the distal tendon with mild hyperintensity on T2-weighted imaging consistent with tendinopathy. No subluxation of the bicipital tendon out of the groove. Normal-appearing muscle belly. Teres Minor: Intact and normal in signal without discrete tear. Normal muscle belly. Biceps Long Head: Normally located within the bicipital groove. The tendon has normal morphology. The tendon within the rotator interval is normal morphology and signal. The anchor appears intact. AC Joint and Acromiohumeral Arch: Type I acromion. No undersurface spurs. Moderate spurring of the AC joint with mild periarticular edema, joint capsular distention, and both superior and undersurface spurring. There is mild encroachment on the supraspinatus outlet. (Series 8, image 14). Glenohumeral Joint and Labrum: Minimal degenerative arthritis of the glenohumeral joint with no significant cartilage defect or subchondral bone plate edema. No joint effusion. Grossly the glenoid labrum appears intact without discrete tearing identified. Probable Carrabelle complex of the anterior labrum. Osseous Structures: No gross edema or pathologic bone marrow signal identified. There is a bone island in the mid glenoid. Spino-glenoid Notch: Normal Quadrilateral Space: Normal Other: There is moderate fluid in the subacromial/subdeltoid bursa consistent with moderate bursitis. The glenohumeral ligaments are intact without thickening. MR/MR shoulder LT wo con IMPRESSION: 1. High-grade 80% undersurface tearing of the supraspinatus tendon, with likely compromise of the tendon. There is a complex appearing surgical component as well. 2. Partial 50% approximately undersurface tear of the subscapularis tendon. Associated myotendinous injury of the tendon. 3. Tendinopathy of the subscapularis tendon without discrete tear. 4. No definite labral tearing evident. 5. Moderate spurring the AC joint with mild encroachment spinatus outlet. 6. Mild arthritis in the glenohumeral joint without full-thickness cartilage defect seen. 7. Moderate subacromial/subdeltoid bursitis. Electronically signed by: Nilson Martin MD 11/18/2024 10:09 AM EDT
== END 2024-11-14 17:55 | disposition home or self-care (01) ==
LOC: HO.MRI 17:54
PROVIDERS: PCP Internal Medicine; Visit Provider Orthopaedic Surgery
DX: M25.312 Other instability, left shoulder (principal)
CPT/HCPCS: 73221

== ENCOUNTER → 2024-11-14 17:59 | Outpatient (BNV) | payer OTHER, SELFPAY | PROVIDERS: PCP Internal Medicine; Visit Provider Radiology Diagnostic Radiology | DX: M75.102 Unspecified rotator cuff tear or rupture of left shoulder, not specified as traumatic (principal); M67.812 Other specified disorders of synovium, left shoulder; M25.712 Osteophyte, left shoulder | CPT/HCPCS: 73221 ==

== ENCOUNTER 2024-11-18 14:16 | Outpatient (AMB) | payer OTHER, SELFPAY ==
[2024-11-18 14:17] VITALS: BP 118/62; PULSE 72; BMI 38.7
--- NOTE | 2024-11-18 14:17 | A.OFFVIS_ITS ---
Vital Signs 11/18/24 14:17 Height 5 ft 1 in Weight 205 lb 0.478 oz BMI 38.7 BP 118/62 Blood Pressure Location Lt brachial Position Sitting Pulse 72 Pulse Source Monitor Intake Visit Reasons: 1 yr f/up Allergies erythromycin base [Erythromycin Base] Allergy (Severe, Verified 10/29/24 14:54) VOMITING, abdominal pain lisinopril Allergy (Severe, Verified 10/29/24 14:54) throat Itching, coughing Sulfa (Sulfonamide Antibiotics) Allergy (Severe, Verified 10/29/24 14:54) vaginal Itching oxycodone Adverse Reaction (Intermediate, Verified 10/29/24 14:54) Hallucinations Medication List - Last Reconciled 11/18/24 by Tre Gonzalez MD acetaminophen 1,000 mg (2 x 500 mg) PO Q8H PRN aspirin 81 mg PO DAILY atorvastatin 20 mg PO DAILY blood pressure monitor As directed calcium carbonate-vitamin D3 500 mg-10 mcg (400 unit) (Calcium 500 With D) 1 tab PO DAILY carvedilol 25 mg PO BID 90 days clonidine HCl 0.2 mg PO BID 90 days COVID-19 antigen test ([employer] COVID-19 Ag Card Home Test kit) As directed hydralazine 100 mg (2 x 50 mg) PO Q12H 90 days ibuprofen 600 mg PO Q6-8H PRN losartan 100 mg PO DAILY [Marshmallow Root 960 mg PO BID] melatonin 10 mg PO BEDTIME PRN multivitamin,tx-minerals 1 tab PO DAILY sertraline 100 mg PO DAILY spironolactone 50 mg PO DAILY HPI Comments Details: The patient is a 59-year-old female presenting with a follow-up for hypertension management. She reports that her hypertension is being effectively managed with the current medication regimen, including carvedilol, hydralazine, losartan, and spironolactone. She confirms no smoking history. Recently, she has experienced wheezing symptoms, mainly at night, which she has not experienced since childhood asthma. Pollen allergies exacerbate her symptoms, but there are no other significant triggers she can identify. Otherwise, no specific cardiac symptoms like angina or shortness of breath. [facility] Medical History (Updated 10/29/24 @ 15:16 by Sd Sanchez MD) Numbness of left hand Moderate obstructive sleep apnea LATRICE (obstructive sleep apnea) Bilateral hand numbness Insomnia Breast cancer screening by mammogram Knee pain, bilateral Hypertensive urgency Elevated troponin Dysuria Trochanteric bursitis of right hip Thyroid nodule Impaired glucose tolerance Subacromial bursitis of left shoulder joint Obesity GERD (gastroesophageal reflux disease) Hypercholesterolemia Hypertension Surgical History History of bladder surgery History of endometrial ablation Hx of colonoscopy Hx of breast biopsy Status post excision of lipoma (~01/03/23) Hx of cholecystectomy Family History Father CKD (chronic kidney disease) Hypertension Myocardial infarct Mother Dementia Sister Brain aneurysm Bone cancer Schizophrenia Brother No problems noted. Brother Myocardial infarct Son No problems noted. Other Mental health disorder Social History Household Members: Spouse Housing: House Are you a primary healthcare translator to a significant other at home: Yes (CORPORATE PLANNING MANAGER for brother, niece will cover while recovering) Do you presently have visiting nurse or other home services: No Alcohol intake: current Alcohol intake frequency: holidays/special occasions only Alcohol type: hard liquor Patient Tobacco Use Status: Never used Tobacco e-Cigarette/Vaping Use: Never Used Second Hand Smoke Exposure: No Advance Directives Date on File: 07/09/23 service: No Current occupational status: employed 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 Cognitive needs: No Hearing needs: No Vision needs: No Review of Systems Const Denies weakness ENT Denies dizziness Card Denies chest pain, Denies chest pain with activity, Denies syncope, Denies rapid heart rate, Denies pedal edema, Denies edema, Denies leg edema, Denies lightheadedness, Denies palpitations, Denies dyspnea, Denies dyspnea on exertion and Denies orthopnea Resp Denies cough, Denies dyspnea and Denies dyspnea on exertion GI Denies hematochezia and Denies change in stool character Musc Denies abnormal gait, Denies muscle cramps, Denies muscle weakness, Denies numbness, Denies radiating pain into limb and Denies tingling Neuro Denies abnormal gait, Denies dizziness, Denies syncope, Denies numbness, Denies tingling and Denies weakness Endo Denies palpitations Physical Exam Vital Signs: Last Vital Signs Pulse 72 04/22/25 14:17 BP 118/62 11/18/24 14:17 BMI result Body Mass Index 38.7 Const General: comfortable and no acute distress Orientation/consciousness: patient oriented x3 HEENT Other: Unremarkable Head: Yes normal to inspection Neck Neck: Yes normal visual inspection Chest Chest palpation & inspection: normal inspection of the chest Resp Auscultation: clear to auscultation bilaterally Cardio Palpation: normal PMI Heart sounds: S1 normal heart sound present, S2 normal heart sound present, no gallops, no murmurs and no rubs GI Palpation (GI): Soft to palpation Back/Spine/Pelvis Other: unremarkable Skin General skin exam: no rashes or lesions noted Neuro General: patient oriented x3 Extrem General: Yes normal to inspection Psych Mental Status: mental status grossly normal Office Procedures EKG Details: EKG with underlying sinus rhythm at 72/Min; low-voltage QRS complexes; [place] [id number], Complete Assessment & Plan Assessment & Plan (1) Hypertension: Code(s): I10 - Essential (primary) hypertension Category: Medical Qualifiers: Hypertension type: primary hypertension Qualified Code(s): I10 - Essential (primary) hypertension (2) Morbid obesity: Code(s): E66.01 - Morbid (severe) obesity due to excess calories Category: Medical Plan Pertinent studies reviewed. Echocardiogram with LVEF of 60-65%. Mild LVH. Basal inferior wall thought to be hypokinetic. However, perfusion imaging was unremarkable. She has had elevated high sensitivity troponins in the past in the context of poorly controlled hypertension. Recent sleep study reported to be normal. Overall, blood pressure is stable on the current regimen including carvedilol, losartan, spironolactone, hydralazine. Also on clonidine. With regard to wheezing, could be related to asthma and less likely cardiac in nature. Continue efforts to lose weight. She will need follow-up labs and gained consolidate them through her own PCP. It seems she has an appointment coming up. Discussion Notes During the consultation, I discussed with the patient the effectiveness and current stability of her essential hypertension management. We reviewed her medications, which include carvedilol, hydralazine, losartan, and spironolactone, emphasizing their roles and the need for adherence. We addressed recent wheezing symptoms, noting her history of childhood asthma, but refrained from immediate intervention due to the absence of acute distress or breathing difficulties. I advised that she observe symptoms and seek consultation if they persist or worsen, particularly considering allergies as a trigger. The importance of lifestyle monitoring and management was reiterated. Patient was informed and verbally consented to the use of an ambient scribe for clinic note documentation during this visit. Total time spent including review of data, counseling, documentation coordination of care-32 minutes. Patient Instructions: - Keep taking your blood pressure medications as prescribed. - Monitor your wheezing symptoms. - Avoid known allergens like pollen to help with symptoms. - If your symptoms get worse or don't improve, seek medical advice. - Follow your usual dietary protocol. - Schedule a follow-up appointment if needed for any changes in your symptoms. Coding Level of Care Code Est Pt Level 4 (82544) Complex EM visit Add On G2211 Diagnoses Primary hypertension I10 Hypertension type: primary hypertension Morbid obesity E66.01 CPT Codes EKG - CPT: 11938-Vzmxbvbxhzuhfkhxm, Complete ([id number])
--- OUTSIDE RECORDS SUMMARY | 2024-11-18 17:06 | XMS_ITS | Continuity of Care Document ---
Author Organization [facility] [address] [place] [address] Phone [phone] Care Team Providers Care Supervisor Cigarette Making Department Name Role Phone Po, Aureliano Care Team Information Yarn Polishing Machine Operator + [phone] Problems Active Problems Provider Date Impaired glucose [...] SIG Qnty Indications Ordering Provider Date Sertraline DVL730ol Tablets Take 1 Tablet By Mouth Every Day Po, Lorenver Valacyclovir PXM898jy Tablets Take 1 Tablet By Mouth Every Day Po, Lorenver Losartan Ctxxoampf074ub Tablets Take 1 Tablet By Mouth Every Day Po, Lorenver Aspirin Low Cldm87ug Tablets DR Take 1 Tablet By Mouth Every Day Po, Lorenver Atorvastatin Hyprois60xh Tablets Take 1 Tablet By Mouth Every Day Po, Lorenver Clonidine HCL0.2mg Tablets Take 2 Tablets By Mouth Twice A Day Po, Lorenver Hydralazine XME19qj Tablets Take 2 Tablets By Mouth Every 12 Hours For 90 Days Po, Lorenver Gfzjtqmogyeyhe23xj Tablets Take 1 Tablet By Mouth Every Day Po, Lorenver Xkgnsjrrzs95ed Tablets Take 1 Tablet By Mouth Twice A Day For 90 Days Po, Lorenver Vital Signs Date Vital Result Comment 03/07/2024 2:46pm BP Systolic 140 mmHg BP Diastolic 80 mmHg Heart Rate 72 /min Height 59 inches 4'11 Weight 198.00 lb BMI (Body Mass Index) 40.0 kg/m2 Results Test Acquired Date Facility Test Result H/L Range N ote TSH 09/07/[address] [facility] ce Lab TSH 0.59 uIU/mL (0.4-4.2) Free T4 09/07/[address] [facility] Lab Free T4 1.15 ng/dL [...]
--- OUTSIDE RECORDS SUMMARY | 2024-11-18 17:06 | XMS_ITS | Clinical Summary ---
Author Organization [facility], Address [address] [place] [address] [place] [address] Phone Care Team Providers Care Quality Assurance Auditor Name Role Phone Aureliano German MD Primary Care Provider Allergies Active Allergy Reactions Criticality Noted Date [...] Blood Pressure Monitoring (Blood Pressure Monitor/L Cuff) [facility] [place] blood pressure cuff twice daily to [...] to see endocrine surgeon, Dr. Stone at [facility] should be who usually repeats the ultrasound himself for further evaluation and he can make a better judgment call on whether the patient requires surgery. I have informed the patient that if she does not have a surgical procedure that she can continue following at [facility] with the barn worker there. If she does undergo a surgical [...] Colorectal Cancer Screening: Sigmoidoscopy 2015 Pneumococcal Vaccine: 50+ Years (2 of 2 - PCV) 020 08/27/2018 Influenza Vaccine (Season Ended) 2025 04/16/20 20 Pneumococcal Vaccine: Peds ( 0 to 5 Years) and At-Risk Patients (6 to 49 Years) Discontinued 08/27/2018 Insurance Care Teams Quality Assurance Auditor Relationship Specialty Start Date End Date Aureliano German MD [facility] INTERNAL ID [id number] [place] PCP - General Internal Medicine 08/11/22
--- OUTSIDE RECORDS SUMMARY | 2024-11-18 17:06 | XMS_ITS ---
Author Organization [facility] Address [address] [place] [address] Care Team Providers Care Cp Bleacher Operator Name Role Phone YENY NORRIS M.D. Primary Care Provider Wendi Bryant Unavailable [phone] Allergies Allergen (clinical drug ingredient) Drug/Non Drug Allergy documented on EMR Reaction Allergy Type Onset Date Status erythromycin Erythromycin Unknown Drug Allergy A ctive Lisinopril Unknown Drug Allergy Active pravastatin Pravastatin Sodium Unknown Drug Allergy Active Substance with sulfonamide structure and antibacterial mechanism of action (substance) Sulfa Antibiotics Unknown Drug Allergy Active Results Component Value Reference Range Notes Urinalysis Reviewed date:05/28/2024 01:05:33 PM Interpretation: Performing Lab: Notes/Report: PH 8.0 PROTEIN TR GLUCOSE NEG BLOOD NEG [id number] IGP No Culture 30 Plus Reviewed date:06/03/2024 09:59:13 PM Interpretation: Performing Lab:[facility] [place], [facility] [address], [address], [place], Phone - [phone], Director - [facility] Notes/Report: Clinical Information:[id number] Dates / Results....11/30/2020 [facility] Other..............Post Menopausal No. of containers..01 ThinPrep Vial DIAGNOSIS: NEGATIVE FOR IN TRAEPITHELIAL LESION OR MALIGNANCY. Specimen adequacy: Satisfact ory for evaluation. No endocervical component is identified. Clinician provided ICD10: Z0 1.419 Performed by: Doni hooper Natural Resources Engineer (ASCP) . . Note: The Pap smear [...] [address], [address], [place], Phone - [phone], Director - [facility] Notes/Report: Clinical Information:[id number] Dates / Results....11/30/2020 [facility] Other..............Post Menopausal No. of containers..01 ThinPrep Vial REASON FOR VISIT Annual ASSESSMENT SPECIALIST Physical, Annual ASSESSMENT SPECIALIST Physical 50-59* Medications Medication SIG (Take, Route, [...] Risk Notes Problem Herpes simplex viral infection (26255246) Herpesviral infection, unspecified (B00.9) Active confirmed Vital Signs Temperature 98.4 degrees Fahrenheit 05/28/20 24 Blood pressure systolic 120 mm Hg 05/28/20 24 Blood pressure diastolic 70 mm Hg 024 Height 60 in 05/28/2024 Weight 197 lbs 05/28/2024 BMI 38.47 kg/m2 05/28/2024 Encounters Encounter Location Date Provider Diagnosis Total [address] [place] [address] 05/28/2024 Wendi Ahn Encounter for gynecological examination [...] Reason: Provider Name:Wendi justice, 06/03/2025 10:20:00 AM, [address] [place] [address], [address], [place], [address], Progress Notes * BRAIN REESADOB:1965 ([age] yo F)Acc No.[id number]:05/28/2024 PROGRESS NOTES Patient:?WONG REES Appointment Provider:?Wendi justice M.D. :1965???Age:59 Y???Sex:Female D ate:05/28/2024 Address:[address] [place], [place] [id number] Pcp:YENY NORRIS M.D. Subjective: * Chief Complaints: * ??? Annual ASSESSMENT SPECIALIST PhysicalAnnua l ASSESSMENT SPECIALIST Physical 50-59* * HPI: ???New/Follow-up Patient Consult:? [...] SHE UNDERWENT HYSTEROSCOPY, POLYPECTOMY AND D&C IN 2016 WITH BENIGN FINDINGS. SHE HAS BEEN ON [...] adequate calcium via diet and supplementation ?Significant ASSESSMENT SPECIALIST problems:?no significant paleobotanist symptoms or problems * ROS:?general:?no?chest pain.?no?palpitations.?no?headache.?no?cough.?no?shortness of breath.?no?fever.?no?unexplained weight loss.?no?nausea/vomiting.?no?change in bowel movements.?no blood in stool.?no?genitourinary complaints.?no?skin complaints.? * Medical History:? * Termite Renewal Inspector History:?/ Para?2/1.?Sexual activity?currently sexually active.?Last Pap Smear:?11/30/20 NIL, NEG HPV, 05/30/18 neg, NEG HRHPV, 05/06/15, NEG HRHPV.?Mammogram:?06/22/23 50-75% density, 06/14/22 50-75% density, 03/27/20 50-75% density, 10/2018 BBW, 11/01/17 50-75% density, 10/27/16 < 50% density, 2014 normal.?Abnormal Pap Smear:?No History of Abnormal Pap [...] * Images: Billing Information: * Visit Code:? 61533 Preventive Care New Pt. Age 40-64. 46746 Preventive Care Est Pt. Age 40-64. * Procedure Codes:? * Sign off status: Completed true * Appointment Provider:?Wendi Ahn M.D. Date:?05/28/2024 Generated for Jhoan el/Peri/Brittanie on:?11/18/2024 05:06 PM EDT History and Physical Notes * [...] ate calcium via diet and supplementation Significant ASSESSMENT SPECIALIST problems:: n o significant paleobotanist symptoms or problems Examination Category Sub-Category Detail [...]
--- OUTSIDE RECORDS SUMMARY | 2024-11-18 17:06 | XMS_ITS | Patient Health Record ---
Author Organization [facility] Address [address] [place] [address] Care Team Providers Care International Broadcast Music Librarian Name Role Phone YENY NORRIS M.D. Primary Care Provider Unavaila Wendi Mcclendon Unavailable [phone] Allergies Allergen (clinical drug ingredient) Drug/Non Drug [...] 8.0 PROTEIN TR GLUCOSE NEG BLOOD NEG [id number] IGP No Culture 30 Plus Reviewed date:06/03/2024 09:59:13 PM Interpretation: Performing Lab:[facility] [place], [place] [address], [address], [place], Phone - [phone], Director - [facility] Notes/Report: Clinical Information:[id number] Dates / Results....11/30/2020 [facility] Other..............Post Menopausal No. of containers..01 ThinPrep Vial DIAGNOSIS: NEGATIVE FOR IN TRAEPITHELIAL LESION OR MALIGNANCY. Specimen adequacy: Satisfact ory for evaluation. No endocervical component is identified. Clinician provided ICD10: Z0 1.419 Performed by: Doni hooper, Log Loader (ASCP) . . Note: The Pap smear [...] [place] [address], [address], [place], Phone - [phone], Director - [facility] Notes/Report: Clinical Information:[id number] Dates / Results....11/30/2020 [facility] Other..............Post Menopausal No. [...] Risk Notes Problem Excessive and frequent menstruation (126731043) Excessive and frequent menstruation with regular cycle (N92.0) Active confirmed Problem Menopause (523136672) Menopausal and female climacteric states (N95.1) Active confirmed Problem Postmenopausal bleeding (06528753) Postmenopausal bleeding (N95.0) Active confirmed Problem Herpes simplex viral infection (98257445) Herpesviral infection, unspecified (B00.9) Active confirmed Problem Unspecified menopausal and perimenopausal disorder (N95.9) Active confirmed Problem Menopause (311268363) Menopausal and female climacteric states (N95.1) Active confirmed Vital Signs Temperature 98.4 degrees Fahrenheit 05/28/2024 Blood pressure diastolic 70 mm Hg 05/28/2024 Height 60 in 05/28/2024 Blood pressure systolic 120 mm Hg 05/28/2024 Weight 197 lbs 05/28/2024 BMI 38.47 kg/m2 05/28/2024 Encounters Encounter Location Date Provider Diagnosis [place] [address] [place] [address] 06/06/2024 Wend[facility]hn [facility] [address] [place] [address] 05/28/2024 Wendi Ahn Encounter for gynecological examination [...] Mammo Screening 05/30/2018 [facility] Mammo Screening 05/18/2016 [facility] Mammo Screening 12/06/2022 [facility] M[facility]o Screening 05/28/2024 [facility] Mammo Screening 12/01/2021 Next Appt Details Provider Name:Wendi justice, 06/03/2025 10:20:00 AM, [address], [address], [place], [address], Insurance Providers Payer Name Payer Address Payer Phone Subscriber Number Group Number Insured Name Patient Relationship to Insured Coverage Start Date Coverage End Date [facility] [address] [facility] [id number] BERHANE MCKEON Spouse - patient is the [...]
--- OUTSIDE RECORDS SUMMARY | 2024-11-18 17:07 | XMS_ITS | Clinical Summary ---
Author Organization [facility] Address [address] [place] [address] Care Team Providers Care Media Center Director School Name Role Phone Aureliano German MD Primary Care Provider [phone] Allergies Active Allergy Reactions Criticality Noted Date [...] age to complete this topic Care Teams Media Center Director School Relationship Specialty Start Date End Date Aureliano German MD [address] [place] [address] [address] [facility] [place] [address] PCP - General Internal Medicine 08/11/22
--- OUTSIDE RECORDS SUMMARY | 2024-11-18 17:07 | XMS_ITS ---
Author Organization [facility] Address [address] [place] [address] Care Team Providers Care Curtain Worker Name Role Phone YENY NORRIS M.D. Primary Care Provider Wendi Bryant Unavailable [phone] REASON FOR VISIT ULTRA - CK FIBROIDS Encounters Encounter Location Date Provider Diagnosis [facility] [address] [place] [address] 06/06/2024 Wendi Ahn Plan Of Treatment Next Appt Details Provider Name:Wendi justice, 06/03/2025 10:20:00 AM, [address], [address], [place], [address], Progress Notes * TED REESB:1965 ([age] yo F)Acc No.[id number]:06/06/2024 PROGRESS NOTES Patient:?REES WONG Appointment Provider:?Wendi justice M.D. :1965???Age:59 Y???Sex:Female D ate:06/06/2024 Address:[address] [place], [place] [id number] Pcp:YENY NORRIS M.D. Subjective: * Chief Complaints: * ???1. ULTRA - CK FIBROIDS. * Medical History:? Objective: * Vitals:? Assessment: Plan: * Treatment: * Images: Billing Information: * Visit Code:? * Procedure Codes:? * Electronic signature of Vladislav Ahn MD on 11/18/2024 at 05:06 PM EDT Sign off status: Pending * Appointment Provider:?Wendi Ahn M.D. Date:?06/06/2024 Generated for Jhoan el/Peri/Brittanie on:?11/18/2024 05:06 PM EDT
--- OUTSIDE RECORDS SUMMARY | 2024-11-18 17:07 | XMS_ITS ---
Author Organization [facility] Address [address] [place] [address] [address] [place] [address] Care Team Providers Care Nurse Assessor Name Role Phone YENY NORRIS M.D. Primary Care Provider Wendi Bryant Unavailable [phone] Allergies Allergen (clinical drug ingredient) Drug/Non Drug [...] DONE) Encounters Encounter Location Date Provider Diagnosis [facility] [address] [place] [address] 02/06/2024 Wendi Ahn Plan Of Treatment Next Appt Details Provider Name:Wendi justice, 06/03/2025 10:20:00 AM, [address] [place] [address], [facility] [address], [place], [address], Progress Notes * BRAIN REESADOB:1965 ([age] yo F)Acc No.[id number]:02/06/2024 PROGRESS NOTES Patient:?WONG REES Appointment Provider:?Wendi justice M.D. :1965???Age:58 Y???Sex:Female D ate:02/06/2024 Address:[address] [place], [place] [id number] Pcp:YENY NORRIS M.D. Subjective: * Chief Complaints: [...] mammogram, Mammographic heterogeneous density, bilateral breasts. * Behaviorist History:?/ Para?2/1.?Sexual activity?currently sexually active.?Last Pap Smear:?11/30/20 [...] Provider:?Wendi Ahn M.D. Date:?02/06/2024 Generated for Jhoan el/Peri/eTransmitting on:?11/18/2024 05:06 PM EDT
== END 2024-11-18 14:35 | disposition home or self-care (01) ==
LOC: HO.HCS 14:16
PROVIDERS: PCP Internal Medicine; Visit Provider Internal Medicine
DX: I10 Essential (primary) hypertension (principal); E66.01 Morbid (severe) obesity due to excess calories
CPT/HCPCS: 93010; 99214

== ENCOUNTER → 2024-11-18 14:16 | Outpatient (BNVA) | payer OTHER, SELFPAY | PROVIDERS: PCP Internal Medicine; Visit Provider Internal Medicine | DX: I10 Essential (primary) hypertension (principal); E66.01 Morbid (severe) obesity due to excess calories; Z68.38 Body mass index [BMI] 38.0-38.9, adult | CPT/HCPCS: 93005 ==

== ENCOUNTER 2024-11-20 14:38 | Outpatient (AMB) | payer OTHER, SELFPAY ==
--- NOTE | 2024-11-20 14:48 | MHC.PC.OV ---
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 Load And Unload Required: No Accompanied by: Self / Same As Patient Allergies erythromycin base [Erythromycin Base] Allergy (Severe, Verified 11/20/24 14:58) VOMITING, abdominal pain lisinopril Allergy (Severe, Verified 11/20/24 14:58) throat Itching, coughing Sulfa (Sulfonamide Antibiotics) Allergy (Severe, Verified 11/20/24 14:58) vaginal Itching oxycodone Adverse Reaction (Intermediate, Verified 11/20/24 14:58) Hallucinations Medication List - Last Reconciled 11/20/24 by Aureliano German MD acetaminophen 1,000 mg (2 x 500 mg) PO Q8H PRN aspirin 81 mg PO DAILY atorvastatin 20 mg PO DAILY blood pressure monitor As directed calcium carbonate-vitamin D3 500 mg-10 mcg (400 unit) (Calcium 500 With D) 1 tab PO DAILY carvedilol 25 mg PO BID 90 days clonidine HCl 0.2 mg PO BID 90 days COVID-19 antigen test (BinaxNOW COVID-19 Ag Card Home Test kit) As directed hydralazine 50 mg PO Q12H ibuprofen 600 mg PO Q6-8H PRN losartan 100 mg PO DAILY [Marshmallow Root 960 mg PO BID] melatonin 10 mg PO BEDTIME PRN multivitamin,tx-minerals 1 tab PO DAILY sertraline 100 mg PO DAILY spironolactone 50 mg PO DAILY Tobacco use date assessed: 08/18/24 Dental Screening Dental Screen Date: 08/18/24 HPI CTS HPI Details PAtient has a rash on the hand and would wants cream prescribed PFSH Medical History (Updated 11/20/24 @ 15:13 by Aureliano German MD) Right hip pain Left hip pain Hemoptysis Hip pain, bilateral Lipoma Morbid obesity Lateral epicondylitis of left elbow Dysphagia Shoulder pain, bilateral Lumbar radiculitis Sciatica Trochanteric bursitis of both hips Numbness of left hand Moderate obstructive sleep apnea LATRICE (obstructive sleep apnea) Bilateral hand numbness Insomnia Breast cancer screening by mammogram Knee pain, bilateral Hypertensive urgency Elevated troponin Dysuria Trochanteric bursitis of right hip Thyroid nodule Impaired glucose tolerance Subacromial bursitis of left shoulder joint Obesity GERD (gastroesophageal reflux disease) Hypercholesterolemia Hypertension Surgical History History of bladder surgery History of endometrial ablation Hx of colonoscopy Hx of breast biopsy Status post excision of lipoma (~01/03/23) Hx of cholecystectomy Family History Father CKD (chronic kidney disease) Hypertension Myocardial infarct Mother Dementia Sister Brain aneurysm Bone cancer Schizophrenia Brother No problems noted. Brother Myocardial infarct Son No problems noted. 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 How many drinks containing alcohol do you have on a typical day when you are drinking?: 1 or 2 3. How often do you have six or more drinks on one occasion?: Less than monthly Total Score: 1 FRANCISCO-7 AMB Questionnaire FRANCISCO-7 Date FRANCISCO - 7 assessed: 08/18/24 Source: Developed by Drs. Ray Franco, Sharron Arias, David Gonzalez and colleagues, with an educational ronald from [employer]. Physical exam (Primary Care) Vital Signs: Last Vital Signs Temp 97.1 F 11/20/24 14:49 Pulse 70 11/20/24 14:49 BP 102/60 11/20/24 14:57 Pulse Ox 96 11/20/24 14:49 Oxygen Delivery Method Room Air 11/20/24 14:49 BMI result Body Mass Index 39.0 Tobacco/Smoking Status: Tobacco use Status Tobacco use date assessed 08/18/24 11/20/24 14:49 Patient Tobacco Use Status Never used Tobacco 11/20/24 14:49 Tobacco use type 08/18/24 13:35 e-Cigarette/Vaping Use Never Used 11/20/24 14:49 Thrive Assessment: Date of Thrive Assessment Date Thrive assessed 08/18/24 11/20/24 14:49 Const General: alert; No acute distress Eyes Conjunctivae: conjunctivae normal Resp Auscultation: clear to auscultation bilaterally Cardio Rate: regular rate Rhythm: regular rhythm GI Inspection: Yes normal to inspection Extrem General: Yes normal to inspection and No edema Coding Level of Care Code Est Pt Level 4 (55150) Complex EM visit Add On G2211 Diagnoses Primary hypertension I10 Hypertension type: primary hypertension Hypercholesterolemia E78.00 Gastroesophageal reflux disease without esophagitis K21.9 Esophagitis presence: without esophagitis Impaired glucose tolerance R73.02 Generalized anxiety disorder F41.1 Bilateral carpal tunnel syndrome G56.03 Rotator cuff insufficiency of left shoulder M25.312 Assessment & Plan Assessment & Plan (1) Hypertension: Code(s): I10 - Essential (primary) hypertension Category: Medical Qualifiers: Hypertension type: primary hypertension Qualified Code(s): I10 - Essential (primary) hypertension Plan: Continue with carvedilol 25 mg twice a day clonidine 0.2 mg twice a day hydralazine 100 mg every 12 hours losartan 100 mg once a day spironolactone 50 mg once a day Continue with blood pressure medication. Decrease salt intake and exercise (2) Hypercholesterolemia: Code(s): E78.00 - Pure hypercholesterolemia, unspecified Category: Medical Plan: Avoid fried foods, chicken skin, eggs, butter margarine, pastries and meat. Be it pork or beef they have a lot of cholesterol patient on atorvastatin 20 mg once a December 2023 last blood work (3) GERD (gastroesophageal reflux disease): Code(s): K21.9 - Gastro-esophageal reflux disease without esophagitis Category: Medical Qualifiers: Esophagitis presence: without esophagitis Qualified Code(s): K21.9 - Gastro-esophageal reflux disease without esophagitis Plan: Avoid the foods that causes that usually spicy foods, tomato products, juices, coffee, soda and foods that your sensitive to. After eating do not lie down, allow 3-4 hours before in lie down. And keep the head of bed above 30 degrees to avoid the acid from going up. (4) Impaired glucose tolerance: Code(s): R73.02 - Impaired glucose tolerance (oral) Category: Medical Plan: Decrease the amount of carbohydrate intake, pasta, bread, rice and potatoes are all sugar and that is aside from all the sweet stuff, remember that fruits are good but they are Sweet also. Hemoglobin A1c tested in July to be 6.2 (5) Generalized anxiety disorder: Code(s): F41.1 - Generalized anxiety disorder Category: Medical Plan: Presently on sertraline 100 mg once a day (6) Bilateral carpal tunnel syndrome: Comment: 05/2024This is an abnormal study. 2. There is electrodiagnostic evidence for bilateral mild median neuropathy at the wrist, consistent with carpal tunnel syndrome. 3. There is no electrodiagnostic evidence for ulnar neuropathy, brachial plexopathy, or cervical radiculopathy. Code(s): G56.03 - Carpal tunnel syndrome, bilateral upper limbs Category: Medical Plan: Discussed about management of carpal tunnel syndrome mild (7) Rotator cuff insufficiency of left shoulder: Code(s): M25.312 - Other instability, left shoulder Category: Medical Plan: Patient follows up with orthopedics Plan History of Present Illness The patient is a 59-year-old female presenting with concerns related to breathing difficulties. She has a complex medical history, including essential hypertension, managed by a combination of medications. Her cardiac evaluation included an echocardiogram showing an ejection fraction of 60-65%, with an area of hypokinesis noted but normal perfusion imaging. Adjustments were made to her clonidine dosage due to episodes of hypotension, which were affecting her blood pressure control. Her orthopedic history involves a left shoulder assessment revealing tendon tears and bursitis, for which she has been receiving care. Recent assessments also included neurosurgical consultation for right arm pain with an ongoing follow-up with orthopedics concerning bilateral carpal tunnel syndrome. The patient's anxiety disorder is medically managed, and she maintains awareness of her metabolic health with regular screening and preventive measures. Health Maintenance - Mammogram due in May 2024. - Colonoscopy last completed in 2018, pending follow-up. - Blood work reviewed; HbA1c at 6.2%, triglycerides 168 mg/dL, LDL cholesterol 109 mg/dL in December 2023. - Medication review and management discussion for hypertension and cholesterol. Social History - Engages in dietary adjustments (e.g., consuming black coffee with lemon). - Water intake is emphasized due to spironolactone use. Review of Systems - Cardiovascular: Reports concerns with breathing. - Musculoskeletal: Reports mild bilateral carpal tunnel syndrome. Reports right arm pain. - Gastrointestinal: Denies current symptoms; history of GERD. - Neurological: Reports dizziness related to medication adjustments. Physical Exam Results - Labs: HbA1c of 6.2%, triglycerides at 168 mg/dL, LDL cholesterol at 109 mg/dL. - Tests: Echocardiogram showing 60-65% ejection fraction, basal inferior wall hypokinesis, normal perfusion imaging. - Diagnostics: MRI showing left shoulder supraspinatus and subscapularis tendon tear, AC joint spurring, moderate bursitis. Plan Careful monitoring and adjustments to the patient's cardiac and pain management regimens are essential. Her antihypertensive therapy was reviewed with clonidine adjustment due to low pressures, and a reduction in hydralazine was planned to mitigate dizziness episodes. Given her echocardiogram's findings, I will continue to work closely with cardiology for ongoing monitoring. Orthopedic and neurosurgical follow-up for shoulder impingement and carpal tunnel syndrome is warranted given her MRI findings. I emphasized the role of lifestyle interventions, pharmacotherapy, and regular screenings, aligning our focus on sustaining metabolic control and preventing complications. Follow-up via the patient portal and ongoing engagement with her care through scheduled assessments is essential. Patient was informed and verbally consented to the use of an ambient scribe for clinic note documentation during this visit. Discussion Notes I discussed the current management for hypertension, emphasizing the importance of refining her medication schedule to prevent hypotensive episodes while maintaining vigorous blood pressure control. We reviewed her cholesterol and glucose levels, and I reiterated the significance of dietary consideration and physical activity to aid these metabolic concerns. I addressed the patient's discomfort due to musculoskeletal issues, reviewing her orthopedist's interventions and reiterated the need for continued orthopedic evaluations. I encouraged communication through the patient portal to ensure seamless care and medication access, and we worked through logistical concerns with her prescription handling. Patient Instructions - Continue with your antihypertensive medication schedule as adjusted. - Monitor blood pressure regularly to avoid low blood pressure episodes. - Maintain your current cholesterol medication regimen. - Engage in healthy dietary habits and regular physical activity. - Schedule follow-up for orthopedic and cardiology assessments as advised. - Use the patient portal for communication and prescription management. - Follow-up with any urgent issues, particularly dizziness or breathing difficulties. Orders: Orders AMB Hemoglobin A1c Today R73.02 - Impaired glucose tolerance (oral) Complete Blood Count Auto Diff 1 Month E78.00 - Pure hypercholesterolemia, unspecified Comprehensive Met. Panel 1 Month E78.00 - Pure hypercholesterolemia, unspecified Free T4 (Free Thyroxine) 1 Month E78.00 - Pure hypercholesterolemia, unspecified Hemoglobin A1c 1 Month E78.00 - Pure hypercholesterolemia, unspecified UA CC w/rflx Micro + Cult 1 Month E78.00 - Pure hypercholesterolemia, unspecified, R30.0 - Dysuria Thyroid Stimulating Hormone 1 Month E78.00 - Pure hypercholesterolemia, unspecified Lipid Panel 1 Month E78.00 - Pure hypercholesterolemia, unspecified Vitamin B12 and Folate 1 Month E78.00 - Pure hypercholesterolemia, unspecified Vitamin D 25-OH Total 1 Month E78.00 - Pure hypercholesterolemia, unspecified Medications: Refilled carvedilol 25 mg PO BID 180 tabs 1RF 90 days I10 - Essential (primary) hypertension losartan 100 mg PO DAILY 90 tabs 3RF G47.33 - Obstructive sleep apnea (adult) (pediatric) sertraline 100 mg PO DAILY 90 tabs 3RF G47.33 - Obstructive sleep apnea (adult) (pediatric) spironolactone 50 mg PO DAILY 90 tabs 2RF G47.33 - Obstructive sleep apnea (adult) (pediatric) clonidine HCl 0.2 mg PO BID 180 tabs 1RF 90 days G47.33 - Obstructive sleep apnea (adult) (pediatric)
[2024-11-20 14:49] VITALS: BP 90/58; PULSE 70; TEMP 36.2; O2SAT 96; BMI 39.0
[2024-11-20 14:57] VITALS: BP 102/60
--- OUTSIDE RECORDS SUMMARY | 2024-11-20 17:19 | XMS_ITS | Patient Health Record ---
Author Organization [employer] [facility] Address [address] [place] [address] Care Team Providers Care Out Of Town Collection Clerk Name Role Phone YENY NORRIS M.D. Primary Care Provider Unavaila Wendi Mcclendon Unavailable [phone] Allergies Allergen (clinical drug ingredient) Drug/Non Drug [...] 8.0 PROTEIN TR GLUCOSE NEG BLOOD NEG [id number] IGP No Culture 30 Plus Reviewed date:06/03/2024 09:59:13 PM Interpretation: Performing Lab:[facility] [place], [address], [address], [place], Phone - [phone], Director - [facility] Notes/Report: Clinical Information:[id number] Dates / Results....11/30/2020 [facility] Other..............Post Menopausal No. of containers..01 ThinPrep Vial DIAGNOSIS: NEGATIVE FOR IN TRAEPITHELIAL LESION OR MALIGNANCY. Specimen adequacy: Satisfact ory for evaluation. No endocervical component is identified. Clinician provided ICD10: Z0 1.419 Performed by: Doni hooper, Sales And Marketing Intern (ASCP) . . Note: The Pap smear [...] [address], [address], [place], Phone - [phone], Director - [facility] Notes/Report: Clinical Information:[id number] Dates / Results....11/30/2020 [facility] Other..............Post Menopausal No. [...] Risk Notes Problem Excessive and frequent menstruation (586783454) Excessive and frequent menstruation with regular cycle (N92.0) Active confirmed Problem Menopause (955011197) Menopausal and female climacteric states (N95.1) Active confirmed Problem Postmenopausal bleeding (10418909) Postmenopausal bleeding (N95.0) Active confirmed Problem Herpes simplex viral infection (51259695) Herpesviral infection, unspecified (B00.9) Active confirmed Problem Unspecified menopausal and perimenopausal disorder (N95.9) Active confirmed Problem Menopause (864668648) Menopausal and female climacteric states (N95.1) Active confirmed Vital Signs Temperature 98.4 degrees Fahrenheit 05/28/2024 Blood pressure diastolic 70 mm Hg 05/28/2024 Height 60 in 05/28/2024 Blood pressure systolic 120 mm Hg 05/28/2024 Weight 197 lbs 05/28/2024 BMI 38.47 kg/m2 05/28/2024 Encounters Encounter Location Date Provider Diagnosis [place] [address] [place] [address] 06/06/2024 Wendi Ahn [facility] [place] [place] [address] [place] [address] 05/28/2024 Wendi Ahn Encounter for gynecological examination [...] Order Date Urinalysis 11/30/2020 COMPLETE BLOOD COUNT 08/10/2015 COMPLETE BLOOD COUNT 07/13/2015 ESTRADIOL 01/25/2016 FSH 01/25/2016 LH 01/25/2016 BONE DENSITY 12/01/2021 MM Digital Mammo Screening 12/06/2022 MM Digital Mammo Screening 05/28/2024 MM Digital Mammo Screening 11/30/2020 MM Digital Mammo Screening 12/01/2021 MM Digital Mammo Screening 05/18/2016 MM Digital Mammo Screening 05/30/2018 Next Appt Details Provider Name:Wendi justice, 06/03/2025 10:20:00 AM, [address], [address], [place], [address], Insurance Providers Payer Name Payer Address Payer Phone Subscriber Number Group Number Insured Name Patient Relationship to Insured Coverage Start Date Coverage End Date [facility] [address] [facility] [id number] [phone] [id number] BERHANE MCKEON Spouse - patient is the [...]
--- OUTSIDE RECORDS SUMMARY | 2024-11-20 17:19 | XMS_ITS ---
Author Organization [facility] Address [address] [place] [address] Care Team Providers Care Truckload Owner Operator Name Role Phone YENY NORRIS M.D. Primary Care Provider Wendi Bryant Unavailable [phone] REASON FOR VISIT ULTRA - CK FIBROIDS Encounters Encounter Location Date Provider Diagnosis [facility] [address] [place] [address] 06/06/2024 Wendi Ahn Plan Of Treatment Next Appt Details Provider Name:Wendi justice, 06/03/2025 10:20:00 AM, [address], [address], [place], [address], Progress Notes * TED REESB:1965 (6 8 yo F)Acc No.[id number]:06/06/2024 PROGRESS NOTES Patient:?REES WONG Appointment Provider:?Wendi justice M.D. :1965???Age:59 Y???Sex:Female D ate:06/06/2024 Address:[address] [place], [place] [id number] Pcp:YENY NORRIS M.D. Subjective: * Chief Complaints: * ???1. ULTRA - CK FIBROIDS. * Medical History:? Objective: * Vitals:? Assessment: Plan: * Treatment: * Images: Billing Information: * Visit Code:? * Procedure Codes:? * Electronic signature of Vladislav Ahn MD on 11/20/2024 at 05:19 PM EDT Sign off status: Pending * Appointment Provider:?Wendi Ahn M.D. Date:?06/06/2024 Generated for Jhoan el/Peri/Brittanie on:?11/20/2024 05:19 PM EDT
--- OUTSIDE RECORDS SUMMARY | 2024-11-20 17:19 | XMS_ITS | Clinical Summary ---
Author Organization [facility], Address [address] [place] [address] [place] [address] Phone Care Team Providers Care Carpenter And Joiner Name Role Phone Aureliano German MD Primary Care Provider [phone] Allergies Active Allergy Reactions Criticality Noted Date Comments Amlodipine Other (see comments) 09/05/2018 Erythromycin Other (see comments) 09/05/2018 Hydrochlorothiazide-Tri amterene Other (see comments) 09/05/2018 Lisinopril Other (see [...] Blood Pressure Monitoring (Blood Pressure Monitor/L Cuff) [facility] Use blood pressure cuff twice daily to [...] to see endocrine surgeon, Dr. Stone at [facility] should be who usually repeats the ultrasound himself for further evaluation and he can make a better judgment call on whether the patient requires surgery. I have informed the patient that if she does not have a surgical procedure that she can continue following at [facility] with the concrete block maker there. If she does undergo a surgical [...] (6 to 49 Years) Discontinued 08/27/2018 Insurance [facility] Care Teams Carpenter And Joiner Relationship Specialty Start Date End Date Aureliano German MD [facility] [address] [place] PCP - General Internal Medicine 08/11/22
--- OUTSIDE RECORDS SUMMARY | 2024-11-20 17:19 | XMS_ITS | Continuity of Care Document ---
Author Organization [facility] [address] [place] [address] Phone [phone] Care Team Providers Care Driller Helper Name Role Phone Po, Aureliano Care Team Information Tennis Coach + [phone] Problems Active Problems Provider Date Impaired glucose [...] SIG Qnty Indications Ordering Provider Date Sertraline HML885en Tablets Take 1 Tablet By Mouth Every Day Po, Lorenver Valacyclovir ROA925bl Tablets Take 1 Tablet By Mouth Every Day Po, Lorenver Losartan Lfbffsuty239fc Tablets Take 1 Tablet By Mouth Every Day Po, Lorenver Aspirin Low Afok58pn Tablets DR Take 1 Tablet By Mouth Every Day Po, Lorenver Atorvastatin Svdyrzd51ko Tablets Take 1 Tablet By Mouth Every Day Po, Lorenver Clonidine HCL0.2mg Tablets Take 2 Tablets By Mouth Twice A Day Po, Lorenver Hydralazine XXI01nw Tablets Take 2 Tablets By Mouth Every 12 Hours For 90 Days Po, Lorenver Kcmzzkdlavqudg11dn Tablets Take 1 Tablet By Mouth Every Day Po, Lorenver Uuffbeiuuz75kv Tablets Take 1 Tablet By Mouth Twice A Day For 90 Days Po, Lorenver Vital Signs Date Vital Result Comment 03/07/2024 2:46pm BP Systolic 140 mmHg BP Diastolic 80 mmHg Heart Rate 72 /min Height 59 inches 4'11 Weight 198.00 lb BMI (Body Mass Index) 40.0 kg/m2 Results Test Acquired Date Facility Test Result H/L Range N ote TSH 09/07/2023 [facility] ce Lab TSH 0.59 uIU/mL (0.4-4.2) Free T4 09/07/2023 [facility] Free T4 1.15 ng/dL [...]
--- OUTSIDE RECORDS SUMMARY | 2024-11-20 17:19 | XMS_ITS | Clinical Summary ---
Author Organization [facility] Address [address] [place] [address] Care Team Providers Care Java Programmer Analyst Name Role Phone Aureliano German MD Primary Care Provider [phone] Allergies Active Allergy Reactions Criticality Noted Date [...] age to complete this topic Care Teams Java Programmer Analyst Relationship Specialty Start Date End Date Aureliano German MD [address] [place] [address] [address] [facility] [place] [address] PCP - General Internal Medicine 08/11/22
--- OUTSIDE RECORDS SUMMARY | 2024-11-20 17:19 | XMS_ITS ---
Author Organization [employer] [facility] Address [address] [place] [address] Care Team Providers Care Batch Mixer Operator Name Role Phone YENY NORRIS M.D. Primary Care Provider Wendi Bryant Unavailable [phone] Allergies Allergen (clinical drug ingredient) Drug/Non Drug [...] 8.0 PROTEIN TR GLUCOSE NEG BLOOD NEG [id number] IGP No Culture 30 Plus Reviewed date:06/03/2024 09:59:13 PM Interpretation: Performing Lab:[facility], [facility] [address], [address], [place], Phone - [phone], Director - [facility] Notes/Report: Clinical Information:[id number] Dates / Results....11/30/2020 [facility] Other..............Post Menopausal No. of containers..01 ThinPrep Vial DIAGNOSIS: NEGATIVE FOR IN TRAEPITHELIAL LESION OR MALIGNANCY. Specimen adequacy: Satisfact ory for evaluation. No endocervical component is identified. Clinician provided ICD10: Z0 1.419 Performed by: Doni hooper Cloud Software Engineer (ASCP) . . Note: The Pap [...] [address], [address], [place], Phone - [phone], Director - [facility] Notes/Report: Clinical Information:[id number] Dates / Results....11/30/2020 [facility] Other..............Post Menopausal No. of containers..01 ThinPrep Vial REASON FOR VISIT Annual RN PALLIATIVE Physical, Annual RN PALLIATIVE Physical 50-59* Medications Medication SIG (Take, Route, [...] Risk Notes Problem Herpes simplex viral infection (77038887) Herpesviral infection, unspecified (B00.9) Active confirmed Vital Signs Temperature 98.4 degrees Fahrenheit 05/28/20 24 Blood pressure systolic 120 mm Hg 05/28/20 24 Blood pressure diastolic 70 mm Hg 024 Height 60 in 05/28/2024 Weight 197 lbs 05/28/2024 BMI 38.47 kg/m2 05/28/2024 Encounters Encounter Location Date Provider Diagnosis Total [address] [place] [address] 05/28/2024 Wendi hAn Encounter for gynecological examination (general) (routine) without [...] Reason: Provider Name:Wendi justice, 06/03/2025 10:20:00 AM, [address] [place] [address], [address], [place], [address], Progress Notes * BRAIN REESADOB:1965 ([age] yo F)Acc No.[id number]:05/28/2024 PROGRESS NOTES Patient:?WONG REES Appointment Provider:?Wendi justice M.D. :1965???Age:59 Y???Sex:Female D ate:05/28/2024 Address:[address] [place], [place] [id number] Pcp:YENY NORRIS M.D. Subjective: * Chief Complaints: * ??? Annual RN PALLIATIVE PhysicalAnnua l RN PALLIATIVE Physical 50-59* * HPI: ???New/Follow-up Patient Consult:? [...] adequate calcium via diet and supplementation ?Significant RN PALLIATIVE problems:?no significant newspaper manager symptoms or problems * ROS:?general:?no?chest pain.?no?palpitations.?no?headache.?no?cough.?no?shortness of breath.?no?fever.?no?unexplained weight loss.?no?nausea/vomiting.?no?change in bowel movements.?no blood in stool.?no?genitourinary complaints.?no?skin complaints.? * Medical History:? * Messaging Architect History:?/ Para?2/1.?Sexual activity?currently sexually active.?Last Pap Smear:?11/30/20 [...] * Images: Billing Information: * Visit Code:? 66571 Preventive Care New Pt. Age 40-64. 72931 Preventive Care Est Pt. Age 40-64. * Procedure Codes:? * Sign off status: Completed true * Appointment Provider:?Wendi Ahn M.D. Date:?05/28/2024 Generated for Jhoan el/Peri/Brittanie on:?11/20/2024 05:19 PM EDT History and Physical Notes * [...] ate calcium via diet and supplementation Significant RN PALLIATIVE problems:: n o significant newspaper manager symptoms or problems Examination Category Sub-Category Detail [...]
--- OUTSIDE RECORDS SUMMARY | 2024-11-20 17:19 | XMS_ITS ---
Author Organization [facility] Address [address] [place] [address] [address] [place] [address] Care Team Providers Care Diesel Engine Inspector Name Role Phone YENY NORRIS M.D. Primary Care Provider Wendi Bryant Unavailable [phone] Allergies Allergen (clinical drug ingredient) Drug/Non Drug [...] DONE) Encounters Encounter Location Date Provider Diagnosis [facility] [address] [place] [address] 02/06/2024 Wendi Ahn Plan Of Treatment Next Appt Details Provider Name:Wendi justice, 06/03/2025 10:20:00 AM, [address] [place] [address], [facility] [address], [place], [address], Progress Notes * BRAIN REESADOB:1965 ([age] yo F)Acc No.[id number]:02/06/2024 PROGRESS NOTES Patient:?WONG REES Appointment Provider:?Wendi justice M.D. :1965???Age:58 Y???Sex:Female D ate:02/06/2024 Address:[address] [place], [place] [phone] Pcp:YENY NORRIS M.D. Subjective: * Chief Complaints: [...] mammogram, Mammographic heterogeneous density, bilateral breasts. * Medical Record Librarian History:?/ Para?2/1.?Sexual activity?currently sexually active.?Last Pap Smear:?11/30/20 [...] Ahn M.D. Date:?02/06/2024 Generated for Jhoan el/Peri/eTransmitting on:?11/20/2024 05:19 PM EDT
== END 2024-11-20 15:33 | disposition home or self-care (01) ==
LOC: HO.HMCH 14:39
PROVIDERS: PCP Internal Medicine; Visit Provider Internal Medicine
DX: I10 Essential (primary) hypertension (principal); E78.00 Pure hypercholesterolemia, unspecified; K21.9 Gastro-esophageal reflux disease without esophagitis; R73.02 Impaired glucose tolerance (oral); F41.1 Generalized anxiety disorder; G56.03 Carpal tunnel syndrome, bilateral upper limbs; M25.312 Other instability, left shoulder

== ENCOUNTER → 2024-11-20 14:38 | Outpatient (BNVA) | payer OTHER, SELFPAY | PROVIDERS: PCP Internal Medicine; Visit Provider Internal Medicine ==

== ENCOUNTER 2024-12-17 11:04 | Outpatient (AMB) | payer OTHER, SELFPAY ==
[2024-12-17 11:07] VITALS: BMI 38.9
--- NOTE | 2024-12-17 11:07 | A.OFFVIS_ITS ---
Vital Signs 12/17/24 11:07 Height 5 ft 1 in Weight 206 lb BMI 38.9 Intake Visit Reasons: ov- MRI review of left shoulder Intake Note: Cathryn is a 59 year old right hand dominant female who presents with complaints of progressively worsening left shoulder pain and weakness. The patient states that she injured her left shoulder 3 years ago when she fell on the ice. She fell directly onto her left shoulder. Since that time she has had difficulty lifting her left hand above shoulder height. She has failed the last 6 weeks of conservative treatment which has included Tylenol, anti-inflammatory medicines, a home exercise program and physical therapy exercises. She has had cortisone injections in the past which gave her minimal relief. Allergies erythromycin base [Erythromycin Base] Allergy (Severe, Verified 12/17/24 11:07) VOMITING, abdominal pain lisinopril Allergy (Severe, Verified 12/17/24 11:07) throat Itching, coughing Sulfa (Sulfonamide Antibiotics) Allergy (Severe, Verified 12/17/24 11:07) vaginal Itching oxycodone Adverse Reaction (Intermediate, Verified 12/17/24 11:07) Hallucinations Medication List - Last Reconciled 12/17/24 by Sd Sanchez MD acetaminophen 1,000 mg (2 x 500 mg) PO Q8H PRN aspirin 81 mg PO DAILY atorvastatin 20 mg PO DAILY betamethasone dipropionate 0.05% 1 appl topical BID PRN blood pressure monitor As directed calcium carbonate-vitamin D3 500 mg-10 mcg (400 unit) (Calcium 500 With D) 1 tab PO DAILY carvedilol 25 mg PO BID 90 days clonidine HCl 0.2 mg PO BID 90 days COVID-19 antigen test (BinaxNO COVID-19 Ag Card Home Test kit) As directed hydralazine 50 mg PO Q12H ibuprofen 600 mg PO Q6-8H PRN losartan 100 mg PO DAILY [Marshmallow Root 960 mg PO BID] melatonin 10 mg PO BEDTIME PRN multivitamin,tx-minerals 1 tab PO DAILY sertraline 100 mg PO DAILY spironolactone 50 mg PO DAILY PFSH Medical History Right hip pain Left hip pain Hemoptysis Hip pain, bilateral Lipoma Morbid obesity Lateral epicondylitis of left elbow Dysphagia Shoulder pain, bilateral Lumbar radiculitis Sciatica Trochanteric bursitis of both hips Numbness of left hand Moderate obstructive sleep apnea LATRICE (obstructive sleep apnea) Bilateral hand numbness Insomnia Breast cancer screening by mammogram Knee pain, bilateral Hypertensive urgency Elevated troponin Dysuria Trochanteric bursitis of right hip Thyroid nodule Impaired glucose tolerance Subacromial bursitis of left shoulder joint Obesity GERD (gastroesophageal reflux disease) Hypercholesterolemia Hypertension Surgical History History of bladder surgery History of endometrial ablation Hx of colonoscopy Hx of breast biopsy Status post excision of lipoma (~01/03/23) Hx of cholecystectomy Family History Father CKD (chronic kidney disease) Hypertension Myocardial infarct Mother Dementia Sister Brain aneurysm Bone cancer Schizophrenia Brother No problems noted. Brother Myocardial infarct Son No problems noted. Other Mental health disorder Social History Household Members: Spouse Housing: House Are you a primary personal carer to a significant other at home: Yes (BURGLAR ALARM SUPERINTENDENT for brother, niece will cover while recovering) Do you presently have visiting nurse or other home services: No Alcohol intake: current Alcohol intake frequency: holidays/special occasions only Alcohol type: hard liquor Patient Tobacco Use Status: Never used Tobacco e-Cigarette/Vaping Use: Never Used Second Hand Smoke Exposure: No Advance Directives Date on File: 07/09/23 service: No Current occupational status: employed 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 Cognitive needs: No Hearing needs: No Vision needs: No Physical Exam Vital Signs: BMI result Body Mass Index 38.9 Const Other: Well-nourished well-developed very friendly female awake alert and oriented x3 in no acute distress Extrem Other: Bilateral upper extremity examination shows good capillary refill, no skin lesions noted, normal sensation light touch Left shoulder examination shows slightly decreased range of motion when compared to her right shoulder, 4/5 strength with supraspinatus testing, positive impingement signs, tenderness over her acromioclavicular joint, no instability Results Reviewed Results Reviewed: MRI of the patient's left shoulder show severe acromioclavicular joint narrowing, a type 2 acromion, a small full-thickness tear of the supraspinatus tendon Assessment & Plan Assessment & Plan (1) Rotator cuff insufficiency of left shoulder: Code(s): M25.312 - Other instability, left shoulder Category: Medical Plan Ms. Brantley presents with left shoulder pain and weakness due to impingement syndrome, acromioclavicular joint arthritis and a full-thickness rotator cuff tear. I had a lengthy discussion with the patient regarding the treatment options. At this point she has failed continued non operative treatments. The risks and benefits of left shoulder surgery were discussed at length with the patient. The patient is considering undergoing surgery later this year. She will contact my office to pick a surgery date when she is ready to do so. Surgery will involve left shoulder arthroscopic distal clavicle excision, left shoulder arthroscopic acromioplasty, left shoulder mini open rotator cuff repair. The patient will continue with her [id number] exercises in the meantime. Feel free to call me at any time should questions regarding her orthopedic management arise. I spent 20 minutes in reviewing the patient's records and imaging studies, seeing the patient and documenting in the medical record. Coding Level of Care Code Est Pt Level 3 (48718) Complex EM visit Add On G2211 Diagnoses Rotator cuff insufficiency of left shoulder M25.312
--- OUTSIDE RECORDS SUMMARY | 2024-12-17 12:25 | XMS_ITS ---
Author Organization [facility] Address [address] [place] [address] Care Team Providers Care Excelsior Machine Tender Name Role Phone YENY NORRIS M.D. Primary Care Provider Wendi Bryant Unavailable [phone] Allergies Allergen (clinical drug ingredient) Drug/Non Drug [...] DONE) Encounters Encounter Location Date Provider Diagnosis [address] [address] 02/06/2024 Wendi Ahn Plan Of Treatment Next Appt Details Provider Name:Wendi justice, 06/03/2025 10:20:00 AM, [address] [place] [address], [address], [place], [address], Progress Notes * BRAIN REESADOB:1965 ([age] yo F)Acc No.[id number]:02/06/2024 PROGRESS NOTES Patient:?WONG REES Appointment Provider:?Wendi justice M.D. :1965???Age:58 Y???Sex:Female D ate:02/06/2024 Address:[address] [place], [place] [address] Pcp:YENY NORRIS M.D. Subjective: * Chief Complaints: [...] mammogram, Mammographic heterogeneous density, bilateral breasts. * Typo Machine Operator History:?/ Para?2/1.?Sexual activity?currently sexually active.?Last Pap Smear:?11/30/20 [...] Electronic signature of Vladislav Ahn MD on 12/17/2024 at 12:25 PM EDT Sign off status: Pending * Appointment Provider:?Wendi Ahn M.D. Date:?02/06/2024 Generated for Jhoan el/Peri/eTransmitting on:?12/17/2024 12:25 PM EDT
--- OUTSIDE RECORDS SUMMARY | 2024-12-17 12:25 | XMS_ITS | Continuity of Care Document ---
Author Organization [facility] [address] [place] [address] Phone [phone] Care Team Providers Care Cash Management Specialist Name Role Phone Po, Aureliano Care Team Information Outreach Assistant + [phone] Problems Active Problems Provider Date Impaired glucose [...] SIG Qnty Indications Ordering Provider Date Sertraline TCU962yz Tablets Take 1 Tablet By Mouth Every Day Po, Lorenver Valacyclovir YNO883sf Tablets Take 1 Tablet By Mouth Every Day Po, Lorenver Losartan Peuenlyjg521jx Tablets Take 1 Tablet By Mouth Every Day Po, Lorenver Aspirin Low Iwzj26ql Tablets DR Take 1 Tablet By Mouth Every Day Po, Lorenver Atorvastatin Kkslhfo81tg Tablets Take 1 Tablet By Mouth Every Day Po, Lorenver Clonidine HCL0.2mg Tablets Take 2 Tablets By Mouth Twice A Day Po, Lorenver Hydralazine XWW07cg Tablets Take 2 Tablets By Mouth Every 12 Hours For 90 Days Po, Lorenver Aryjworhsizrqv29mu Tablets Take 1 Tablet By Mouth Every Day Po, Lorenver Olwgeudyxa92pa Tablets Take 1 Tablet By Mouth Twice A Day For 90 Days Po, Lorenver Vital Signs Date Vital Result Comment 03/07/2024 2:46pm BP Systolic 140 mmHg BP Diastolic 80 mmHg Heart Rate 72 /min Height 59 inches 4'11 Weight 198.00 lb BMI (Body Mass Index) 40.0 kg/m2 Results Test Acquired Date Facility Test Result H/L Range N ote TSH 09/07/2023 [facility] ce Lab TSH 0.59 uIU/mL (0.4-4.2) Free T4 09/07/2023 [facility] Free T4 1.15 ng/dL (0.70-1.80) [...]
--- OUTSIDE RECORDS SUMMARY | 2024-12-17 12:25 | XMS_ITS ---
Author Organization [facility] Address [address] [place] [address] Care Team Providers Care Turpentine Farmer Name Role Phone YENY NORRIS M.D. Primary Care Provider Wendi Bryant Unavailable [phone] REASON FOR VISIT ULTRA - CK FIBROIDS Encounters Encounter Location Date Provider Diagnosis [facility] [address] [place] [address] 06/06/2024 Wendi Ahn Plan Of Treatment Next Appt Details Provider Name:Wendi justice, 06/03/2025 10:20:00 AM, [address], [address], [place], [address], Progress Notes * TED REESB:1965 ([age] yo F)Acc No.[id number]:06/06/2024 PROGRESS NOTES Patient:?REES WONG Appointment Provider:?Wendi justice M.D. :1965???Age:59 Y???Sex:Female D ate:06/06/2024 Address:[address] [place], [place] [id number] Pcp:YENY NORRIS M.D. Subjective: * Chief Complaints: * ???1. ULTRA - CK FIBROIDS. * Medical History:? Objective: * Vitals:? Assessment: Plan: * Treatment: * Images: Billing Information: * Visit Code:? * Procedure Codes:? * Electronic signature of Vladislav Ahn MD on 12/17/2024 at 12:25 PM EDT Sign off status: Pending * Appointment Provider:?Wendi Ahn M.D. Date:?06/06/2024 Generated for Jhoan el/Peri/Brittanie on:?12/17/2024 12:25 PM EDT
--- OUTSIDE RECORDS SUMMARY | 2024-12-17 12:25 | XMS_ITS | Clinical Summary ---
Author Organization [facility], Address [address] [place] [address] [place] [address] Phone Care Team Providers Care Library Circulation Department Chief Name Role Phone Aureliano German MD Primary Care Provider [phone] Allergies Active Allergy Reactions Criticality Noted Date [...] Blood Pressure Monitoring (Blood Pressure Monitor/L Cuff) [facility] Use blood pressure cuff twice daily to [...] to see endocrine surgeon, Dr. Stone at [facility] should be who usually repeats the ultrasound himself for further evaluation and he can make a better judgment call on whether the patient requires surgery. I have informed the patient that if she does not have a surgical procedure that she can continue following at [facility] with the ux manager there. If she does undergo a surgical [...] (6 to 49 Years) Discontinued 08/27/2018 Insurance * Guarantor: Cathryn Rees Account Type Relation to Patient Date of Phone Billing Address Personal/Family Self [address] [place], [place] [id number] [facility] Member Subscriber Plan / Payer (Ef fective 2024-Present) Name:Cathryn Rees Relation to Subscriber:Spouse Name:BERHANE REES Date of :1969 (Home) Address: [address] [place] [id number] Payer ID:Not on file Type:Not on file Address: [facility] [address] [place] [address] Care Teams Library Circulation Department Chief Relationship Specialty Start Date End Date Aureliano German MD [facility] [place] [address] [place] PCP - General Internal Medicine 08/11/22
--- OUTSIDE RECORDS SUMMARY | 2024-12-17 12:25 | XMS_ITS | Patient Health Record ---
Author Organization [employer] [facility] Address [address] [place] [address] Care Team Providers Care Environmental Web Crawler Name Role Phone YENY NORRIS M.D. Primary Care Provider Unavaila Wendi Mcclendon Unavailable [phone] Allergies Allergen (clinical drug ingredient) Drug/Non Drug [...] 8.0 PROTEIN TR GLUCOSE NEG BLOOD NEG [id number] IGP No Culture 30 Plus Reviewed date:06/03/2024 09:59:13 PM Interpretation: Performing Lab:[facility], [facility] [address], [address], [place], Phone - [phone], Director - [facility] Notes/Report: Clinical Information:[id number] Dates / Results....11/30/2020 [facility] Other..............Post Menopausal No. of containers..01 ThinPrep Vial DIAGNOSIS: NEGATIVE FOR IN TRAEPITHELIAL LESION OR MALIGNANCY. Specimen adequacy: Satisfact ory for evaluation. No endocervical component is identified. Clinician provided ICD10: Z0 1.419 Performed by: oDni hooper Drying And Winding Supervisor (ASCP) . . Note: The Pap smear [...] [address], [address], [place], Phone - [phone], Director - [facility] Notes/Report: Clinical Information:[id number] Dates / Results....11/30/2020 [facility] Other..............Post Menopausal No. [...] Risk Notes Problem Excessive and frequent menstruation (133310223) Excessive and frequent menstruation with regular cycle (N92.0) Active confirmed Problem Menopause (282551133) Menopausal and female climacteric states (N95.1) Active confirmed Problem Postmenopausal bleeding (70229455) Postmenopausal bleeding (N95.0) Active confirmed Problem Herpes simplex viral infection (52098614) Herpesviral infection, unspecified (B00.9) Active confirmed Problem Unspecified menopausal and perimenopausal disorder (N95.9) Active confirmed Problem Menopause (331996937) Menopausal and female climacteric states (N95.1) Active confirmed Vital Signs Temperature 98.4 degrees Fahrenheit 05/28/2024 Blood pressure diastolic 70 mm Hg 05/28/2024 Height 60 in 05/28/2024 Blood pressure systolic 120 mm Hg 05/28/2024 Weight 197 lbs 05/28/2024 BMI 38.47 kg/m2 05/28/2024 Encounters Encounter Location Date Provider Diagnosis [place] [address] [address] [facility] [address] [place] [address] 06/06/2024 Wendi Ahn [place] [address] [address] [facility] [address] [place] [address] 05/28/2024 Wendi Ahn Encounter for gynecological examination [...] Provider Name:Wendi justice, 06/03/2025 10:20:00 AM, [address], [address], [place], [address], Insurance Providers Payer Name Payer Address Payer Phone Subscriber Number Group Number Insured Name Patient Relationship to Insured Coverage Start Date Coverage End Date [facility] [address] [place] [id number] BERHANE MCKEON Spouse - patient is the [...]
--- OUTSIDE RECORDS SUMMARY | 2024-12-17 12:26 | XMS_ITS | Data Portability ---
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 We discussed no bending no lifting no [...] 3 view 2022 023 [email or web address] [facility], [address], [place], [address], 3 14:52:52 XR, shoulder, 2 or more view 2022 023 [email or web address] [facility], [address], [place], [address], 17:36:55 Medication Orders methylpredn isolone 4 mg tablet 2022 023 [id number], [address] [place], [place], [id number], 13:46:08 Patient TargetsNo targets recorded. Patient Instructions Encounter Date Encounter Id Patient Instructions Last Modified By Organization Details Last Modified Time 12/04/2022 [id number] views of the right shoulder were obtained on 12/04/2022 in the [place] office. Quality is somewhat limited by her body habitus. Glenohumeral joint space appears intact. No obvious superior migration of the humeral head, acromiohumeral interval intact. Moderate degenerative changes at the AC joint. No obvious soft tissue calcifications. No acute fracture appreciated. Type II acromion. Findings: Well-maintained joint space right shoulder. Interpreted by: Wood Tran MD Not available 12/07/2022 15:37:21 12/15/2022 [id number] X-rays AP and lateral view of the cervical spine show degenerative change and loss of lordotic curvature. No acute bony abnormality is observed. Not available 12/15/2022 13:52:14 Reason for Referral None Reported. Problems Name Problem SNOMED Code Status Onset Date Resolution Date Notes Provider Name and Address Organization Details Recorded Time Full thickness rotator cuff tear 934367406 Active 2022 Wood Tran MD [address] [facility], [facility] [place], [address] , [place] [facility] 05/08/202 3 13:41:27 Pain radiating to neck 372138429 Active 2022 JAYCOB DAVENPORT PA-C [address], [facility] [place], [address], [place] [facility] 3 13:45:02 Cervical radiculopathy 88583861 Active 2022 Dania Schilling PA-C [address], [place], [address], [place] [facility] 3 17:35:47 Neck pain 52736154 Active 2022 Dania Schilling PA-C [address], [place], [address], [place] [facility] 3 17:35:48 Cervical spondylosis 782428584 Active 2022 Dania Schilling PA-C [address], [place], [address], [place] [facility] 3 17:35:49 Pain radiating to left arm 479310642 Active 2022 Dania Schilling PA-C [address], [place], [address], [place] [facility] 3 17:35:59 Problem Notes None recorded. Procedures Surgical History Date Name Laterality Status Provider Name and Address Organization Details Recorded Time cholecystectomy completed Crystal Hermosillo [place] [facility] 12/04/2022 13:19:51 Imaging Results None recorded. [...] Not available Not available Not available 12/04/2022 [id number] 8003 SNOMED Crystal Hermosillo [facility], [place] [facility] 3 13:17:04 3652 lisinopri l medicatio n Not available Not available Not available 12/04/2022 [id number] RxNorm Maida Hermosillo null, [place] [facility] 3 13:17:31 Medications Name Sig Start [...] Updated DateTime 12/04/2022 149.86 cm 40.4 kg/m2 50416.47 g Maida Hermosillo [place] [facility] 12/04/2022 13:17:52 Date Recorded Body height Body mass index (BMI) Body weight Provider Name and Address Organization Details Last Updated DateTime 01/09/2023 149.86 cm 38.8 kg/m2 93989.74 g Coral Hughes [place] [facility] 01/09/2023 14:24:58 Social History None recorded. Functional Status Question Answer Note LastModified by Organizat ion Details LastModified Time How many times per week do you consume alcohol? Less than 1 time per week [email or web address] Information not available 12/04/2022 Do you use any illicit or recreational drugs? No [email or web address] Information not available 12/04/2022 Do you or have you ever used any other forms of tobacco or nicotine? No Information not available 12/04/2022 What is your level of alcohol consumption? Occasional [email or web address] Information not available 12/04/2022 Mental Status None recorded. Family History Relationship Description Onset Age of this Age Resolved Age Notes LastModified by Organization Details LastModified Time Mother History of hypertension [email or web address] Not available 02/2023 13:19:08 Mother Hyperlipidem ia [email or web address] Not available 2022 13:19:35 Father History of hypertension Not available 02/2023 13:19:08 Father Hyperlipidem ia Not available 2022 13:19:35 Sister History of hypertension [email or web address] Not available 02/2023 13:19:08 Sister Hyperlipidem ia [email or web address] Not available 2022 13:19:35 Brother History of hypertension [email or web address] Not available 02/2023 13:19:08 Brother Hyperlipidem ia [email or web address] Not available 2022 13:19:35 Medical History No medical history recorded. Gynecological HistoryNo gynecological history recorded. Obstetrics History GPAL:G 0 P 0 0 0 0 Past Encounters Encounter ID Performer Location Encounter Start Date Encounter Closed Date Diagnosis/Indication Diagnosis SNOMED-CT Code Diagnosis ICD10 Code Diagnosis Note [id number] MD [facility] [address] [facility] [address] [place] [address] 12/04/2022 12:58:30 12/04/2022 13:45:57 Full thickness rotator cuff tear 992998032 M75.121 Body mass index 40+ - severely obese 098679593 Z68.41 [id number] DEVIN SIMEON [employer] [address] [facility] [address] [place] [address] 12/15/2022 13:24:45 12/15/2022 13:51:07 Neck pain 00222572 M54.2 Pain radia ting to neck 177529044 M54.2 [id number] DEVIN Alvarado [address] [place] [address] [place] [address] 01/09/2023 13:42:37 01/09/2023 14:47:51 Cervical radiculopathy 36086620 M54.12 Neck pain 06969665 M54.2 Cervical spondylosis 387 659145 M47.812 Pain radia ting to left arm 081707778 M79.602 Health Concerns Section Related Observation LastModified by Organization Detai ls LastModified Time None Recorded Concern Status LastModified by Organization Details LastModified Time None Recorded Advance Directives Directive None Recorded Payers Encounter Date Sequence Insurance Name Policy Number Policy Rodriguez Covered Member ID Rodriguez Member ID Guarantor Name 12/04/2022 1 [facility] [id number] 1 Yonny Brantley [id number] Cathryn Brnatley 12/15/2022 1 [facility] [id number] 1 Yonny Brantley [id number] Cathryn Brantley 01/09/2023 1 [facility] [id number] 1 Yonny Brantley [id number] Cathryn Brantley Notes Date Note Type Note [...] persistent and disabling. 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 Wood Tran MD [address] [place] [address], [address], [place] [facility] 12/07/2022 15:37:34 12/15/2022 text/html This is a very pleasant 57-year-old female recently seen by Dr. Tran for right shoulder pain rotator cuff tear. Patient is here for evaluation of chronic neck pain that radiates predominantly down the left upper extremity shoulder blade however she has tingling with changing movements such as turning her neck or lifting. 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 She denies any dropping of objects. She also states she has chronic lower back pain with sciatic symptoms. She is here regarding her neck pain at today's visit. X-rays AP and lateral view of the cervical spine show degenerative change and loss of lordotic curvature. No acute bony abnormality is observed. JAYCOB DAVENPORT PA-C [address] [facility],[address], [place], [address], [place] [facility] 12/15/2022 13:52:31 01/09/2023 text/html Cathryn Brantley [...] her hand is worse when attempting to vocational nurse lvn something. She denies clumsiness or difficulty with fine manipulative motions however she has perceived weakness with vocational nurse lvn strength due to her pain. Dania Schilling PA-C [address], [place], [address], [place] [facility] 01/09/2023 17:36:16 OBGyn Episode No OBEpisode recorded.
--- OUTSIDE RECORDS SUMMARY | 2024-12-17 12:26 | XMS_ITS | Clinical Summary ---
Author Organization [facility] Address [address] [place] [address] Care Team Providers Care Composite Mechanic Name Role Phone Aureliano German MD Primary Care Provider [phone] Allergies Active Allergy Reactions Criticality Noted Date [...] age to complete this topic Care Teams Composite Mechanic Relationship Specialty Start Date End Date Aureliano German MD [address] [place] [address] [address] [facility] [place] [address] PCP - General Internal Medicine 08/11/22
== END 2024-12-17 11:16 | disposition home or self-care (01) ==
LOC: HO.HOS 11:04
PROVIDERS: PCP Internal Medicine; Visit Provider Orthopaedic Surgery
DX: M25.312 Other instability, left shoulder (principal)
CPT/HCPCS: 99213

== ENCOUNTER → 2024-12-17 11:04 | Outpatient (BNVA) | payer OTHER, SELFPAY | PROVIDERS: PCP Internal Medicine; Visit Provider Orthopaedic Surgery ==

== ENCOUNTER 2025-02-23 13:49 | Outpatient (REF) | payer OTHER, SELFPAY ==
[2025-02-23 13:59] LABS: MANUAL DIFF FLAG NO
[2025-02-23 14:22] LABS: Hematocrit 40.9 % (37.0-47.0); Hemoglobin 13.1 g/dl (12.0-16.0); Imm Gran Abs Auto 0.03 X10*3/uL (0.00-0.03); Imm Gran Pct Auto 0.3 % (0.0-0.4); Lymphocytes Absolute Auto 2.2 X10*3/uL (1.2-4.9); Mean Corpuscular HGB Conc 32.0 g/dl (31.0-35.0); Mean Corpuscular Hemoglobin 25.4 pg (27.0-33.0); Mean Corpuscular Volume 79.3 fL (80.0-98.0); NRBC Abs Auto 0.000 X10*3/uL (0.0-0.012); NRBC Pct Auto 0.0 /100WBC (0.0-0.2); Platelet Count 267 X10*3/uL (160-400); Red Blood Count 5.16 X10*6/uL (4.20-5.50); White Blood Count 9.0 X10*3/uL (4.8-10.8)
--- OUTSIDE RECORDS SUMMARY | 2025-02-23 14:31 | XMS_ITS | Patient Health Record ---
Author Organization [facility] Address [address] [facility] [address] [place] [address] Care Team Providers Care Orbitread Operator Name Role Phone YENY NORRIS M.D. Primary Care Provider Unavaila Wendi Mcclendon Unavailable [phone] Allergies Allergen (clinical drug ingredient) Drug/Non Drug [...] 8.0 PROTEIN TR GLUCOSE NEG BLOOD NEG 071849-Fjv IGP No Culture 30 Plus Reviewed date:06/03/2024 09:59:13 PM Interpretation: Performing Lab:[facility] [place], [facility] [address], [address], [place], Phone - [phone], Director - [facility] Notes/Report: Clinical Information:[id number] Dates / Results....11/30/2020 [facility] Other..............Post Menopausal No. of containers..01 ThinPrep Vial DIAGNOSIS: NEGATIVE FOR IN TRAEPITHELIAL LESION OR MALIGNANCY. Specimen adequacy: Satisfact ory for evaluation. No endocervical component is identified. Clinician provided ICD10: Z0 1.419 Performed by: Doni hooper Program Associate (ASCP) . . Note: The Pap smear [...] [address], [address], [place], Phone - [phone], Director - [facility] Notes/Report: Clinical Information:[id number] Dates / Results....11/30/2020 [facility] Other..............Post Menopausal No. of containers..01 ThinPrep Vial Reason For Referral No Information Medications Medication SIG (Take, Route, Frequency, Duration) Notes Start Date End Date Status Sertraline HCl 100 MG 1 tablet Orally On ce a day Active hydrALAZINE HCl 25 MG TK 2 TS PO TID Ora l; Duration: 30 Active Magnesium 400 MG as directed Orally Active Macrobid 100 MG 1 capsule with food Orally every 12 hrs; Duration: 7 days 07/17/2022 Not-Taking Spironolactone 50 MG 1 tablet Orally Onc e a day; Duration: 30 day(s) Active Omeprazole 20 MG 1 capsule 30 minutes before morning meal Orally Once a day; Duration: 30 day(s) Not-Taking Losartan Potassium 100 MG 1 tablet Orall y Once a day; Duration: 30 day(s) Active Metrogel 0.75 % 1 application Vaginally Every Night x 5 Nights; Duration: 5 days 08/15/2023 Active Aspir-81 Active valACYclovir HCl 500 MG TAKE 1 TABLET BY MOUTH DAILY; Duration: 90 Active Atorvastatin Calcium 20 MG 1 [...] 600-400 MG-UNIT TK 1 T PO BID Oral; Duration: 30 Active Social History Tobacco Use: Social [...] Risk Notes Problem Excessive and frequent menstruation (023320276) Excessive and frequent menstruation with regular cycle (N92.0) Active confirmed Problem Menopause (243348098) Menopausal and female climacteric states (N95.1) Active confirmed Problem Postmenopausal bleeding (92731168) Postmenopausal bleeding (N95.0) Active confirmed Problem Herpes simplex viral infection (53399126) Herpesviral infection, unspecified (B00.9) Active confirmed Problem Unspecified menopausal and perimenopausal disorder (N95.9) Active confirmed Problem Menopause (963161774) Menopausal and female climacteric states (N95.1) Active confirmed Vital Signs Temperature 98.4 degrees Fahrenheit 05/28/2024 Blood pressure diastolic 70 mm Hg 05/28/2024 Height 60 in 05/28/2024 Blood pressure systolic 120 mm Hg 05/28/2024 Weight 197 lbs 05/28/2024 BMI 38.47 kg/m2 05/28/2024 Encounters Encounter Location Date Provider Diagnosis [place] [address] [facility] [address] [place] [address] 06/06/2024 Wendi Ahn [address] [address] 05/28/2024 Wendi Ahn Encounter for gynecological examination [...] Provider Name:Wendi justice, 06/03/2025 10:20:00 AM, [address], [address], [place], [address], Insurance Providers Payer Name Payer Address Payer Phone Subscriber Number Group Number Insured Name Patient Relationship to Insured Coverage Start Date Coverage End Date [facility] [address] [place] [address] [place] [id number] BERHANE REES Spouse - patient is the spouse of [...] Ablation 2015 Bladder Procedure (unsure of name) Colonoscopy BACK SURGERY 2022 Hospitalization History Reason Date(Month/Year) BLOOD PRESSURE ISSUES X 4 DAYS 09/2022 See Surgical Hx 1 Vaginal Delivery
--- OUTSIDE RECORDS SUMMARY | 2025-02-23 14:31 | XMS_ITS | Clinical Summary ---
Author Organization [facility], Address [address] [place] [address] [place] [address] Phone Care Team Providers Care Bun Icer Name Role Phone Aureliano German MD Primary Care Provider [phone] Allergies Active Allergy Reactions Criticality Noted Date [...] Blood Pressure Monitoring (Blood Pressure Monitor/L Cuff) [facility] Use blood pressure cuff twice daily to [...] to see endocrine surgeon, Dr. Stone at [facility] should be who usually repeats the ultrasound himself for further evaluation and he can make a better judgment call on whether the patient requires surgery. I have informed the patient that if she does not have a surgical procedure that she can continue following at [facility] with the fine patcher there. If she does undergo a surgical [...] 2 - PCV) 020 08/27/2018 Influenza Vaccine (#1) 2025 04/16/2020 Pneumococcal Vaccine: Peds ( 0 to 5 Years) and At-Risk Patients (6 to 49 Years) Discontinued 08/27/2018 Insurance Care Teams Bun Icer Relationship Specialty Start Date End Date Aureliano German MD [facility] [place] [address] [place] PCP - General Internal Medicine 08/11/22
--- OUTSIDE RECORDS SUMMARY | 2025-02-23 14:31 | XMS_ITS | Clinical Summary ---
Author Organization [facility] Address [address] [place] [address] Care Team Providers Care Eligibility Consultant Name Role Phone Aureliano German MD Primary Care Provider [phone] Allergies Active Allergy Reactions Criticality Noted Date Comments Amlodipine Other (See Comments),Palpitations Medium 09/05/2018 Erythromycin Nausea And Vomiting, Other (See Comments) 09/05/2018 Hydrochlorothiazide-Triamter torie Other (See Comments) 09/05/2018 Lisinopril Other (See Comments) 09/05/2018 Losartan Other (See Comments) 09/05/2018 Pravastatin Other (See Comments),Palpitations Low 09/05/2018 Sulfa Antibiotics 09/05/2018 Medications Medication [...] (1 of 2) 2016 Influenza Vaccine (#1) 2025 9, 05/20/2018, 05/28/2017, Additional history exists Pneumococcal Vaccine Aged Out 08/27/2018 No long er eligible based on patient's age to complete this topic RSV Ped < 20 months Aged Out No longe r eligible based on patient's age to complete this topic Care Teams Eligibility Consultant Relationship Specialty Start Date End Date Aureliano German MD [address] [place] [address] [address] [facility] [place] [address] PCP - General Internal Medicine 08/11/22
--- OUTSIDE RECORDS SUMMARY | 2025-02-23 14:31 | XMS_ITS | Clinical Summary ---
Author Organization [facility] Address [address] [facility] [address] [place] [address] Phone Care Team Providers Care Sales Systems Engineer Name Role Phone Aureliano German MD Primary Care Provider [phone] Allergies Active Allergy Reactions Criticality Noted Date Comments Amlodipine Other (See Comments),Palpitations,Thr oat Tightness Medium 09/05/2018 Erythromycin Other (See Comments),Nausea and/or Vomiting 09/05/2018 Lisinopril Cough,Other (See Comments) 9 Losartan 09/05/2018 Triamterene-Hydrochlorothia zid 09/05/2018 Pravastatin 09/05/2018 Pravastatin Sodium Palpitations Low 10/24/2021 Sulfa (Sulfonamide Antibiotics) 09/05/2018 Medications valACYclovir (VALTREX) 500 MG tablet Take 500 mg by mouth daily. Active atorvastatin (LIPITOR) 20 MG tablet Take 20 mg by mouth daily. Active aspirin 81 MG EC tablet Take 81 mg by mouth daily. Active furosemide (LASIX) 20 MG tablet Take 20 mg by mouth daily. Active cloNIDine HCl (CATAPRES) 0.2 MG tablet Take 0.2 mg by mouth 2 (two) times a day. Active metoprolol succinate (TOPROL-XL) 100 MG 24 hr tablet Take 100 mg by mouth daily. Take 1.5 tab Active hydrALAZINE (APRESOLINE) 25 MG tablet Take 25 mg by mouth 2 (two) times a day. Active Ca cit-D3-mag#11-z eoz-utph-crz-jimbo r (CALTRATE 600+D) 600 mg calcium- 800 unit-50 mg Tab Take 1 tablet by mouth daily. Active magnesium oxide (URO-MAG) 84.5 mg mag (140 mg) Cap Take 400 mg by mouth daily with breakfast. Active calcium carbonate-vitam in D3 500 mg-400 units per tablet Take 1 tablet by mouth daily. 2 Active cyclobenzaprine (FLEXERIL) 5 MG tablet Take 10 mg by mouth nightly at bedtime. 2 Active aspirin 81 mg chewable tablet Take 1 tablet by mouth. Active atorvastatin (LIPITOR) 20 MG tablet Take by mouth. 1 Active cloNIDine HCL (CATAPRES) 0.2 MG tablet Take 0.4 mg by mouth. 1 Active furosemide (LASIX) 40 MG tablet Take 40 mg by mouth. 1 Active furosemide (LASIX) 40 MG tablet Take 40 mg by mouth daily. 2 Active hydrALAZINE (APRESOLINE) 50 MG tablet Take 50 mg by mouth. 1 Active hydrALAZINE (APRESOLINE) 50 MG tablet 2 Active valACYclovir (VALTREX) 1000 MG tablet Take 1,000 mg by mouth daily. 2 Active valACYclovir (VALTREX) 500 MG tablet Take by mouth. 1 Active naproxen (NAPROSYN) 500 MG tablet Take 1 tablet (500 mg total) by mouth 2 (two) times a day for 3 days. Then twice daily as needed for pain, inflammation 20 tablet 2 Active Active Problems Problem Noted Date Diagnosed Date Nontoxic multinodular goiter 09/05/2018 Assessment & Plan (09/05/2018 2:27 PM EST): This patient has a nontoxic multinodular goiter [...] to see endocrine surgeon, Dr. Stone at [facility] should be who usually repeats the ultrasound himself for further evaluation and he can make a better judgment call on whether the patient requires surgery. I have informed the patient that if she does not have a surgical procedure that she can continue following at [facility] with the land degradation analyst there. If she does undergo a surgical procedure she can always call me to schedule a visit for thyroxine replacement. In the meantime I would not schedule a follow-up visit. Family History Medical History Relation Comments Heart disease Father No Known Problems Maternal Grandfather No Known Problems Maternal Grandmother Alzheimer's disease Mother No Known Problems Paternal Grandfather No Known Problems Paternal Grandmother Relation Status Comments Father Maternal Grandfather Maternal Grandmother Mother Paternal Grandfather Paternal Grandmother Social History Tobacco Use Types Packs/Day Years Used Date Smoking Tobacco: Never Smokeless Tobacco: Never Alcohol Use Standard Drinks/Week Comments Yes 1 (1 standard drink = 0.6 oz pur e alcohol) Education Answer Date Recorded Are you interested in more education? Not on samir e 11/24/2022 Are you concerned about learning? Not on file 11/24/2022 No 11/24/2022 No 11/24/2022 Digital Access Answer Date Recorded No 12/23/2022 No 12/23/2022 No 12/23/2022 Reliable internet access at home? Not on file 12/23/2022 Device with a working camera? Not on file Comments Unknown Sex and Gender Information Value Date Recorded Sex Assigned at Not on file Legal Sex Female 11:41 AM EST Gender Identity Not on file Sexual Orientation Not on file Last Filed Vital Signs Vital Sign Reading Time Taken Comments Blood Pressure 180/100 10/24/2021 12:20 PM EDT ma deenaal bp Pulse 61 10/24/2021 12:11 PM EDT Temperature - - Respiratory Rate 18 10/24/2021 12:11 PM EDT Oxygen Saturation 97% 10/24/2021 12:11 PM EDT Inhaled Oxygen Concentration - - Weight 89.4 kg (197 lb) 10/24/2021 12:11 PM EDT Height 149.9 cm (4' 11 ) 10/24/2021 12:11 PM EDT Body Mass Index 39.79 10/24/2021 12:11 PM EDT Plan of Treatment Health Maintenance Due Date Last Done Comments LIPID PANEL 1966 DEPRESSION SCREENING 1978 HEPATITIS C SCREENING 1984 HIV ONE-TIME SCREENING (18-65 YEARS) 1984 PAP SMEAR 1987 MAMMOGRAM 2006 COLOGUARD 2011 COLONOSCOPY 2011 COLORECTAL CANCER SCREENING 2011 FIT TEST 2011 FOBT 2011 SIGMOIDOSCOPY 2011 VIRTUAL COLONOSCOPY 2011 PNEUMOCOCCAL VACCINES (50+ years) (2 of 2 - PCV) 08/27/2019 08/27/2018 Adult Td,Tdap Booster 05/05/2020 05/05/2010 COVID-19 VACCINE (2023- season) 2024 09/20/2020, 08/30/2020 ZOSTER VACCINES Completed 06/21/2020, 05/31, 04/16/2020, Additional history exists SMOKING STATUS SCREENING (Once After 26 Yrs) Completed 10/24/2021 HEPATITIS A VACCINES Aged Out No long er eligible based on patient's age to complete this topic HIB VACCINES Aged Out No longer eligi ble based on patient's age to complete this topic MENINGOCOCCAL VACCINES (ACWY) Aged Out No longer eligible based on patient's age to complete this topic MENINGOCOCCAL VACCINES (B) Aged Out N o longer eligible based on patient's age to complete this topic Medical Devices Not on file Insurance [facility] HMO O O O O O O O O Care Teams Sales Systems Engineer Relationship Specialty Start Date End Date Aureliano German MD [address] [place] [address] PCP - General Internal Medicine 10/24/21 Additional Source Comments The information contained in this document represents components of the legal health record. It is not the complete legal health record.[facility]
--- OUTSIDE RECORDS SUMMARY | 2025-02-23 14:31 | XMS_ITS | Data Portability ---
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 We discussed no bending no lifting no [...] findings at length with the patient today. We discussed the nature and etiology of this problem along with current treatment options. We discussed the expected course and outcomes and what to expect. We also discussed risks and benefits. All of their questions were answered today, and there was exhibited understanding and comprehension of all that was discussed. Time Spent: 10 minutes were spent reviewing previous imaging and charting. 10 minutes were spent obtaining patient history. 5 minutes were spent on physical exam. 5minutes were spent explaining diagnosis and assessment. Today's documentation was made using voice recognition software. This note may contain grammatical errors secondary to the software. Not available 12/15/2022 13:51:40 01/09/2023 01/09/2023 57-year-old abram lundberg who presents for evaluation of neck and [...] 3 view 2022 023 [email or web address] [facility], [address], [place], [address], 14:52:52 XR, shoulder, 2 or more view 2022 023 [email or web address] [facility], [address], [place], [address], 17:36:55 Medication Orders methylpredn isolone 4 mg tablet 2022 023 [id number], [address] [place], [place], [id number], 13:46:08 Patient TargetsNo targets recorded. Patient Instructions Encounter Date Encounter Id Patient Instructions Last Modified By Organization Details Last Modified Time 12/04/2022 [id number] views of the right shoulder were obtained on 12/04/2022 in the [place] office. Quality is somewhat limited by her body habitus. Glenohumeral joint space appears intact. No obvious superior migration of the humeral head, acromiohumeral interval intact. Moderate degenerative changes at the AC joint. No obvious soft tissue calcifications. No acute fracture appreciated. Type II acromion. Findings: Well-maintained joint space right shoulder. Interpreted by: Wood Tran MD Not available 12/07/2022 15:37:21 12/15/2022 [id number] X-rays AP and lateral view of the cervical spine show degenerative change and loss of lordotic curvature. No acute bony abnormality is observed. Not available 12/15/2022 13:52:14 Reason for Referral None Reported. Problems Name Problem SNOMED Code Status Onset Date Resolution Date Notes Provider Name and Address Organization Details Recorded Time Full thickness rotator cuff tear 026531481 Active 2022 Wood Tran MD [address] [facility],[address], [place], [address] , [place] [facility] 3 13:41:27 Pain radiating to neck 916304546 Active 2022 JAYCOB DAVENPORT PA-C [address], [facility] [place], [address], [place] [facility] 3 13:45:02 Cervical radiculopathy 73512118 Active 2022 Dania Schilling PA-C [address], [place], [address], [place] [facility] 3 17:35:47 Neck pain 66702326 Active 2022 Dania Schilling PA-C [address], [place], [address], [place] [facility], [facility] 3 17:35:48 Cervical spondylosis 253811005 Active 2022 Dania Schilling PA-C [address], [place], [address], [place] [facility] 3 17:35:49 Pain radiating to left arm 856891732 Active 2022 Dania Schilling PA-C [address], [place], [address], [place] [facility], [facility] 3 17:35:59 Problem Notes None recorded. Procedures Surgical History Date Name Laterality Status Provider Name and Address Organization Details Recorded Time cholecystectomy completed Crystal Hermosillo [place] [facility] 12/04/2022 13:19:51 Imaging Results None recorded. [...] Not available Not available Not available 12/04/2022 [id number] SNOMED Crystal Hermosillo [facility], [place] [facility], P 13:17:04 3652 lisinopri l medicatio n Not available Not available Not available 12/04/2022 [id number] RxNorm Maida Herm[place] null, [place] [facility], [facility] 3 13:17:31 Medications Name Sig Start [...] Updated DateTime 12/04/2022 149.86 cm 40.4 kg/m2 25697.47 g Maida Hermosillo [place] [facility] 12/04/2022 13:17:52 Date Recorded Body height Body mass index (BMI) Body weight Provider Name and Address Organization Details Last Updated DateTime 01/09/2023 149.86 cm 38.8 kg/m2 72856.74 g Coral Hughes [place] [facility] 01/09/2023 14:24:58 Social History None recorded. Functional Status Question Answer Note LastModified by Organizat ion Details LastModified Time How many times per week do you consume alcohol? Less than 1 time per week [email or web address] Information not available 12/04/2022 Do you use any illicit or recreational drugs? No [email or web address] Information not available 12/04/2022 Do you or have you ever used any other forms of tobacco or nicotine? No Information not available 12/04/2022 What is your level of alcohol consumption? Occasional [email or web address] Information not available 12/04/2022 Mental Status None recorded. Family History Relationship Description Onset Age of this Age Resolved Age Notes LastModified by Organization Details LastModified Time Mother History of hypertension [email or web address] Not available 02/2023 13:19:08 Mother Hyperlipidem ia [email or web address] Not available 2022 13:19:35 Father History of hypertension [email or web address] Not available 02/2023 13:19:08 Father Hyperlipidem ia [email or web address] Not available 2022 13:19:35 Sister History of hypertension [email or web address] Not available 02/2023 13:19:08 Sister Hyperlipidem ia Not available 2022 13:19:35 Brother History of hypertension [email or web address] Not available 02/2023 13:19:08 Brother Hyperlipidem ia [email or web address] Not available 2022 13:19:35 Medical History No medical history recorded. Gynecological HistoryNo gynecological history recorded. Obstetrics History GPAL:G 0 P 0 0 0 0 Past Encounters Encounter ID Performer Location Encounter Start Date Encounter Closed Date Diagnosis/Indication Diagnosis SNOMED-CT Code Diagnosis ICD10 Code Diagnosis Note [id number] MD [facility] [address] [facility] [address] [place] [address] 12/04/2022 12:58:30 12/04/2022 13:45:57 Full thickness rotator cuff tear 003911000 M75.121 Body mass index 40+ - severely obese 474211548 Z68.41 [id number] [facility]IN [facility] [address] [facility] [address] [place] [address] 12/15/2022 13:24:45 12/15/2022 13:51:07 Neck pain 81736077 M54.2 Pain radia ting to neck 696820834 M54.2 [id number] [facility] [place] [address] 01/09/2023 13:42:37 01/09/2023 14:47:51 Cervical radiculopathy 64461654 M54.12 Neck pain 79302693 M54.2 Cervical spondylosis 387 153386 M47.812 Pain radia ting to left arm 305095928 M79.602 Health Concerns Section Related Observation LastModified by Organization Detai ls LastModified Time None Recorded Concern Status LastModified by Organization Details LastModified Time None Recorded Advance Directives Directive None Recorded Payers Insurance Date Sequence Insurance Name Policy Number Policy Rodriguez Covered Member ID Rodriguez Member ID Guarantor Name 12/18/[address] [facility] [id number] 1 Yonny Brantley [id number] Cathryn Brantley OBGyaiden Episode No OBEpisode recorded.
--- OUTSIDE RECORDS SUMMARY | 2025-02-23 14:31 | XMS_ITS | Continuity of Care Document ---
Author Organization [facility] [address] [place] [address] Phone [phone] Care Team Providers Care Marketing Teacher Name Role Phone Po, Aureliano Care Team Information Corrugator Operator + [phone] Problems Active Problems Provider Date Impaired glucose tolerance Tran Laws Onset: 09/07/2023 Thyroid nodule Jimi Olivo M.D. Onset: 0 09/07/2023 Essential hypertension Jimi Olivo M.D. O nset: 09/07/2023 Hypercholesterolemia Jimi Olivo M.D. Ons et: 09/07/2023 Dysuria Jimi Olivo M.D. Onset: 0 09/07/2023 Social History Type Date Description Comments Sex Female Sex Unknown Tobacco Use Start: Unknown Never Smoked Cigarettes ETOH Use Occasionally consumes alcoho l Allergies and adverse reactions Active Allergies Criticality Reaction Severity Comments Date Erythromycin Unable to assess criticality 09/07/2023 Sulfamethoxazole Unable to assess criticality 09/07/2023 Lisinopril Unable to assess criticality Cough 09/07/2023 Medications Active Medications SIG Qnty Indications Ordering Provider Date Sertraline VUH406us Tablets Take 1 Tablet By Mouth Every Day Po, Lorenver Valacyclovir NBN466le Tablets Take 1 Tablet By Mouth Every Day Po, Lorenver Losartan Slcrcdbqt737hz Tablets Take 1 Tablet By Mouth Every Day Po, Lorenver Aspirin Low Obqy04ux Tablets DR Take 1 Tablet By Mouth Every Day Po, Lorenver Atorvastatin Tzttycx14kg Tablets Take 1 Tablet By Mouth Every Day Po, Lorenver Clonidine HCL0.2mg Tablets Take 2 Tablets By Mouth Twice A Day Po, Lorenver Hydralazine GZH52uy Tablets Take 2 Tablets By Mouth Every 12 Hours For 90 Days Po, Lorenver Zieammdsxvzybu33xl Tablets Take 1 Tablet By Mouth Every Day Po, Lorenver Yzxadpppxm34an Tablets Take 1 Tablet By Mouth Twice A Day For 90 Days Po, Lorenver Vital Signs Date Vital Result Comment 03/07/2024 2:46pm BP Systolic 140 mmHg BP Diastolic 80 mmHg Heart Rate 72 /min Height 59 inches 4'11 Weight 198.00 lb BMI (Body Mass Index) 40.0 kg/m2 Results Test Acquired Date Facility Test Result H/L Range N ote TSH 09/07/2023 [facility] TSH 0.59 uIU/mL (0.4-4.2) Free T4 09/07/2023 [facility] Free T4 1.15 ng/dL (0.70-1.80) [...]
[2025-02-23 14:36] LABS: Hemoglobin A1C 148.8396 umol/L; Total Hemoglobin (HGBA1C) 3369.3837 umol/L
[2025-02-23 14:45] LABS: Alanine Aminotransferase 27 U/L (0-31); Albumin Level 4.6 g/dL (3.5-5.0); Alkaline Phosphatase 101 U/L (39-117); Anion Gap 14 (12-20); Aspartate Amino Transferase 28 U/L (5-31); Blood Urea Nitrogen 19 mg/dL (9-16); Calcium 10.1 mg/dL (8.4-10.2); Carbon Dioxide 26 mmol/L (22-29); Chloride 107 mmol/L (96-108); Cholesterol 189 mg/dL (<200); Estimated Glomerular Filt Rate > 60; HDL Cholesterol 49 mg/dL (>40); Potassium 4.2 mmol/L (3.3-5.1); Sodium 143 mmol/L (135-145); Total Protein 7.6 g/dL (6.5-8.0); Triglycerides 178 mg/dL (<150)
[2025-02-23 14:49] LABS: Appearance Urine Clear; Glucose Urine UA Negative (Negative); PH 6.0 (5.0-9.0); Specific Gravity - Urine 1.020 (1.005-1.025); UMIC TRIGGER UACC YES
[2025-02-23 15:02] LABS: Free T4 (Free Thyroxine) 1.00 ng/dL (0.71-1.85); Thyroid Stimulating Hormone 0.70 uIU/mL (0.32-4.0)
[2025-02-23 15:14] LABS: Folate 9.3 ng/mL (> or = 4.0); Vitamin B12 421 pg/mL (200-900)
== END 2025-02-23 13:50 | disposition home or self-care (01) ==
LOC: HO.LAB 13:49
PROVIDERS: PCP Internal Medicine; Visit Provider Internal Medicine
DX: I10 Essential (primary) hypertension (principal); E78.00 Pure hypercholesterolemia, unspecified; R73.02 Impaired glucose tolerance (oral); K21.9 Gastro-esophageal reflux disease without esophagitis; M25.312 Other instability, left shoulder; F41.1 Generalized anxiety disorder; R13.10 Dysphagia, unspecified
CPT/HCPCS: 36415; 80053; 80061; 81001; 82306; 82607; 82746; 83036; 84439; 84443; 85025

== ENCOUNTER 2025-02-23 16:00 | Outpatient (AMB) | payer OTHER, SELFPAY ==
[2025-02-23 16:06] VITALS: BP 114/82; PULSE 87; RESP 18; TEMP 36.2; O2SAT 93; BMI 37.6
--- OUTSIDE RECORDS SUMMARY | 2025-02-23 16:06 | XMS_ITS ---
Author Name [facility] Organization Unknown History of Medication Use Medication Directions Dispensed Refills Start Date End Date Stat us methylprednisolone 4 mg tablet 1 tab TID x 5 days, 1 tab BID x 5 days, 1 tab QD x 5 days 12/15/2022 active aspirin 81 mg tablet,delayed release TAKE 1 TABLET BY MOUTH EVERY DAY active atorvastatin 20 mg tablet TAKE 1 TABLET BY MOUTH DAILY active carvedilol 12.5 mg tablet TAKE 1 TABLET BY MOUTH TWICE DAILY active carvedilol 25 mg tablet active carvedilol 25 mg tablet active carvedilol 6.25 mg tablet TAKE 1 TABLET BY MOUTH TWICE DAILY FOR HIGH BLOOD PRESSURE. TAKE WITH A MEAL/FOOD active carvedilol 6.25 mg tablet TAKE 1 TABLET BY MOUTH TWICE DAILY FOR HIGH BLOOD PRESSURE. TAKE WITH A MEAL/FOOD active hydralazine 50 mg tablet TAKE 2 TABLETS BY MOUTH EVERY 12 HOURS active levofloxacin 500 mg tablet TAKE 1 TABLET BY MOUTH DAILY FOR 5 DAYS active losartan 100 mg tablet TAKE 1 TABLET BY MOUTH DAILY active losartan 50 mg tablet TAKE 1 TABLET BY MOUTH DAILY active metoprolol succinate ER 100 mg tablet,extended release 24 hr TAKE 1 TABLET BY MOUTH DAILY active omeprazole 20 mg capsule,delayed release TAKE 1 CAPSULE BY MOUTH DAILY active sertraline 100 mg tablet TAKE 1 TABLET B Y MOUTH DAILY active spironolactone 50 mg tablet active valacyclovir 500 mg tablet TAKE 1 TABLET BY MOUTH DAILY active Allergies Allergen Reaction Severity Comment Documented Date Source Statu s LISINOPRIL [facility] SULFA (SULFONAMIDE ANTIBIOTICS) [facility] Problems Problem Status Onset Date Problem Type Date of Resoluti on Source Neck pain active 2023-01-[address] [facility] Pain radiating to left arm active 2023-01-09 ProblemAct [facility] Cervical radiculopathy active 2023-01-09 ProblemAct [facility] Full thickness rotator cuff tear active 2022-12-04 ProblemAct [facility] Pain radiating to neck active 2022-12-15 ProblemAct [facility] Cervical spondylosis active 2023-01-09 ProblemAct [facility] Encounters Encounter Type Encounter Reason Primary Diagnosis Location Date Ambulatory [facility] 05/24/2023 Amb[facility] 04/19/2023 [facility] 03/15/2023 [facility] 02/14/2023 [facility] 02/08/2023 Amb[facility] 02/07/2023 Amb[facility] 01/12/2023 [facility] 01/09/2023 Amb[facility] 01/09/2023 [facility] 01/05/2023 Amb[facility] 12[facility]26/2022 Ambulatory [facility] 12[facility]15/2022 Amb[facility] 12/15/2022 Amb[facility] 12/14/2022 Amb[facility] 12/13/2022 Ambulatory [facility] 12/04/2022 Amb[facility] 12/04/2022 Ambulatory [facility] 11/30/2022
--- NOTE | 2025-02-23 16:08 | A.OFFPC_ITS ---
Vital Signs 02/23/25 16:06 Height 5 ft 1 in Weight 199 lb 4 oz BMI 37.6 BP 114/82 Blood Pressure Location Lt brachial Position Sitting Respiration 18 Pulse 87 Pulse Source Pulse Oximeter Temp 97.1 F Temp Source Temporal Artery Scan Pulse Oximetry (%) 93 Oxygen Delivery Method Room Air Intake Visit Reasons: Hypertension Allergies erythromycin base (Erythromycin Base) Allergy (Severe, Verified 02/23/25 16:08) VOMITING, abdominal pain lisinopril Allergy (Severe, Verified 02/23/25 16:08) throat Itching, coughing Sulfa (Sulfonamide Antibiotics) Allergy (Severe, Verified 02/23/25 16:08) vaginal Itching oxycodone Adverse Reaction (Intermediate, Verified 02/23/25 16:08) Hallucinations Medication List - Last Reconciled 02/23/25 by Aureliano German MD acetaminophen 1,000 mg (2 x 500 mg) PO Q8H PRN aspirin 81 mg PO DAILY atorvastatin 20 mg PO DAILY betamethasone dipropionate 0.05% 1 appl topical BID PRN blood pressure monitor As directed calcium carbonate-vitamin D3 500 mg-10 mcg (400 unit) (Calcium 500 With D) 1 tab PO DAILY carvedilol 25 mg PO BID 90 days clonidine HCl 0.2 mg PO BID 90 days COVID-19 antigen test (BinaxNOW COVID-19 Ag Card Home Test kit) As directed hydralazine 50 mg PO Q12H ibuprofen 600 mg PO Q6-8H PRN losartan 100 mg PO DAILY [Marshmallow Root 960 mg PO BID] melatonin 10 mg PO BEDTIME PRN multivitamin,tx-minerals 1 tab PO DAILY sertraline 100 mg PO DAILY spironolactone 50 mg PO DAILY Tobacco use date assessed: 02/23/25 Dental Screening Dental Screen Date: 02/23/25 Did you have a dental visit in the last 12 months?: Yes Did you have a dental problem in the last 6 months where you did not have access to dental care?: No Was dental information given to patient?: Patient has dentist HPI Hypertension HPI Details bilateral shoulder better. complains of chocking on [facility] History Right hip pain Left hip pain Hemoptysis Hip pain, bilateral Lipoma Morbid obesity Lateral epicondylitis of left elbow Dysphagia Shoulder pain, bilateral Lumbar radiculitis Sciatica Trochanteric bursitis of both hips Numbness of left hand Moderate obstructive sleep apnea LATRICE (obstructive sleep apnea) Bilateral hand numbness Insomnia Breast cancer screening by mammogram Knee pain, bilateral Hypertensive urgency Elevated troponin Dysuria Trochanteric bursitis of right hip Thyroid nodule Impaired glucose tolerance Subacromial bursitis of left shoulder joint Obesity GERD (gastroesophageal reflux disease) Hypercholesterolemia Hypertension Surgical History History of bladder surgery History of endometrial ablation Hx of colonoscopy Hx of breast biopsy Status post excision of lipoma (~01/03/23) Hx of cholecystectomy Family History Father CKD (chronic kidney disease) Hypertension Myocardial infarct Mother Dementia Sister Brain aneurysm Bone cancer Schizophrenia Brother No problems noted. Brother Myocardial infarct Son No problems noted. 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, niece will cover while recovering) Do you presently have visiting nurse or other home services: No Alcohol intake: current Alcohol intake frequency: holidays/special occasions only Alcohol type: hard liquor Patient Tobacco Use Status: Never used Tobacco e-Cigarette/Vaping Use: Never Used Second Hand Smoke Exposure: No Advance Directives Date on File: 07/09/23 service: No Current occupational status: employed 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 1. Little interest or pleasure in doing things: not at all 2. Feeling down, depressed, or hopeless: not at all 3. Trouble falling or staying asleep, or sleeping too much: not at all 4. Feeling tired or having little energy: not at all 5. Poor appetite or overeating: not at all 6. Feeling bad about yourself - or that you are a failure or have let yourself or your family down: not at all 7. Trouble concentrating on things, such as reading the newspaper or watching television: not at all 8. Moving or speaking so slowly that other people could have noticed. Or the opposite - being so fidgety or restless that you have been moving around a lot more than usual: not at all 9. Thoughts that you would be better off or of hurting yourself in some way: not at all Total score: 0 Source: Developed by Drs. Ray Franco, Sharron Arias, David Gonzalez and colleagues, with an educational ronald from [employer]. Thrive Questionnaire Date Thrive assessed: 02/23/25 I am a: Patient What is your living situation today?: I have a steady place to live Within the past 12 months, did the food you bought not last and you didn't have the money to get more?: Never true Within the past 12 months, did you worry whether your food would run out before you got money to buy more?: Never true Do you have trouble paying for medicines?: No Do you have trouble getting transportation to medical appointments?: No Do you have trouble paying your heating and electricity bill?: No Do you have trouble taking care of your child, family member or friend?: No Do you have trouble with day-to-day activities such as bathing, preparing meals, shopping, managing finances, etc.?: No Are you currently unemployed and looking for a job?: No Are you interested in more education?: No Please select the resources that you would like help with: None Currently or been in a relationship where the following occur: No concerns reported THRIVE Score: 0 AUDIT C Alcohol Use Questionnaire (AUDIT-C) 1. How often do you have a drink containing alcohol?: Monthly or less 2. How many drinks containing alcohol do you have on a typical day when you are drinking?: 1 or 2 3. How often do you have six or more drinks on one occasion?: Never Total Score: 1 FRANCISCO-7 AMB Questionnaire FRANCISCO-7 Date FRANCISCO - 7 assessed: 02/23/25 Feeling nervous, anxious, or on edge: 0 = Not at all Not being able to stop or control worryin = Not at all Worrying too much about different things: 0 = Not at all Trouble relaxin = Not at all Being so restless that it is hard to sit still: 0 = Not at all Becoming easily annoyed or irritable: 0 = Not at all Feeling afraid as if something awful might happen: 0 = Not at all Total FRANCISCO-7 score (0-4 normal; 5-9 mild; 10-14 moderate; 15-21 severe): 0 Source: Developed by Drs. Ray Franco, Sharron Arias, David Gonzalez and colleagues, with an educational ronald from [employer]. Physical exam (Primary Care) Vital Signs: Last Vital Signs Temp 97.1 F 02/23/25 16:06 Pulse 87 02/23/25 16:06 Resp 18 02/23/25 16:06 BP 114/82 02/23/25 16:06 Pulse Ox 93 02/23/25 16:06 Oxygen Delivery Method Room Air 02/23/25 16:06 BMI result Body Mass Index 37.6 Tobacco/Smoking Status: Tobacco use Status Tobacco use date assessed 02/23/25 02/23/25 16:10 Patient Tobacco Use Status Never used Tobacco 02/23/25 16:10 Tobacco use type 08/18/24 13:35 e-Cigarette/Vaping Use Never Used 02/23/25 16:10 PHQ-9: PHQ-9 Score PHQ-9: Total score 0 02/23/25 16:14 Thrive Assessment: Date of Thrive Assessment Date Thrive assessed 02/23/25 02/23/25 16:10 Currently or been in a relationship where the following occur: No concerns reported Const General: alert; No acute distress Eyes Conjunctivae: conjunctivae normal Resp Auscultation: clear to auscultation bilaterally Cardio Rate: regular rate Rhythm: regular rhythm GI Inspection: Yes normal to inspection Extrem General: Yes normal to inspection and No edema Coding Level of Care Code Est Pt Level 4 (31041) Complex EM visit Add On G2211 Diagnoses Primary hypertension I10 Hypertension type: primary hypertension Hypercholesterolemia E78.00 Impaired glucose tolerance R73.02 Gastroesophageal reflux disease without esophagitis K21.9 Esophagitis presence: without esophagitis Rotator cuff insufficiency of left shoulder M25.312 Generalized anxiety disorder F41.1 Dysphagia R13.10 Bilateral carpal tunnel syndrome G56.03 Assessment & Plan Assessment & Plan (1) Hypertension: Code(s): I10 - Essential (primary) hypertension Category: Medical Qualifiers: Hypertension type: primary hypertension Qualified Code(s): I10 - Essential (primary) hypertension Plan: Continue with blood pressure medication. Decrease salt intake and exercise patient is on carvedilol 25 mg twice a day clonidine 0.2 mg twice a day hydralazine 50 mg twice a day losartan 100 mg once a day and spironolactone (2) Hypercholesterolemia: Code(s): E78.00 - Pure hypercholesterolemia, unspecified Category: Medical Plan: Avoid fried foods, chicken skin, eggs, butter margarine, pastries and meat. Be it pork or beef they have a lot of cholesterol LDL goal of less than 130 and triglyceride of less than 150 on atorvastatin 20 mg once a day (3) Impaired glucose tolerance: Code(s): R73.02 - Impaired glucose tolerance (oral) Category: Medical Plan: Decrease the amount of carbohydrate intake, pasta, bread, rice and potatoes are all sugar and that is aside from all the sweet stuff, remember that fruits are good but they are Sweet also. (4) GERD (gastroesophageal reflux disease): Code(s): K21.9 - Gastro-esophageal reflux disease without esophagitis Category: Medical Qualifiers: Esophagitis presence: without esophagitis Qualified Code(s): K21.9 - Gastro-esophageal reflux disease without esophagitis Plan: Avoid the foods that causes that usually spicy foods, tomato products, juices, coffee, soda and foods that your sensitive to. After eating do not lie down, allow 3-4 hours before in lie down. And keep the head of bed above 30 degrees to avoid the acid from going up. (5) Rotator cuff insufficiency of left shoulder: Code(s): M25.312 - Other instability, left shoulder Category: Medical Plan: Patient has seen Orthopedics and planned procedure on the left shoulder (6) Generalized anxiety disorder: Code(s): F41.1 - Generalized anxiety disorder Category: Medical Plan: Continue with sertraline (7) Dysphagia: Code(s): R13.10 - Dysphagia, unspecified Category: Medical (8) Bilateral carpal tunnel syndrome: Comment: 05/2024This is an abnormal study. 2. There is electrodiagnostic evidence for bilateral mild median neuropathy at the wrist, consistent with carpal tunnel syndrome. 3. There is no electrodiagnostic evidence for ulnar neuropathy, brachial plexopathy, or cervical radiculopathy. Code(s): G56.03 - Carpal tunnel syndrome, bilateral upper limbs Category: Medical Plan History of Present Illness The patient is a 59-year-old female presenting for a follow-up visit to address multiple chronic conditions including hypertension, hypercholesterolemia, GERD, and osteoarthritis, as well as to discuss recent diagnostic results and preventative care measures. The patient has a history of obesity and has recently achieved a 7-pound weight loss. She has been diagnosed with hypertension and is currently on a regimen including carvedilol, clonidine, hydralazine, losartan, and spironolactone. Her blood pressure management is being monitored closely, with adjustments made as necessary. The patient has hypercholesterolemia, with an LDL goal of less than 130 mg/dL and triglycerides less than 150 mg/dL. She is currently on atorvastatin 20 mg daily, and her LDL is at 105 mg/dL, while triglycerides are at 178 mg/dL. The patient reports symptoms consistent with GERD, including reflux pain. She has been experiencing choking episodes with food and water, and a barium swallow test has been recommended to assess swallowing difficulties. The patient has impaired glucose tolerance with a hemoglobin A1c of 6.2%. She is actively working on dietary modifications to manage her glucose levels. The patient has osteoarthritis of the knees and has been seen by orthopedics for rotator cuff insufficiency of the left shoulder, with a procedure planned. The patient has a history of generalized anxiety disorder and is continuing treatment with sertraline. She also reports symptoms of carpal tunnel syndrome, with numbness and pain in her hands, and has been advised to use wrist splints. Health Maintenance - Mammogram up to date as of May 2024 - Colonoscopy last performed in 2018 - Barium swallow test recommended for swallowing difficulties Social History - Reports recent weight loss of 7 pounds - Actively working on dietary modifications to manage glucose levels - Reports stopping soda consumption and drinking water with lemon Review of Systems - Cardiovascular: Denies chest pain, reports hypertension - Gastrointestinal: Reports reflux pain, choking with food and water - Musculoskeletal: Reports knee pain due to osteoarthritis, shoulder pain due to rotator cuff insufficiency - Neurological: Reports numbness and pain in hands consistent with carpal tunnel syndrome - Endocrine: Reports impaired glucose tolerance - Psychiatric: Reports generalized anxiety disorder Physical Exam Results - Labs: Normal blood count with microcytosis, normal electrolytes, normal renal function, blood sugar 100 mg/dL, hemoglobin A1c 6.2%, triglycerides 178 mg/dL, LDL 105 mg/dL, normal liver function, normal thyroid, folic acid, vitamin D, and vitamin B12 levels, clean urine analysis Plan The patient will continue her current antihypertensive regimen, including carvedilol, clonidine, hydralazine, losartan, and spironolactone, with close monitoring of blood pressure levels to ensure optimal control. For hypercholesterolemia, the patient will remain on atorvastatin 20 mg daily, with a focus on dietary modifications to further reduce triglyceride levels. A barium swallow test has been recommended to evaluate the patient's swallowing difficulties, and she is advised to continue dietary modifications to manage GERD symptoms. The patient is encouraged to maintain her current weight loss efforts and dietary changes to manage impaired glucose tolerance, with regular monitoring of hemoglobin A1c levels. For osteoarthritis and rotator cuff insufficiency, the patient has a planned procedure for the left shoulder and is advised to continue any prescribed physical therapy exercises. The patient is advised to use wrist splints for carpal tunnel syndrome and to monitor symptoms closely, with consideration for further intervention if symptoms worsen. Patient was informed and verbally consented to the use of an ambient scribe for clinic note documentation during this visit. Discussion Notes During the visit, I discussed with the patient the importance of maintaining her current antihypertensive regimen and the need for regular monitoring of her blood pressure. We reviewed her cholesterol management plan, emphasizing dietary changes to help lower triglyceride levels. I explained the purpose of the barium swallow test to assess her swallowing difficulties and advised her on dietary modifications to manage GERD symptoms. We also discussed her glucose management plan, encouraging continued weight loss and dietary changes. For her musculoskeletal issues, we reviewed the planned procedure for her shoulder and the use of wrist splints for carpal tunnel syndrome. Patient Instructions - Continue current blood pressure medications and monitor levels regularly. - Maintain dietary changes to manage cholesterol and glucose levels. - Undergo barium swallow test as scheduled. - Use wrist splints for carpal tunnel syndrome and monitor symptoms. - Follow up with orthopedics for shoulder procedure. Orders: Orders [place] barium swallow Today R13.10 - Dysphagia, unspecified [place] upper GI series Today R13.10 - Dysphagia, unspecified Medications: New hydralazine 50 mg PO Q12H 180 tabs 0RF G47.33 - Obstructive sleep apnea (adult) (pediatric) fluticasone propionate 50 mcg/actuation (Flonase Allergy Relief) administer into each nostril 2 sprays intranasal DAILY 16 grams 1RF R13.10 - Dysphagia, unspecified Changed From spironolactone 50 mg PO DAILY 90 tabs 2RF G47.33 - Obstructive sleep apnea (adult) (pediatric) To spironolactone 25 mg PO DAILY 30 tabs 2RF G47.33 - Obstructive sleep apnea (adult) (pediatric) Refilled clonidine HCl 0.2 mg PO BID 180 tabs 1RF 90 days G47.33 - Obstructive sleep apnea (adult) (pediatric) sertraline 100 mg PO DAILY 90 tabs 3RF G47.33 - Obstructive sleep apnea (adult) (pediatric) carvedilol 25 mg PO BID 180 tabs 1RF 90 days I10 - Essential (primary) hypertension atorvastatin 20 mg PO DAILY 90 tabs 3RF G47.33 - Obstructive sleep apnea (adult) (pediatric) losartan 100 mg PO DAILY 90 tabs 3RF G47.33 - Obstructive sleep apnea (adult) (pediatric)
== END 2025-02-23 16:40 | disposition home or self-care (01) ==
LOC: HO.HMCH 16:00
PROVIDERS: PCP Internal Medicine; Visit Provider Internal Medicine
DX: I10 Essential (primary) hypertension (principal); E78.00 Pure hypercholesterolemia, unspecified; R73.02 Impaired glucose tolerance (oral); K21.9 Gastro-esophageal reflux disease without esophagitis; M25.312 Other instability, left shoulder; F41.1 Generalized anxiety disorder; R13.10 Dysphagia, unspecified; G56.03 Carpal tunnel syndrome, bilateral upper limbs

== ENCOUNTER 2025-04-24 14:56 | Outpatient (AMB) | payer OTHER, SELFPAY ==
--- OUTSIDE RECORDS SUMMARY | 2023-12-07 07:00 | XMS_ITS ---
Author Organization [facility] Address [address] [place] [address] Care Team Providers Care Cylindrical Mixer Name Role Phone YENY NORRIS M.D. 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 :1965 A ge:58 Y S ex:Female Date:12/07/2023 Address:[address] [place], [place] [id number] Pcp:YENY NORRIS M.D. Subjective: * Chief Complaints: * 1 . 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 * Medical History: Objective: * Vitals: Assessment: Plan: * Treatment: * Images: Billing Information: * Visit Code: * Procedure Codes: * Electronic signature of Vladislav Ahn MD on 04/24/2025 at 03:38 PM EDT Sign off status: Pending * Appointment Provider: Antoine Ahn M.D. Date: 0 12/07/2023 Generated for Jhoan el/Peri/Brittanie on: 0 04/24/2025 03:38 PM EDT
--- OUTSIDE RECORDS SUMMARY | 2024-01-04 10:00 | XMS_ITS ---
Author Organization [facility] Address [address] [place] [address] Care Team Providers Care Grain Miller Helper Name Role Phone YENY NORRIS M.D. 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 :1965 A ge:58 Y S ex:Female Date:01/04/2024 Address:[address] [place], [place] [id number] Pcp:YENY NORRIS M.D. Subjective: * Chief Complaints: * 1 . 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 * Medical History: Objective: * Vitals: Assessment: Plan: * Treatment: * Images: Billing Information: * Visit Code: * Procedure Codes: * Electronic signature of Vladislav Ahn MD on 04/24/2025 at 03:39 PM EDT Sign off status: Pending * Appointment Provider: Antoine Ahn M.D. Date: 0 01/04/2024 Generated for Jhoan el/Peri/Brittanie on: 0 04/24/2025 03:39 PM EDT
--- OUTSIDE RECORDS SUMMARY | 2024-02-06 09:00 | XMS_ITS ---
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 Primary Care Provider Wendi Bryant Unavailable [phone] Allergies Allergen (clinical drug ingredient) Drug/Non Drug Allergy documented on EMR Reaction Allergy Type Onset Date Status erythromycin Erythromycin Unknown Drug Allergy A ctive lisinopril Lisinopril Unknown Drug Allergy Activ e pravastatin Pravastatin Sodium Unknown Drug Allergy Active Substance with sulfonamide structure and antibacterial mechanism of action (substance) Sulfa Antibiotics Unknown Drug Allergy Active REASON FOR VISIT Annual (YELLOW FORM DONE) Encounters Encounter Location Date Provider Diagnosis [address] [address] 02/06/2024 Wendi Ahn Plan Of Treatment Next Appt Details Provider Name:Wendi Miroslava Neymar justice, 06/03/2025 10:20:00 AM, [address] [place] [address], [address], [place], [address], Progress Notes * BRAIN REESADOB:1965 ([age] yo F)Acc No.[id number]:02/06/2024 PROGRESS NOTES Patient: WONG KUMAR Appointment Provider: Antoine Ahn M.D. :1965 A ge:58 Y S ex:Female Date:02/06/2024 Address:[address] [place], [place] [id number] Pcp:YENY NORRIS M.D. Subjective: * Chief Complaints: * 1 . Annual (YELLOW FORM DONE). * Medical History: E xcessive and frequent menstruation with regular cycle, Polyp of corpus uteri, Excessive and frequent menstruation with irregular cycle, Other specified abnormal uterine and vaginal bleeding, Menopausal and female climacteric states, Chlamydial infection of genitourinary tract, unspecified, Herpesviral infection, unspecified, Postmenopausal bleeding, Excessive and frequent menstruation with regular cycle, Polyp of corpus uteri, Inconclusive mammogram, Mammographic heterogeneous density, bilateral breasts. 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 S exual activity c urrently sexually active. L ast Pap Smear: NIL, NEG HPV, 05/30/18 neg, NEG HRHPV, 05/06/15, NEG HRHPV. M ammogram: 1 08/22/22 50-75% density, 06/14/22 50-75% density, 03/27/20 50-75% density, 10/2018 BBW, 11/01/17 50-75% density, 10/27/16 < 50% density, 2013 normal. A bnormal Pap Smear: N o History of Abnormal Pap Smears. L MP and menses 2 017. H istory of STD's: H erpes, Chlamydia, Gonorrhea. C olonoscopy y es 2016. B one Density: . * OB History: T otal pregnancies 2 . T otal living children 1 . N VD 1 . * Allergies: E rythromycin: Allergy, Pravastatin Sodium: Allergy, Lisinopril: Allergy, Sulfa Antibiotics: Allergy. Objective: * Vitals: Assessment: Plan: * Treatment: * Images: Billing Information: * Visit Code: * Procedure Codes: * Electronic signature of Vladislav Ahn MD on 04/24/2025 at 03:39 PM EDT Sign off status: Pending * Appointment Provider: Antoine Ahn M.D. Date: 02/06/2024 Generated for Jhoan el/Peri/Trevoritting on: 04/24/2025 03:39 PM EDT
--- OUTSIDE RECORDS SUMMARY | 2024-06-06 06:00 | XMS_ITS ---
Author Organization [facility] [employer] [facility] Address [address] [place] [address] Care Team Providers Care Hide Paster Name Role Phone YENY NORRIS M.D. Primary Care Provider Wendi Bryant Unavailable [phone] REASON FOR VISIT ULTRA - CK FIBROIDS Encounters Encounter Location Date Provider Diagnosis [facility] [employer] [address] [place] [address] 06/06/2024 Wendi Ahn Plan Of Treatment Next Appt Details Provider Name:Wendi justice, 06/03/2025 10:20:00 AM, [address], [address], [place], [address], Progress Notes * BRAIN REESCAROLINEB:1965 (6 9 yo F)Acc No.[id number]:06/06/2024 PROGRESS NOTES Patient: WONG KUMAR Appointment Provider: Antoine Ahn M.D. :1965 A ge:59 Y S ex:Female Date:06/06/2024 Address:[address] [place], [place] [id number] Pcp:YENY NORRIS M.D. Subjective: * Chief Complaints: * 1 . ULTRA - CK FIBROIDS. * Medical History: Objective: * Vitals: Assessment: Plan: * Treatment: * Images: Billing Information: * Visit Code: * Procedure Codes: * Electronic signature of Vladislav Ahn MD on 04/24/2025 at 03:39 PM EDT Sign off status: Pending * Appointment Provider: Antoine Ahn M.D. Date: 1 08/06/2023 Generated for Jhoan el/Peri/Brittanie on: 0 04/24/2025 03:39 PM EDT
[2025-04-24 15:10] VITALS: BP 130/82; PULSE 74; TEMP 36.3; O2SAT 96; BMI 38.2
--- NOTE | 2025-04-24 15:10 | A.OFFPC_ITS ---
Vital Signs 04/24/25 15:10 Height 5 ft 1 in Weight 202 lb 2 oz BMI 38.2 BP 130/82 Blood Pressure Location Lt brachial Position Sitting Pulse 74 Pulse Source Pulse Oximeter Temp 97.3 F Temp Source Temporal Artery Scan Pulse Oximetry (%) 96 Oxygen Delivery Method Room Air Intake Visit Reasons: Eyesight and surgery 05/13& 06/02 Allergies erythromycin base (Erythromycin Base) Allergy (Severe, Verified 04/24/25 15:14) VOMITING, abdominal pain lisinopril Allergy (Severe, Verified 04/24/25 15:14) throat Itching, coughing Sulfa (Sulfonamide Antibiotics) Allergy (Severe, Verified 04/24/25 15:14) vaginal Itching oxycodone Adverse Reaction (Intermediate, Verified 04/24/25 15:14) Hallucinations Medication List - Last Reconciled 04/24/25 by Aureliano German MD acetaminophen 1,000 mg (2 x 500 mg) PO Q8H PRN aspirin 81 mg PO DAILY atorvastatin 20 mg PO DAILY betamethasone dipropionate 0.05% 1 appl topical BID PRN blood pressure monitor As directed calcium carbonate-vitamin D3 500 mg-10 mcg (400 unit) (Calcium 500 With D) 1 tab PO DAILY carvedilol 25 mg PO BID 90 days clonidine HCl 0.2 mg PO BID 90 days COVID-19 antigen test (ProbiodrugaxNOW COVID-19 Ag Card Home Test kit) As directed fluticasone propionate 50 mcg/actuation (Flonase Allergy Relief) 2 sprays intranasal DAILY hydralazine 50 mg PO Q12H ibuprofen 600 mg PO Q6-8H PRN losartan 100 mg PO DAILY [Marshmallow Root 960 mg PO BID] melatonin 10 mg PO BEDTIME PRN multivitamin,tx-minerals 1 tab PO DAILY sertraline 100 mg PO DAILY spironolactone 25 mg PO DAILY Tobacco use date assessed: 04/24/25 Dental Screening Dental Screen Date: 04/24/25 Did you have a dental visit in the last 12 months?: Yes Did you have a dental problem in the last 6 months where you did not have access to dental care?: No Was dental information given to patient?: Patient has dentist [facility] Medical History Dysphagia Right hip pain Left hip pain Hemoptysis Hip pain, bilateral Lipoma Morbid obesity Lateral epicondylitis of left elbow Shoulder pain, bilateral Lumbar radiculitis Sciatica Trochanteric bursitis of both hips Numbness of left hand Moderate obstructive sleep apnea LATRICE (obstructive sleep apnea) Bilateral hand numbness Insomnia Breast cancer screening by mammogram Knee pain, bilateral Hypertensive urgency Elevated troponin Dysuria Trochanteric bursitis of right hip Thyroid nodule Impaired glucose tolerance Subacromial bursitis of left shoulder joint Obesity GERD (gastroesophageal reflux disease) Hypercholesterolemia Hypertension Surgical History History of bladder surgery History of endometrial ablation Hx of colonoscopy Hx of breast biopsy Status post excision of lipoma (~01/03/23) Hx of cholecystectomy Family History Father CKD (chronic kidney disease) Hypertension Myocardial infarct Mother Dementia Sister Brain aneurysm Bone cancer Schizophrenia Brother No problems noted. Brother Myocardial infarct Son No problems noted. 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 will cover while recovering) Do you presently have visiting nurse or other home services: No Alcohol intake: current Alcohol intake frequency: holidays/special occasions only Alcohol type: hard liquor Comment: Q 3 to 6 months 1 drinks Patient Tobacco Use Status: Never used Tobacco e-Cigarette/Vaping Use: Never Used Second Hand Smoke Exposure: No Advance Directives Date on File: 07/09/23 service: No Current occupational status: employed 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 1. Little interest or pleasure in doing things: not at all 2. Feeling down, depressed, or hopeless: not at all 3. Trouble falling or staying asleep, or sleeping too much: not at all 4. Feeling tired or having little energy: not at all 5. Poor appetite or overeating: not at all 6. Feeling bad about yourself - or that you are a failure or have let yourself or your family down: not at all 7. Trouble concentrating on things, such as reading the newspaper or watching television: not at all 8. Moving or speaking so slowly that other people could have noticed. Or the opposite - being so fidgety or restless that you have been moving around a lot more than usual: not at all 9. Thoughts that you would be better off or of hurting yourself in some way: not at all Total score: 0 Source: Developed by Drs. Ray Franco, Sharron Arias, David Gonzalez and colleagues, with an educational ronald from [employer]. Thrive Questionnaire Date Thrive assessed: 02/17/25 I am a: Patient What is your living situation today?: I have a steady place to live Within the past 12 months, did the food you bought not last and you didn't have the money to get more?: Never true Within the past 12 months, did you worry whether your food would run out before you got money to buy more?: Never true Do you have trouble paying for medicines?: No Do you have trouble getting transportation to medical appointments?: No Do you have trouble paying your heating and electricity bill?: No Do you have trouble taking care of your child, family member or friend?: No Do you have trouble with day-to-day activities such as bathing, preparing meals, shopping, managing finances, etc.?: No Are you currently unemployed and looking for a job?: No Are you interested in more education?: No Please select the resources that you would like help with: None Currently or been in a relationship where the following occur: No concerns reported THRIVE Score: 0 AUDIT C Alcohol Use Questionnaire (AUDIT-C) 1. How often do you have a drink containing alcohol?: Monthly or less 2. How many drinks containing alcohol do you have on a typical day when you are drinking?: 1 or 2 3. How often do you have six or more drinks on one occasion?: Never Total Score: 1 FRANCISCO-7 AMB Questionnaire FRANCISCO-7 Date FRANCISCO - 7 assessed: 02/23/25 Feeling nervous, anxious, or on edge: 0 = Not at all Not being able to stop or control worryin = Not at all Worrying too much about different things: 0 = Not at all Trouble relaxin = Not at all Being so restless that it is hard to sit still: 0 = Not at all Becoming easily annoyed or irritable: 0 = Not at all Feeling afraid as if something awful might happen: 0 = Not at all Total FRANCISCO-7 score (0-4 normal; 5-9 mild; 10-14 moderate; 15-21 severe): 0 Source: Developed by Drs. Ray Franco, Sharron Arias, David Gonzalez and colleagues, with an educational ronald from [employer]. Review of Systems Const Denies poor appetite and Denies weakness Eyes Denies no additional complaints ENT Reports Normal hearing present, Denies dizziness, Denies nasal congestion, Denies tinnitus and Denies sore throat Card Denies chest pain, Denies syncope, Denies rapid heart rate and Denies dyspnea Resp Denies cough and Denies dyspnea GI Denies change in stool character, Reports constipation, Denies diarrhea, Denies nausea and Denies vomiting Denies urinary frequency, Denies difficulty voiding and Denies dysuria Neuro Reports Normal hearing present, Denies confusion, Denies dizziness, Denies syncope and Denies weakness Psych Denies confusion Physical exam (Primary Care) Vital Signs: Last Vital Signs Temp 97.3 F 04/24/25 15:10 Pulse 74 04/24/25 15:10 BP 130/82 04/24/25 15:10 Pulse Ox 96 04/24/25 15:10 Oxygen Delivery Method Room Air 04/24/25 15:10 BMI result Body Mass Index 38.2 Tobacco/Smoking Status: Tobacco use Status Tobacco use date assessed 04/24/25 04/24/25 15:15 Patient Tobacco Use Status Never used Tobacco 04/24/25 15:15 Tobacco use type 08/18/24 13:35 e-Cigarette/Vaping Use Never Used 04/24/25 15:15 PHQ-9: PHQ-9 Score PHQ-9: Total score 0 04/24/25 15:15 Thrive Assessment: Date of Thrive Assessment Date Thrive assessed 02/17/25 04/24/25 15:15 Currently or been in a relationship where the following occur: No concerns reported Const General: alert; No acute distress or confusion Orientation/consciousness: No confusion Eyes Conjunctivae: conjunctivae normal Resp Auscultation: clear to auscultation bilaterally Cardio Rate: regular rate Rhythm: regular rhythm GI Inspection: Yes normal to inspection Neuro General: No confusion Cranial nerves: Yes Normal hearing present Extrem General: Yes normal to inspection and No edema Coding Level of Care Code Est Pt Level 4 (26916) Complex EM visit Add On G2211 Diagnoses Preop exam for internal medicine Z01.818 Primary hypertension I10 Hypertension type: primary hypertension Hypercholesterolemia E78.00 Impaired glucose tolerance R73.02 Gastroesophageal reflux disease without esophagitis K21.9 Esophagitis presence: without esophagitis Degeneration of intervertebral disc of lumbar region with discogenic back pain M51.360 Disc-related pain type: discogenic back pain only Assessment & Plan Assessment & Plan (1) Preop exam for internal medicine: Comment: CATARACT surgery L May 13, 2025 and R June 01, 2025 Code(s): Z01.818 - Encounter for other preprocedural examination Category: Medical Plan: No further workup needed at this time. Patient is in the low risk category for any cardiac complication. And because of the low risk procedure no further workup needed at this time. May proceed with the contemplated procedure. Thank you very much for letting me participate in the care of this patient. Discussed with the patient the need to take the blood pressure medication carvedilol, clonidine hydralazine and spironolactone prior to the procedure. (2) Hypertension: Code(s): I10 - Essential (primary) hypertension Category: Medical Qualifiers: Hypertension type: primary hypertension Qualified Code(s): I10 - Essential (primary) hypertension Plan: Continue with blood pressure medication. Decrease salt intake and exercise patient is taking carvedilol 25 mg twice a day clonidine 0.2 mg twice a day hydralazine 50 mg twice a day losartan 100 mg once a day (3) Hypercholesterolemia: Code(s): E78.00 - Pure hypercholesterolemia, unspecified Category: Medical Plan: Avoid fried foods, chicken skin, eggs, butter margarine, pastries and meat. Be it pork or beef they have a lot of cholesterol on atorvastatin 20 mg once a day (4) Impaired glucose tolerance: Code(s): R73.02 - Impaired glucose tolerance (oral) Category: Medical Plan: Decrease the amount of carbohydrate intake, pasta, bread, rice and potatoes are all sugar and that is aside from all the sweet stuff, remember that fruits are good but they are Sweet also. (5) GERD (gastroesophageal reflux disease): Code(s): K21.9 - Gastro-esophageal reflux disease without esophagitis Category: Medical Qualifiers: Esophagitis presence: without esophagitis Qualified Code(s): K21.9 - Gastro-esophageal reflux disease without esophagitis Plan: Avoid the foods that causes that usually spicy foods, tomato products, juices, coffee, soda and foods that your sensitive to. After eating do not lie down, allow 3-4 hours before in lie down. And keep the head of bed above 30 degrees to avoid the acid from going up. (6) Lumbar degenerative disc disease: Comment: June 2023OLIF (Oblique Lateral Lumbar Interbody Fusion Dr. Feliz) Code(s): M51.36 - Other intervertebral disc degeneration, lumbar region Category: Medical Qualifiers: Disc-related pain type: discogenic back pain only Qualified Code(s): M51.360 - Other intervertebral disc degeneration, lumbar region with discogenic back pain only Plan: Keep active Plan History of Present Illness The patient is a 60-year-old female presenting for a preoperative evaluation for cataract surgery. She has a history of hypertension, managed with carvedilol, clonidine, hydralazine, and losartan. Her blood pressure is reported to be well-controlled. The patient also has hypercholesterolemia, for which she is taking atorvastatin. Her LDL cholesterol level is 105 mg/dL, which is within the target range. She has a history of gastroesophageal reflux disease (GERD) and is advised to keep active as part of her management plan. The patient has interstitial cystitis and generalized anxiety disorder, which are part of her chronic medical conditions. She was seen by endocrinology for a multinodular goiter, experiencing intermittent dysphonia, mild shortness of breath, and dysphagia. A thyroid ultrasound was recommended for further evaluation. Her last blood work showed normal blood count with microcytosis, normal platelet count, and normal renal and liver function. Hemoglobin A1c was 6.2%, indicating controlled blood sugar levels. Health Maintenance - Preoperative evaluation for cataract surgery scheduled - Blood pressure management with carvedilol, clonidine, hydralazine, and losartan - Cholesterol management with atorvastatin - Recommendation for thyroid ultrasound for multinodular goiter Social History - Alcohol consumption: Occasional, approximately every three to six months, typically one drink per occasion - Tobacco use: Denies smoking Review of Systems - Cardiovascular: Denies chest pain, dizziness, or syncope - Respiratory: Reports mild shortness of breath, denies cough or wheezing - Gastrointestinal: Reports gastroesophageal reflux disease - Neurological: Denies headaches or balance issues Physical Exam - Cardiovascular: Blood pressure is good - Respiratory: Breathing normal Results - Labs: Normal blood count with microcytosis, normal platelet count, normal renal and liver function, hemoglobin A1c 6.2%, LDL 105 mg/dL - Imaging: Recommendation for thyroid ultrasound for multinodular goiter Plan Patient was informed and verbally consented to the use of an ambient scribe for clinic note documentation during this visit. 1. Hypertension The patient is advised to continue her current antihypertensive regimen, including carvedilol, clonidine, hydralazine, and losartan, to maintain blood pressure control prior to her cataract surgery. 2. Hypercholesterolemia The patient is to continue atorvastatin 20 mg daily to manage her cholesterol levels, with her LDL currently at 105 mg/dL. 3. Gastroesophageal Reflux Disease (Gerd) The patient is advised to maintain an active lifestyle as part of her management plan for GERD. 4. Multinodular Goiter A follow-up thyroid ultrasound is recommended to evaluate the multinodular goiter, given the symptoms of intermittent dysphonia, mild shortness of breath, and dysphagia. Discussion Notes I discussed with the patient the importance of continuing her blood pressure medications, including carvedilol, clonidine, hydralazine, and losartan, prior to her cataract surgery to ensure optimal blood pressure control. We also reviewed her cholesterol management with atorvastatin and the need for a thyroid ultrasound to assess her multinodular goiter. Patient Instructions - Continue taking blood pressure medications as prescribed. - Maintain an active lifestyle to help manage GERD. - Schedule and complete the recommended thyroid ultrasound.
--- OUTSIDE RECORDS SUMMARY | 2025-04-24 15:38 | XMS_ITS | Continuity of Care Document ---
Author Organization [facility] [address] [place] [address] Phone [phone] Care Team Providers Care Microbiology Lab Assistant Name Role Phone Po, Aureliano Care Team Information Photographer Apprentice + [phone] Problems Active Problems Provider Date Impaired glucose [...] SIG Qnty Indications Ordering Provider Date Sertraline [id number] Tablets Take 1 Tablet By Mouth Every Day Po, Lorenver Valacyclovir GMO548hg Tablets Take 1 Tablet By Mouth Every Day Po, Lorenver Losartan Alqujdqfu699hz Tablets Take 1 Tablet By Mouth Every Day Po, Lorenver Aspirin Low Dpsh24wt Tablets DR Take 1 Tablet By Mouth Every Day Po, Lorenver Atorvastatin Aoonuvj59ct Tablets Take 1 Tablet By Mouth Every Day Po, Lorenver Clonidine HCL0.2mg Tablets Take 2 Tablets By Mouth Twice A Day Po, Lorenver Hydralazine GEW89qz Tablets Take 2 Tablets By Mouth Every 12 Hours For 90 Days Po, Lorenver Uwnlcgabroroho68vb Tablets Take 1 Tablet By Mouth Every Day Po, Lorenver Lymcfhzjry31tm Tablets Take 1 Tablet By Mouth Twice A Day For 90 Days Po, Lorenver Vital Signs Date Vital Result Comment 03/07/2024 2:46pm BP Systolic 140 mmHg BP Diastolic 80 mmHg Heart Rate 72 /min Height 59 inches 4'11 Weight 198.00 lb BMI (Body Mass Index) 40.0 kg/m2 Results Test Acquired Date Facility Test Result H/L Range N ote TSH Rfx on Abnormal to Free T4 03/11/2025 [facility] TSH Rfx on Abnormal to Free T4 1.090 uIU/mL 0.450-4.50 0 TSH 09/07/2023 [facility] TSH 0.59 uIU/mL (0.4-4.2) Free T4 09/07/2023 [facility] Free T4 1.15 ng/dL (0.70-1.80 ) Medical Devices Description No Information Available Encounters Type Date Location Provider Dx Diagnosis Office Visit 03/11/2025 2:30p Main Office Jimi Olivo M.D. E04.2 Nontoxic multinodular goiter Assessments Date Code Description Provider 03/11/2025 E04.2 Multinodular goiter Jimi Garza M.D. Plan of Treatment Future Appointment(s):* 03/17/2026 2:15 pm - Jimi Olivo M.D. at Main Office 03/11/2025 - Jimi Olivo M.D.* E04.2 Multinodular goiter Functional Status Description No Information Available Mental Status Description No Information Available Referrals Description No Information Available
--- OUTSIDE RECORDS SUMMARY | 2025-04-24 15:38 | XMS_ITS | Patient Health Record ---
Author Organization [facility] Address [address] [place] [address] Care Team Providers Care Cash Processor Name Role Phone YENY NORRIS M.D. Primary Care Provider Unavaila Wendi Mcclendon Unavailable [phone] Allergies Allergen (clinical drug ingredient) Drug/Non Drug [...] 8.0 PROTEIN TR GLUCOSE NEG BLOOD NEG [id number] IGP No Culture 30 Plus Reviewed date:06/03/2024 09:59:13 PM Interpretation: Performing Lab:[facility] [place], [facility] [address], [address], [place], Phone - [phone], Director - [facility] Notes/Report: Clinical Information:[id number] Dates / Results....11/30/2020 [facility] Other..............Post Menopausal No. of containers..01 ThinPrep Vial DIAGNOSIS: NEGATIVE FOR IN TRAEPITHELIAL LESION OR MALIGNANCY. Specimen adequacy: Satisfact ory for evaluation. No endocervical component is identified. Clinician provided ICD10: Z0 1.419 Performed by: Doni hooper Surface To Air Weapons Officer (ASCP) . . Note: The Pap smear [...] [address], [address], [place], Phone - [phone], Director - [facility] Notes/Report: Clinical Information:[id number] Dates / Results....11/30/2020 [facility] Other..............Post Menopausal No. [...] Risk Notes Problem Excessive and frequent menstruation (235343213) Excessive and frequent menstruation with regular cycle (N92.0) Active confirmed Problem Menopause (874733785) Menopausal and female climacteric states (N95.1) Active confirmed Problem Postmenopausal bleeding (05472029) Postmenopausal bleeding (N95.0) Active confirmed Problem Herpes simplex viral infection (98702973) Herpesviral infection, unspecified (B00.9) Active confirmed Problem Unspecified menopausal and perimenopausal disorder (N95.9) Active confirmed Problem Menopause (780499315) Menopausal and female climacteric states (N95.1) Active confirmed Vital Signs Temperature 98.4 degrees Fahrenheit 05/28/2024 Blood pressure diastolic 70 mm Hg 05/28/2024 Height 60 in 05/28/2024 Blood pressure systolic 120 mm Hg 05/28/2024 Weight 197 lbs 05/28/2024 BMI 38.47 kg/m2 05/28/2024 Encounters Encounter Location Date Provider Diagnosis [place] [address] [address] [facility] [address] [place] [address] 06/06/2024 Wendi Ahn [address] [address] 05/28/2024 Wendi Ahn Encounter for gynecological examination [...] Provider Name:Wendi justice, 06/03/2025 10:20:00 AM, [address], [address], [place], [address], Insurance Providers Payer Name Payer Address Payer Phone Subscriber Number Group Number Insured Name Patient Relationship to Insured Coverage Start Date Coverage End Date [facility] [address] [place] [address] [place] [id number] Spouse - patient is [...]
--- OUTSIDE RECORDS SUMMARY | 2025-04-24 15:39 | XMS_ITS | Data Portability ---
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 We discussed no bending no lifting no [...] 3 view 2022 023 [email or web address] [facility], [address], [place], [address], 14:52:52 XR, shoulder, 2 or more view 2022 023 [email or web address] [facility], [address], [place], [address], 17:36:55 Medication Orders methylpredn isolone 4 mg tablet 2022 023 [id number], [address], [place], [id number], 13:46:08 Patient TargetsNo targets recorded. Patient Instructions Encounter Date Encounter Id Patient Instructions Last Modified By Organization Details Last Modified Time 12/04/2022 [id number] views of the right shoulder were obtained on 12/04/2022 in the [place] office. Quality is somewhat limited by her body habitus. Glenohumeral joint space appears intact. No obvious superior migration of the humeral head, acromiohumeral interval intact. Moderate degenerative changes at the AC joint. No obvious soft tissue calcifications. No acute fracture appreciated. Type II acromion. Findings: Well-maintained joint space right shoulder. Interpreted by: Wood Tran MD Not available 12/07/2022 15:37:21 12/15/2022 [id number] X-rays AP and lateral view of the cervical spine show degenerative change and loss of lordotic curvature. No acute bony abnormality is observed. Not available 12/15/2022 13:52:14 Reason for Referral None Reported. Problems Name Problem SNOMED Code Status Onset Date Resolution Date Notes Provider Name and Address Organization Details Recorded Time Full thickness rotator cuff tear 711332506 Active 2022 Wood Tran MD [address] [facility],[address], [place], [address] , [place] [facility] 3 13:41:27 Pain radiating to neck 435817954 Active 2022 JAYCOB DAVENPORT PA-C [address], [place], [address], [place] [facility] 13:45:02 Cervical radiculopathy 27657853 Active 2022 Dania Schilling PA-C [address], [place], [address], [place] [facility] 17:35:47 Neck pain 95275488 Active 2022 Dania Schilling PA-C [address], [place], [address], [place] [facility] 3 17:35:48 Cervical spondylosis 047924777 Active 2022 Dania Schilling PA-C [address], [place], [address], [place] [facility] 3 17:35:49 Pain radiating to left arm 730973672 Active 2022 Dania Schilling PA-C [address], [place], [address], [place] [facility] 3 17:35:59 Problem Notes None recorded. Procedures Surgical History Date Name Laterality Status Provider Name and Address Organization Details Recorded Time cholecystectomy completed [place] [facility] 12/04/2022 13:19:51 Imaging Results None recorded. [...] Not available Not available Not available 12/04/2022 59939 8003 SNOMED [place] [facility], [place] - [facility], [facility] 13:17:04 3652 lisinopri l medicatio n Not available Not available Not available 12/04/2022 19852 RxNorm [place], [place] - [facility] 3 13:17:31 20256 amlodipin e medicatio n Not available Not available Not available 04/21/20252018 12686 RxNorm React ion: Other (See Comme nts), sever ity: Unkno wn;Re actio n: Palpi tatio ns, sever ity: Unkno wn Not Available [facility] 5 01:15:53 03925 erythromy kyung medicatio n Not available Not available Not available 04/21/20252018 4053 RxNorm React ion: Nause a And Vomit ing, sever ity: Unkno wn;Re actio n: Other (See Comme nts), sever ity: Unkno wn Not Available [facility] 5 01:15:54 74799 losartan medicatio n Not available Not available Not available 04/21/20252018 55468 RxNorm React ion: Other (See Comme nts), sever ity: Unkno wn Not Available [facility] 5 01:15:54 70434 pravastat in medicatio n Not available Not available Not available 04/21/20252018 89606 RxNorm React ion: Other (See Comme nts), sever ity: Unkno wn;Re actio n: Palpi tatio ns, sever ity: Unkno wn Not Available [facility] 5 01:15:54 Medications Name Sig Start Date Stop Date [...] Not Available Not Available No t Available magnesium oxide 140 mg capsule Take 400 mg by mouth. active Not Available Not Available No t Available pentosan polysulfate sodium 100 mg capsule Take 2 capsules (200 mg total) by mouth. active Not Available Not Available No t [...] Not Available Not Available No t Available valacyclovir 1 gram tablet Take 1 tablet (1,000 mg total) by mouth. 2021 active Not Available Not Available Not Avai lable meloxicam 15 mg tablet 2022 active Not Available Not Available Not Avai lable metoprolol succinate ER 100 mg tablet,extend ed release 24 hr Take 1 tablet (100 mg total) by mouth daily. 2021 active Not Available Not Available Not Avai lable sertraline 100 mg tablet TAKE 1 TABLET BY MOUTH DAILY active Not Available Not Available No t Available methylprednis olone 4 mg tablet TAKE 1 TABLET BY MOUTH THREE TIMES DAILY FOR 5 DAYS THEN TAKE 1 TABLET TWICE DAILY FOR 5 DAYS THEN TAKE 1 TABLET EVERY DAY FOR 5 DAYS active Not Available Not Available N ot Available hydralazine 25 mg tablet Take 1 tablet (25 mg total) by mouth. active Not Available Not Available No t Available valacyclovir 500 mg tablet TAKE 1 [...] Available No t Available aspirin 81 mg chewable tablet Chew 1 tablet (81 mg total) by mouth. active Not Available Not Available No t Available hydralazine 50 mg tablet TAKE 2 TABLETS BY MOUTH EVERY 12 HOURS active Not Available Not Available No t Available hydrochloroth iazide 25 mg tablet Take 1 tablet (25 mg total) by mouth. 2019 active Not Available Not Available Not Avai lable furosemide 20 mg tablet Take 1 tablet (20 mg total) by mouth. active Not Available Not Available No t Available levofloxacin 500 mg tablet TAKE 1 TABLET BY MOUTH DAILY FOR 5 DAYS 2021 active Not Available Not Available Not Avai lable albuterol sulfate HFA 90 mcg/actuation aerosol inhaler INHALE 2 PUFFS BY MOUTH EVERY 6 HOURS NEEDED FOR SHORTNESS OF BREATH OR WHEEZING active Not Available Not Available No t Available losartan 100 mg tablet TAKE 1 TABLET BY MOUTH DAILY active Not Available Not Available No t Available naproxen 500 mg tablet Take 1 tablet (500 mg total) by mouth. 2021 active Not Available Not Available Not Avai lable spironolacton e 50 mg tablet active Not Available Not Available Not Available cyclobenzapri ne 5 mg tablet Take 2 tablets (10 mg total) by mouth. 2021 active Not Available Not Available Not Avai lable nitrofurantoi n monohydrate/m acrocrystals 100 mg capsule [...] Updated DateTime 12/04/2022 149.86 cm 40.4 kg/m2 65709.47 g Maida [place] [facility] 12/04/2022 13:17:52 Date Recorded Body height Body mass index (BMI) Body weight Provider Name and Address Organization Details Last Updated DateTime 01/09/2023 149.86 cm 38.8 kg/m2 64359.74 g Coral Hughes [place] [facility] 01/09/2023 14:24:58 Social History None recorded. Functional Status Question Answer Note LastModified by Organizat ion Details LastModified Time How many times per week do you consume alcohol? Less than 1 time per week Information not available 12/04/2022 Do you use any illicit or recreational drugs? No [email or web address] Information not available 12/04/2022 Do you or have you ever used any other forms of tobacco or nicotine? No [email or web address] Information not available 12/04/2022 What is your level of alcohol consumption? Occasional [email or web address] Information not available 12/04/2022 Mental Status None recorded. Family History Relationship Description Onset Age of this Age Resolved Age Notes LastModified by Organization Details LastModified Time Mother History of hypertension [email or web address] Not available 02/2023 13:19:08 Mother Hyperlipidem ia Not available 2022 13:19:35 Father History of hypertension [email or web address] Not available 02/2023 13:19:08 Father Hyperlipidem ia [email or web address] Not available 2022 13:19:35 Sister History of hypertension [email or web address] Not available 02/2023 13:19:08 Sister Hyperlipidem ia [email or web address] Not available 2022 13:19:35 Brother History of hypertension [email or web address] Not available 02/2023 13:19:08 Brother Hyperlipidem ia [email or web address] Not available 2022 13:19:35 Medical History No medical history recorded. Gynecological HistoryNo gynecological history recorded. Obstetrics History GPAL:G 0 P 0 0 0 0 Past Encounters Encounter ID Performer Location Encounter Start Date Encounter Closed Date Diagnosis/Indication Diagnosis SNOMED-CT Code Diagnosis ICD10 Code Diagnosis IMO Codes Diagnosis Note [id number] MD SANDI Sparrowlibia [address] [facility] [address] [place] [address] 12/04/2022 12:58:30 12/04/2022 13:45:57 Full thickness rotator cuff tear 278310419 M75.121 Body mass index 40+ - severely obese 025616583 Z68.41 [id number] [facility] [address] [facility] [address] [place] [address] 12/15/2022 13:24:45 12/15/2022 13:51:07 Neck pain 54184323 M54.2 Pain radia ting to neck 367938691 M54.2 [id number] DEVIN Alvarado [address] [facility] [place] [address] 01/09/2023 13:42:37 01/09/2023 14:47:51 Cervical radiculopathy 09438911 M54.12 Neck pain 94386114 M54.2 Cervical spondylosis 387 539456 M47.812 Pain radia ting to left arm 352511505 M79.602 Health Concerns Section Related Observation LastModified by Organization Detai ls LastModified Time None Recorded Concern Status LastModified by Organization Details LastModified Time None Recorded Advance Directives Directive None Recorded Payers Insurance Date Sequence Insurance Name Policy Number Policy Rodriguez Covered Member ID Rodriguez Member ID Guarantor Name 12/18/2022 1 [facility] [id number] 1 Yonny Brantley [id number] Cathryn Brantley Notes Date Note Type Note Provider Name and Address Organization Details Recorded Time 12/04/2022 text/html ROS as noted in the HPI She reports that her right shoulder pain [...] persistent and disabling. 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 Wood Tran MD [address] [place] [address], [address], [place] [facility] 12/07/2022 15:37:34 12/15/2022 text/html This is a very pleasant 57-year-old female recently seen by Dr. Tran for right shoulder pain rotator cuff tear. Patient is here for evaluation of chronic neck pain that radiates predominantly down the left upper extremity shoulder blade however she has tingling with changing movements such as turning her neck or lifting. 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 She denies any dropping of objects. She also states she has chronic lower back pain with sciatic symptoms. She is here regarding her neck pain at today's visit. X-rays AP and lateral view of the cervical spine show degenerative change and loss of lordotic curvature. No acute bony abnormality is observed. JAYCOB DAVENPORT PA-C [address] [facility],[address], [place], [address], [place] [facility] 12/15/2022 13:52:31 01/09/2023 text/html Cathryn Brantley [...] her hand is worse when attempting to linotypist something. She denies clumsiness or difficulty with fine manipulative motions however she has perceived weakness with linotypist strength due to her pain. Dania Schilling PA-C [address], [place], [address], [place] [facility] 01/09/2023 17:36:16 OBGyn Episode No OBEpisode recorded.
--- OUTSIDE RECORDS SUMMARY | 2025-04-24 15:39 | XMS_ITS | Clinical Summary ---
Author Organization [facility] Address [address] [facility] [address] [place] [address] Phone Care Team Providers Care Dry House Worker Name Role Phone Aureliano German MD Primary Care Provider [phone] Allergies Active Allergy Reactions Criticality Noted Date [...] (two) times a day. Active Ca cit-D3-mag#11-z xrs-yvje-vyl-jimbo r (CALTRATE 600+D) 600 mg calcium- 800 [...] to see endocrine surgeon, Dr. Stone at [facility] should be who usually repeats the ultrasound himself for further evaluation and he can make a better judgment call on whether the patient requires surgery. I have informed the patient that if she does not have a surgical procedure that she can continue following at [facility] with the organizational psychologist there. If she does undergo a surgical [...] 08/27/2019 08/27/2018 Adult Td,Tdap Booster 05/05/2020 05/05/2010 INFLUENZA VACCINE (#1) 2025 0, 04/16/2020, 06/16/2019, Additional history exists COVID-19 VACCINE ( season) 2025 09/20/2020, 08/30/2020 ZOSTER VACCINES Completed 06/21/2020, 05/31, [...] topic Medical Devices Not on file Insurance HMO O O O O O O O O Care Teams Dry House Worker Relationship Specialty Start Date End Date Aureliano German MD [address] [place] [address] Drive [address] [place] [id number] PCP - General Internal Medicine 10/24/21 Additional Source Comments The information contained in this document represents components of the legal health record. It is not the complete legal health record.[facility]
--- OUTSIDE RECORDS SUMMARY | 2025-04-24 15:39 | XMS_ITS | Clinical Summary ---
Author Organization [facility], Address [address] [place] [address] [place] [address] Phone Care Team Providers Care Pain Management Nurse Practitioner Name Role Phone uAreliano German MD Primary Care Provider [phone] Allergies Active Allergy Reactions Criticality Noted Date [...] Blood Pressure Monitoring (Blood Pressure Monitor/L Cuff) [facility] Use blood pressure cuff twice daily to [...] to see endocrine surgeon, Dr. Stone at [facility] should be who usually repeats the ultrasound himself for further evaluation and he can make a better judgment call on whether the patient requires surgery. I have informed the patient that if she does not have a surgical procedure that she can continue following at [facility] with the law instructor there. If she does undergo a surgical [...] 49 Years) Discontinued 08/27/2018 Insurance Care Teams Pain Management Nurse Practitioner Relationship Specialty Start Date End Date Aureliano German MD [facility] [place] [phone] [place] PCP - General Internal Medicine 08/11/22
== END 2025-04-24 15:38 | disposition home or self-care (01) ==
LOC: HO.HMCH 14:56
PROVIDERS: PCP Internal Medicine; Visit Provider Internal Medicine
DX: Z01.818 Encounter for other preprocedural examination (principal); I10 Essential (primary) hypertension; E78.00 Pure hypercholesterolemia, unspecified; R73.02 Impaired glucose tolerance (oral); K21.9 Gastro-esophageal reflux disease without esophagitis; M51.360 Other intervertebral disc degeneration, lumbar region with discogenic back pain only